=== PATIENT | female | born 1945 | race Caucasian/White ===

== ENCOUNTER 2021-01-20 00:55 | Observation (INO) | payer MEDICARE, OTHER, SELFPAY ==
[2021-01-20] VITALS (15 sets, daily range): BP systolic 102–195; BP diastolic 67–99; PULSE 80–97; RESP 16–18; TEMP 36.5–37.8; O2SAT 93–96; BMI 22.8
--- NOTE | 2021-01-20 01:02 | DI.RAD.S_ITS ---
PROCEDURE: XR HIP W PEL IF DONE RT 2V INDICATIONS: fall pain TECHNIQUE: AP pelvis with lateral view(s) of the right hip(s). COMPARISON: None. FINDINGS: Bones: Age indeterminate right pubic ramus fracture. No other fractures or dislocations identified. Moderate bilateral hip degenerative change. Pelvic ring appears intact. No suspicious bony lesions. Soft tissues: The visualized bowel gas pattern is normal. No suspicious soft tissue calcifications. IMPRESSION: Age indeterminate right pubic ramus fracture. Moderate bilateral hip degenerative change. If clinical suspicion and/or symptoms persist, further assessment with repeat plain films, or advanced imaging (e.g., CT, MRI, or bone scan) may be helpful for further assessment. Dictated by: John Pan M.D. on 01/20/2021 at 1:16 Approved by: John Pan M.D. on 01/20/2021 at 1:18
--- NOTE | 2021-01-20 01:32 | DI.CT.S_ITS ---
PROCEDURE: CT PEL WO CON INDICATIONS: right hip pain, pubic rami fracture TECHNIQUE: Noncontrast 3 mm axial sections acquired through the bony pelvis, with coronal and sagittal reformatting. COMPARISON: [facility], CR, XR HIP W PEL IF DONE RT 2V, 01/20/2021, 1:04. FINDINGS: Image quality: Excellent. Bones: Right symphysis pubis fracture. No other fractures or dislocations identified. No right hip fracture. Moderate bilateral hip degenerative arthritis. Lower lumbar fusion. Soft tissues: Uterus is surgically absent. Bilateral fat containing inguinal hernias. No soft tissue hematomas. IMPRESSION: 1. Acute right symphysis pubis fracture. 2. No fracture of the right hip. Dictated by: John Pan M.D. on 01/20/2021 at 1:49 Approved by: John Pan M.D. on 01/20/2021 at 1:51
[2021-01-20] MEDS: MORPHINE 4 MG/ML INJ SUBCUT (01:52)
--- NOTE | 2021-01-20 01:53 | ED_ITS ---
HPI - Fall General Chief Complaint: Fall Stated Complaint: GLF Time Seen by Provider: 01/20/21 01:02 Source: patient and EMS Mode of arrival: EMS History of Present Illness HPI Narrative: Patient is a 75-year-old female history of multiple sclerosis presenting today after ground level fall. Says she was up in the bathroom getting something out from under the sink when she fell onto her right side. She did not hit her head or lose consciousness. She is unable to stand up. She is not on any antiplatelet or anticoagulation medication. No numbness tingling or weakness. Related Data Allergies Allergy/AdvReac Type Severity Reaction Status Date / Time No Known Drug Allergies Allergy Verified 01/20/21 01:02 Review of Systems Review of Systems Narrative: GENERAL: Denies chills,fever HEENT: Denies throat pain RESPIRATORY: Denies dyspnea, cough, wheezing CARDIOVASCULAR: Denies chest pain, palpitations GASTROINTESTINAL: Denies nausea, vomiting MUSCULOSKELETAL: Denies extremity pain, injury SKIN: No rash, no laceration, no pruritus NEUROLOGIC: Denies weakness, dizziness, headache, numbness 8 point review of systems is negative except for those stated above and HPI Patient History Social History Smoking Status: Never smoker Smoking Status: Never smoker alcohol intake frequency: holidays/special occasions only Substance Use Type: does not use Exam Initial Vital Signs Initial Vital Signs: Vital Signs Blood Pressure 195/99 H 01/20/21 00:54 GENERAL: Alert well-appearing 75 year female HEENT: Head atraumatic,EOMI, pupils reactive, face symmetric, [moist] mucous membranes CARDIOVASCULAR: Regular rate and rhythm without murmurs, rubs or gallops. RESPIRATORY: Breath sounds equal bilaterally, no wheezes rales or rhonchi. EXTREMITIES: Normal range of motion, no clubbing or edema. Neurovascularly intact Pelvis is stable, pain right hip. Both knees are bad and no obvious shortening of right leg distal pedal pulses intact. She does have prior injury to her right knee small abrasion minimal erythema flexion extension of knee within normal limits. NEUROLOGICAL: Alert and oriented x4. SKIN: Warm, dry, no laceration, no petechiae, no rashes or lesions. Course Orders Ordered: ED Orders 01/20/21 01:02 XR hip w pel if done RT 2V Stat 01/20/21 01:32 CT pelvis wo con Stat 01/20/21 03:35 CBC Auto Diff [Complete Blood Count AUTO DIFF] Stat CMP [Comprehensive Metabolic Panel] Stat Acetaminophen (Acetaminophen 325 Mg Tablet) 650 mg PO Q6HR PRN PRN Reason: Fever/Mild Pain (1-3) Bisacodyl (Bisacodyl 10 Mg Supp) 10 mg VT DAILY PRN PRN Reason: Constipation Docusate Sodium (Docusate 100 Mg Capsule) 100 mg PO BID [facility] Enoxaparin Sodium (Enoxaparin 40 Mg/0.4 Ml Syringe) 40 mg SUBCUT DAILY FREYA Gabapentin (Gabapentin 600 Mg Tablet) 600 mg PO TID FREYA Hydromorphone HCl (Hydromorphone 0.5 Mg Inj) 0.5 mg IV Q6H PRN PRN Reason: Pain, Moderate (4-6) Ketorolac Tromethamine (Ketorolac 30 Mg/Ml Vial) 30 mg IV Q6HR PRN PRN Reason: Pain, Severe (7-10) Stop: 01/25/21 03:48 Naloxone HCl (Naloxone 0.4 Mg/Ml Vial) 0.2 mg IV Q2MIN PRN PRN Reason: Opiate Reversal Ondansetron HCl (Ondansetron 4 Mg/2 Ml Inj) 4 mg IV Q8HR PRN PRN Reason: Nausea And Vomiting Oxycodone HCl (Oxycodone Ir 5 Mg Tablet) 5 mg PO Q6HR PRN PRN Reason: Pain, Moderate (4-6) Discontinued Medications Morphine Sulfate (Morphine 2 Mg/Ml Inj) 2 mg IV NOW ONE Stop: 01/20/21 01:03 Last Admin: 01/20/21 01:43 Dose: Not Given Documented by: KARINA Morphine Sulfate (Morphine 4 Mg/Ml Inj) 4 mg SUBCUT NOW ONE Stop: 01/20/21 01:33 Last Admin: 01/20/21 01:52 Dose: 4 mg Documented by: KARINA Vital Signs Vital signs: Vital Signs - 8 hr 01/20/21 00:54 01/20/21 00:55 01/20/21 00:57 Temperature 98 F Pulse Rate 91 H 90 Respiratory Rate 18 Blood Pressure 195/99 H 195/99 H Pulse Oximetry 95 95 01/20/21 01:00 01/20/21 01:30 01/20/21 01:50 Temperature Pulse Rate 89 90 86 Respiratory Rate Blood Pressure 142/86 H Pulse Oximetry 95 94 93 01/20/21 03:10 Temperature Pulse Rate 80 Respiratory Rate 16 Blood Pressure 140/80 Pulse Oximetry 95 MDM - Fall Lab Data Result diagrams: 01/20/21 03:35 01/20/21 03:[address] scan - abdomen/pelvis: Radiologist's Impression: PROCEDURE:? CT PEL WO CON ? INDICATIONS:? right hip pain, pubic rami fracture ? TECHNIQUE:? Noncontrast 3 mm axial sections acquired through the bony pelvis, with coronal and sagittal reformatting.? ? COMPARISON:? [facility], , XR HIP W PEL IF DONE RT 2V, 01/20/2021, 1:04. ? FINDINGS:? Image quality:? Excellent.? ? Bones:? Right symphysis pubis fracture.? No other fractures or dislocations identified.? No right hip fracture.? Moderate bilateral hip degenerative arthritis.? Lower lumbar fusion. ? Soft tissues:? Uterus is surgically absent.? Bilateral fat containing inguinal hernias.? No soft tissue hematomas. ? ? IMPRESSION:? ? 1. Acute right symphysis pubis fracture. ? 2. No fracture of the right hip.? Dictated by: John Pan M.D. on 01/20/2021 at 1:49 ? ? Approved by: John Pan M.D. on 01/20/2021 at 1:51 ? Extremity x-ray #1: Radiologist's Impression: PROCEDURE:? XR HIP W PEL IF DONE RT 2V ? INDICATIONS:? fall pain ? TECHNIQUE:? AP pelvis with lateral view(s) of the right hip(s).? ? COMPARISON:? None. ? FINDINGS:? ? Bones:? Age indeterminate right pubic ramus fracture.? No other fractures or dislocations identified.? Moderate bilateral hip degenerative change.? Pelvic ring appears intact.? No suspicious bony lesions.? ? Soft tissues:? The visualized bowel gas pattern is normal.? No suspicious soft tissue calcifications.? ? ? IMPRESSION:? Age indeterminate right pubic ramus fracture.? Moderate bilateral hip degenerative change.? ? If clinical suspicion and/or symptoms persist, further assessment with repeat p nanette films, or advanced imaging (e.g., CT, MRI, or bone scan) may be helpful for further assessment. ? Dictated by: John Pan M.D. on 01/20/2021 at 1:16 ? ? MDM Narrative Medical decision making narrative: Patient is found to have an acute pubic rami fracture both on CT and x-ray. Ambulation trial with a walker attempted after subcutaneous morphine. She only made it a few steps and was unable to bear any more weight. She lives alone unsafe discharge. She was quite difficult IV start. [facility] updated on patient's symptoms test results agrees with weight-bearing as tolerated and pain control. Hospitalist , updated on patient's symptoms and test results have Montes except agrees no need for IV but would like blood work Discharge Plan Departure Patient Disposition: Admitted as Observation Clinical Impression: Closed fracture of pubic ramus Admit Date/Time: 01/20/21 03:27 Admit Provider: Sahil Fagan
[2021-01-20 03:57] LABS: Add Manual Diff / Slide Review NO; Basophils Absolute Auto 100 /uL (0-100); Basophils Percent Auto 0.4 % (0-2); Eosinophils Absolute Auto 0 /uL (0-450); Hematocrit 34.4 % (36-46); Hemoglobin 11.4 g/dL (12.0-16.0); Lymphocytes Absolute Auto 700 /uL (1100-4500); Mean Corpuscular Hemoglobin 29.6 PG (26-34); Mean Corpuscular Volume 89.6 fL (80-100); Monocytes Absolute Auto 800 /uL (0-900); Monocytes Percent Auto 5.4 % (3-14); Neutrophils Absolute Auto 13200 /uL (1500-7000); Neutrophils Percent Auto 89.2 % (50-75); Platelet Count 231 X10^3/uL (150-400); Red Blood Cell Count 3.84 X10^6/uL (4.0-5.2); Red Cell Distribution Width 14.2 % (11.6-14.8); White Blood Cell Count 14.8 X10^3/uL (4.5-11.0)
[2021-01-20 04:00] LABS: Alanine Aminotransferase 20 IU/L (<35); Albumin Globulin Ratio 1.5 (1.0-2.8); Alkaline Phosphatase 72 U/L (38-126); Aspartate Aminotransferase 32 IU/L (14-36); BUN Creatinine Ratio 26.2 (6-22); Bilirubin Total 0.7 mg/dL (0.2-1.3); Blood Urea Nitrogen 16 mg/dL (7-17); Calcium 8.6 mg/dL (8.4-10.2); Carbon Dioxide 24 mmol/L (22-32); Chloride 100 mmol/L (98-107); Estimated Glomerular Filt Rate > 60.0 mL/min (>60); Globulin 2.7 g/dL (1.7-4.1); Glucose 133 mg/dL (80-110); HEMOLYSIS < 15 (0-50); Potassium 3.2 mmol/L (3.4-5.1); Sodium 133 mmol/L (137-145); Total Protein 6.7 g/dL (6.3-8.2)
--- NOTE | 2021-01-20 04:00 | PM.HP.1 ---
History of Present Illness History of Present Illness Date Patient Seen: 01/20/21 Time Patient Seen: 03:30 Chief complaint: GLF Narrative: Ms. Disla is a 75W with PMH multiple sclerosis and HTN who presents after a fall. She states at baseline she has difficulty with turning. Tonight around 11pm she was in bathroom and turning and lost her balance and fell on her right side. She had right sided low back pain/hip pain. She was unable to walk. She had no dizziness, lightheadedness, chest pain, shortness of breath. No head strike, no loss of consciousness. In the ED workup was done, vitals notable for elevated blood pressure. Labs notable for WBC of 14.8, hgb 11.4, Na 133, creatinine 0.61. Pelvic CT shows acute right pubic symphysis fracture. She was given pain medications. Ambulation was attempted in ED, but she could not ambulate secondary to pain. She was admitted for further treatment. Family history: multiple siblings with atrial fibrillation Medications: naltrexone, amlodipine 5mg daily, gabapentin 600mg TID Patient History Family & Social History Safety & Behavioral: Feels Safe in Current Yes Environment Tobacco & Substance use: Smoking Status Never smoker alcohol intake frequency holiday/special occasion Substance Use Type does not use Meds Home Medications and Allergies Allergies Allergy/AdvReac Type Severity Reaction Status Date / Time No Known Drug Allergies Allergy Verified 01/20/21 01:02 Review of Systems Review of Systems Narrative: 14 systems reviewed and negative aside from what is noted in HPI Exam Vital Signs (past 8 hours): - 01/20/21 00:54 01/20/21 00:55 01/20/21 00:57 Temperature 98 F Pulse Rate 91 H 90 Respiratory Rate 18 Blood Pressure 195/99 H 195/99 H Pulse Oximetry 95 95 01/20/21 01:00 01/20/21 01:30 01/20/21 01:50 Temperature Pulse Rate 89 90 86 Respiratory Rate Blood Pressure 142/86 H Pulse Oximetry 95 94 93 01/20/21 03:10 Temperature Pulse Rate 80 Respiratory Rate 16 Blood Pressure 140/80 Pulse Oximetry 95 Oxygen Delivery Method Room Air Narrative Exam Narrative: GEN: no acute distress HEENT: moist mucous membranes, PERRL NECK: trachea midline, no JVD CV: regular rate and rhythm, no murmurs PULM: clear bilaterally ABD: soft, nontender, nondistended, no organomegaly EXT: warm and well perfused with no edema NEURO: awake, alert, oriented, no focal deficits PSYCH: pleasant, cooperative Objective Labs Result Diagrams: 01/20/21 03:35 01/20/21 03:35 Labs: Laboratory Results - last 24 hr 01/20/21 03:35 WBC 14.8 H RBC 3.84 L Hgb 11.4 L Hct 34.4 L MCV 89.6 MCH 29.6 MCHC 33.0 RDW 14.2 Plt Count 231 Neut % (Auto) 89.2 H Lymph % (Auto) 5.0 L [place] % (Auto) 5.4 Eos % (Auto) 0.0 L Baso % (Auto) 0.4 Neut # (Auto) 20768 H Lymph # (Auto) 700 L [place] # (Auto) 800 Eos # (Auto) 0 Baso # (Auto) 100 Assessment & Plan Assessment & Plan narrative: Ms. Disla is a 75W with PMH multiple sclerosis, HTN who presents after a fall found to have a pelvic fracture. 1. Acute pelvic fracture -per orthopedic surgery no surgical intervention needed, recommend pain control and weight bearing as tolerated -ordered for PRN tylenol, oxycodone, dilaudid -ordered for bowel regimen -ordered for PT/OT -continue gabapentin 2. Multiple sclerosis, chronic -patient on naltrexone, can continue 3. Hypertension, chronic -continue amlodipine 4. Leukocytosis -possibly reactive -continue to monitor, no infectious symptoms currently 5. Mild hyponatremia, mild hypokalemia -replete PRN 6. Anemia, mild -trend daily -no need for transfusion CODE: Full Proxy: Brinda Bonilla, Daughter I have utilized all available immediate resources to obtain, update, or review of the patient's current medications Time Spent With Patient Critical Care time: I spent a total of [] minutes of critical care time on this patient's care today; this time is exclusive of procedural time. Quality MIPS - Admit I confirm the patient?s Advance Care Plan is present, Code status is documented, Surrogate decision maker is in patient?s record [If Yes, STOP here]: Yes
[2021-01-20 05:08] LABS: COVID19 - ADMIT (NP swab/PCR) Negative (Negative)
--- NOTE | 2021-01-20 05:21 | PC.NURSE ---
Pt to room 209 via stretcher-transferred into bed via slider board. Pt incontinent of urine (chronic) -brief changed and barrier cream applied. Pt oriented to room, call light, bed controls, and tv controls. Bed alarm on for safety. Warm blankets for comfort. Pt denies needs at this time and agrees to call for assistance as needed and to not get out of bed without staff assistance.
[2021-01-20] MEDS: FLUoxetine 20 MG CAPSULE PO ×3 (08:12→21:22)
[2021-01-20] MEDS: AMLODIPINE 5 MG TABLET 2.5 MG PO (08:12)
[2021-01-20] MEDS: ACETAMINOPHEN 325 MG TABLET 650 MG PO ×3 (08:12→21:22)
[2021-01-20] MEDS: DOCUSATE 100 MG CAPSULE PO ×2 (08:12→21:22)
[2021-01-20] MEDS: POTASSIUM CHLORIDE 20 MEQ TAB 40 MEQ PO ×2 (08:12→14:25)
[2021-01-20] MEDS: GABAPENTIN 600 MG TABLET PO ×3 (08:12→21:22)
[2021-01-20] MEDS: ENOXAPARIN 40 MG/0.4 ML SYRINGE SUBCUT (08:13)
[2021-01-20] MEDS: ONDANSETRON 4 MG ODT SL (08:28)
--- NOTE | 2021-01-20 10:41 | DI.RAD.S_ITS ---
PROCEDURE: XR KNEE RT 3V INDICATIONS: Swelling bruising TECHNIQUE: 3 views of the knee were acquired. COMPARISON: [facility], CR, XR HIP W PEL IF DONE RT 2V, 01/20/2021, 1:04. [facility], CT, CT PEL WO CON, 01/20/2021, 1:41. FINDINGS: Bones: No fractures or dislocations. No suspicious bony lesions. Age-appropriate bony degenerative changes are seen. Soft tissues: Mild soft tissue swelling is seen anteriorly. No joint effusion. No suspicious soft tissue calcifications. IMPRESSION: Anterior soft tissue swelling, without an acute abnormality seen by plain film. Dictated by: Kenny Hartman M.D. on 01/20/2021 at 11:23 Approved by: Kenny Hartman M.D. on 01/20/2021 at 11:24
--- NOTE | 2021-01-20 10:41 | P.CONS_ITS ---
History of Present Illness Consult details Date Patient Seen: 01/20/21 Time Patient Seen: 10:42 Chief complaint: GLF Reason for consult: Pubic rami fracture, right Requesting provider: Clara Mark Narrative: The patient is a 75-year-old female that sustained a ground level fall last night as she was getting up to the restroom. Endorsed immediate pain posteriorly around her right hip and pelvis. She was brought [facility] ER x-rays were taken and demonstrated a superior pubic rami fracture on the right side. No other fractures were identified. She failed attempts for mobilization in the ER and was admitted to the hospital for therapy and possible placement. Also complains of knee pain. States normally ambulates with a cane or a walker Meds Home Medications and Allergies Home Medications Medication Instructions Recorded Confirmed Type amlodipine 2.5 mg tablet 2.5 mg PO DAILY 01/20/21 01/20/21 History fluoxetine 20 mg capsule 20 mg PO TID 01/20/21 01/20/21 History gabapentin 600 mg tablet 600 mg PO TID 01/20/21 01/20/21 History naltrexone 3.5 mg PO BEDTIME 01/20/21 01/20/21 History ondansetron 4 mg disintegrating 4 mg PO PRN PRN 01/20/21 01/20/21 History tablet temazepam 15 mg capsule 15 mg PO PRN PRN 01/20/21 01/20/21 History Allergies Allergy/AdvReac Type Severity Reaction Status Date / Time No Known Drug Allergies Allergy Verified 01/20/21 01:02 Review of Systems Review of Systems Narrative: No fevers chills nausea vomiting no known history of osteoporosis or prior insufficiency fractures. Endorses right hip and right knee pain Exam Vital Signs (past 8 hours): - 01/20/21 03:10 01/20/21 04:10 01/20/21 04:33 Temperature 100.1 F H Pulse Rate 80 85 Respiratory Rate 16 16 Blood Pressure 140/80 154/72 H Pulse Oximetry 95 96 96 01/20/21 07:55 Temperature 98.9 F Pulse Rate 97 H Respiratory Rate 18 Blood Pressure 132/78 Pulse Oximetry 96 Oxygen Delivery Method Room Air Oxygen Flow Rate 0 Narrative Exam Narrative: Alert oriented female no acute distress lying in bed. Moves bilateral upper extremities without limitation. HEENT normocephalic atraumatic. Lungs clear to auscultation bilaterally. Heart regular rate. Abdomen is soft. Endorses tenderness to palpation posteriorly around the right hip. Pelvis stable to rock. Thigh is soft. There is a swelling anteriorly at the right knee with ecchymosis and a small anterior abrasion with a Band-Aid. Calf is soft. Demonstrates dorsiflexion plantar flexion. Palpable dorsalis pedis pulse Objective Imaging CT abdomen pelvis: My impression: Acute right superior pubic rami fracture Radiologist's impression: Acute right superior pubic rami fracture Labs Result Diagrams: 01/20/21 03:35 01/20/21 03:35 Labs: Laboratory Results - last 24 hr 01/20/21 01/20/21 01/20/21 03:35 03:35 03:45 WBC 14.8 H RBC 3.84 L Hgb 11.4 L Hct 34.4 L MCV 89.6 MCH 29.6 MCHC 33.0 RDW 14.2 Plt Count 231 Neut % (Auto) 89.2 H Lymph % (Auto) 5.0 L [place] % (Auto) 5.4 Eos % (Auto) 0.0 L Baso % (Auto) 0.4 Neut # (Auto) 57810 H Lymph # (Auto) 700 L [place] # (Auto) 800 Eos # (Auto) 0 Baso # (Auto) 100 Sodium 133 L Potassium 3.2 L Chloride 100 Carbon Dioxide 24 BUN 16 Creatinine 0.61 Estimated GFR > 60.0 BUN/Creatinine Ratio 26.2 H Glucose 133 H Calcium 8.6 Total Bilirubin 0.7 AST 32 ALT 20 Alkaline Phosphatase 72 Total Protein 6.7 Albumin 4.0 Globulin 2.7 Albumin/Globulin Ratio 1.5 SARS-CoV-2 (PCR) Negative [facility] Medical History (Updated 01/20/21 @ 05:15 by Kasey Wilkinson RN) Cataract Depression Hammertoes of both feet Hypertension Multiple sclerosis (~1975) Oral pain Surgical History (Updated 01/20/21 @ 05:14 by Kasey Wilkinson RN) History of shoulder surgery Previous back surgery Status post laser cataract surgery of both eyes Social History household members: none Tobacco & Substance Use Smoking Status: Never smoker Assessment & Plan Assessment and plan (1) Closed fracture of pubic ramus: Status: Acute Plan The patient has a right superior ramus fracture this is a non operative fracture. Weightbear as tolerated with assistive devices. Patient also has pain swelling and ecchymosis at her knee. This was not imaged in the ER. She requires knee x-rays. These have been ordered. Assessment & Plan narrative: Weightbear as tolerated as far as the pubic rami fracture is considered. Will need to follow up on ordered imaging of the knee to assess for any significant injury COVID-19 COVID-19 status: Negative Time Spent With Patient Time with patient: less than 30 minutes Critical Care time: I spent a total of [] minutes of critical care time on this patient's care today; this time is exclusive of procedural time.
--- NOTE | 2021-01-20 13:54 | PT.IIE ---
Current Diagnoses Other specified fracture of unspecified pubis, initial encounter for closed fracture (01/20/21) Medical History (Last Updated 01/20/21 @ 05:15 by Kasey Wilkinson RN) Cataract Depression Hammertoes of both feet Hypertension Multiple sclerosis (~1975) Oral pain Physical Therapy Inpatient Evaluation/Re-Eval M1 PT/OT-IP Prior Functional Status Start: 01/20/21 08:27 Freq: Status: Active Protocol: Document 01/20/21 12:35 MB (Rec: 01/20/21 13:50 MB [id number]) Medical Review Prior Functional Status Medical History Reviewed Yes Diet/Fluid Consistency Regular Communication WNLs Mobility and Gait Mod I with rollator, history of falls and fractures, at least three in five years and one this year Activities of Daily Living and IADL's Mod I, uses rollator to carry purse and other objects Prior Functional Level (Other details) Pt lives in Living at [facility] Social History Household Members none Living Arrangements Residential Facility Number of Floors (Floors) One Floor Number of Stairs To Enter/Railing? 0 Home Environment Walk in Shower,Built-In Shower Seat,Ramp,Elevator Home Equipment Four Wheel Walker,Hand Held Shower,Grab Bars Near Toilet, Grab Bars In Shower Employment Status Retired M2 PT-IP Current Condition Start: 01/20/21 08:27 Freq: Status: Active Protocol: Document 01/20/21 12:35 MB (Rec: 01/20/21 13:50 MB [id number]) Physical Therapy Current Condition Current Condition Evaluation Date 01/20/21 Treatment Diagnosis Decreased gait and mobility after right pubic ramus fracture Onset Date 01/19/21 M3 PT-IP Subjective Start: 01/20/21 08:27 Freq: Status: Active Protocol: Document 01/20/21 12:35 MB (Rec: 01/20/21 13:50 MB [id number]) Subjective Physical Therapy Visit Type Type Initial Evaluation Visit Start Time 12:35 Visit Stop Time 13:17 Total Visit Minutes 42 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 Therapy Pain Assessment Pain When Pain Assessed During Mobility Pain Present Pain Present Pain Reported Location Right Hip Intensity 8 Scale Used Numeric (0 - 10) Description Acute Pain Behaviors Calling Out,Facial Grimacing, Guarding,Holding Area Pain Management Techniques Modification of Treatment,Re- positioning M4 PT-IP Mobility and Gait Start: 01/20/21 08:27 Freq: Status: Active Protocol: Document 01/20/21 12:35 MB (Rec: 01/20/21 13:50 MB [id number]) PT-Bed Mobility Assessment Rolling Type of Rolling Roll to Right Level of Assist Maximal Assistance,1 Person Assistance Supine to Sit Supine to Sit Maximum Assistance,1 Person Assistance,Head of Bed Elevated,Bedrails Scooting Scooting to Edge of Bed Maximum Assistance PT-Transfer Assessment Sit to and From Stand Sit to and from Stand Moderate Assistance Equipment Transfer Assistive Device Gait Belt,Front Wheeled Walker Orthotic/Prosthetic Devices or Brace: No Transfers Transfer Destination Bedside Commode Transfer Technique Stand Step Pivot Transfer Ability Level of Assist Moderate Assistance,1 Person Assistance,Use of Upper Extremities Comments Mobility Comments Comment for pain: Pt states that she takes a medication for her MS that does not allow her to take opioids. She can only take Tylenol or a NSAID and typically takes Tylenol and cannot take anymore for 2 more hours. Mobility comments: Pt makes a good effort to try to roll to the right and scoot out to EOB but sharp right groin pain stops her. PT cues for pt to hook left foot under her right calf and she is able to scoot the right leg out to the right with this technique and heavy use of rails to help this--both hands on right rail and PT raises HOB. PT finally has to use pad to scoot pt's left hip out to EOB and to assist her to getting to sitting EOB. She has a lot of pain with this movement that settles down at rest. Adult diaper is soiled and PT assists pt to BSC with RW in front and cues to push up from the bed. She requires mod A for sit to stand and max A to help move the walker to take 3 scooting steps to the left to BSC. PT must doff adult diaper and assists pt to BSC. PT calls in [employer] who then takes over care. Gait Assessment Comments Gait Comments Pt could not tolerate picking up her left foot d/t pain with WB through right pelvis for proper stepping today PT-Balance Assessment Sitting Balance and Reactions Static Sitting Balance Ability Poor Dynamic Sitting Balance Ability Poor Standing Balance and Reactions Static Standing Balance Ability Poor Dynamic Standing Balance Ability Poor Device Used RW Comments Other Balance Tests/Deviations/Treatment Heavy UE support on bed for : sitting statically and dynamically and on RW for standing today d/t increased pain with right LE WB M5 PT-IP Objective Assessments Start: 01/20/21 08:27 Freq: Status: Active Protocol: Document 01/20/21 12:35 MB (Rec: 01/20/21 13:50 MB [id number]) Orientation Orientation/Cognition Level of Alertness Alert Orientation Name,Age,Birthday,Month,Day of Week,Place,Situation Language Function Ability No Deficits Noted Safety Awareness Decreased Safety Awareness Memory Description No Deficits Noted Comments Pt states that she knows she is at increased risk for falls given fall history and that she needs a life alert button that she can wear into the shower given history of fall in the shower when her non- waterproof life alert was off that required her to drag herself to her walker and cell phone yet she still does not have a waterproof life alert. In other words, she has had at least 3-4 bad falls in the past 5 years that caused 2 right shoulder injuries and instrumentation and one left clavicular fracture and now a right pubic ramus fracture and she has not done anything differently really. This makes her have decreased safety awareness. Gross Range of Motion Upper Extremity ROM Impairments Arm range is functional on both sides and she does have end-range shoulder flexion limitations d/t Lower Extremity ROM Impairments Right LE is edematous with rising ecchymosis over right knee cap and abrasion. Right knee x-ray is negative. Her distal extremity is edemtous and her functional range is limited. No tested ROM or MMT either leg d/t pubic ramus fracture. Pt does state that her right LE tends to be weaker from MS and she has always fallen to the right Strength Comments Strength Comments See comments under ROM. RLE is weaker functionally M6 PT-IP Treatment Start: 01/20/21 08:27 Freq: Status: Active Protocol: Document 01/20/21 12:35 MB (Rec: 01/20/21 13:50 MB [id number]) Physical Therapy Treatment Education Education Provided Weight Bearing Status,Safety M7 PT-IP Assessment and Plan Start: 01/20/21 08:27 Freq: Status: Active Protocol: Document 01/20/21 12:35 MB (Rec: 01/20/21 13:50 MB [id number]) PT Summary Assessment and Plan Potential Rehabilitation Potential Fair Status of Condition at Evaluation Evolving Summary Impairments Pain,ROM,Strength,Balance,Bed Mobility,Transfers,Gait, Activity Tolerance Assessment Summary Pt is a 75 y/o female with history of MS, multiple falls in 5 years that have caused orthopedic injuries to right shoulder x2, left shoulder x1 and now right pubic ramus fracture. Despited knowing her limitations such as that her right LE is always weaker and reporting that she knows she needs a waterproof life alert button after having had a fall in the shower and having to drag herself out to her rollator and purse and cell phone when she was in her apartment in [place], she con't to fall to the right and not have a waterproof life alert button. Pt is alert and very communicative and pleasant but the history of falls with orthopedic injuries is concerning for future falling and injury. She recently moved to [facility] from [place]. She fell when going to the right (as she has done in the past) when in the bathroom. On assessment, she requires heavy assist for bed mobility and transfer to commode. She had been incontinent of stool in adult diaper and did not know it. Overall, she currently requires heavy assist for all mobility. Recommend SNF at d/c and 24 hour assist. Treatment during evaluation includes therapeutic activity for assist for mobility to commode and initiating hygiene with max to dependent assist as well as education about need for 24 hour assist and PT at SNF level at this time and need for waterproof life alert to be worn at all times, including bathing, when she does return home. Goals Bed Mobility Goal Independent Transfer Goal Independent Gait Goal Contact Guard Assistance Gait Distance 50 Frequency of Treatment Frequency Of Treatment Once a Day Treatment Plan Physical Therapy Treatment Plan Bed Mobility Training,Transfer Training,Gait Training, Therapeutic Exercise,Balance Retraining,Discharge Planning, Hot or Cold Pack,Neuromuscular Re-ed,Coordination Retraining ,Manual Therapy Weight Bearing Status Weight Bearing Status Weight Bear as Tolerated Recommendations To Nursing Amount of Assist Needed 2 Person Assist,Total Assistance Discharge Recommendations PT Discharge Recommendations SNF Rehab Transportation Needs at Discharge Wheelchair/Cabulance
[2021-01-21] MEDS: ACETAMINOPHEN 325 MG TABLET 650 MG PO ×2 (04:54→12:34)
[2021-01-21 05:00] VITALS: BP 145/73; PULSE 85; RESP 12; TEMP 36.9; O2SAT 95
[2021-01-21 06:54] LABS: Add Manual Diff / Slide Review NO; Basophils Absolute Auto 0 /uL (0-100); Basophils Percent Auto 0.5 % (0-2); Eosinophils Absolute Auto 400 /uL (0-450); Eosinophils Percent Auto 3.7 % (2-4); Hematocrit 32.4 % (36-46); Hemoglobin 10.9 g/dL (12.0-16.0); Lymphocytes Absolute Auto 1400 /uL (1100-4500); Mean Corpuscular HGB Conc 33.7 % (30-36); Mean Corpuscular Hemoglobin 30.4 PG (26-34); Mean Corpuscular Volume 90.3 fL (80-100); Monocytes Absolute Auto 800 /uL (0-900); Monocytes Percent Auto 8.3 % (3-14); Neutrophils Absolute Auto 7100 /uL (1500-7000); Neutrophils Percent Auto 73.5 % (50-75); Platelet Count 204 X10^3/uL (150-400); Red Blood Cell Count 3.59 X10^6/uL (4.0-5.2); Red Cell Distribution Width 14.2 % (11.6-14.8); White Blood Cell Count 9.7 X10^3/uL (4.5-11.0)
[2021-01-21 07:09] LABS: Alanine Aminotransferase 60 IU/L (<35); Albumin 3.4 g/dL (3.5-5.0); Albumin Globulin Ratio 1.4 (1.0-2.8); Alkaline Phosphatase 78 U/L (38-126); Aspartate Aminotransferase 98 IU/L (14-36); BUN Creatinine Ratio 21.9 (6-22); Bilirubin Total 0.7 mg/dL (0.2-1.3); Blood Urea Nitrogen 14 mg/dL (7-17); Calcium 8.7 mg/dL (8.4-10.2); Carbon Dioxide 24 mmol/L (22-32); Chloride 102 mmol/L (98-107); Estimated Glomerular Filt Rate > 60.0 mL/min (>60); Globulin 2.5 g/dL (1.7-4.1); Glucose 103 mg/dL (80-110); HEMOLYSIS < 15 (0-50); Phosphorous 2.4 mg/dL (2.8-4.1); Potassium 4.4 mmol/L (3.4-5.1); Sodium 134 mmol/L (137-145); Total Protein 5.9 g/dL (6.3-8.2)
--- NOTE | 2021-01-21 07:42 | PM.PN.1 ---
Subjective Subjective Date Patient Seen: 01/21/21 Time Patient Seen: 07:43 Interval history: Patient is complaining of [id number] pain. She is using oral Tylenol as needed. She is up and working with physical therapy. She would like to avoid narcotic pain medications as they potentiallyinteract with her MS meds. Exam Vital Signs (past 8 hours): - 01/21/21 05:00 Temperature 98.5 F Pulse Rate 85 Respiratory Rate 12 Blood Pressure 145/73 H Pulse Oximetry 95 Oxygen Delivery Method Room Air Oxygen Flow Rate 0 Narrative Exam Narrative: Pleasant 75-year-old female, resting comfortably in bed, no acute distress. Bilateral lower extremity motor function is grossly intact, sensation is grossly intact to light touch. Bilateral calves are soft, nontender to palpation. Objective Labs Result Diagrams: 01/21/21 06:25 01/21/21 06:25 Labs: Laboratory Results - last 24 hr 01/21/21 01/21/21 06:25 06:25 WBC 9.7 RBC 3.59 L Hgb 10.9 L Hct 32.4 L MCV 90.3 MCH 30.4 MCHC 33.7 RDW 14.2 Plt Count 204 Neut % (Auto) 73.5 Lymph % (Auto) 14.0 L Bollinger % (Auto) 8.3 Eos % (Auto) 3.7 Baso % (Auto) 0.5 Neut # (Auto) 7100 H Lymph # (Auto) 1400 Bollinger # (Auto) 800 Eos # (Auto) 400 Baso # (Auto) 0 Sodium 134 L Potassium 4.4 D Chloride 102 Carbon Dioxide 24 BUN 14 Creatinine 0.64 Estimated GFR > 60.0 BUN/Creatinine Ratio 21.9 Glucose 103 Calcium 8.7 Phosphorus 2.4 L Total Bilirubin 0.7 AST 98 H ALT 60 H Alkaline Phosphatase 78 Total Protein 5.9 L Albumin 3.4 L Globulin 2.5 Albumin/Globulin Ratio 1.4 PFSH Medical History Cataract Depression Hammertoes of both feet Hypertension Multiple sclerosis (~1975) Oral pain Surgical History History of shoulder surgery Previous back surgery Status post laser cataract surgery of both eyes Social History household members: none Smoking Status: Never smoker Assessment & Plan Assessment & Plan narrative: The patient has a right superior ramus fracture this is a non operative fracture.? -mobilize with PT, Weightbear as tolerated with assistive devices. -add meloxicam for pain control. We discussed the risks benefits of using an NSAID with Lovenox. She would like to avoid narcotic pain meds because she is worried about going into an MS relapse. -patient would like to be DC back to her facility if there is nursing care available. Otherwise we will need to discuss SNF versus home DC Time Spent With Patient Critical Care time: I spent a total of [] minutes of critical care time on this patient's care today; this time is exclusive of procedural time. Quality VTE Deep Vein Thrombosis/Pulmonary Embolism Present on Admission: No
[2021-01-21] MEDS: FLUoxetine 20 MG CAPSULE PO ×2 (08:31→14:49)
[2021-01-21] MEDS: AMLODIPINE 5 MG TABLET 2.5 MG PO (08:31)
[2021-01-21] MEDS: DOCUSATE 100 MG CAPSULE PO (08:31)
[2021-01-21] MEDS: GABAPENTIN 600 MG TABLET PO ×2 (08:31→14:49)
[2021-01-21] MEDS: MELOXICAM 7.5 MG TABLET PO (08:34)
[2021-01-21] MEDS: ENOXAPARIN 40 MG/0.4 ML SYRINGE SUBCUT (08:36)
[2021-01-21 09:15] VITALS: O2SAT 95
[2021-01-21 09:57] VITALS: BP 144/77; PULSE 88; RESP 12; TEMP 37.1; O2SAT 96
[2021-01-21] MEDS: SODIUM,POTASSIUM PHOSPHATES PACKET 2 EACH PO (11:59)
--- NOTE | 2021-01-21 12:15 | OT.IP.EVAL ---
Current Diagnoses Other specified fracture of unspecified pubis, initial encounter for closed fracture (01/20/21) Past Medical History (Last Reviewed 01/21/21 @ 12:28 by Ignacia Pérez PA-C) Cataract Depression Hammertoes of both feet History of shoulder surgery Hypertension Multiple sclerosis (~1975) Oral pain Previous back surgery Status post laser cataract surgery of both eyes Surgical History (Last Reviewed 01/21/21 @ 12:28 by Ignacia Pérez PA-C) History of shoulder surgery Previous back surgery Status post laser cataract surgery of both eyes Occupational Therapy Inpatient Evaluation/Re-Eval M1 PT/OT-IP Prior Functional Status Start: 01/20/21 08:27 Freq: Status: Active Protocol: Document 01/21/21 12:00 [facility] (Rec: 01/21/21 12:44 [facility] [id number]) Medical Review Prior Functional Status Medical History Reviewed Yes Diet/Fluid Consistency Regular Communication WNLs Mobility and Gait Mod I with rollator, history of falls and fractures, at least three in five years and one this year Activities of Daily Living and IADL's Mod I, uses rollator to carry purse and other objects Prior Functional Level (Other details) Pt lives in Living at [facility] Social History Household Members none Living Arrangements Shelter Facility Number of Floors (Floors) One Floor Number of Stairs To Enter/Railing? 0 Home Environment Walk in Shower,Built-In Shower Seat,Ramp,Elevator Home Equipment Four Wheel Walker,Hand Held Shower,Grab Bars Near Toilet, Grab Bars In Shower Employment Status Retired M2 OT-IP Current Condition Start: 01/21/21 12:32 Freq: Status: Active Protocol: Document 01/21/21 12:00 [facility] (Rec: 01/21/21 12:44 [facility] [id number]) Occupational Therapy Current Condition Current Condition Evaluation Date 01/21/21 Treatment Diagnosis Right superior pubic rami fx, decreased mobility. Diagnosis Onset Date 01/20/21 M3 OT- IP Subjective and Pain Start: 01/21/21 12:32 Freq: Status: Active Protocol: Document 01/21/21 12:00 [facility] (Rec: 01/21/21 12:44 [facility] [id number]) OT- Subjective Occupational Therapy Visit Type Type Initial Evaluation Visit Start Time 12:00 Visit Stop Time 12:15 Total Visit Minutes 15 Occupational Therapy Visit Comments Patient Comments Pt agreed to work with OT. Patient/Caregiver Goals To go to skilled rehab prior to going home. OT Pain Assessment Pain When Pain Assessed At Rest Pain Present Pain Present Pain Reported Location Right Hip Intensity 3 Scale Used Numeric (0 - 10) M4 OT- IP ADL's Start: 01/21/21 12:32 Freq: Status: Active Protocol: Document 01/21/21 12:00 [facility] (Rec: 01/21/21 12:44 [facility] [id number]) OT [id number] Comments OT Self-Feeding Comments Not at meal time. OT ADL-Grooming Comments OT Grooming Comments NOt performed. OT ADL-Dressing General Eval Lower Body Dressing Ability Total Assistance Areas Needing Assistance Underpants/Brief. 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 OT ADL-Toileting General Evaluation Toileting Ability Total Assistance Areas Needing Assistance Manage Clothing,Perform Perineal Hygiene Comments OT Toileting Comments Pt MAXA X1 to roll in bed and assist to do all hygiene and brief management needs. OT ADL-Bathing Comments OT Bathing Comments Sponge bathing more appropriate at this time. M5 OT- IP IADL's Start: 01/21/21 12:32 Freq: Status: Active Protocol: Document 01/21/21 12:00 [facility] (Rec: 01/21/21 12:44 [facility] [id number]) OT-Instrumental Activities of Daily Living Home Safety Awareness Awareness of Need for Assistance at Home Good Awareness Ability to Problem Solve Emergency Able to Problem Solve Situations Driving Driving Comments Pt does not drive. M6 OT- IP Functional Cognition Start: 01/21/21 12:32 Freq: Status: Active Protocol: Document 01/21/21 12:00 [facility] (Rec: 01/21/21 12:44 [facility] [id number]) Cognitive Factors Limiting Selfcare Function Cognitive Ability Level of Alertness Alert Patient Orientation Name,Age,Birthday,Month,Date, Year,Day of Week,Place, Situation Ability to Follow Commands Able to Follow One Step Commands Cognitive Comments Cognitive Assessment Comments Pt appears cognitively intact and able to follow commands for mobility needs and good insight to her needs at this time. OT- Vision and Hearing OT- Hearing Assessment OT- Hearing Assessment WFL OT- Vision Assessment Visual Acuity WFL M7 OT- IP Mobility and Balance Start: 01/21/21 12:32 Freq: Status: Active Protocol: Document 01/21/21 12:00 [facility] (Rec: 01/21/21 12:44 [facility] [id number]) OT- Bed Mobility Assessment Rolling Type of Rolling Bilateral Level of Assistance Maximum Assistance,1 Person Assistance,Bedrails OT-Transfer Assessment Comments Mobility Comments MAX X 1 to roll side to side for brief change. Pt not wanting to get up at this time as lunch just coming and looking to go to skilled rehab later. M8 OT- IP Objective Assessments Start: 01/21/21 12:32 Freq: Status: Active Protocol: Document 01/21/21 12:00 [facility] (Rec: 01/21/21 12:44 [facility] [id number]) OT Gross Range of Motion Upper Extremity Range of Motion Assessment Within Functional Limits OT-Muscle Tone Assessment Muscle Tone WNL Yes M9 OT- IP Assessment and Plan Start: 01/21/21 12:32 Freq: Status: Active Protocol: Document 01/21/21 12:00 [facility] (Rec: 01/21/21 12:44 [facility] [id number]) OT Summary Assessment and Plan Potential Rehabilitation Potential Good Analytic Complexity at Evaluation Moderate Summary OT Impairments Pain,Balance,Functional Mobility,Grooming,Dressing, Toileting,Bathing,Toilet Transfers,Shower Transfers, Activity Tolerance Progress Towards Goals Slow Progress due to Pain,Slow Progress due to Medical Issues,Slow Progress due to Activity Tolerance Assessment Summary Pt MOD complexity due to GLF, in addition pt has MS, barriers are pain, and now needing two person extensive assist for ADl needs. Pt looking to go to skilled rehab prior to going home. Goals Self-Feeding Goal Independent Grooming Goal Independent Dressing Goal Independent Toileting Goal Independent Bathing Goal Independent Toilet Transfer Goal Independent Shower Transfer Goal Independent Days to Meet Goals 30 Frequency of Treatment Frequency Of Treatment Once a Day Treatment Plan OT Treatment Plan ADL Training,Functional Mobility,Patient/Family Education,Discharge Planning Discharge Recommendations OT Discharge Recommendations SNF Rehab Transportation Needs at Discharge Wheelchair/Cabulance
--- NOTE | 2021-01-21 12:25 | PM.DS.1 ---
History of Present Illness History of Present Illness Date Patient Seen: 01/21/21 Time Patient Seen: 07:45 Chief complaint: Pelvic pain status post fall Narrative: Please see prior HPI from today Discharge Providers Provider Date of admission: 01/20/21 03:27 Discharge Date: 01/21/21 Primary care physician: Carlos Cristina MD Consults: 01/20/21 03:48 Consult to Discharge Planning Routine Comment: Consult to Occupational Therapy Evaluate & Treat Comment: Physician Instructions: Evaluate and treat Consult to Physical Therapy Evaluate & Treat Comment: Physician Instructions: Evaluate and Treat Discharge provider: Ignacia Pérez PA-C Summary Hospital Course Discharge Diagnosis: -non operative right superior ramus fracture -right knee contusion Hospital Course: The patient participated with physical therapy to learn mobilization techniques as she is weight-bearing as tolerated. Right knee x-rays is within normal limits Status at Discharge Cognitive/behavioral status at discharge: oriented Functional status at discharge: uses cane/walker Overall status at discharge: patient is progressing back to baseline Exam Vital Signs (past 8 hours): - 01/21/21 05:00 01/21/21 09:15 01/21/21 09:57 Temperature 98.5 F 98.7 F Pulse Rate 85 88 Respiratory Rate 12 12 Blood Pressure 145/73 H 144/77 H Pulse Oximetry 95 95 96 Oxygen Delivery Method Room Air Oxygen Flow Rate 0 Narrative Exam Narrative: Please see prior exam from today's visit Objective Labs Result Diagrams: 01/21/21 06:25 01/21/21 06:25 Labs: Laboratory Results - last 24 hr 01/21/21 01/21/21 06:25 06:25 WBC 9.7 RBC 3.59 L Hgb 10.9 L Hct 32.4 L MCV 90.3 MCH 30.4 MCHC 33.7 RDW 14.2 Plt Count 204 Neut % (Auto) 73.5 Lymph % (Auto) 14.0 L [place] % (Auto) 8.3 Eos % (Auto) 3.7 Baso % (Auto) 0.5 Neut # (Auto) 7100 H Lymph # (Auto) 1400 [place] # (Auto) 800 Eos # (Auto) 400 Baso # (Auto) 0 Sodium 134 L Potassium 4.4 D Chloride 102 Carbon Dioxide 24 BUN 14 Creatinine 0.64 Estimated GFR > 60.0 BUN/Creatinine Ratio 21.9 Glucose 103 Calcium 8.7 Phosphorus 2.4 L Total Bilirubin 0.7 AST 98 H ALT 60 H Alkaline Phosphatase 78 Total Protein 5.9 L Albumin 3.4 L Globulin 2.5 Albumin/Globulin Ratio 1.4 PFSH Medical History Cataract Depression Hammertoes of both feet Hypertension Multiple sclerosis (~1975) Oral pain Surgical History History of shoulder surgery Previous back surgery Status post laser cataract surgery of both eyes Social History household members: none Smoking Status: Never smoker Discharge Assessment & Plan Assessment and Plan Assessment: right superior ramus fracture Right knee contusion Plan of Treatment: Weight-bearing as tolerated with front wheel walker -Lovenox 40 mg daily x6 weeks to prevent blood clots -continue with current pain regimen -DC to SNF today Discharge Plan Discharge Plan Patient Disposition: SNF I certify the postop hospital senior living care is medically necessary on a continuing basis for any conditions for which he/ she received care during this hospitalization.: Yes The receiving facility has agreed to accept transfer and provide medical treatment.: Yes Discharge orders & Medications Prescriptions: New acetaminophen 500 mg capsule 500 mg PO Q4H MDD Max 3000 mg per day PRN (Reason: Fever/Mild Pain (1-3)) Qty: 90 0RF enoxaparin [Lovenox] 40 mg/0.4 mL Syringe 40 mg SUBCUT DAILY 28 Days Qty: 30 0RF Rx Instructions: Prevent blood clots meloxicam [Mobic] 7.5 mg Tablet 7.5 mg PO DAILY Qty: 30 0RF Continued amlodipine 2.5 mg tablet 2.5 mg PO DAILY 0RF Label Comments: TAKE 1 TABLET BY MOUTH EVERY DAY FOR HYPERTENSION ondansetron 4 mg tablet,disintegrating 4 mg PO PRN PRN (Reason: Nausea) 0RF Label Comments: DISSOLVE 1 TABLET ON THE TONGUE TWICE DAILY NEEDED fluoxetine 20 mg capsule 20 mg PO TID 0RF Label Comments: TAKE ONE CAPSULE BY MOUTH THREE TIMES DAILY gabapentin 600 mg tablet 600 mg PO TID Qty: 60 0RF temazepam 15 mg capsule 15 mg PO PRN PRN (Reason: Sleep) Qty: 30 0RF naltrexone 3.5 mg PO BEDTIME Qty: 30 0RF Follow up/Referrals: Melanie Cordero MD [Physician] - (10-14 days for follow-up visit) Carlos Cristina MD [Primary Care Provider] - Diet/Activity/Treatments Diet: Diet as Tolerated and Regular Food texture: Regular Other treatments: Medications: -Lovenox 40mg 1 daily x6 weeks to prevent blood clots. -OTC Tylenol 500 mg 1 tablet every 4 hours as needed for pain/fever. Max 6 tablets per day. -meloxicam 7.5 mg 1 tablet with breakfast daily as needed for pain/inflammation. -As needed medications: -Ducolax and /or MiraLax as needed for constipation from narcotic pain medications. -Pepcid AC as needed for stomach upset (usually from aspirin or ibuprofen). Dressing/Wound care: -Keep Aquacell dressing in place until postoperative follow-up office visit. -Okay to shower. Keep wound out of direct water stream. No soaking or submerging until all the scabs fall off (approximately 6 weeks). -Please call the office if dressing becomes wet, soiled, or saturated. Activities: -Weight-bearing as tolerated. Use front wheeled walker, and progress to cane when safe. -Continue with home exercises as directed by your physical therapist. -Elevate ?toes above the nose if you have significant swelling in your lower leg. (A wedge pillow is easiest.) -Ice your incision as needed for pain/inflammation/swelling. Protect your skin with a folded pillowcase. Follow-up: -Follow-up with your surgeon or PA in the office in 10-14 days after discharge. Call the office if you have chest pain, shortness of breath, significant swelling that will not resolve with elevating, fever over 101?, significantly worsening pain. [facility]: [phone] Skin/Wound/Dressing Care Report to your healthcare provider any signs of infection, such as:: chills, fever, night sweats, unusual drainage and unusual redness Special Rehabilitation Services Reason for rehabilitation: Post-operative therapy Rehab type: Physical therapy and Occupational therapy Discharge Data Primary Care Provider: Carlos Cristina V Attending Provider: Sahil Fagan VTE Deep Vein Thrombosis/Pulmonary Embolism Present on Admission: No
[2021-01-21] MEDS: INFLUENZA HD VACCINE 0.7 ML SYRINGE IM (13:42)
[2021-01-21] MEDS: ONDANSETRON 4 MG ODT SL (13:42)
--- NOTE | 2021-01-21 14:01 | PT-IP ANOTE ---
Attempted to see pt at 14:01, pt refused treatment stating it is too painful to move and she will be transported to SNF in an hour and wants to save energy.
--- NOTE | 2021-01-21 14:29 | PC.NURSE ---
0810- Patient is having a hard time turning side to side when changing her brief. She is incontinent of urine and stool. Patient had a large stool in her brief this morning and voided. Urine odor is strong, patient states that she does not feel when she is incontinent or wet. She has been using tylenol for her fx hip on the r.side and this seems to be adequate for her pain relief. Resting supine at this time.
--- NOTE | 2021-01-21 17:24 | PM.PN.1 ---
Subjective Subjective Interval history: PATIENT DID NOT HAVE ANY SIGNIFICANT COMPLAINT WAS OKAY TO GO TO CARE HOME FACILITY FOR ADDITIONAL TREATMENT DENIES ANY CHEST PAIN. NO SHORTNESS OF BREATH NO CHANGE IN MENTATION Exam Vital Signs (past 8 hours): - 01/21/21 09:57 Temperature 98.7 F Pulse Rate 88 Respiratory Rate 12 Blood Pressure 144/77 H Pulse Oximetry 96 Oxygen Delivery Method Room Air Oxygen Flow Rate 0 Narrative Exam Narrative: NO ACUTE DISTRESS. PATIENT IS ALERT ORIENTED X3. VITAL SIGNS STABLE HEAD ATRAUMATIC NORMOCEPHALIC NECK : SUPPLE WITHOUT ADENOPATHY NO CAROTID BRUITS EYE: EOMI, PERRLA, NORMAL CONJUNCTIVA; NO JAUNDICE CHEST: REGULAR RATE. NO RUBS. PMI IS NON DISPLACED. NO MURMURS; NORMAL S1-S2 PULMONARY: DECREASED BS OVER THE BASES. MILD BIBASILAR CRACKLES NOTED; NO INCREASED DULLNESS TO PERCUSSION ABDOMEN: SOFT. NONTENDER. NONDISTENDED. BOWEL SOUNDS ARE PRESENT IN ALL 4 QUADRANTS. NO MASS. EXTREMITIES: NO EDEMA.. NO CYANOSIS CLUBBING NOTED. NEURO: CRANIAL NERVES 2-12 GROSSLY INTACT. NO FOCAL NEUROLOGICAL DEFICIT NOTED. MSK: DISCOMFORT WITH ACTIVE AND PASSIVE RANGE OF MOTION OF THE LOWER EXTREMITIES. POOR MUSCULATURE. NO JOINT EFFUSION. SKIN: NO ECCHYMOSIS. NO LESION. GOOD TURGOR.; NO RASHES . PSYCH : APPROPRIATE MOOD AND AFFECT. ALERT AWAKE ORIENTED X3 Objective Labs Result Diagrams: 01/21/21 06:25 01/21/21 06:25 Labs: Laboratory Results - last 24 hr 01/21/21 01/21/21 06:25 06:25 WBC 9.7 RBC 3.59 L Hgb 10.9 L Hct 32.4 L MCV 90.3 MCH 30.4 MCHC 33.7 RDW 14.2 Plt Count 204 Neut % (Auto) 73.5 Lymph % (Auto) 14.0 L [place] % (Auto) 8.3 Eos % (Auto) 3.7 Baso % (Auto) 0.5 Neut # (Auto) 7100 H Lymph # (Auto) 1400 [place] # (Auto) 800 Eos # (Auto) 400 Baso # (Auto) 0 Sodium 134 L Potassium 4.4 D Chloride 102 Carbon Dioxide 24 BUN 14 Creatinine 0.64 Estimated GFR > 60.0 BUN/Creatinine Ratio 21.9 Glucose 103 Calcium 8.7 Phosphorus 2.4 L Total Bilirubin 0.7 AST 98 H ALT 60 H Alkaline Phosphatase 78 Total Protein 5.9 L Albumin 3.4 L Globulin 2.5 Albumin/Globulin Ratio 1.4 PFSH Medical History Cataract Depression Hammertoes of both feet Hypertension Multiple sclerosis (~1975) Oral pain Surgical History History of shoulder surgery Previous back surgery Status post laser cataract surgery of both eyes Social History household members: none Smoking Status: Never smoker Assessment & Plan Assessment & Plan narrative: PROBLEM LIST GROUND LEVEL FALL WITH WITH INJURY PELVIC FRACTURE MULTIPLE SCLEROSUS PER HISTORY HYPERTENSION PER HISTORY PLAN PATIENT WILL BE REFERRED TO THE PHYSICAL THERAPY TEAM FOR EVALUATION AND TREATMENT CASE MANAGEMENT WORKING ON PLACEMENT ASSISTANCE FROM THE ORTHOPEDIC TEAM GREATLY APPRECIATED MONITOR SKIN CLOSELY DUE TO LIMITED MOBILITY ASPIRATION AND FALL PRECAUTION TO BE MAINTAINED AT ALL TIME ADDITIONAL MANAGEMENT PER CLINICAL COURSE WILL DISCHARGE TO CARE HOME FACILITY ONCE A BED BECOMES AVAILABLE Time Spent With Patient Critical Care time: I spent a total of [] minutes of critical care time on this patient's care today; this time is exclusive of procedural time. Quality VTE Deep Vein Thrombosis/Pulmonary Embolism Present on Admission: No
--- NOTE | 2021-01-22 08:27 | CM.DPNOTE ---
Late Entry DCP Note Patient is a 75 yo female, resident at [facility] in [place], arrived 01.20.21 after GLF and subsequent right superior ramus fracture;non operative fracture. Patient admitted observation for pain management and PT/OT. SNF was recommended. Yesterday, spoke w/patient who was eager to DC to SNF before return home. Patient requested [facility] in order to remain in [place]. Spoke w/July at [facility] and after review she accepted patient for admission using the COVID waiver ...which allows a SNF to use patient's MCR even w/observation status. Patient remained agreeable to plan and p/u was scheduled for 1500. COVID vaccination card was faxed, COVID PCR was up to date. TYLER Elkins was updated and given nurse to nurse report number. Plan: DC 01.21.21 to [facility] (COVID waiver) via w/c mirna [facility]
--- NOTE | 2021-01-22 09:17 | CM.DPNOTE ---
Late Entry DC Note In addition, completed and signed DC ppk faxed, completed PASRR faxed to [employer] [phone] JW
== END 2021-01-21 15:32 ==
LOC: ED 03:26 → AC 03:27
PROVIDERS: Hospitalist; Admitting Provider Internal Medicine; Emergency Provider Emergency Medicine; PCP Internal Medicine; Referring Provider Emergency Medicine; Visit Provider Internal Medicine
DX: S32.591A Other specified fracture of right pubis, initial encounter for closed fracture (principal); M25.551 Pain in right hip; S80.01XA Contusion of right knee, initial encounter; R26.2 Difficulty in walking, not elsewhere classified; M54.9 Dorsalgia, unspecified; W18.39XA Other fall on same level, initial encounter; Y93.89 Activity, other specified; Y92.002 Bathroom of unspecified non-institutional (private) residence as the place of occurrence of the external cause; D72.829 Elevated white blood cell count, unspecified; D64.9 Anemia, unspecified; I10 Essential (primary) hypertension; G35 Multiple sclerosis; E87.1 Hypo-osmolality and hyponatremia; Z20.822 Contact with and (suspected) exposure to COVID-19; Z23 Encounter for immunization
CPT/HCPCS: 36415; 72192; 73502; 73562; 80053; 84100; 85025; 87635; 90471; 90662; 94760; 96372; 97161; 97166; 97530; 99284; C9803; G0378; J1650; J2270

== ENCOUNTER → 2021-02-14 14:24 | Outpatient (ROUT) | payer SELFPAY ==
[2021-01-20 04:33] VITALS: BMI 22.8
== END ==
PROVIDERS: Visit Provider Emergency Medicine
DX: N39.0 Urinary tract infection, site not specified (principal)
CPT/HCPCS: 87077; 87086; 87147; 87186

== ENCOUNTER → 2021-02-20 12:44 | Outpatient (ROUT) | payer SELFPAY ==
[2021-01-20 04:33] VITALS: BMI 22.8
[2021-02-20 13:06] LABS: Add Manual Diff / Slide Review NO; Basophils Absolute Auto 100 /uL (0-100); Eosinophils Absolute Auto 200 /uL (0-450); Eosinophils Percent Auto 2.3 % (2-4); Hemoglobin 12.4 g/dL (12.0-16.0); Lymphocytes Absolute Auto 1600 /uL (1100-4500); Lymphocytes Percent Auto 23.5 % (25-40); Mean Corpuscular HGB Conc 33.5 % (30-36); Mean Corpuscular Volume 89.6 fL (80-100); Monocytes Absolute Auto 800 /uL (0-900); Monocytes Percent Auto 11.7 % (3-14); Neutrophils Absolute Auto 4100 /uL (1500-7000); Neutrophils Percent Auto 61.5 % (50-75); Platelet Count 280 X10^3/uL (150-400); Red Blood Cell Count 4.13 X10^6/uL (4.0-5.2); Red Cell Distribution Width 14.2 % (11.6-14.8); White Blood Cell Count 6.7 X10^3/uL (4.5-11.0)
[2021-02-20 13:07] LABS: BUN Creatinine Ratio 21.3 (6-22); Blood Urea Nitrogen 19 mg/dL (7-17); Calcium 9.3 mg/dL (8.4-10.2); Carbon Dioxide 27 mmol/L (22-32); Chloride 102 mmol/L (98-107); Estimated Glomerular Filt Rate > 60.0 mL/min (>60); Glucose 100 mg/dL (80-110); HEMOLYSIS < 15 (0-50); Potassium 3.6 mmol/L (3.4-5.1); Sodium 134 mmol/L (137-145)
== END ==
PROVIDERS: Visit Provider Emergency Medicine
DX: R11.2 Nausea with vomiting, unspecified (principal); D64.9 Anemia, unspecified; E87.6 Hypokalemia
CPT/HCPCS: 80048; 85025

== ENCOUNTER → 2021-02-22 18:31 | Outpatient (ROUT) | payer SELFPAY ==
[2021-01-20 04:33] VITALS: BMI 22.8
[2021-02-22 18:39] LABS: Add Manual Diff / Slide Review NO; Basophils Absolute Auto 100 /uL (0-100); Eosinophils Absolute Auto 100 /uL (0-450); Eosinophils Percent Auto 2.2 % (2-4); Hematocrit 37.2 % (36-46); Hemoglobin 12.3 g/dL (12.0-16.0); Lymphocytes Absolute Auto 1800 /uL (1100-4500); Lymphocytes Percent Auto 29.7 % (25-40); Mean Corpuscular Hemoglobin 29.7 PG (26-34); Mean Corpuscular Volume 89.9 fL (80-100); Monocytes Absolute Auto 500 /uL (0-900); Monocytes Percent Auto 8.7 % (3-14); Neutrophils Absolute Auto 3600 /uL (1500-7000); Neutrophils Percent Auto 58.4 % (50-75); Platelet Count 259 X10^3/uL (150-400); Red Blood Cell Count 4.14 X10^6/uL (4.0-5.2); Red Cell Distribution Width 14.8 % (11.6-14.8); White Blood Cell Count 6.1 X10^3/uL (4.5-11.0)
[2021-02-22 19:15] LABS: Alanine Aminotransferase 42 IU/L (<35); Albumin 3.9 g/dL (3.5-5.0); Albumin Globulin Ratio 1.3 (1.0-2.8); Alkaline Phosphatase 125 U/L (38-126); Aspartate Aminotransferase 44 IU/L (14-36); BUN Creatinine Ratio 32.9 (6-22); Bilirubin Total 0.5 mg/dL (0.2-1.3); Blood Urea Nitrogen 24 mg/dL (7-17); Calcium 9.3 mg/dL (8.4-10.2); Carbon Dioxide 28 mmol/L (22-32); Chloride 106 mmol/L (98-107); Estimated Glomerular Filt Rate > 60.0 mL/min (>60); Globulin 3.1 g/dL (1.7-4.1); Glucose 97 mg/dL (80-110); HEMOLYSIS 48 (0-50); Sodium 140 mmol/L (137-145)
[2021-02-22 19:31] LABS: Free T4, Direct Thyroxine 0.82 ng/dL (0.78-2.19)
[2021-02-22 19:45] LABS: Thyroid Stimulating Hormone 0.952 uIU/mL (0.47-4.68)
== END ==
PROVIDERS: Visit Provider Emergency Medicine
DX: Z13.89 Encounter for screening for other disorder (principal)
CPT/HCPCS: 80053; 84439; 84443; 85025

== ENCOUNTER → 2021-02-23 17:48 | Outpatient (ROUT) | payer SELFPAY ==
[2021-01-20 04:33] VITALS: BMI 22.8
== END ==
PROVIDERS: Visit Provider Emergency Medicine
DX: N39.0 Urinary tract infection, site not specified (principal)
CPT/HCPCS: 87086

== ENCOUNTER → 2021-02-24 13:25 | Outpatient (ROUT) | payer SELFPAY ==
[2021-01-20 04:33] VITALS: BMI 22.8
[2021-02-24 14:16] LABS: Influenza A - CEPHEID Flu A NEGATIVE (NEGATIVE); Influenza B - CEPHEID Flu B NEGATIVE (NEGATIVE)
== END ==
PROVIDERS: Visit Provider Physician Assistant
DX: J11.1 Influenza due to unidentified influenza virus with other respiratory manifestations (principal)
CPT/HCPCS: 87502

== ENCOUNTER → 2021-03-12 13:26 | Outpatient (ROUT) | payer MEDICARE, SELFPAY ==
[2021-01-20 04:33] VITALS: BMI 22.8
[2021-03-12 14:00] LABS: Appearance Urine UA CLEAR; Bilirubin Urine UA NEGATIVE (NEGATIVE); Color Urine UA YELLOW; Glucose Urine UA NEGATIVE (Negative); Ketones Urine UA NEGATIVE (NEGATIVE); Leukocyte Esterase Urine UA NEGATIVE (NEGATIVE); Nitrite Urine UA NEGATIVE (Negative); Occult Blood Urine UA 1+ (Negative); Protein Urine UA NEGATIVE (Negative); Urobilinogen Urine UA 0.2 E.U./dL (0.2)
[2021-03-12 14:20] LABS: Bacteria Urine None Seen; Culture Indicated Urine Cult Not Indicated; RBC Urine 0-1/HPF (0-5/HPF); WBC Urine 0-1/HPF (0-5/HPF)
== END ==
PROVIDERS: Visit Provider Internal Medicine
DX: N39.0 Urinary tract infection, site not specified (principal)
CPT/HCPCS: 81001

== ENCOUNTER 2021-06-05 14:00 | Emergency (ER) | payer MEDICARE, OTHER, SELFPAY ==
[2021-01-20 04:33] VITALS: BMI 22.8
[2021-06-05 14:02] VITALS: BP 182/89; PULSE 74; RESP 18; TEMP 36.4; O2SAT 95; BMI 24.8
--- NOTE | 2021-06-05 14:06 | DI.RAD.S_ITS ---
PROCEDURE: XR LUMBAR SPINE 2-3V INDICATIONS: pain after a fall TECHNIQUE: 3 views of the lumbar spine were acquired. COMPARISON: [facility], CT, CT PEL WO CON, 01/20/2021, 1:41. FINDINGS: Bones: 5 [id number] vertebrae are present. Status post L4-L5 PLIF. There is convex left scoliosis. No vertebral body compression fractures. No suspicious bony lesions. Spine degenerative disc disease and facet arthropathy. Soft tissues: Overlying bowel gas pattern is normal. No suspicious soft tissue calcifications. IMPRESSION: 1. Multilevel degenerative disc disease. 2. Multilevel facet arthropathy. 3. No acute fracture. No acute osseous lesion. If symptoms and/or clinical suspicion for pathology persists, evaluation with MRI should be considered for further assessment. 4. Subacute appearing fractures involving the right pubic body and the right inferior pubic ramus. Dictated by: Mee Cruz MD, PhD on 06/05/2021 at 14:43 Approved by: Mee Cruz MD, PhD on 06/05/2021 at 14:44
--- NOTE | 2021-06-05 14:24 | ED.FALL ---
HPI - Fall General Chief Complaint: Fall Stated Complaint: GLF Time Seen by Provider: 06/05/21 14:06 Source: patient and EMS Mode of arrival: EMS History of Present Illness HPI Narrative: 75-year-old female nonsmoker with history of MS and hypertension presents by EMS for evaluation of low back pain after ground level fall earlier today. She has had a gait disturbance for quite some time and has had episodes of frequent falling. In fact, she was recently discharged after having nondisplaced, nonsurgical pelvic fractures. She was in her normal state of health today and became a bit unsteady, which as mentioned is not abnormal for her. In doing so she fell backwards into a solid door and fell down. She now has significant pain in her central low back and slightly left from the midline overlying the sacrum. She denies any head neck pain. She denies prodromal symptoms such as dizziness, weakness or lightheadedness. She had no chest pain or shortness of breath. She does not take blood thinners. She denies any change in medications or diet. Her pain is worse when she moves and improves with rest. She denies any loss of control of bowel or bladder nor any radiation of pain, numbness or tingling into her extremities. Related Data Home Medications Medication Instructions Recorded Confirmed amlodipine 2.5 mg tablet 2.5 mg PO DAILY 01/20/21 01/20/21 fluoxetine 20 mg capsule 20 mg PO TID 01/20/21 01/20/21 ondansetron 4 mg disintegrating 4 mg PO PRN PRN 01/20/21 01/20/21 tablet Previous Rx's Medication Instructions Recorded acetaminophen 500 mg capsule 500 mg PO Q4H PRN #90 cap MDD Max 01/21/21 3000 mg per day gabapentin 600 mg tablet 600 mg PO TID #60 tab 01/21/21 meloxicam 7.5 mg tablet (Mobic) 7.5 mg PO DAILY #30 tab 01/21/21 naltrexone 3.5 mg PO BEDTIME #30 cap 01/21/21 temazepam 15 mg capsule 15 mg PO PRN PRN #30 cap 01/21/21 lidocaine 5 % topical patch 1 patch TOPICAL DAILY #15 ea 06/05/21 (Lidoderm) ondansetron 4 mg disintegrating 4 mg PO TID-QID PRN #10 tab 06/05/21 tablet Allergies Allergy/AdvReac Type Severity Reaction Status Date / Time No Known Drug Allergies Allergy Verified 01/20/21 01:02 Review of Systems Review of Systems Narrative: GENERAL: Denies chills, fatigue, malaise, fever, sweats. HEENT: Denies sinus pain, ear pain, sore throat, difficulty swallowing, dizziness. RESPIRATORY: Denies dyspnea, cough, wheezing, hemoptysis, sputum. CARDIOVASCULAR: Denies chest pain, palpitations, orthopnea, edema, GASTROINTESTINAL: Denies nausea, vomiting, abdominal pain, diarrhea, constipation, melena. : Denies dysuria, frequency, incontinence, hematuria, urinary retention. MUSCULOSKELETAL: See HPI SKIN: Denies rash, skin lesions, or other NEUROLOGIC: Denies weakness, headache, numbness, change in speech, confusion, seizures, incoordination. PSYCHIATRIC: No concerning psychosocial issues. 12 point review of systems is negative except for those stated above Patient History Medical History Cataract Depression Hammertoes of both feet Hypertension Multiple sclerosis (~1975) Oral pain Surgical History History of shoulder surgery Previous back surgery Status post laser cataract surgery of both eyes Social History household members: none Smoking Status: Never smoker Smoking Status: Never smoker alcohol intake frequency: holidays/special occasions only Substance Use Type: does not use Exam Narrative Exam Narrative: GENERAL: [75] year old patient appears stated age. Well-developed patient, in mild distress. HEAD: Atraumatic. Normocephalic. EYES: Pupils equal round and reactive. Extraocular motions intact. No scleral icterus. No injection or drainage. ENT: Nose without bleeding, purulent drainage. Throat without erythema, tonsillar hypertrophy or exudate. Airway patent. NECK: Trachea midline. Non tender CARDIOVASCULAR: Regular rate and rhythm without murmurs, gallops, or rubs. RESPIRATORY: Clear to auscultation. Breath sounds equal bilaterally. No wheezes, rales, or rhonchi. GASTROINTESTINAL: Abdomen soft, non-tender, nondistended. EXTREMITIES: No edema or joint tenderness. BACK: Tender in the midline in the lumbar region and then to the right of midline overlying sacrum, no crepitance, edema or ecchymosis. No saddle anesthesia. No lower extremity numbness, tingling or weakness. Bilateral lower extremity patellar reflexes 1+ NEURO: AOx3. SKIN: No rash or erythema of visible areas Initial Vital Signs Initial Vital Signs: Vital Signs Temperature 97.6 F 06/05/21 14:02 Pulse Rate 74 06/05/21 14:02 Respiratory Rate 18 06/05/21 14:02 Blood Pressure 182/89 H 06/05/21 14:02 Pulse Oximetry 95 06/05/21 14:02 Course Orders Ordered: ED Orders 06/05/21 14:06 XR lumbar spine 2-3V Stat 06/05/21 15:22 CT lumbar spine wo con Stat CT pelvis wo con Stat Discontinued Medications Acetaminophen (Acetaminophen 325 Mg Tablet) 325 mg PO NOW ONE Stop: 06/05/21 14:24 Last Admin: 06/05/21 15:07 Dose: 325 mg Documented by: TANI Lidocaine (Lidocaine Patch 1 Each Adh..Patch) 1 each TOP NOW ONE Stop: 06/05/21 17:05 Ondansetron HCl (Ondansetron 4 Mg Odt) 4 mg SL NOW ONE Stop: 06/05/21 14:24 Last Admin: 06/05/21 15:06 Dose: 4 mg Documented by: TANI Consultations Consultation #1: Discussed with on-call orthopedist, not a surgical or nonweightbearing injury. She may ambulate as tolerated with the use of a walker. Follow-up as needed. Vital Signs Vital signs: Vital Signs - 8 hr 06/05/21 14:02 06/05/21 16:31 Temperature 97.6 F Pulse Rate 74 70 Respiratory Rate 18 16 Blood Pressure 182/89 H 134/64 Pulse Oximetry 95 99 MDM - Fall Imaging Data Lumbar Xray: Radiologist's Impression: Chart Viewer Diagnostics Subcategory All Activity ??:?? All Time ??:?? All Subcategories Filter Laboratory Imaging Microbiology Pathology Blood Bank Tests Cardiovascular Other Specialty DATE TYPE STATUS REF RANGE/AUTHOR Hx Today 14:06 Lumbar Spine X-Ray Signed Mee Cruz 01/20/21 10:41 Knee X-Ray Signed Kenny Hartman 01/20/21 01:[address] Signed John Pan 01/20/21 01:02 Hip X-Ray Signed Maxim,Dayami Srivastava ED 75, F?1945 MRN#? [id number] [facility] ER,?Main ED??R12?? 157.48cm 61.689kg BMI: 24.9kg/m? Fall Acc#? [id number] Resus Status Not Ordered Hx Avail Special Indicators No Data to Display Home Meds Not Confirmed Prescription Monitoring Program MEDICATIONS (INSTRUCTIONS) LAST TAKEN Active ??acetaminophen ??500 [id number] capMDD Max 3000 mg per day ??amlodipine ??2.5 mgPODAILY ??fluoxetine ??20 mgPOTID ??gabapentin ??600 mgPOTID#60 tab ??meloxicam [Mobic] ??7.5 mgPODAILY#30 tab ??naltrexone ??3.5 mgPOBEDTIME#30 cap ??ondansetron ??4 mgPOPRNPRN ??temazepam ??15 mgPOPRNPRN#30 cap Allergies No Known Drug Allergies Problems ? ONSET Closed fracture of pubic ramus Vital Signs Today 14:02 BP 182/89?H Pulse 74? Resp 18? Temp 97.6 F? O2 Sat 95? Delivery Room Air? Diagnostics Reports Dayami Disla??75??F??1945 ? Allergy/Adv: No Known Drug Allergies Close Lumbar Spine X-Ray (Signed) Mee Cruz - 06/05/21 Knee X-Ray (Signed) Minnie,Kenny - 01/20/[address] (Signed) John Pan - 01/20/21 Hip X-Ray (Signed) John Pan - 01/20/21 Launch?[place] [address] XRay Report Signed Patient: Dayami Disla MR#: [id number] : 1945 Acct:[id number] Age/Sex: 75 / F Date of Service: 06/05/21 Loc: ED Accession Number: [id number] ?? Procedure: XR lumbar spine 2-3V Ordering Provider: Jose Luis Coles D.O. PROCEDURE:? XR LUMBAR SPINE 2-3V ? INDICATIONS:? pain after a fall ? TECHNIQUE:? 3 views of the lumbar spine were acquired.? ? COMPARISON:? [facility], CT, CT PEL WO CON, 01/20/2021, 1:41. ? FINDINGS:? ? Bones:? 5 eiy-tyb-qiminil vertebrae are present.? Status post L4-L5 PLIF.? There is convex left scoliosis.? No vertebral body compression fractures.? No suspicious bony lesions. Spine degenerative disc disease and facet arthropathy. ? Soft tissues:? Overlying bowel gas pattern is normal.? No suspicious soft tissue calcifications.? ? ? IMPRESSION:? ? 1. Multilevel degenerative disc disease. ? 2. Multilevel facet arthropathy. ? 3. No acute fracture. No acute osseous lesion. If symptoms and/or clinical suspicion for pathology persists, evaluation with MRI should be considered for further assessment. ? 4. Subacute appearing fractures involving the right pubic body and the right inferior pubic ramus.? Dictated by: Mee Cruz MD, PhD on 06/05/2021 at 14:43 ? ? Approved by: Mee Cruz MD, PhD on 06/05/2021 at 14:44 ? Lumbar CT: Radiologist's Impression: Close Pelvis CT (Signed) Kenny Hartman - 06/05/[address] (Signed) Kenny Hartman - 06/05/21 Lumbar Spine X-Ray (Signed) Mee Cruz - 06/05/21 Knee X-Ray (Signed) Kenny Hartman - 01/20/[address] (Signed) John Pan - 01/20/21 Hip X-Ray (Signed) John Pan - 01/20/21 Launch?[place] [address] CT Scan Report Signed Patient: Dayami Disla MR#: [id number] : 1945 Acct:[id number] Age/Sex: 75 / F Date of Service: 06/05/21 Loc: ED Accession Number: [id number] ?? Procedure: CT pelvis wo con Ordering Provider: Jose Luis Coles D.O. PROCEDURE:? CT PEL WO CON ? INDICATIONS:? fall with severe posterior sacral pain ? TECHNIQUE:? Noncontrast 3 mm axial sections acquired through the bony pelvis, with coronal and sagittal reformatting.? ? COMPARISON:? [facility], CT, CT LUMBAR SPINE WO CON, 06/05/2021, 15:40.? [facility], CR, XR LUMBAR SPINE 2-3V, 06/05/2021, 14:18.? [facility], CT, CT PEL WO CON, 01/20/2021, 1:41. ? FINDINGS:? Image quality:? Excellent.? ? Bones:? There is a new fracture seen of the right sacral ala, which cannot be seen on the prior CT dated 01/20/2021, even in retrospect. ? There is a remodeling fracture seen involving the right pubis and right superior pubic ramus, which is more displaced on the current study than on the prior.? There is also greater displacement of the previously seen right inferior pubic ramus fracture.? Remodeling change can be seen of this fracture. ? There is partial visualization of lower lumbar spine fixation hardware. No suspicious lytic or blastic lesions are seen.? No hip dislocation can be seen.? No fractures of the proximal femurs can be seen. No suspicious lytic or blastic lesions are seen. ? Soft tissues:? No dilated loops of small bowel are seen.? No free air or significant free fluid can be seen.? A moderate amount of stool is seen within the colon. Atherosclerotic calcification is noted.? No enlarged inguinal or pelvic lymph nodes are seen.? Mild fat containing periumbilical hernias are seen. ? ? IMPRESSION:? There is acute fracture of the right sacral ala, which is not seen on the prior CT from 01/20/2021. ? There was previously seen fractures of the right pubis and the right superior pubic ramus and the right inferior pubic ramus.? These fractures are now more displaced on the current study than on the prior.? However, they demonstrate remodeling change and are considered to be subacute.? Differential diagnosis includes acute on chronic fracture, however. ? There is a moderate amount of stool seen within the colon. Please correlate with an underlying history of constipation.? ? ? Incidental note is made of: Mild bilateral fat containing inguinal hernias ? Dictated by: Kenny Hartman M.D. on 06/05/2021 at 15:08 ? ? Approved by: Kenny Hartman M.D. on 06/05/2021 at 15:11 ? Pelvis CT: Radiologist's Impression: [address] [address] [address] Scan Report Signed Patient: Dayami Disla MR#: [id number] : 1945 Acct:[id number] Age/Sex: 75 / F Date of Service: 06/05/21 Loc: ED Accession Number: [id number] ?? Procedure: CT lumbar spine wo con Ordering Provider: Jose Luis Coles D.O. PROCEDURE:? CT LUMBAR SPINE WO CON ? INDICATIONS:? fall with severe pain, history of surgery ? TECHNIQUE:? Noncontrast 3 mm thick sections acquired from the T12 level to the sacrum.? Sagittal and coronal reformats were constructed.? For radiation dose reduction, the following was used:? automated exposure control.? ? COMPARISON: ? [facility], CR, XR HIP W PEL IF DONE RT 2V, 01/20/2021, 1:04.? [facility], CT, CT PEL WO CON, 01/20/2021, 1:41.? [facility], CT, CT PEL WO CON, 06/05/2021, 15:40.? [facility], CR, XR LUMBAR SPINE 2-3V, 06/05/2021, 14:18. ? FINDINGS:? Image quality:? There is artifact associated with the metallic hardware. ? Artifact from the metallic hardware is reduced by metal reconstruction algorithm.? ? Bones:? There is an acute fracture seen of the right sacral ala, which is best seen on series 2, image 67. ? No acute vertebral body compression fractures.? No suspicious lytic or blastic bony lesions.? No pars defects.? ? Bhkf-ry-fhyncpuf levoconvex lumbar scoliosis is seen.? Mild anterolisthesis is seen at the L4-L5 level.? There is minimal retrolisthesis at L1-L2. ? T12-L1:? Normal. ? L1-L2:? The disc height is well preserved. Mild generalized disc bulge is seen.? Mild facet joint hypertrophy is seen. Mild bilateral neural foraminal narrowing is seen.? No significant central canal narrowing is seen. ? L2-L3:? The disc height is well preserved.? Mild to moderate disc bulge is seen. Mild facet joint hypertrophy is seen.? There is no left-sided and moderate right-sided neural foraminal narrowing.? No significant central canal narrowing is seen. ? L3-L4:? At least moderate loss of disc height is seen on the right side. Vacuum disc phenomenon is seen at this level.? Bridging endplate osteophytes are seen on the right.? Moderate disc bulge is seen, which is eccentric to the right.? There is moderate to severe bilateral neural foraminal narrowing seen.? At least moderate central canal narrowing is seen. ? L4-L5:? Postoperative changes seen at this level, with bilateral pedicle screws and vertical fixation rods.? The screws appear well placed.? A disc spacer is seen.? No findings of hardware failure or hardware loosening are seen. There has been removal of portions of the posterior elements.? No significant neural foraminal narrowing is seen. The central canal is widely patent.? ? ? L5-S1:? Rbau-re-wxnajelx loss of disc height is seen on the right side.? Vacuum disc phenomenon is seen at this level. Moderate generalized disc bulge is seen. Moderate bilateral neural foraminal narrowing is seen.? Minimal central canal narrowing is seen.? ? Soft tissues:? No retroperitoneal masses or hematomas.? Visualized aorta is normal in caliber.? Atherosclerotic calcification is noted.? ? ? IMPRESSION:? ? Acute fracture of the right sacral ala, which is new compared to the prior CT dated 01/20/2021. ? No lumbar spine fracture is seen. ? Unremarkable L4-5 postoperative hardware, without complication seen. ? Multiple levels of degenerative change are seen, which are overall worst at L3-L4 and L5-S1. ? Dles-fg-fcjezvre levoconvex lumbar scoliosis. ? ? Dictated by: Kenny Hartman M.D. on 06/05/2021 at 15:01 ? ? Approved by: Kenny Hartman M.D. on 06/05/2021 at 15:07 ? MDM Narrative Medical decision making narrative: Patient's pain is well controlled, imaging is repeated and no surgical injuries are noted. Hardware is appropriately in place. Discussed sacral ala fracture with on-call orthopedist, pain control and ambulation as tolerated. Return precautions discussed and questions answered to their apparent satisfaction Discharge Plan Departure Patient Disposition: Home Clinical Impression: Closed sacral fracture Instructions: How to Prevent Falls Activity Restrictions/Additional Instructions: *You have been diagnosed with [fall with nondisplaced, nonsurgical sacral fracture *What to do: *Please continue to take your regular medications as directed. [ x] New medication prescriptions sent to your pharmacy: [[facility] ] [ ] New medication written as a paper prescription [ ] No new medications given *Please follow up with your primary care provider in 2-3 days, call for an appointment. Let them know you were seen in the Emergency Department and that we ask that you be seen in follow up. We will electronically transmit a record of today's note if your PCP is in our system *As we discussed, I spoke with the returned telephone equipment appraiser orthopedist (Dr. Cordero). You may ambulate as tolerated, but need to use a walker and take pain medications to help keep you relatively comfortable. *If you do not have a primary care provider please contact the [facility] Resource line at [phone]. They will ask some questions about your medical history and help get you set up with a doctor in the community. *Return to Emergency Department if you should have any new, worsening or concerning symptoms, such as [fever greater than 101 F, shaking chills, worsening pain, persistent vomiting or other bothersome symptoms] Prescriptions: New lidocaine [Lidoderm] 5 % adhesive patch,medicated 1 patch topical DAILY Qty: 15 0RF Rx Instructions: leave on most painful area for 12 hrs ondansetron 4 mg tablet,disintegrating 4 mg PO TID-QID PRN (Reason: nausea and vomiting) Qty: 10 0RF No Action amlodipine 2.5 mg tablet 2.5 mg PO DAILY 0RF Label Comments: TAKE 1 TABLET BY MOUTH EVERY DAY FOR HYPERTENSION ondansetron 4 mg tablet,disintegrating 4 mg PO PRN PRN (Reason: Nausea) 0RF Label Comments: DISSOLVE 1 TABLET ON THE TONGUE TWICE DAILY NEEDED fluoxetine 20 mg capsule 20 mg PO TID 0RF Label Comments: TAKE ONE CAPSULE BY MOUTH THREE TIMES DAILY acetaminophen 500 mg capsule 500 mg PO Q4H MDD Max 3000 mg per day PRN (Reason: Fever/Mild Pain (1-3)) Qty: 90 0RF meloxicam [Mobic] 7.5 mg Tablet 7.5 mg PO DAILY Qty: 30 0RF gabapentin 600 mg tablet 600 mg PO TID Qty: 60 0RF temazepam 15 mg capsule 15 mg PO PRN PRN (Reason: Sleep) Qty: 30 0RF naltrexone 3.5 mg PO BEDTIME Qty: 30 0RF Referrals: Carlos Cristina MD [Primary Care Provider] -
[2021-06-05] MEDS: ONDANSETRON 4 MG ODT SL (15:06)
[2021-06-05] MEDS: ACETAMINOPHEN 325 MG TABLET PO (15:07)
--- NOTE | 2021-06-05 15:22 | DI.CT.S_ITS ---
PROCEDURE: CT PEL WO CON INDICATIONS: fall with severe posterior sacral pain TECHNIQUE: Noncontrast 3 mm axial sections acquired through the bony pelvis, with coronal and sagittal reformatting. COMPARISON: [facility], CT, CT LUMBAR SPINE WO CON, 06/05/2021, 15:40. [facility], CR, XR LUMBAR SPINE 2-3V, 06/05/2021, 14:18. [facility], CT, CT PEL WO CON, 01/20/2021, 1:41. FINDINGS: Image quality: Excellent. Bones: There is a new fracture seen of the right sacral ala, which cannot be seen on the prior CT dated 01/20/2021, even in retrospect. There is a remodeling fracture seen involving the right pubis and right superior pubic ramus, which is more displaced on the current study than on the prior. There is also greater displacement of the previously seen right inferior pubic ramus fracture. Remodeling change can be seen of this fracture. There is partial visualization of lower lumbar spine fixation hardware. No suspicious lytic or blastic lesions are seen. No hip dislocation can be seen. No fractures of the proximal femurs can be seen. No suspicious lytic or blastic lesions are seen. Soft tissues: No dilated loops of small bowel are seen. No free air or significant free fluid can be seen. A moderate amount of stool is seen within the colon. Atherosclerotic calcification is noted. No enlarged inguinal or pelvic lymph nodes are seen. Mild fat containing periumbilical hernias are seen. IMPRESSION: There is acute fracture of the right sacral ala, which is not seen on the prior CT from 01/20/2021. There was previously seen fractures of the right pubis and the right superior pubic ramus and the right inferior pubic ramus. These fractures are now more displaced on the current study than on the prior. However, they demonstrate remodeling change and are considered to be subacute. Differential diagnosis includes acute on chronic fracture, however. There is a moderate amount of stool seen within the colon. Please correlate with an underlying history of constipation. Incidental note is made of: Mild bilateral fat containing inguinal hernias Dictated by: Kenny Hartman M.D. on 06/05/2021 at 15:08 Approved by: Kenny Hartman M.D. on 06/05/2021 at 15:11
--- NOTE | 2021-06-05 15:22 | DI.CT.S_ITS ---
PROCEDURE: CT LUMBAR SPINE WO CON INDICATIONS: fall with severe pain, history of surgery TECHNIQUE: Noncontrast 3 mm thick sections acquired from the T12 level to the sacrum. Sagittal and coronal reformats were constructed. For radiation dose reduction, the following was used: automated exposure control. COMPARISON: [facility], CR, XR HIP W PEL IF DONE RT 2V, 01/20/2021, 1:04. [facility], CT, CT PEL WO CON, 01/20/2021, 1:41. [facility], CT, CT PEL WO CON, 06/05/2021, 15:40. [facility], CR, XR LUMBAR SPINE 2-3V, 06/05/2021, 14:18. FINDINGS: Image quality: There is artifact associated with the metallic hardware. Artifact from the metallic hardware is reduced by metal reconstruction algorithm. Bones: There is an acute fracture seen of the right sacral ala, which is best seen on series 2, image 67. No acute vertebral body compression fractures. No suspicious lytic or blastic bony lesions. No pars defects. Efgs-fo-avyytmgw levoconvex lumbar scoliosis is seen. Mild anterolisthesis is seen at the L4-L5 level. There is minimal retrolisthesis at L1-L2. T12-L1: Normal. L1-L2: The disc height is well preserved. Mild generalized disc bulge is seen. Mild facet joint hypertrophy is seen. Mild bilateral neural foraminal narrowing is seen. No significant central canal narrowing is seen. L2-L3: The disc height is well preserved. Mild to moderate disc bulge is seen. Mild facet joint hypertrophy is seen. There is no left-sided and moderate right-sided neural foraminal narrowing. No significant central canal narrowing is seen. L3-L4: At least moderate loss of disc height is seen on the right side. Vacuum disc phenomenon is seen at this level. Bridging endplate osteophytes are seen on the right. Moderate disc bulge is seen, which is eccentric to the right. There is moderate to severe bilateral neural foraminal narrowing seen. At least moderate central canal narrowing is seen. L4-L5: Postoperative changes seen at this level, with bilateral pedicle screws and vertical fixation rods. The screws appear well placed. A disc spacer is seen. No findings of hardware failure or hardware loosening are seen. There has been removal of portions of the posterior elements. No significant neural foraminal narrowing is seen. The central canal is widely patent. L5-S1: Rqtx-we-axiyhnjo loss of disc height is seen on the right side. Vacuum disc phenomenon is seen at this level. Moderate generalized disc bulge is seen. Moderate bilateral neural foraminal narrowing is seen. Minimal central canal narrowing is seen. Soft tissues: No retroperitoneal masses or hematomas. Visualized aorta is normal in caliber. Atherosclerotic calcification is noted. IMPRESSION: Acute fracture of the right sacral ala, which is new compared to the prior CT dated 01/20/2021. No lumbar spine fracture is seen. Unremarkable L4-5 postoperative hardware, without complication seen. Multiple levels of degenerative change are seen, which are overall worst at L3-L4 and L5-S1. Zvna-fb-fwjhbakx levoconvex lumbar scoliosis. Dictated by: Kenny Hartman M.D. on 06/05/2021 at 15:01 Approved by: Kenny Hartman M.D. on 06/05/2021 at 15:07
[2021-06-05 16:31] VITALS: BP 134/64; PULSE 70; RESP 16; O2SAT 99
[2021-06-05] MEDS: LIDOCAINE PATCH 1 EACH ADH..PATCH TOP (17:18)
--- NOTE | 2021-06-05 17:26 | PC.NURSE ---
Pt ambulated down the art without difficulty, reports some soreness.
== END 2021-06-05 17:28 | disposition home or self-care (01) ==
PROVIDERS: Emergency Provider Emergency Medicine; PCP Internal Medicine
DX: S32.10XA Unspecified fracture of sacrum, initial encounter for closed fracture (principal); R29.6 Repeated falls; W18.30XA Fall on same level, unspecified, initial encounter
CPT/HCPCS: 72100; 72131; 72192; 99284

== ENCOUNTER 2021-06-12 08:29 | Observation (INO) | payer MEDICARE, OTHER, SELFPAY ==
[2021-01-20 04:33] VITALS: BMI 22.8
[2021-06-12] VITALS (22 sets, daily range): BP systolic 149–201; BP diastolic 76–99; PULSE 70–95; RESP 14–20; TEMP 36.2–37.1; O2SAT 92–99; BMI 24.7
--- NOTE | 2021-06-12 08:37 | ED_ITS ---
HPI - Fever General Chief Complaint: Fever Stated Complaint: fever/nausea Time Seen by Provider: 06/12/21 08:37 Source: patient, EMS, RN notes reviewed and old records reviewed Mode of arrival: EMS Limitations: no limitations History of Present Illness HPI Narrative: This is a 75-year-old female with history of MS, hypertension and recent right sacral ala fracture noted on 06/05/2021, and prior right superior and inferior pubic rami fractures that were considered to be subacute. Patient is currently residing at assisted living facility. She does ambulate with a walker to the bathroom unassisted and states she typically falls when she turns. Patient states she has had fevers and chills sensation starting today. She has had some mild nausea but states that typically when she has pain. She has pain when she tries to sit up or move in her right sacrum pelvic region. Patient states if she lays still this does not worsen her symptoms. She has been using Tylenol, lidocaine patches which seemed to be helpful. She is able to use a walker to get to the bathroom with assistance from staff. She has had some mild headache, no neck pain, no chest pain or shortness of breath. Denies congestion, cough, chest pain or shortness of breath. She denies any vomiting. She has had small amounts of stools but done normal consistency with no black or blood. No dysuria urgency or frequency. She denies any new skin issues or breakdown. No swelling in her extremities, no pain down her legs. She is not anticoagulated. She is on amlodipine, fluoxetine, gabapentin, naltrexone, Zofran twice daily and docusate. Related Data Home Medications Medication Instructions Recorded Confirmed amlodipine 2.5 mg tablet 2.5 mg PO DAILY 01/20/21 06/12/21 fluoxetine 20 mg capsule 20 mg PO TID 01/20/21 06/12/21 ondansetron 4 mg disintegrating 4 mg PO PRN PRN 01/20/21 06/12/21 tablet Previous Rx's Medication Instructions Recorded gabapentin 600 mg tablet 600 mg PO TID #60 tab 01/21/21 naltrexone 3.5 mg PO BEDTIME #30 cap 01/21/21 temazepam 15 mg capsule 15 mg PO PRN PRN #30 cap 01/21/21 lidocaine 5 % topical patch 1 patch TOPICAL DAILY #15 ea 04/10/22 (Lidoderm) ondansetron 4 mg disintegrating 4 mg PO TID-QID PRN #10 tab 06/05/21 tablet Allergies Allergy/AdvReac Type Severity Reaction Status Date / Time No Known Drug Allergies Allergy Verified 01/20/21 01:02 Review of Systems Review of Systems ROS Unobtainable: All systems reviewed & are unremarkable except as noted in HPI and below Patient History Medical History Cataract Depression Hammertoes of both feet Hypertension Multiple sclerosis (~1975) Oral pain Surgical History History of shoulder surgery Previous back surgery Status post laser cataract surgery of both eyes Family History (Updated 06/12/21 @ 15:34 by Shama Coronado MD) Mother Stroke Brother AIDS Father Stroke Social History household members: none Smoking Status: Never smoker Smoking Status: Never smoker alcohol intake frequency: holidays/special occasions only Substance Use Type: does not use Exam Narrative Exam Narrative: GEN: well nourished, well appearing female, alert and oriented x 3, patient appears to be in mild distress. Patient's back is sweaty on examination. HEENT: Atraumatic, pupils are equal round reactive to light, extraocular movements are intact, nares are clear, TMs are clear with no fluid, there is no conjunctival pallor. Throat is clear without any exudates, erythema, tonsillar enlargement or uvular deviation, no meningeal signs. HEART: Regular rate and rhythm without murmur, clicks, rubs. LUNGS:Lungs clear to auscultation, no wheezes, rales, crackles, chest moves symmetrically, no tachypnea accessory muscle use. ABD:bowel sounds normal, soft, non-tender, no guarding, rebound, rigidity, no masses noted, no hepatosplenomegaly, pelvic rock negative. :No CVA tenderness BACK: No cervical, thoracic or lumbar vertebral point tenderness. Patient has decreased range of motion. Muscle strength is 5/5 in lower extremities, DTRs are 2/4 and lower extremities. Dorsalis pedis and tibialis pulses are 2+ and lower extremities. Sensation is intact in the lower extremities. Patient has increased pain with right straight leg raise, she does not with left straight leg raise. MSCL: Non-tender, no muscle atrophy, muscles strength 5/5 upper and lower extremities NEURO:CN 2-12 intact, sensation normal SKIN: Patient has lidocaine patch on right upper buttock, no other skin changes noted. Initial Vital Signs Initial Vital Signs: Vital Signs Temperature 98.7 F 06/12/21 08:36 Pulse Rate 85 06/12/21 08:36 Respiratory Rate 18 06/12/21 08:36 Blood Pressure 186/99 H 06/12/21 08:36 Pulse Oximetry 94 06/12/21 08:36 Course Orders Ordered: ED Orders 06/12/21 09:01 Complete Blood Count AUTO DIFF Stat Comprehensive Metabolic Panel Stat D Dimer Stat Lactate (Lactic Acid) Stat Lipase Stat Partial Thromboplastin Time Stat Procalcitonin Stat Prothrombin Time INR Stat Troponin & CK Cardiac Panel Stat 06/12/21 09:15 Blood Culture Stat 06/12/21 09:30 Urinalysis and Microscopic Stat 06/12/21 10:00 CT angio chest PE protocol Stat US periph venous low extrem bi Stat 06/12/21 10:55 EKG-12 Lead Stat Acetaminophen (Acetaminophen 325 Mg Tablet) 650 mg PO Q6HR FREYA Last Admin: 06/12/21 17:02 Dose: 325 mg Documented by: LOIDA Amlodipine Besylate (Amlodipine 5 Mg Tablet) 2.5 mg PO DAILY FREYA Fluoxetine HCl (Fluoxetine 20 Mg Capsule) 20 mg PO DAILY [facility] Gabapentin (Gabapentin 600 Mg Tablet) 600 mg PO TID [facility] Lidocaine (Lidocaine Patch 1 Each Adh..Patch) 1 each TOP DAILY [facility] Lidocaine (Remove Lidocaine Patch) 1 each TOP BEDTIME ONE Stop: 06/13/21 21:01 Naloxone HCl (Naloxone 0.4 Mg/Ml Vial) 0.2 mg IV Q2MIN PRN PRN Reason: Opiate Reversal Non-Formulary Medication (Naltrexone) 3.5 mg PO BEDTIME [facility] Ondansetron HCl (Ondansetron 4 Mg Odt) 4 mg PO Q8HR PRN PRN Reason: Nausea And Vomiting Rivaroxaban (Rivaroxaban 10 Mg Tablet) 15 mg PO BIDWM [facility] Temazepam (Temazepam 15 Mg Capsule) 15 mg PO BEDTIME PRN PRN Reason: Sleep Discontinued Medications Acetaminophen (Acetaminophen 325 Mg Tablet) 975 mg PO NOW ONE Stop: 06/12/21 12:35 Last Admin: 06/12/21 12:45 Dose: 325 mg Documented by: DANTE Morphine Sulfate (Morphine 2 Mg/Ml Inj) 2 mg IV NOW ONE Stop: 06/12/21 12:01 Last Admin: 06/12/21 12:33 Dose: Not Given Documented by: DANTE Rivaroxaban (Rivaroxaban 10 Mg Tablet) 15 mg PO NOW ONE Stop: 06/12/21 11:33 Last Admin: 06/12/21 11:52 Dose: 15 mg Documented by: DANTE Reevaluation(s) Reevaluation #1: Recheck patient reviewed her findings her dimer is quite elevated. She is not anticoagulated. Based on her decrease in ambulation and activity fever generally feeling unwell CT angio of the chest and bilateral peripheral door sounds was ordered. Patient updated was noted she does drop to 90% when in the room with a good pleth. Patient requested extra warm blankets but defers anyth ing. She denies any achiness or discomfort in her legs on reach heat and denies any chest pain or shortness of breath still. Time: 10:04 Consultations Consultation #1: Dr. Barrera, patient had sacral ala fracture found on 06/05/21 as well as possible increase in right superior and inferior pubic rami fracture. No changes in management of fracture. no contraindications from orthopedic perspective for anticoagulation whether heparin or other options. Time: 10:52 Consultation #2: Dr. Coronado, hospitalist. Patient accepted for observation patient could potentially normally be discharged home but with her fall risk being on ant icoagulation an assisted living facility that has been reportedly under staffed this is quite concerning and would like he patient for observation and potentially placement at a SNF. She does drop her O2 sat 90% this is been or lowest documented while lying in bed. Discussed if any anticoagulation options will start with Xarelto. Vital Signs Vital signs: Vital Signs - 8 hr 06/12/21 10:00 06/12/21 10:31 06/12/21 10:42 Pulse Rate 77 79 78 Respiratory Rate 16 Blood Pressure 180/88 H Pulse Oximetry 92 92 97 06/12/21 11:00 06/12/21 11:20 06/12/21 11:30 Pulse Rate 81 80 78 Respiratory Rate Blood Pressure 190/89 H 184/83 H Pulse Oximetry 93 94 93 MDM - Fever Lab Data Result diagrams: 06/12/21 09:01 06/12/21 09:01 Labs: Lab Results 06/12/21 06/12/21 06/12/21 Range/Units 08:49 09:01 09:01 WBC 8.5 (4.5-11.0) X10^3/uL RBC 4.29 (4.0-5.2) X10^6/uL Hgb 12.5 (12.0-16.0) g/dL Hct 37.7 (36-46) % MCV 87.8 (80-100) fL MCH 29.1 (26-34) PG MCHC 33.1 (30-36) % RDW 14.9 H (11.6-14.8) % Plt Count 267 (150-400) X10^3/uL Neut % (Auto) 75.9 H (50-75) % Lymph % (Auto) 14.4 L (25-40) % [place] % (Auto) 6.4 (3-14) % Eos % (Auto) 2.5 (2-4) % Baso % (Auto) 0.8 (0-2) % Neut # (Auto) 6500 (9187-2344) /uL Lymph # (Auto) 1200 (5337-3283) /uL [place] # (Auto) 500 (0-900) /uL Eos # (Auto) 200 (0-450) /uL Baso # (Auto) 100 (0-100) /uL PT 12.2 (10.1-12.7) SECONDS INR 1.1 (0.9-1.3) APTT 28 (26.4-36.2) SECONDS D-Dimer 2538 H (<230) ng/mL Sodium (137-145) mmol/L Potassium (3.4-5.1) mmol/L Chloride (98-107) mmol/L Carbon Dioxide (22-32) mmol/L BUN (7-17) mg/dL Creatinine (0.52-1.04) mg/dL Estimated GFR (>60) mL/min BUN/Creatinine Ratio (6-22) Glucose (80-110) mg/dL Lactate (0.7-2.1) mmol/L Calcium (8.4-10.2) mg/dL Total Bilirubin (0.2-1.3) mg/dL AST (14-36) IU/L ALT (<35) IU/L Alkaline Phosphatase (38-126) U/L Total Creatine Kinase (30-135) U/L CK-MB (CK-2) CK-MB (CK-2) Rel Index Troponin I (0.01-0.034) ng/mL Total Protein (6.3-8.2) g/dL Albumin (3.5-5.0) g/dL Globulin (1.7-4.1) g/dL Albumin/Globulin Ratio (1.0-2.8) Lipase (23-300) U/L Procalcitonin (<0.5) ng/mL Urine Color Urine Appearance Urine pH (4.5-8.0) Ur Specific [place] (1.000-1.035) Urine Protein (Negative) Urine Glucose (UA) (Negative) g/dL Urine Ketones (NEGATIVE) Urine Occult Blood (Negative) Urine Nitrate (Negative) Urine Bilirubin (NEGATIVE) Urine Urobilinogen (0.2) E.U./dL Ur Leukocyte Esterase (NEGATIVE) Urine RBC (0-5/HPF) Urine WBC (0-5/HPF) Ur Squamous Epith Cells (0-5/HPF) Ur Transition Epith Cell (0-5/HPF) Amorphous Sediment Urine Bacteria (None) Ur Culture Indicated? SARS-CoV-2 (PCR) Negative (Negative) 06/12/21 06/12/21 06/12/21 Range/Units 09:01 09:01 09:01 WBC (4.5-11.0) X10^3/uL RBC (4.0-5.2) X10^6/uL Hgb (12.0-16.0) g/dL Hct (36-46) % MCV (80-100) fL MCH (26-34) PG MCHC (30-36) % RDW (11.6-14.8) % Plt Count (150-400) X10^3/uL Neut % (Auto) (50-75) % Lymph % (Auto) (25-40) % [place] % (Auto) (3-14) % Eos % (Auto) (2-4) % Baso % (Auto) (0-2) % Neut # (Auto) (3524-3990) /uL Lymph # (Auto) (3740-3562) /uL [place] # (Auto) (0-900) /uL Eos # (Auto) (0-450) /uL Baso # (Auto) (0-100) /uL PT (10.1-12.7) SECONDS INR (0.9-1.3) APTT (26.4-36.2) SECONDS D-Dimer (<230) ng/mL Sodium 145 (137-145) mmol/L Potassium 3.5 (3.4-5.1) mmol/L Chloride 110 H (98-107) mmol/L Carbon Dioxide 27 (22-32) mmol/L BUN 27 H (7-17) mg/dL Creatinine 0.73 (0.52-1.04) mg/dL Estimated GFR > 60 (>60) mL/min BUN/Creatinine Ratio 37.0 H (6-22) Glucose 113 H (80-110) mg/dL Lactate 0.6 L (0.7-2.1) mmol/L Calcium 9.0 (8.4-10.2) mg/dL Total Bilirubin 0.6 (0.2-1.3) mg/dL AST 23 (14-36) IU/L ALT 14 (<35) IU/L Alkaline Phosphatase 102 (38-126) U/L Total Creatine Kinase 37 (30-135) U/L CK-MB (CK-2) TNP CK-MB (CK-2) Rel Index TNP Troponin I < 0.012 (0.01-0.034) ng/mL Total Protein 7.5 (6.3-8.2) g/dL Albumin 4.2 (3.5-5.0) g/dL Globulin 3.3 (1.7-4.1) g/dL Albumin/Globulin Ratio 1.3 (1.0-2.8) Lipase 69 (23-300) U/L Procalcitonin 0.04 (<0.5) ng/mL Urine Color Urine Appearance Urine pH (4.5-8.0) Ur Specific [place] (1.000-1.035) Urine Protein (Negative) Urine Glucose (UA) (Negative) g/dL Urine Ketones (NEGATIVE) Urine Occult Blood (Negative) Urine Nitrate (Negative) Urine Bilirubin (NEGATIVE) Urine Urobilinogen (0.2) E.U./dL Ur Leukocyte Esterase (NEGATIVE) Urine RBC (0-5/HPF) Urine WBC (0-5/HPF) Ur Squamous Epith Cells (0-5/HPF) Ur Transition Epith Cell (0-5/HPF) Amorphous Sediment Urine Bacteria (None) Ur Culture Indicated? SARS-CoV-2 (PCR) (Negative) 06/12/21 Range/Units 09:30 WBC (4.5-11.0) X10^3/uL RBC (4.0-5.2) X10^6/uL Hgb (12.0-16.0) g/dL Hct (36-46) % MCV (80-100) fL MCH (26-34) PG MCHC (30-36) % RDW (11.6-14.8) % Plt Count (150-400) X10^3/uL Neut % (Auto) (50-75) % Lymph % (Auto) (25-40) % [place] % (Auto) (3-14) % Eos % (Auto) (2-4) % Baso % (Auto) (0-2) % Neut # (Auto) (0821-1842) /uL Lymph # (Auto) (7962-9183) /uL [place] # (Auto) (0-900) /uL Eos # (Auto) (0-450) /uL Baso # (Auto) (0-100) /uL PT (10.1-12.7) SECONDS INR (0.9-1.3) APTT (26.4-36.2) SECONDS D-Dimer (<230) ng/mL Sodium (137-145) mmol/L Potassium (3.4-5.1) mmol/L Chloride (98-107) mmol/L Carbon Dioxide (22-32) mmol/L BUN (7-17) mg/dL Creatinine (0.52-1.04) mg/dL Estimated GFR (>60) mL/min BUN/Creatinine Ratio (6-22) Glucose (80-110) mg/dL Lactate (0.7-2.1) mmol/L Calcium (8.4-10.2) mg/dL Total Bilirubin (0.2-1.3) mg/dL AST (14-36) IU/L ALT (<35) IU/L Alkaline Phosphatase (38-126) U/L Total Creatine Kinase (30-135) U/L CK-MB (CK-2) CK-MB (CK-2) Rel Index Troponin I (0.01-0.034) ng/mL Total Protein (6.3-8.2) g/dL Albumin (3.5-5.0) g/dL Globulin (1.7-4.1) g/dL Albumin/Globulin Ratio (1.0-2.8) Lipase (23-300) U/L Procalcitonin (<0.5) ng/mL Urine Color Yellow Urine Appearance Clear Urine pH 7.5 (4.5-8.0) Ur Specific [place] 1.015 (1.000-1.035) Urine Protein Trace H (Negative) Urine Glucose (UA) Negative (Negative) g/dL Urine Ketones Negative (NEGATIVE) Urine Occult Blood 3+ H (Negative) Urine Nitrate Negative (Negative) Urine Bilirubin Negative (NEGATIVE) Urine Urobilinogen 0.2 (0.2) E.U./dL Ur Leukocyte Esterase Negative (NEGATIVE) Urine RBC 5-10/hpf H (0-5/HPF) Urine WBC 0-1/hpf (0-5/HPF) Ur Squamous Epith Cells 1-5 /hpf (0-5/HPF) Ur Transition Epith Cell 0-1/hpf (0-5/HPF) Amorphous Sediment 2+ Urine Bacteria Few (2-10) H (None) Ur Culture Indicated? Cult not indicated SARS-CoV-2 (PCR) (Negative) Imaging Data CT scan - chest: Radiologist's Impression: Launch?[place] [address] CT Scan Report Signed Patient: Dayami Disla MR#: [id number] : 1945 Acct:[id number] Age/Sex: 75 / F Date of Service: 06/12/21 Loc: ED Accession Number: [id number] ?? Procedure: CT angio chest PE protocol Ordering Provider: Earlene Dorsey D.O. PROCEDURE:? CT ANGIO CHEST PE PROTOCOL ? INDICATIONS:? fever, elevated dimer, patient not ambulating 2nd sacral fx. ? TECHNIQUE:? After the administration of intravenous contrast, 2 mm thick sections acquired from the pulmonary apices to the posterior costophrenic angles.? 3-dimensional maximum intensity projection (MIP) coronal and sagittal reformats were then acquired through the thorax.? For radiation dose reduction, the following was used:? automated exposure control, adjustment of mA and/or kV according to patient size.? ? COMPARISON:? [facility], CR, XR CHEST 1V, 06/12/2021, 9:34.? [facility], CT, CT LUMBAR SPINE WO CON, 06/05/2021, 15:40. ? FINDINGS:? Image quality:? Excellent.? ? Pulmonary arteries:? Pulmonary arteries are normal in size.? Within the left lower lobe, there is a mild burden of pulmonary embolism, which is seen at a branch point of signal arteries.? No right-sided pulmonary embolism can be seen.? ? Lungs and pleura:? Lungs are clear.? No pleural effusions or pneumothorax.? José Miguel tral and peripheral airways are patent.? ? Mediastinum:? Heart size is normal, without pericardial effusion.? No mediastinal or hilar adenopathy.? 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 Atherosclerotic calcification is noted.? ? Esophagus is normal in caliber, without hiatal hernia.? ? Bones and chest wall:? No suspicious bony lesions.? S shaped scoliosis is seen, with a primary dextroconvex lumbar scoliosis.? No focal AP alignment abnormality is seen.? A T11 central compression deformity is seen, with subacute features.? 40-50% loss of height can be seen centrally.? Thyroid gland demonstrates a 12 mm low-density right-sided thyroid nodule.? No axillary or supraclavicular adenopathy.? ? Abdomen:? Visualized upper abdominal solid organs appear normal in the early arterial phase of enhancement.? IMPRESSION:? Mild burden of pulmonary embolism seen within the left lower lobe. ? T11 central compression deformity with subacute features and 40-50% loss of height centrally. ? 12 mm right-sided low-density thyroid nodule.? When clinically appropriate, plea se consider a dedicated thyroid ultrasound for further evaluation. ? 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 ? ? Incidental note is made of: Scoliosis? ? Note:? Critical finding of pulmonary embolism discussed by telephone with Dr. Dorsey at 9:50 a.m. [place] time on June 12, 2021. ? ? Dictated by: Kenny Hartman M.D. on 06/12/2021 at 9:44 ? ? Approved by: Kenny Hartman M.D. on 06/12/2021 at 9:51?? US - DVT: Radiologist's Impression: [address] [address] Ultrasound Report Signed Patient: Dayami Disla MR#: [id number] : 1945 Acct:[id number] Age/Sex: 75 / F Date of Service: 06/12/21 Loc: ED Accession Number: [id number] ?? Procedure: US periph venous low extrem bi Ordering Provider: Earlene Dorsey D.O. PROCEDURE:? US PERIPH VENOUS LOW EXTREM BI ? INDICATIONS:? ELEVATED D-DIMER.? Immobility.? Pulmonary embolism seen on CT. ? TECHNIQUE:? Real-time imaging, as well as color and pulse Doppler interrogation, were performed of the deep veins of both legs from the inguinal ligament to the popliteal fossa.? ? COMPARISON:? [facility], CT, CT ANGIO CHEST PE PROTOCOL, 06/12/2021, 10:17. ? FINDINGS:? ? Right: The common femoral, femoral and popliteal veins are normally compress ible, and free of intraluminal thrombus.? Color and pulse Doppler demonstrate normal phasic intravascular flow.? There is normal augmentation response to distal compression maneuver.? ? Left: The common femoral, femoral and popliteal veins are normally compressible, and free of intraluminal thrombus.? Color and pulse Doppler demonstrate normal phasic intravascular flow.? There is normal augmentation response to distal compression maneuver.? ? ? IMPRESSION:? ? Negative for deep venous thrombosis. ? ? Dictated by: Kenny Hartman M.D. on 06/12/2021 at 10:24 ? ? Approved by: Kenny Hartman M.D. on 06/12/2021 at 10:25?? ECG Data Attestation: I personally reviewed and interpreted this ECG as follows: Prior ECG tracings: not available for review Interpretation: Rate of 78 IN 122 QRS 80 QTC of 476. Patient has depression in V4 5. No ST elevation. Patient has he wave in 1 aVL. No priors available for review. MDM Narrative Medical decision making narrative: This is a 75-year-old female comes in with feeling generally unwell, fever with recent sacral ala fracture on the 02 June 2009 days ago and prior to that right-sided pubic rami fracture. Patient has not been ambulating much. She does not have any other real specific symptoms she has pain from her fracture which is controlled with Tylenol, lidocaine patches and minimal movement. She has been up to ambulate to the bathroom but must be assisted and has not been ambulating much beyond this. She denies any pain or swelling in her legs. Her EKG not show acute right-sided strain, troponin is negative, chest x-ray was clear but dimer was quite elevated at 2500 CT angio is positive for left lower lobe emboli, bilateral DVT are negative. Decision was made to keep patient as she is high risk for fall with her MS, recent sacral fracture and at a assisted living facility while the actively anticoagulated. Discussed with hospitalist who kindly accepts. We did discuss best choice for anticoagulation and patient is appropriate for oral anticoagulation started. Past the score was 95 based on 90% O2 sat and age. Discharge Plan Departure Patient Disposition: Admitted as Observation Clinical Impression: Pulmonary embolism, Closed wedge compression fracture of T11 vertebra, Thyroid nodule, Multiple falls Closed fracture of pubic ramus Qualifiers: Encounter type: subsequent encounter Laterality: right Closed sacral fracture Qualifiers: Encounter type: subsequent encounter Admit Date/Time: 06/12/21 11:39 Admit Provider: Shama Coronado
--- NOTE | 2021-06-12 08:38 | DI.RAD.S_ITS ---
PROCEDURE: XR CHEST 1V INDICATIONS: fever,chills TECHNIQUE: One view of the chest was acquired. COMPARISON: None. FINDINGS: Surgical changes and devices: Postoperative change of both coracoclavicular interfaces can be seen. Plate and screw fixation is seen of the right proximal humerus. Lungs and pleura: On this semiupright portable chest examination, no large pneumothorax or large pleural effusions are seen. No focal infiltrates are seen. Mediastinum: The cardiac contours are within normal limits. The aorta demonstrates calcification and tortuosity. Bones and chest wall: No suspicious bony lesions. Dextroconvex scoliosis is seen. Age-appropriate bony degenerative changes are seen. Overlying soft tissues appear unremarkable. IMPRESSION: Clear lungs, without infiltrates. Postoperative and degenerative changes are seen. Dictated by: Kenny Hartman M.D. on 06/12/2021 at 9:03 Approved by: Kenny Hartman M.D. on 06/12/2021 at 9:04
[2021-06-12 09:09] LABS: Add Manual Diff / Slide Review NO; Basophils Absolute Auto 100 /uL (0-100); Basophils Percent Auto 0.8 % (0-2); Eosinophils Absolute Auto 200 /uL (0-450); Eosinophils Percent Auto 2.5 % (2-4); Hematocrit 37.7 % (36-46); Hemoglobin 12.5 g/dL (12.0-16.0); Lymphocytes Absolute Auto 1200 /uL (1100-4500); Lymphocytes Percent Auto 14.4 % (25-40); Mean Corpuscular HGB Conc 33.1 % (30-36); Mean Corpuscular Hemoglobin 29.1 PG (26-34); Mean Corpuscular Volume 87.8 fL (80-100); Monocytes Absolute Auto 500 /uL (0-900); Monocytes Percent Auto 6.4 % (3-14); Neutrophils Absolute Auto 6500 /uL (1500-7000); Neutrophils Percent Auto 75.9 % (50-75); Platelet Count 267 X10^3/uL (150-400); Red Blood Cell Count 4.29 X10^6/uL (4.0-5.2); Red Cell Distribution Width 14.9 % (11.6-14.8); White Blood Cell Count 8.5 X10^3/uL (4.5-11.0)
[2021-06-12 09:19] LABS: INR 1.1 (0.9-1.3); Prothrombin Time 12.2 SECONDS (10.1-12.7)
[2021-06-12 09:21] LABS: Alanine Aminotransferase 14 IU/L (<35); Albumin 4.2 g/dL (3.5-5.0); Albumin Globulin Ratio 1.3 (1.0-2.8); Alkaline Phosphatase 102 U/L (38-126); Aspartate Aminotransferase 23 IU/L (14-36); Bilirubin Total 0.6 mg/dL (0.2-1.3); Blood Urea Nitrogen 27 mg/dL (7-17); Carbon Dioxide 27 mmol/L (22-32); Chloride 110 mmol/L (98-107); Creatine Kinase 37 U/L (30-135); Estimated Glomerular Filt Rate > 60 mL/min (>60); Globulin 3.3 g/dL (1.7-4.1); Glucose 113 mg/dL (80-110); HEMOLYSIS < 15 (0-50); Lactate (Lactic Acid) 0.6 mmol/L (0.7-2.1); Potassium 3.5 mmol/L (3.4-5.1); Sodium 145 mmol/L (137-145); Total Protein 7.5 g/dL (6.3-8.2)
[2021-06-12 09:22] LABS: PTT Partial Thromboplastin Tim 28 SECONDS (26.4-36.2)
[2021-06-12 09:29] LABS: D Dimer 2538 ng/mL (<230)
[2021-06-12 09:31] LABS: Lipase 69 U/L (23-300)
[2021-06-12 09:33] LABS: Troponin I < 0.012 ng/mL (0.01-0.034)
[2021-06-12 09:38] LABS: Procalcitonin 0.04 ng/mL (<0.5)
[2021-06-12 09:42] LABS: COVID19 -Nasal RAPID Negative (Negative)
[2021-06-12 09:58] LABS: Appearance Urine UA CLEAR; Bilirubin Urine UA NEGATIVE (NEGATIVE); Color Urine UA YELLOW; Glucose Urine UA NEGATIVE (Negative); Ketones Urine UA NEGATIVE (NEGATIVE); Leukocyte Esterase Urine UA NEGATIVE (NEGATIVE); Nitrite Urine UA NEGATIVE (Negative); Occult Blood Urine UA 3+ (Negative); Protein Urine UA TRACE (Negative); Specific Gravity Urine UA 1.015 (1.000-1.035); Urobilinogen Urine UA 0.2 E.U./dL (0.2)
--- NOTE | 2021-06-12 10:00 | DI.CT.S_ITS ---
PROCEDURE: CT ANGIO CHEST PE PROTOCOL INDICATIONS: fever, elevated dimer, patient not ambulating 2nd sacral fx. TECHNIQUE: After the administration of intravenous contrast, 2 mm thick sections acquired from the pulmonary apices to the posterior costophrenic angles. 3-dimensional maximum intensity projection (MIP) coronal and sagittal reformats were then acquired through the thorax. For radiation dose reduction, the following was used: automated exposure control, adjustment of mA and/or kV according to patient size. COMPARISON: [facility], CR, XR CHEST 1V, 06/12/2021, 9:34. [facility], CT, CT LUMBAR SPINE WO CON, 06/05/2021, 15:40. FINDINGS: Image quality: Excellent. Pulmonary arteries: Pulmonary arteries are normal in size. Within the left lower lobe, there is a mild burden of pulmonary embolism, which is seen at a branch point of signal arteries. No right-sided pulmonary embolism can be seen. Lungs and pleura: Lungs are clear. No pleural effusions or pneumothorax. Central and peripheral airways are patent. Mediastinum: Heart size is normal, without pericardial effusion. No mediastinal or hilar adenopathy. 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 Atherosclerotic calcification is noted. Esophagus is normal in caliber, without hiatal hernia. Bones and chest wall: No suspicious bony lesions. S shaped scoliosis is seen, with a primary dextroconvex lumbar scoliosis. No focal AP alignment abnormality is seen. A T11 central compression deformity is seen, with subacute features. 40-50% loss of height can be seen centrally. Thyroid gland demonstrates a 12 mm low-density right-sided thyroid nodule. No axillary or supraclavicular adenopathy. Abdomen: Visualized upper abdominal solid organs appear normal in the early arterial phase of enhancement. IMPRESSION: Mild burden of pulmonary embolism seen within the left lower lobe. T11 central compression deformity with subacute features and 40-50% loss of height centrally. 12 mm right-sided low-density thyroid nodule. When clinically appropriate, please consider a dedicated thyroid ultrasound for further evaluation. 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 Incidental note is made of: Scoliosis Note: Critical finding of pulmonary embolism discussed by telephone with Dr. Dorsey at 9:50 a.m. [place] time on June 12, 2021. Dictated by: Kenny Hartman M.D. on 06/12/2021 at 9:44 Approved by: Kenny Hartman M.D. on 06/12/2021 at 9:51
--- NOTE | 2021-06-12 10:00 | DI.US.S_ITS ---
PROCEDURE: US PERIPH VENOUS LOW EXTREM BI INDICATIONS: ELEVATED D-DIMER. Immobility. Pulmonary embolism seen on CT. TECHNIQUE: Real-time imaging, as well as color and pulse Doppler interrogation, were performed of the deep veins of both legs from the inguinal ligament to the popliteal fossa. COMPARISON: [facility], CT, CT ANGIO CHEST PE PROTOCOL, 06/12/2021, 10:17. FINDINGS: Right: The common femoral, femoral and popliteal veins are normally compressible, and free of intraluminal thrombus. Color and pulse Doppler demonstrate normal phasic intravascular flow. There is normal augmentation response to distal compression maneuver. Left: The common femoral, femoral and popliteal veins are normally compressible, and free of intraluminal thrombus. Color and pulse Doppler demonstrate normal phasic intravascular flow. There is normal augmentation response to distal compression maneuver. IMPRESSION: Negative for deep venous thrombosis. Dictated by: Kenny Hartman M.D. on 06/12/2021 at 10:24 Approved by: Kenny Hartman M.D. on 06/12/2021 at 10:25
[2021-06-12 10:02] LABS: Amorphous Sediment Urine 2+; Bacteria Urine Few (2-10); Culture Indicated Urine Cult Not Indicated; RBC Urine 5-10/HPF (0-5/HPF); Squamous Epithelial Cell Urine 1-5 /HPF (0-5/HPF); Transitional Epi Cells Urine 0-1/HPF (0-5/HPF); WBC Urine 0-1/HPF (0-5/HPF); pH Urine UA 7.5 (4.5-8.0)
[2021-06-12] MEDS: RIVAROXABAN 10 MG TABLET 15 MG PO ×2 (11:52→21:35)
[2021-06-12] MEDS: ACETAMINOPHEN 325 MG TABLET 975 MG PO (12:45)
--- NOTE | 2021-06-12 12:45 | PC.NURSE ---
Day shift: Pt on AC unit from ED at approx 1245. She was able to get herself from stretcher to bed but needed assistance. Pain present in sacral area. She also reports nausea r/t the pain. Bed alarm on and call light in reach. Oriented to room and call light. Dr Coronado informed. Per heart healthy diet.
--- NOTE | 2021-06-12 12:47 | PC.NURSE ---
Pt offered 975mg tylenol for pain, [id number] tabs. Accepted only 1 tab @ 325mg. Provider aware.
--- NOTE | 2021-06-12 15:19 | P.HP_ITS ---
History of Present Illness History of Present Illness Date Patient Seen: 06/12/21 Time Patient Seen: 15:20 Chief complaint: fever/nausea Narrative: The patient is a 75-year-old female with a history of multiple sclerosis, hypertension, frequent falls, who was seen in the emergency room 1 week ago. At that time the patient was diagnosed with a right superior sacral ala fracture, and a prior right superior and inferior pubic ramus fracture which were felt to be subacute. The patient lives at [facility]. She does ambulate unassisted with her walker but has had frequent falls. Patient developed a fever today, she felt cold, she called the caregivers and EMS were summoned and she was brought into the hospital. She denies any cough, but does report some shortness of breath. She has had morning nausea, but no vomiting or diarrhea. The patient does have pain in the sacrum with movement. She has been taking Tylenol and lidocaine patches for pain. The patient was evaluated in the emergency room, found to be hypoxic with a room air sat of 90%. Patient had a D-dimer which was markedly elevated at 2500, she underwent CT angio, this confirmed a left lower lobe pulmonary embolus. Patient also had bilateral lower extremity duplex which were negative for DVT. The patient will be anticoagulated for her pulmonary embolus, due to her frequent falls and need for higher level of care than can be provided at the [facility] patient is admitted to the hospital for treatment of her PE, PT OT evaluation, and possible placement. Patient History Medical History Cataract Depression Hammertoes of both feet Hypertension Multiple sclerosis (~1975) Oral pain Surgical History History of shoulder surgery Previous back surgery Status post laser cataract surgery of both eyes Family & Social History Family History (Updated 06/12/21 @ 15:34 by Shama Coronado MD) Mother Stroke Brother AIDS Father Stroke Social History: household members none Prior Living Arrangements Assisted Living Safety & Behavioral: Feels Safe in Current Yes Environment Been Physically Hurt or No Threatened By a Person Suicidal Ideation Description None Suicide Plan Description No Plan Tobacco & Substance use: Smoking Status Never smoker alcohol intake frequency holiday/special occasion Substance Use Type does not use Meds Home Medications and Allergies Home Medications Medication Instructions Recorded Confirmed Type amlodipine 2.5 mg tablet 2.5 mg PO DAILY 01/20/21 06/12/21 History fluoxetine 20 mg capsule 20 mg PO TID 01/20/21 06/12/21 History ondansetron 4 mg disintegrating 4 mg PO PRN PRN 01/20/21 06/12/21 History tablet gabapentin 600 mg tablet 600 mg PO TID #60 tab 01/21/21 06/12/21 Rx naltrexone 3.5 mg PO BEDTIME #30 cap 01/21/21 06/12/21 Rx temazepam 15 mg capsule 15 mg PO PRN PRN #30 cap 01/21/21 06/12/21 Rx lidocaine 5 % topical patch 1 patch TOPICAL DAILY #15 ea 06/05/21 06/12/21 Rx (Lidoderm) ondansetron 4 mg disintegrating 4 mg PO TID-QID PRN #10 tab 06/05/21 06/12/21 Rx tablet Allergies Allergy/AdvReac Type Severity Reaction Status Date / Time No Known Drug Allergies Allergy Verified 01/20/21 01:02 Review of Systems Review of Systems Narrative: 10 point review of system is negative except as above Exam Vital Signs (past 8 hours): - 06/12/21 08:36 06/12/21 09:13 06/12/21 09:16 Temperature 98.7 F Pulse Rate 85 80 77 Respiratory Rate 18 17 Blood Pressure 186/99 H 186/87 H Pulse Oximetry 94 94 92 06/12/21 09:20 06/12/21 09:44 06/12/21 10:00 Temperature Pulse Rate 78 95 H 77 Respiratory Rate Blood Pressure 163/78 H Pulse Oximetry 99 92 06/12/21 10:31 06/12/21 10:42 06/12/21 11:00 Temperature Pulse Rate 79 78 81 Respiratory Rate 16 Blood Pressure 180/88 H 190/89 H Pulse Oximetry 92 97 93 06/12/21 11:20 06/12/21 11:30 06/12/21 11:40 Temperature Pulse Rate 80 78 79 Respiratory Rate Blood Pressure 184/83 H 172/81 H Pulse Oximetry 94 93 94 06/12/21 11:56 06/12/21 12:00 06/12/21 12:01 Temperature Pulse Rate 87 79 Respiratory Rate Blood Pressure 201/92 H Pulse Oximetry 94 95 06/12/21 12:21 06/12/21 12:30 06/12/21 12:40 Temperature Pulse Rate 81 83 81 Respiratory Rate Blood Pressure 184/83 H 166/93 H Pulse Oximetry 94 93 93 06/12/21 12:50 Temperature 97.2 F L Pulse Rate 81 Respiratory Rate 16 Blood Pressure 188/89 H Pulse Oximetry 96 Oxygen Delivery Method Room Air Oxygen Flow Rate 0 Narrative Exam Narrative: Pleasant female lying in bed somewhat uncomfortable HENNM Other: Normocephalic atraumatic, extraocular muscles are intact, sclerae anicteric, Resp Other: Lungs: Clear to auscultation Cardio Other: Cardiac exam: Regular rate and rhythm normal S1-S2 with a 2/6 systolic ejection murmur GI Other: Abdomen: Soft nontender nondistended no hepatosplenomegaly Other: Diaper in place Back/Spine/Pelvis Other: No pain on palpation Skin Other: No rashes or lesion Neuro Other: Cranial nerves 2-12 are intact, strength is symmetric and equal, sensations grossly intact, gait is not assessed Extrem Other: No lower extremity edema Psych Other: The patient is awake alert and appropriate, she has normal appearance, mental status, speech, mood and affect Her thought process and thought content is appropriate Objective Labs Result Diagrams: 06/12/21 09:01 06/12/21 09:01 Labs: Laboratory Results - last 24 hr 06/12/21 06/12/21 06/12/21 08:49 09:01 09:01 WBC 8.5 RBC 4.29 Hgb 12.5 Hct 37.7 MCV 87.8 MCH 29.1 MCHC 33.1 RDW 14.9 H Plt Count 267 Neut % (Auto) 75.9 H Lymph % (Auto) 14.4 L [place] % (Auto) 6.4 Eos % (Auto) 2.5 Baso % (Auto) 0.8 Neut # (Auto) 6500 Lymph # (Auto) 1200 [place] # (Auto) 500 Eos # (Auto) 200 Baso # (Auto) 100 PT 12.2 INR 1.1 APTT 28 D-Dimer 2538 H Sodium Potassium Chloride Carbon Dioxide BUN Creatinine Estimated GFR BUN/Creatinine Ratio Glucose Lactate Calcium Total Bilirubin AST ALT Alkaline Phosphatase Total Creatine Kinase CK-MB (CK-2) CK-MB (CK-2) Rel Index Troponin I Total Protein Albumin Globulin Albumin/Globulin Ratio Lipase Procalcitonin Urine Color Urine Appearance Urine pH Ur Specific [place] Urine Protein Urine Glucose (UA) Urine Ketones Urine Occult Blood Urine Nitrate Urine Bilirubin Urine Urobilinogen Ur Leukocyte Esterase Urine RBC Urine WBC Ur Squamous Epith Cells Ur Transition Epith Cell Amorphous Sediment Urine Bacteria Ur Culture Indicated? SARS-CoV-2 (PCR) Negative 06/12/21 06/12/21 06/12/21 09:01 09:01 09:01 WBC RBC Hgb Hct MCV MCH MCHC RDW Plt Count Neut % (Auto) Lymph % (Auto) [place] % (Auto) Eos % (Auto) Baso % (Auto) Neut # (Auto) Lymph # (Auto) [place] # (Auto) Eos # (Auto) Baso # (Auto) PT INR APTT D-Dimer Sodium 145 Potassium 3.5 Chloride 110 H Carbon Dioxide 27 BUN 27 H Creatinine 0.73 Estimated GFR > 60 BUN/Creatinine Ratio 37.0 H Glucose 113 H Lactate 0.6 L Calcium 9.0 Total Bilirubin 0.6 AST 23 ALT 14 Alkaline Phosphatase 102 Total Creatine Kinase 37 CK-MB (CK-2) TNP CK-MB (CK-2) Rel Index TNP Troponin I < 0.012 Total Protein 7.5 Albumin 4.2 Globulin 3.3 Albumin/Globulin Ratio 1.3 Lipase 69 Procalcitonin 0.04 Urine Color Urine Appearance Urine pH Ur Specific [place] Urine Protein Urine Glucose (UA) Urine Ketones Urine Occult Blood Urine Nitrate Urine Bilirubin Urine Urobilinogen Ur Leukocyte Esterase Urine RBC Urine WBC Ur Squamous Epith Cells Ur Transition Epith Cell Amorphous Sediment Urine Bacteria Ur Culture Indicated? SARS-CoV-2 (PCR) 06/12/21 09:30 WBC RBC Hgb Hct MCV MCH MCHC RDW Plt Count Neut % (Auto) Lymph % (Auto) [place] % (Auto) Eos % (Auto) Baso % (Auto) Neut # (Auto) Lymph # (Auto) [place] # (Auto) Eos # (Auto) Baso # (Auto) PT INR APTT D-Dimer Sodium Potassium Chloride Carbon Dioxide BUN Creatinine Estimated GFR BUN/Creatinine Ratio Glucose Lactate Calcium Total Bilirubin AST ALT Alkaline Phosphatase Total Creatine Kinase CK-MB (CK-2) CK-MB (CK-2) Rel Index Troponin I Total Protein Albumin Globulin Albumin/Globulin Ratio Lipase Procalcitonin Urine Color Yellow Urine Appearance Clear Urine pH 7.5 Ur Specific [place] 1.015 Urine Protein Trace H Urine Glucose (UA) Negative Urine Ketones Negative Urine Occult Blood 3+ H Urine Nitrate Negative Urine Bilirubin Negative Urine Urobilinogen 0.2 Ur Leukocyte Esterase Negative Urine RBC 5-10/hpf H Urine WBC 0-1/hpf Ur Squamous Epith Cells 1-5 /hpf Ur Transition Epith Cell 0-1/hpf Amorphous Sediment 2+ Urine Bacteria Few (2-10) H Ur Culture Indicated? Cult not indicated SARS-CoV-2 (PCR) Assessment & Plan Assessment & Plan narrative: 75-year-old female with a history of multiple sclerosis, hypertension, multiple falls, recent sacral ala fracture, subacute pubic rami fracture of the inferior and superior pubic ramus, now with an acute pulmonary embolus * Patient has had multiple falls associated with fractures, he is at high risk for falling again likely related to her underlying multiple sclerosis * Patient was noted to be hypoxic in the emergency room, with an O2 sat of 90% * Acute hypoxic respiratory failure related to acute left lower lobe pulmonary embolus * Will continue rivaroxaban, 50 mg twice daily * Will obtain PT OT consultation * Will work with social work/case management for placement Multiple sclerosis * Likely related to her underlying gait disturbance * PT OT as above Acute sacral ala fracture, subacute inferior and superior pubic rami fracture * Continue lidocaine patch and Tylenol * PT OT consultation, given frequent falls likely will need placement Hypertension * Continue amlodipine Depression * Continue Prozac Patient reports her daughter Brinda is her durable power of bankruptcy attorney, she indicates she is DNR DNI will note that her record accordingly I have utilized all available methods to review update and confirm the patient's current medication Patient will be admitted as an inpatient Time Spent With Patient Critical Care time: I spent a total of [] minutes of critical care time on this patient's care today; this time is exclusive of procedural time.
[2021-06-12] MEDS: ACETAMINOPHEN 325 MG TABLET 650 MG PO ×3 (17:02→23:43)
--- NOTE | 2021-06-12 18:05 | PC.NURSE ---
Day shift: Unable to start IV this evening. IV from ED pulled out by Pt after admit to AC. OK with Dr Coronado that Pt have no IV access overnight and the DI RN will be contacted tomorrow and Dr Coronado awarer of this plan. Communication order placed.
[2021-06-12] MEDS: GABAPENTIN 600 MG TABLET PO (21:35)
[2021-06-12] MEDS: NALTREXONE 3.5 EACH PO (21:41)
[2021-06-12] MEDS: TEMAZEPAM 15 MG CAPSULE PO (23:41)
[2021-06-13 05:00] VITALS: BP 137/69; PULSE 70; RESP 14; TEMP 36.4; O2SAT 94
[2021-06-13 06:42] LABS: Add Manual Diff / Slide Review NO; Basophils Absolute Auto 100 /uL (0-100); Basophils Percent Auto 1.3 % (0-2); Eosinophils Absolute Auto 300 /uL (0-450); Eosinophils Percent Auto 5.5 % (2-4); Hematocrit 36.2 % (36-46); Hemoglobin 12.1 g/dL (12.0-16.0); Lymphocytes Absolute Auto 2100 /uL (1100-4500); Lymphocytes Percent Auto 36.5 % (25-40); Mean Corpuscular HGB Conc 33.4 % (30-36); Mean Corpuscular Hemoglobin 29.3 PG (26-34); Mean Corpuscular Volume 87.7 fL (80-100); Monocytes Absolute Auto 500 /uL (0-900); Monocytes Percent Auto 8.6 % (3-14); Neutrophils Absolute Auto 2700 /uL (1500-7000); Neutrophils Percent Auto 48.1 % (50-75); Platelet Count 250 X10^3/uL (150-400); Red Blood Cell Count 4.13 X10^6/uL (4.0-5.2); Red Cell Distribution Width 14.8 % (11.6-14.8); White Blood Cell Count 5.6 X10^3/uL (4.5-11.0)
[2021-06-13 06:49] LABS: BUN Creatinine Ratio 32.9 (6-22); Blood Urea Nitrogen 27 mg/dL (7-17); Calcium 9.1 mg/dL (8.4-10.2); Carbon Dioxide 30 mmol/L (22-32); Chloride 107 mmol/L (98-107); Estimated Glomerular Filt Rate > 60 mL/min (>60); Glucose 95 mg/dL (80-110); HEMOLYSIS < 15 (0-50); Sodium 144 mmol/L (137-145)
[2021-06-13] MEDS: GABAPENTIN 600 MG TABLET PO ×2 (08:48→14:38)
[2021-06-13] MEDS: RIVAROXABAN 10 MG TABLET 15 MG PO (08:48)
[2021-06-13] MEDS: LIDOCAINE PATCH 1 EACH ADH..PATCH TOP (08:48)
[2021-06-13] MEDS: ACETAMINOPHEN 325 MG TABLET 650 MG PO (08:49)
[2021-06-13] MEDS: FLUoxetine 20 MG CAPSULE PO (08:49)
[2021-06-13] MEDS: AMLODIPINE 5 MG TABLET 2.5 MG PO (08:51)
[2021-06-13 09:00] VITALS: BP 151/87; PULSE 70; RESP 19; TEMP 36.8; O2SAT 96
[2021-06-13 09:13] VITALS: O2SAT 96
--- NOTE | 2021-06-13 10:18 | PT.IIE ---
Medical History (Last Reviewed 06/12/21 @ 15:29 by Shama Coronado MD) Cataract Depression Hammertoes of both feet Hypertension Multiple sclerosis (~1975) Oral pain Physical Therapy Inpatient Evaluation/Re-Eval M1 PT/OT-IP Prior Functional Status Start: 06/13/21 08:37 Freq: NEEDED Status: Active Protocol: Document 06/13/21 10:18 AW (Rec: 06/13/21 11:24 AW [id number]) Medical Review Prior Functional Status Medical History Reviewed Yes Communication WNL. Pt is an effective verbal communicator. Mobility and Gait Pt is modified independent with 4WW. She reports 7 falls in the past one month which represents an increase in falls frequency. Activities of Daily Living and IADL's Pt needs facility assist for showers but is otherwise independent with ADL's. She recently increased her assist level at [facility] but states she does not notice a difference in service. She admits she may be hesitant to call for help as often as she should. Prior Functional Level (Other details) Pt has history of multiple falls and fractures including R shoulder x 2, L shoulder, R pubic rami fractures, and now sacral ala fracure. She states the pubic fractures were by far the most painful. She went to SNF in December following the pubic fractures. Social History Household Members none Living Arrangements Assisted Living Home Environment Walk in Shower,Built-In Shower Seat,Elevator Home Equipment Four Wheel Walker,Straight Cane,Hand Held Shower,Grab Bars Near Toilet,Grab Bars In Shower Additional Social History Comment Dayami lives at [facility]. She has an adjustable bed. She has a custom power wheelchair currently being built but does not know when it will be delivered. M2 PT-IP Current Condition Start: 06/13/21 08:37 Freq: NEEDED Status: Active Protocol: Document 06/13/21 10:18 AW (Rec: 06/13/21 11:24 AW [id number]) Physical Therapy Current Condition Current Condition Evaluation Date 06/13/21 Treatment Diagnosis R sacral ala fx; pulm embolus; MS; impaired mobility and gait Onset Date 06/12/21 M3 PT-IP Subjective Start: 06/13/21 08:37 Freq: NEEDED Status: Active Protocol: Document 06/13/21 10:18 AW (Rec: 06/13/21 11:24 AW [id number]) Subjective Physical Therapy Visit Type Type Initial Evaluation Visit Start Time 09:50 Visit Stop Time 10:18 Total Visit Minutes 28 Notes Co-eval with OT due to expected level of assist based on past PT/OT notes. Physical Therapy Visit Comments Patient Comments Pt is willing to participate with therapies Patient Goals Pt states she is unwilling to consider SNF rehab. Therapy Pain Assessment Pain When Pain Assessed During Mobility Pain Present Pain Present Pain Reported Location Right Hip Intensity 7 Scale Used 3/10 at rest; 7/10 with weightbearing Pain Management Techniques Distraction,Modification of Treatment,Re-positioning M4 PT-IP Mobility and Gait Start: 06/13/21 08:37 Freq: NEEDED Status: Active Protocol: Document 06/13/21 10:18 AW (Rec: 06/13/21 11:24 AW [id number]) PT-Bed Mobility Assessment Supine to Sit Supine to Sit Minimal Assistance,1 Person Assistance Sit to Supine Sit to Supine Minimal Assistance,1 Person Assistance Scooting Scooting to Edge of Bed Minimal Assistance Scooting Up and Down in Bed Moderate Assistance PT-Transfer Assessment Sit to and From Stand Sit to and from Stand Contact Guard Assistance, Minimal Assistance,1 Person Assistance,Use of Upper Extremities Equipment Transfer Assistive Device Gait Belt,Front Wheeled Walker Orthotic/Prosthetic Devices or Brace: No Transfers Transfer Destination Bed Transfer Technique pt ambulated with FWW Transfer Ability Level of Assist Contact Guard Assistance,Use of Upper Extremities Comments Mobility Comments Pt was sitting up EOB with OT as PT arrived. She agreed to get up, standing min A. She used FWW to walk toward the window and back to the bed CGA . She sat and then stood again CGA, walking 30 feet in the room before ending up at the sink. PT cued pt to push walker up to the sink for 3- sided support. She stood 4-5 minutes to brush her teeth and brush her hair. She stood with weight shifted to the right and did not complain of increased pain. She reported fatigue, refused the chair due to back and hip pain, and returned to the bed with FWW CGA. Min A for supine to sit and mod A to reposition. Pt was left with call light in hand, bed alarm on for safety. Gait Assessment Gait Gait Assistance Required: Contact Guard Assist Distance (Feet) 30 Assistive Devices Assistive Device Gait Belt,Front Wheeled Walker Orthotic/Prosthetic Devices or Brace: No Gait Deviations General Gait Pattern Antalgic,Decreased Stride Length,Decreased Feet Clearance,Step-to Gait Factors Limiting Gait Function Factors Limiting Gait Function Decreased Strength,Pain,Poor Balance,Poor Safety Awareness Comments Gait Comments See mobility comments for details. Gait was notable for step to pattern but pt did not overly compensate for RLE pain. Stair Climbing Assessment Comments Stair Climbing Comments Not assessed. Pt has elevator access to her apartment. PT-Balance Assessment Sitting Balance and Reactions Static Sitting Balance Ability Good Dynamic Sitting Balance Ability Fair Standing Balance and Reactions Static Standing Balance Ability Fair Dynamic Standing Balance Ability Fair Device Used FWW M5 PT-IP Objective Assessments Start: 06/13/21 08:37 Freq: NEEDED Status: Active Protocol: Document 06/13/21 10:18 AW (Rec: 06/13/21 11:24 AW [id number]) Orientation Orientation/Cognition Level of Alertness Alert Orientation Name,Day of Week,Place, Situation Language Function Ability No Deficits Noted Safety Awareness Decreased Safety Awareness Memory Description Short Term Impaired Comments Pt has had several falls in the past month in spite of increased assist at [facility]. Pt admits she is likely calling for help less frequently than she should. Gross Range of Motion Lower Extremity ROM Assessment Within Functional Limits Strength Lower Extremity Strength Assessment Within Functional Limits Hip R 3-/5 Knee R 4/5 Ankle R 4-/5 Comments Strength Comments LLE grossly 4-/5 Coordination Assessment Gross Coordination Gross Coordination WNL Assessment Finger to Nose Test Normal Performance Sensation Assessment Sensation Gross Sensation WNL Muscle Tone Muscle Tone WNL Yes M6 PT-IP Treatment Start: 06/13/21 08:37 Freq: NEEDED Status: Active Protocol: Document 06/13/21 10:18 AW (Rec: 06/13/21 11:24 AW [id number]) Physical Therapy Treatment Education Education Provided Safety M7 PT-IP Assessment and Plan Start: 06/13/21 08:37 Freq: NEEDED Status: Active Protocol: Document 06/13/21 10:18 AW (Rec: 06/13/21 11:24 AW [id number]) PT Summary Assessment and Plan Potential Rehabilitation Potential Fair Status of Condition at Evaluation Evolving Summary Impairments Pain,Strength,Balance, Cognition,Bed Mobility, Transfers,Gait Assessment Summary Dayami is a 75 yo woman with 40 year history of MS who is admitted due to increase in falls frequency, recent sacral fracture, and finding of left lower lobe pulmonary embolism . She is sufficiently anticoagulated today. She is modified independent with 4WW at baseline with extensive falls history but falls frequency has dramatically increased over the past month. On assessment, pt required min assist with mobility using FWW. No SOB or OROPEZA was observed or reported. She is likely near her functional baseline in spite of reporting increased pain with weightbearing. She needs 24/7 assist with all mobility. Due to poor safety awareness, she is not calling for assist every time she gets up at home which is likely contributing to falls risk. Pt should benefit from power wheelchair which is being built for her now. Pt would benefit from home health therapy if [facility] can provide 24/7 assist for mobility. If not, pt may need SNF rehab. Goals Bed Mobility Goal Independent Transfer Goal Standby Assistance,Front Wheeled Walker Gait Goal Standby Assistance,Front Wheel Walker Gait Distance 200 Other Goals -- improve transfers and gait to SBA with 4WW Days to Meet Goals 8 Frequency of Treatment Frequency Of Treatment Once a Day Treatment Plan Physical Therapy Treatment Plan Bed Mobility Training,Transfer Training,Gait Training, Therapeutic Exercise,Balance Retraining,Discharge Planning, Hot or Cold Pack,Neuromuscular Re-ed Other Recommendations and Next Treatment gait with FWW; ther ex for BLE Focus strength; transfers Precautions Other Precautions falls Weight Bearing Status Weight Bearing Status Weight Bear as Tolerated Recommendations To Nursing Amount of Assist Needed 1 Person Assist Discharge Recommendations PT Discharge Recommendations Home with 24/7 Assist Available,Home Health,SNF Rehab,Home vs SNF Transportation Needs at Discharge Wheelchair/Cabulance
--- NOTE | 2021-06-13 10:20 | OT.IP.EVAL ---
Past Medical History (Last Reviewed 06/12/21 @ 15:29 by Shama Coronado MD) Cataract Depression Hammertoes of both feet History of shoulder surgery Hypertension Multiple sclerosis (~1975) Oral pain Previous back surgery Status post laser cataract surgery of both eyes Surgical History (Last Reviewed 06/12/21 @ 15:29 by Shama Coronado MD) History of shoulder surgery Previous back surgery Status post laser cataract surgery of both eyes Occupational Therapy Inpatient Evaluation/Re-Eval M1 PT/OT-IP Prior Functional Status Start: 06/13/21 08:37 Freq: NEEDED Status: Active Protocol: Document 06/13/21 13:37 CGR (Rec: 06/13/21 13:51 CGR [id number]) Medical Review Prior Functional Status Medical History Reviewed Yes Communication WNL. Pt is an effective verbal communicator. Mobility and Gait Pt is modified independent with 4WW. She reports 7 falls in the past one month which represents an increase in falls frequency. Activities of Daily Living and IADL's Pt needs facility assist for showers but is otherwise independent with ADL's. She recently increased her assist level at [facility] but states she does not notice a difference in service. She admits she may be hesitant to call for help as often as she should. Prior Functional Level (Other details) Pt has history of multiple falls and fractures including R shoulder x 2, L shoulder, R pubic rami fractures, and now sacral ala fracure. She states the pubic fractures were by far the most painful. She went to SNF in December following the pubic fractures. Social History Household Members none Living Arrangements Assisted Living Home Environment Walk in Shower,Built-In Shower Seat,Elevator Home Equipment Four Wheel Walker,Straight Cane,Hand Held Shower,Grab Bars Near Toilet,Grab Bars In Shower Additional Social History Comment Dayami lives at [facility]. She has an adjustable bed. She has a custom power wheelchair currently being built but does not know when it will be delivered. M1 PT/OT-IP Prior Functional Status Start: 06/13/21 13:37 Freq: NEEDED Status: Active Protocol: Document 06/13/21 13:37 CGR (Rec: 06/13/21 13:51 CGR [id number]) Medical Review Prior Functional Status Medical History Reviewed Yes Communication WNL. Pt is an effective verbal communicator. Mobility and Gait Pt is modified independent with 4WW. She reports 7 falls in the past one month which represents an increase in falls frequency. Activities of Daily Living and IADL's Pt needs facility assist for showers but is otherwise independent with ADL's. She recently increased her assist level at [facility] but states she does not notice a difference in service. She admits she may be hesitant to call for help as often as she should. Prior Functional Level (Other details) Pt has history of multiple falls and fractures including R shoulder x 2, L shoulder, R pubic rami fractures, and now sacral ala fracure. She states the pubic fractures were by far the most painful. She went to SNF in December following the pubic fractures. Social History Household Members none Living Arrangements Assisted Living Home Environment Walk in Shower,Built-In Shower Seat,Elevator Home Equipment Four Wheel Walker,Straight Cane,Hand Held Shower,Grab Bars Near Toilet,Grab Bars In Shower Additional Social History Comment Dayami lives at [facility]. She has an adjustable bed. She has a custom power wheelchair currently being built but does not know when it will be delivered. M2 OT-IP Current Condition Start: 06/13/21 13:37 Freq: Status: Active Protocol: Document 06/13/21 13:37 CGR (Rec: 06/13/21 13:51 CGR [id number]) Occupational Therapy Current Condition Current Condition Evaluation Date 06/13/21 Treatment Diagnosis L lower lobe PE, frequent falls, pelvic fx. Diagnosis Onset Date 06/12/21 M3 OT- IP Subjective and Pain Start: 06/13/21 13:37 Freq: Status: Active Protocol: Document 06/13/21 13:37 CGR (Rec: 06/13/21 13:51 CGR [id number]) OT- Subjective Occupational Therapy Visit Type Type Initial Evaluation Visit Start Time 09:35 Visit Stop Time 10:20 Total Visit Minutes 45 Notes Partial co-treat with P.T. OT Pain Assessment Pain When Pain Assessed At Rest Pain Present Pain Present Pain Reported Location Lower Back Intensity 3 Scale Used Numeric (0 - 10) Management Techniques Distraction,Modification of Treatment,Re-positioning M4 OT- IP ADL's Start: 06/13/21 13:37 Freq: Status: Active Protocol: Document 06/13/21 13:37 CGR (Rec: 06/13/21 13:51 CGR [id number]) OT [id number] Comments OT Self-Feeding Comments not meal time OT ADL-Grooming General Evaluation Grooming Ability Standby Assistance Areas Needing Assistance Combing/Brushing Hair,Face Washing Comments OT Grooming Comments standing at sink OT ADL-Oral Care General Eval Oral Care Ability Standby Assistance Areas of Assistance Brushing Teeth Comments Oral Care Comments standing at sink OT ADL-Dressing General Eval Lower Body Dressing Ability Independent Areas Needing Assistance Socks Comments OT Dressing Comments pt donned socks seated EOB OT ADL-Toileting Comments OT Toileting Comments Pt declined need OT ADL-Bathing Comments OT Bathing Comments not performed M5 OT- IP IADL's Start: 06/13/21 13:37 Freq: Status: Active Protocol: Document 06/13/21 13:37 CGR (Rec: 06/13/21 13:51 CGR [id number]) OT-Instrumental Activities of Daily Living Deficits IADL Deficits Identified No Deficits Home Safety Awareness Awareness of Need for Assistance at Home Good Awareness Ability to Problem Solve Emergency Able to Problem Solve Situations Medication Management Medication Management No Deficits Identified Money Management Money Management No Deficits Identified Meal Preparation Meal Preparation Caregiver Provides Assist Meal Preparation Comments Pt gets 2 hot meals delivered/ at the dining room every day. Fabricator Foam Rubber Fabricator Foam Rubber Caregiver Provides Assist Driving Driving Comments Pt does not drive. M6 OT- IP Functional Cognition Start: 06/13/21 13:37 Freq: Status: Active Protocol: Document 06/13/21 13:37 CGR (Rec: 06/13/21 13:51 CGR [id number]) Cognitive Factors Limiting Selfcare Function Cognitive Ability Level of Alertness Alert Patient Orientation Name,Age,Birthday,Month,Date, Year,Day of Week,Place, Situation Attention Span Ability Capable of Focused Attention, Capable of Sustained Attention Cognitive Comments Cognitive Assessment Comments Pt may benefit from formal cog assessment. OT- Vision and Hearing OT- Hearing Assessment OT- Hearing Assessment WFL OT- Vision Assessment Visual Acuity WFL Visual Attentiveness WFL Occular Pursuits WFL Visual Convergence WFL M7 OT- IP Mobility and Balance Start: 06/13/21 13:37 Freq: Status: Active Protocol: Document 06/13/21 13:37 CGR (Rec: 06/13/21 13:51 CGR [id number]) OT- Bed Mobility Assessment Supine to Sit Supine to Sit Assist Minimal Assistance Sit to Supine Sit to Supine Assist Minimal Assistance Scooting Scooting to Edge of Bed Standby Assistance OT-Transfer Assessment Sit to and From Stand Sit to and from Stand Contact Guard Assistance, Minimal Assistance Transfers Transfer Ability Contact Guard Assistance, Minimal Assistance Technique Transfer Destination Bed Transfer Technique Stand Step Pivot Devices Transfer Assistive Devices Gait Belt,Front Wheeled Walker Comments Mobility Comments Mobility around the room. Pt declined toileting. OT- Balance Assessment Sitting Balance and Reactions Static Sitting Balance Ability Normal Dynamic Sitting Balance Ability Good M8 OT- IP Objective Assessments Start: 06/13/21 13:37 Freq: Status: Active Protocol: Document 06/13/21 13:37 CGR (Rec: 06/13/21 13:51 CGR [id number]) OT Gross Range of Motion Upper Extremity Range of Motion Assessment Within Functional Limits OT Strength Comments Strength Comments grossly 4/5 to hand and arms. Shlds 3+/5 OT- Coordination Assessment Upper Extremity Finger to Nose Test Within Functional Limits Finger Tapping Test Within Functional Limits OT-Muscle Tone Assessment Muscle Tone WNL Yes OT Sensation Assessment Edema Edema Absent M9 OT- IP Assessment and Plan Start: 06/13/21 13:37 Freq: Status: Active Protocol: Document 06/13/21 13:37 CGR (Rec: 06/13/21 13:51 CGR [id number]) OT Summary Assessment and Plan Potential Rehabilitation Potential Good Analytic Complexity at Evaluation Moderate Summary OT Impairments Pain,Strength,Balance, Functional Mobility,Grooming, Dressing,Toileting,Bathing, Toilet Transfers,Shower Transfers,Activity Tolerance Progress Towards Goals Slow Progress due to Medical Issues Assessment Summary Pt presents as a moderate complexity evaluation s/p admit for L lower lobe PE. Pt has a hx of frequent falls and states 7 falls in the last month. Pt has recently gone to SNF for rehab and feels that returning would not benefit her. Pt has assist available to her at [facility] and is likely safe to return with someone present during mobility. Pt may benefit from therapy services while hospitalized. Goals Grooming Goal Independent Dressing Goal Independent Toileting Goal Independent Bathing Goal Independent Toilet Transfer Goal Independent Shower Transfer Goal Independent Days to Meet Goals 15 Frequency of Treatment Frequency Of Treatment Once a Day Treatment Plan OT Treatment Plan ADL Training,Functional Cognition Training,Functional Mobility,Patient/Family Education,Discharge Planning Other Treatment Recommendations and Next cog assessment for baseline Treatment Focus level, shower Discharge Recommendations OT Discharge Recommendations Home with Assistance Transportation Needs at Discharge Private Vehicle
--- NOTE | 2021-06-13 12:00 | CM.DANOTE ---
Addendum entered by KIRSTEN Krishna 06/13/21 15:31: ADD: Faxed d/c summary and signed med list to [facility] to review. BF Addendum entered by KIRSTEN Krishna 06/13/21 14:04: ADD: MARTHA called Tonya at [facility] and confirmed they can accept pt back at d/c just need to fax d/c summary and signed med list and they likely will not have availability to transport at d with their van but pt has 3 local adult Dtrs and grandchildren who could likely assist with transport. Per PT/OT, not neccessarily recommending HH as pts situation is more plateau and power w/c will be the most helpful. MARTHA updated who feels pt is stable for d/c back and SW and MD met bedside with pt and she also is agreeable with d/c to home and requests SW call Dtr Alia and MARTHA called alia and updated and she was planning to be bedside soon anyways and willing to transport. MARTHA updated RN and will await d/c orders, summary, and signed med list to fax to [facility]. BF Original Note: Patient is a 75 yo female who was admitted on 06/12/21 for Fever/Nausea/Pain. Pt has MCR and COMM for insurance and her PCP is Dr. Carlos Cristina. EMR was reviewed. Per MD, pt with hx of MS and frequent falls and was recently in the ED a week ago after a fall with sacral fx and pubic ramus fx. Pt DNR/DNI. Per PT/OT, pt was able to complete bed mobility independently but with pain and CGA/1PA for mobility with walker and feel pt safe for d/c back to [facility] assisted and feel pt could ultimately benefit from the power w/c due to her advancing MS. MARTHA met bedside with pt and explained role and she confirms she moved from [place] in Oct 2020 last year to [facility] Independent to be near her 3 adult Dtrs and grandchildren here in [place] but then had a fall with pubic fx and went to [facility] rehab before going back to [facility] but went to Assisted Living side and had in-house PT. Pt states she will strongly decline SNF if recommended but feels she is safe for return to Assisted Living at [facility] and aware that she has still been trying to mobilize at times independently which highly increases her fall risk and therefore will utilize the call button and not feels so bad bothering them. Pt states she has been in the process of getting power w/c but realizes the difficulty and has a scheduled appointment with her PCP Dr. Cristina in June on the and will bring him the pwk to complete. SW called PCP office and awaiting return call to determine if they can get pt in to see PCP sooner than July 05. SW called Tonya at [facility] and discussed pt situation and faxed clinicals to review to confirm they can accept pt back at discharge and want to make sure she has good pain management. Plan: SW to follow closely for [facility] review to confirm pt can return to Assisted side at [facility] at d/c. KIRSTEN Krihsna Discharge Planning/Care Management Advanced directive, confirm from FAMILY Start: 06/12/21 14:00 Freq: Q24H Status: Active Protocol: Document 06/12/21 14:00 YAD (Rec: 06/12/21 14:00 YAD [id number]) Advance Directive, confirm on record Time 14:00 Person contacted patient Copy received No CM Discharge Assessment Start: 06/13/21 11:58 Freq: Status: Active Protocol: Document 06/13/21 11:58 BF (Rec: 06/13/21 12:00 BF [id number]) Discharge Planning Assessment Assigned Revenue Accountant KIRSTEN Hanson DPOA/Assigned Designee Name Dtsehrri Alia Bonilla Contact Information [phone] Advance Directives? Yes Advance Directives on File No History Provided By Patient,Medical Record Has Patient been admitted in last 30 No days? Prior Living Arrangements Assisted Living Comment [facility] Household Members none Type of transporation used prior to Relies on Others admit Facility Name Admitted From: [facility] Willing to Return to Facility? Yes Independent with ADL's Yes: mostly Is patient alert and oriented? Yes Needs Assistance With Home Chores / Shopping Caregiver for Another No DME Already Rented / Owned FWW / Walker Comment Working on getting a power w/c through PCP Barriers to Discharge No Discharge Plan Assisted Living Facility Transportation Arrangement Family likely to transport back to [facility] at d/c Referrals Initiated None needed Whiteboard Updated in Patient Room with Yes name and ext. # of Revenue Accountant Review Status In Process Please Provide Date Initial DC 06/13/21 Assessment Was Performed Next Review Type Continued Stay Review
[2021-06-13] MEDS: ACETAMINOPHEN 325 MG TABLET PO (12:23)
[2021-06-13 13:00] VITALS: BP 137/79; PULSE 78; RESP 19; TEMP 37.4; O2SAT 94
--- NOTE | 2021-06-13 13:10 | DIET.CONS ---
Dietary Consultation Note Admission Date: 06/12/2021 11:39 Assessment: RD alerted by Unit Host pt having some difficulty choosing foods she can eat. Pt feeling cold most of the time so prefers warm foods, has sore teeth on one side of mouth so prefers soft texture, and has pelvic fx so difficulty sitting upright. Additionally doesn't want to be a bother so doesn't use her call light or ask for help. Pt would do well with 1:1 feeding assistance from FOREIGN TRADE TEACHER through DC. Kitchen to send a variety of warm, easy to chew foods. Ht: 157.48 cm Wt: 61.235 kg BMI: 24.7 UBW: Last BM: 06/12/21 (06/12/21 16:47) MNA: 13 Malvin Score: 18 Diet: 06/12/21 Dinner Heart Healthy Diet Diet Modifications: Heart Healthy Diet Diet Modifications: Sodium Level: 2 gm Sodium Nutrition Percent Meal Consumed 25% 06/13/21 09:00 Labs: RBC 4.13 X10^6/uL (4.0-5.2) 06/13/21 06:14 Hgb 12.1 g/dL (12.0-16.0) 06/13/21 06:14 Hct 36.2 % (36-46) 06/13/21 06:14 Creatinine 0.82 mg/dL (0.52-1.04) 06/13/21 06:14 Lactate 0.6 mmol/L (0.7-2.1) L 06/12/21 09:01 Electronically Signed by: Marleen Barnhart 06/13/21 13:10 Clinical Dietitian [address] [address]
--- NOTE | 2021-06-13 14:31 | P.DS_ITS ---
History of Present Illness History of Present Illness Chief complaint: fever/nausea Narrative: The patient is a 75-year-old female with a history of multiple sclerosis, hypertension, frequent falls, who was seen in the emergency room 1 week ago. At that time the patient was diagnosed with a right superior sacral ala fracture, and a prior right superior and inferior pubic ramus fracture which were felt to be subacute. The patient lives at [facility]. She does ambulate unassisted with her walker but has had frequent falls. Patient developed a fever today, she felt cold, she called the caregivers and EMS were summoned and she was brought into the hospital. She denies any cough, but does report some shortness of breath. She has had morning nausea, but no vomiting or diarrhea. The patient does have pain in the sacrum with movement. She has been taking Tylenol and lidocaine patches for pain. The patient was evaluated in the emergency room, found to be hypoxic with a room air sat of 90%. Patient had a D-dimer which was markedly elevated at 2500, she underwent CT angio, this confirmed a left lower lobe pulmonary embolus. Patient also had bilateral lower extremity duplex which were negative for DVT. The patient will be anticoagulated for her pulmonary embolus, due to her frequent falls and need for higher level of care than can be provided at the [facility] patient is admitted to the hospital for treatment of her PE, PT OT evaluation, and possible placement. Discharge Providers Provider Date of admission: 06/12/21 11:39 Discharge Date: 06/13/21 Primary care physician: Carlos Cristina MD Consults: 06/12/21 15:16 Consult to Discharge Planning Routine Comment: Consult to Occupational Therapy Evaluate & Treat Comment: Physician Instructions: Evaluate and treat Consult to Physical Therapy Evaluate & Treat Comment: Physician Instructions: Evaluate and Treat Discharge provider: Shama Coronado MD Summary Hospital Course Discharge Diagnosis: 1. Left Lower Lobe pulmonary embolus 2. Sacral ala fracture 3. Subacute pubic rami inferior and superior pubic Ramus fracture 4. Multiple sclerosis 5. Hypertension 6. Depression 7. T11 compression fracture 8. 12 minutes mm right sided low-density thyroid nodule, outpatient follow-up if needed 9. 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 CT of the chest confirmed pulmonary emboli. Patient had a oxygen saturation 90% on room air. She was admitted to the hospital and started on oral anticoagulation. Patient required Tylenol only for pain control. She had minimal shortness of breath with activity. She was seen by physical therapy in the hospital in felt to be at baseline and that a motorized wheelchair would be the best option for her mobility. They did not recommend any outpatient therapy. Patient was deemed appropriate for discharge. Arrangements will be made for her to discharge back to [facility]. Status at Discharge Cognitive/behavioral status at discharge: oriented Functional status at discharge: uses cane/walker Overall status at discharge: patient is progressing back to baseline Exam Vital Signs (past 8 hours): - 06/13/21 09:00 06/13/21 09:13 06/13/21 13:00 Temperature 98.3 F 99.3 F Pulse Rate 70 78 Respiratory Rate 19 19 Blood Pressure 151/87 H 137/79 Pulse Oximetry 96 96 94 Oxygen Delivery Method Room Air Oxygen Flow Rate 0 Narrative Exam Narrative: Pleasant female lying in bed in no obvious distress Resp Other: Lungs clear to auscultation Cardio Other: Cardiac exam: Regular rate and rhythm normal S1-S2 with a 2/6 systolic ejection GI Other: Abdomen soft nontender nondistended Extrem Other: Extremity no edema Objective Labs Result Diagrams: 06/13/21 06:14 06/13/21 06:14 Labs: Laboratory Results - last 24 hr 06/13/21 06/13/21 06:14 06:14 WBC 5.6 RBC 4.13 Hgb 12.1 Hct 36.2 MCV 87.7 MCH 29.3 MCHC 33.4 RDW 14.8 Plt Count 250 Neut % (Auto) 48.1 L D Lymph % (Auto) 36.5 D Bremer % (Auto) 8.6 Eos % (Auto) 5.5 H Baso % (Auto) 1.3 Neut # (Auto) 2700 Lymph # (Auto) 2100 Bremer # (Auto) 500 Eos # (Auto) 300 Baso # (Auto) 100 Sodium 144 Potassium 4.0 Chloride 107 Carbon Dioxide 30 BUN 27 H Creatinine 0.82 Estimated GFR > 60 BUN/Creatinine Ratio 32.9 H Glucose 95 Calcium 9.1 [facility] Medical History Cataract Depression Hammertoes of both feet Hypertension Multiple sclerosis (~1975) Oral pain Surgical History History of shoulder surgery Previous back surgery Status post laser cataract surgery of both eyes Family History (Updated 06/12/21 @ 15:34 by Shama Coronado MD) Mother Stroke Brother AIDS Father Stroke Social History household members: none Smoking Status: Never smoker Discharge Assessment & Plan Assessment and Plan Assessment: 1. Left Lower Lobe pulmonary embolus 2. Sacral ala fracture 3. Subacute pubic rami inferior and superior pubic Ramus fracture 4. Multiple sclerosis 5. Hypertension 6. Depression 7. T11 compression fracture 8. 12 minutes mm right sided low-density thyroid nodule, outpatient follow-up if needed 9. 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 Cristina 1-2 weeks Patient will obtain a motorized wheelchair to assist with ambulation Discharge Plan Discharge Plan Patient Disposition: Assisted Living Other facility: [facility] Transportation: Private vehicle Discharge orders & Medications Discharge Orders: Discharge (Order); Ordered 06/13/21 Ordered By: Shama Coronado Prescriptions: New acetaminophen 325 mg Tablet 325 mg PO Q6HR Qty: 30 0RF Xarelto 10 mg Tablet 15 mg PO BIDWM Qty: 30 0RF Continued lidocaine [Lidoderm] 5 % adhesive patch,medicated 1 patch topical DAILY Qty: 15 0RF Rx Instructions: leave on most painful area for 12 hrs ondansetron 4 mg tablet,disintegrating 4 mg PO TID-QID PRN (Reason: nausea and vomiting) Qty: 10 0RF amlodipine 2.5 mg tablet 2.5 mg PO DAILY 0RF Label Comments: TAKE 1 TABLET BY MOUTH EVERY DAY FOR HYPERTENSION ondansetron 4 mg tablet,disintegrating 4 mg PO PRN PRN (Reason: Nausea) 0RF Label Comments: DISSOLVE 1 TABLET ON THE TONGUE TWICE DAILY NEEDED fluoxetine 20 mg capsule 20 mg PO TID 0RF Label Comments: TAKE ONE CAPSULE BY MOUTH THREE TIMES DAILY gabapentin 600 mg tablet 600 mg PO TID Qty: 60 0RF temazepam 15 mg capsule 15 mg PO PRN PRN (Reason: Sleep) Qty: 30 0RF naltrexone 3.5 mg PO BEDTIME Qty: 30 0RF Follow up/Referrals: Carlos Cristina MD [Primary Care Provider] - Discharge Health Status Multidrug resistant organism: No MDRO Diet/Activity/Treatments Diet: Low-sodium Liquid consistency: Normal/Thin Food texture: Regular Other treatments: Needs follow up appointment with Dr. Cristina in 1-2 week [facility] Reason for rehabilitation: Recovery r/t decondition Visit Report/Discharge Packet Instructions: Pulmonary Embolism Discharge Data Primary Care Provider: Carlos Cristina V Attending Provider: Shama Coronado
[2021-06-13] MEDS: ONDANSETRON 4 MG ODT PO (14:43)
== END 2021-06-13 16:36 ==
LOC: ED 11:34 → AC 11:39
PROVIDERS: Admitting Provider Internal Medicine; Emergency Provider Emergency Medicine; PCP Internal Medicine; Referring Provider Emergency Medicine; Visit Provider Internal Medicine
DX: I26.99 Other pulmonary embolism without acute cor pulmonale (principal); G35 Multiple sclerosis; S32.10XD Unspecified fracture of sacrum, subsequent encounter for fracture with routine healing; S32.82XD Multiple fractures of pelvis without disruption of pelvic ring, subsequent encounter for fracture with routine healing; I10 Essential (primary) hypertension; F32.A Depression, unspecified; R11.0 Nausea; X58.XXXD Exposure to other specified factors, subsequent encounter; Z66 Do not resuscitate; Z20.822 Contact with and (suspected) exposure to COVID-19; Z91.81 History of falling
CPT/HCPCS: 36415; 71045; 71275; 80048; 80053; 81001; 82550; 83605; 83690; 84145; 84484; 85025; 85379; 85610; 85730; 87040; 87635; 93005; 93970; 94760; 94762; 97162; 97166; 97535; 99284; 99285; C9803; G0378; Q9967

== ENCOUNTER 2021-07-06 11:01 | Emergency (ER) | payer MEDICARE, OTHER, SELFPAY ==
[2021-06-12 16:47] VITALS: BMI 24.7
[2021-07-06 11:16] VITALS: BP 186/99; PULSE 76; RESP 26; TEMP 36.6; O2SAT 98; BMI 22.4
--- NOTE | 2021-07-06 11:16 | DI.RAD.S_ITS ---
PROCEDURE: XR CHEST 1V INDICATIONS: shortness of breath TECHNIQUE: One view of the chest was acquired. COMPARISON: [facility], CT, CT ANGIO CHEST PE PROTOCOL, 06/12/2021, 10:17. [facility], CR, XR CHEST 1V, 06/12/2021, 9:34. FINDINGS: Surgical changes and devices: None. Lungs and pleura: Lungs are clear. No pleural effusions or pneumothorax. Mediastinum: Heart is normal size. Bones and chest wall: No suspicious bony lesions. Overlying soft tissues appear unremarkable. IMPRESSION: No acute cardiopulmonary findings. Dictated by: Josey Palacios M.D. on 07/06/2021 at 11:33 Approved by: Josey Palacios M.D. on 07/06/2021 at 11:34
[2021-07-06 11:33] LABS: Add Manual Diff / Slide Review NO; Basophils Absolute Auto 100 /uL (0-100); Basophils Percent Auto 0.7 % (0-2); Eosinophils Absolute Auto 100 /uL (0-450); Eosinophils Percent Auto 1.1 % (2-4); Hematocrit 40.3 % (36-46); Hemoglobin 13.6 g/dL (12.0-16.0); Lymphocytes Absolute Auto 1500 /uL (1100-4500); Lymphocytes Percent Auto 21.1 % (25-40); Mean Corpuscular HGB Conc 33.7 % (30-36); Mean Corpuscular Hemoglobin 29.7 PG (26-34); Mean Corpuscular Volume 87.9 fL (80-100); Monocytes Absolute Auto 400 /uL (0-900); Monocytes Percent Auto 5.2 % (3-14); Neutrophils Absolute Auto 5100 /uL (1500-7000); Neutrophils Percent Auto 71.9 % (50-75); Platelet Count 218 X10^3/uL (150-400); Red Blood Cell Count 4.58 X10^6/uL (4.0-5.2); Red Cell Distribution Width 15.2 % (11.6-14.8)
[2021-07-06 11:44] LABS: Alanine Aminotransferase 11 IU/L (<35); Albumin 4.5 g/dL (3.5-5.0); Albumin Globulin Ratio 1.4 (1.0-2.8); Alkaline Phosphatase 119 U/L (38-126); Aspartate Aminotransferase 22 IU/L (14-36); BUN Creatinine Ratio 20.9 (6-22); Bilirubin Total 0.7 mg/dL (0.2-1.3); Blood Urea Nitrogen 14 mg/dL (7-17); Calcium 9.3 mg/dL (8.4-10.2); Carbon Dioxide 24 mmol/L (22-32); Chloride 103 mmol/L (98-107); Estimated Glomerular Filt Rate > 60 mL/min (>60); Globulin 3.2 g/dL (1.7-4.1); Glucose 113 mg/dL (80-110); HEMOLYSIS 29 (0-50); Potassium 3.2 mmol/L (3.4-5.1); Sodium 137 mmol/L (137-145); Total Protein 7.7 g/dL (6.3-8.2)
[2021-07-06 12:46] VITALS: PULSE 73; RESP 24; O2SAT 93
[2021-07-06 13:00] VITALS: BP 185/92; PULSE 70; RESP 19; O2SAT 94
[2021-07-06 14:00] VITALS: BP 177/113; PULSE 83; RESP 22; O2SAT 96
--- NOTE | 2021-07-06 14:06 | DI.CT.S_ITS ---
PROCEDURE: CT HEAD/BRAIN WO CON INDICATIONS: nausea htn on anticoagulation TECHNIQUE: Noncontrast 4.5 mm thick angled axial sections acquired from the foramen magnum to the vertex, with coronal and sagittal reformats. For radiation dose reduction, the following was used: automated exposure control, adjustment of mA and/or kV according to patient size. COMPARISON: None. FINDINGS: Image quality: Excellent. CSF spaces: Basal cisterns are patent. No extra-axial fluid collections. The ventricles are symmetric in size and shape. Brain: No intracranial bleeds or masses. There is cerebral volume loss for age, with resultant ventricular and sulcal prominence. There are extensive periventricular and deep white matter chronic small vessel ischemic changes. There is intracranial internal carotid artery atherosclerosis. Skull and face: Calvarium and visualized facial bones appear intact, without suspicious lesions. Sinuses: Visualized sinuses and mastoids are clear. IMPRESSION: 1. No acute intracranial findings. 2. Extensive findings likely associated with chronic microvascular ischemic changes. Dictated by: Josey Palacios M.D. on 07/06/2021 at 14:40 Approved by: Josey Palacios M.D. on 07/06/2021 at 14:42
--- NOTE | 2021-07-06 14:06 | ED.ABDPAIN ---
HPI - Abdominal Pain General Chief Complaint: Shortness of Breath/Dyspnea Stated Complaint: Vomiting sent by [employer] Time Seen by Provider: 07/06/21 12:00 Source: patient Mode of arrival: Family Vehicle History of Present Illness HPI narrative: Patient is a 75-year-old female has a recent complicated history. She was diagnosed with a pelvic fracture on 06/05/2021. She was seen again on June 12 for she was diagnosed with a pulmonary embolism that time. She was discharged on June 13. Daughter states that she has not been doing well since then. She has been lying in bed. She is on anticoagulation. She has been unable to take anything for pain for her pelvic fracture and her T11 fracture she is on naloxone for her MS. However there has been a mixup she has been out of her medication for the last week. Today she had an episode of vomiting. She has been hypertensive which is also abnormal for her. She has typically hypotensive. Her blood pressures in the emergency department are all in the 190. Patient denies any headache chest pain or abdominal pain. She is generally does not feel well. She frequently has sweats and chills however today she has only chilled. She has had temperatures up to 100 but is currently afebrile here in the emergency department. She was sent here today for her episode of vomiting by her primary care provider. She actually had an appointment to see him for all of the recent events but due to the vomiting and other symptoms came to the emergency department. Related Data Home Medications Medication Instructions Recorded Confirmed amlodipine 2.5 mg tablet 2.5 mg PO DAILY 01/20/21 07/06/21 fluoxetine 20 mg capsule 20 mg PO TID 01/20/21 07/06/21 Previous Rx's Medication Instructions Recorded gabapentin 600 mg tablet 600 mg PO TID #60 tab 01/21/21 naltrexone 3.5 mg PO BEDTIME #30 cap 01/21/21 temazepam 15 mg capsule 15 mg PO PRN PRN #30 cap 01/21/21 lidocaine 5 % topical patch 1 patch TOPICAL DAILY #15 ea 06/05/21 (Lidoderm) ondansetron 4 mg disintegrating 4 mg PO TID-QID PRN #10 tab 06/05/21 tablet acetaminophen 325 mg tablet 325 mg PO Q6HR #30 tab 06/13/21 rivaroxaban 10 mg tablet (Xarelto) 20 mg PO DAILY #90 tab 07/01/21 hydrocodone 5 mg-acetaminophen 325 1 tab PO Q6H PRN #10 tab 07/06/21 mg tablet sulfamethoxazole 800 1 tab PO BID 5 Days #10 tab 07/06/21 mg-trimethoprim 160 mg tablet (Bactrim DS) Allergies Allergy/AdvReac Type Severity Reaction Status Date / Time No Known Drug Allergies Allergy Verified 07/06/21 09:45 Review of Systems Review of Systems Narrative: GENERAL: Denies chills, fatigue, malaise, fever, sweats, travel HEENT: Denies sinus pain, ear pain, sore throat, difficulty swallowing, neck pain RESPIRATORY: Denies dyspnea, cough, wheezing, hemoptysis, sputum. CARDIOVASCULAR: Denies chest pain, palpitations, orthopnea, edema GASTROINTESTINAL see HPI : Denies dysuria, frequency, incontinence, hematuria, urinary retention, flank pain. MUSCULOSKELETAL: See HPI SKIN: No rash, no erythema, no pruritus NEUROLOGIC: Denies weakness, dizziness, headache, numbness, change in speech, confusion PSYCHIATRIC: No concerning psychosocial issues. 12 point review of systems is negative except for those stated above and HPI Patient History Medical History (Updated 07/06/21 @ 19:01 by Clara Mark DO) Abnormal Pap smear of cervix (~1970) Cellulitis (~2000) Cervical cancer (~1970) Chicken pox (~1951) Chronic back pain (~2002) Clostridium difficile infection (~12/11/02) Depression (~1954) Elbow fracture, right (~2017) Foot pain (~2002) Fractures (~2004) Frequent UTI (~2002) Headache Helicobacter pylori (H. pylori) (~10/18/11) History of low potassium (~2011) History of urinary incontinence (~1997) Hypertension (~1983) Loss of equilibrium (~07/30/04) Measles (~1953) Melanoma (~1996) Multiple sclerosis (~1975) Mumps (~1954) Oral pain Partial blindness (~1991) Shoulder fracture Shoulder pain (~2009) Surgical History (Updated 07/05/21 @ 21:14 by Carmita Yan) Cataract (~2012) Fracture of clavicle (~10/19/09) Hammertoes of both feet (~12/15/09) History of discectomy (~2002) History of foot surgery (~03/26/09) History of hysterectomy (~07/1973) History of shoulder surgery History of tonsillectomy (~09/1962) Previous back surgery (~11/24/02) Status post laser cataract surgery of both eyes Ulcer (~12/29/02) Family History (Updated 07/05/21 @ 21:00 by Carmita Yan) Mother Stroke History of heart disease Brother AIDS Father Stroke History of heart disease Brother History of heart disease Stroke Brother Hypertension Stroke Brother History of heart disease Brother History of heart disease Sister History of heart disease Stroke Social History household members: none Smoking Status: Never smoker Smoking Status: Never smoker alcohol intake frequency: holidays/special occasions only Substance Use Type: does not use Exam Initial Vital Signs Initial Vital Signs: Vital Signs Temperature 97.8 F 07/06/21 11:16 Pulse Rate 76 07/06/21 11:16 Respiratory Rate 26 H 07/06/21 11:16 Blood Pressure 186/99 H 07/06/21 11:16 Pulse Oximetry 98 07/06/21 11:16 GENERAL: Alert pleasant 75-year-old female appears comfortable HEENT: Head atraumatic,EOMI, pupils reactive, face symmetric, moist mucous membranes CARDIOVASCULAR: Regular rate and rhythm without murmurs, rubs or gallops. RESPIRATORY: Breath sounds equal bilaterally, no wheezes rales or rhonchi. ABDOMEN: Soft, nontender. Normoactive bowel sounds all 4 quadrants. No guarding or rebound. EXTREMITIES: Normal range of motion, no clubbing or edema. Neurovascularly intact BACK: A significant vertebral tenderness no sign of trauma NEUROLOGICAL: Alert and oriented x4 SKIN: Warm, dry, no laceration, no petechiae, no rashes or lesions. Course Orders Ordered: ED Orders 07/06/21 11:15 EKG-12 Lead Stat 07/06/21 11:16 XR chest 1V Stat Measure peak expiratory flow ONCE RT Consult Eval and Treat Now 07/06/21 11:22 BNP [NT-proBNP (BNP-Adult 18+)] Stat Complete Blood Count AUTO DIFF Stat Comprehensive Metabolic Panel Stat Lactate (Lactic Acid) Stat Procalcitonin Stat Troponin & CK Cardiac Panel Stat 07/06/21 14:06 CT head/brain wo con Stat 07/06/21 17:10 UA Complete [Urinalysis and Microscopic] Stat Urine Culture Stat Discontinued Medications Morphine Sulfate (Morphine 2 Mg/Ml Inj) 2 mg IV NOW ONE Stop: 07/06/21 14:07 Last Admin: 07/06/21 15:35 Dose: 2 mg Documented by: MORENAONER Vital Signs Vital signs: Vital Signs - 8 hr 07/06/21 12:46 07/06/21 13:00 07/06/21 14:00 Pulse Rate 73 70 83 Respiratory Rate 24 19 22 Blood Pressure 185/92 H 177/113 H Pulse Oximetry 93 94 96 07/06/21 15:00 07/06/21 16:00 Pulse Rate 77 76 Respiratory Rate 14 14 Blood Pressure 160/79 H 148/86 H Pulse Oximetry 95 94 MDM - Abdominal Pain Lab Data Result diagrams: 07/06/21 11:22 07/06/21 11:22 Labs: Lab Results 07/06/21 07/06/21 07/06/21 Range/Units 11: 11:22 11:22 WBC 7.0 (4.5-11.0) X10^3/uL RBC 4.58 (4.0-5.2) X10^6/uL Hgb 13.6 (12.0-16.0) g/dL Hct 40.3 (36-46) % MCV 87.9 (80-100) fL MCH 29.7 (26-34) PG MCHC 33.7 (30-36) % RDW 15.2 H (11.6-14.8) % Plt Count 218 (150-400) X10^3/uL Neut % (Auto) 71.9 (50-75) % Lymph % (Auto) 21.1 L (25-40) % [place] % (Auto) 5.2 (3-14) % Eos % (Auto) 1.1 L (2-4) % Baso % (Auto) 0.7 (0-2) % Neut # (Auto) 5100 (2160-0581) /uL Lymph # (Auto) 1500 (2165-1860) /uL [place] # (Auto) 400 (0-900) /uL Eos # (Auto) 100 (0-450) /uL Baso # (Auto) 100 (0-100) /uL Sodium 137 (137-145) mmol/L Potassium 3.2 L (3.4-5.1) mmol/L Chloride 103 (98-107) mmol/L Carbon Dioxide 24 (22-32) mmol/L BUN 14 (7-17) mg/dL Creatinine 0.67 (0.52-1.04) mg/dL Estimated GFR > 60 (>60) mL/min BUN/Creatinine Ratio 20.9 (6-22) Glucose 113 H (80-110) mg/dL Lactate 2.0 (0.7-2.1) mmol/L Calcium 9.3 (8.4-10.2) mg/dL Total Bilirubin 0.7 (0.2-1.3) mg/dL AST 22 (14-36) IU/L ALT 11 (<35) IU/L Alkaline Phosphatase 119 (38-126) U/L Total Creatine Kinase (30-135) U/L CK-MB (CK-2) CK-MB (CK-2) Rel Index Troponin I (0.01-0.034) ng/mL NT-Pro-B Natriuret Pep (<450) pg/mL Total Protein 7.7 (6.3-8.2) g/dL Albumin 4.5 (3.5-5.0) g/dL Globulin 3.2 (1.7-4.1) g/dL Albumin/Globulin Ratio 1.4 (1.0-2.8) Procalcitonin (<0.5) ng/mL Urine Color Urine Appearance Urine pH (4.5-8.0) Ur Specific [place] (1.000-1.035) Urine Protein (Negative) Urine Glucose (UA) (Negative) g/dL Urine Ketones (NEGATIVE) Urine Occult Blood (Negative) Urine Nitrate (Negative) Urine Bilirubin (NEGATIVE) Urine Urobilinogen (0.2) E.U./dL Ur Leukocyte Esterase (NEGATIVE) Urine RBC (0-5/HPF) Urine WBC (0-5/HPF) Ur Squamous Epith Cells (0-5/HPF) Ur Transition Epith Cell (0-5/HPF) Ur Renal Epithelial Cell (0-1/HPF) Amorphous Sediment Urine Bacteria (None) Urine Mucus (Negative) Ur Culture Indicated? 07/06/21 07/06/21 07/06/21 Range/Units 11:22 11:22 17:10 WBC (4.5-11.0) X10^3/uL RBC (4.0-5.2) X10^6/uL Hgb (12.0-16.0) g/dL Hct (36-46) % MCV (80-100) fL MCH (26-34) PG MCHC (30-36) % RDW (11.6-14.8) % Plt Count (150-400) X10^3/uL Neut % (Auto) (50-75) % Lymph % (Auto) (25-40) % [place] % (Auto) (3-14) % Eos % (Auto) (2-4) % Baso % (Auto) (0-2) % Neut # (Auto) (8167-3913) /uL Lymph # (Auto) (5708-8033) /uL [place] # (Auto) (0-900) /uL Eos # (Auto) (0-450) /uL Baso # (Auto) (0-100) /uL Sodium (137-145) mmol/L Potassium (3.4-5.1) mmol/L Chloride (98-107) mmol/L Carbon Dioxide (22-32) mmol/L BUN (7-17) mg/dL Creatinine (0.52-1.04) mg/dL Estimated GFR (>60) mL/min BUN/Creatinine Ratio (6-22) Glucose (80-110) mg/dL Lactate (0.7-2.1) mmol/L Calcium (8.4-10.2) mg/dL Total Bilirubin (0.2-1.3) mg/dL AST (14-36) IU/L ALT (<35) IU/L Alkaline Phosphatase (38-126) U/L Total Creatine Kinase 37 (30-135) U/L CK-MB (CK-2) TNP CK-MB (CK-2) Rel Index TNP Troponin I < 0.012 (0.01-0.034) ng/mL NT-Pro-B Natriuret Pep 209 (<450) pg/mL Total Protein (6.3-8.2) g/dL Albumin (3.5-5.0) g/dL Globulin (1.7-4.1) g/dL Albumin/Globulin Ratio (1.0-2.8) Procalcitonin 0.03 (<0.5) ng/mL Urine Color Yellow Urine Appearance Cloudy Urine pH 6.5 (4.5-8.0) Ur Specific [place] 1.020 (1.000-1.035) Urine Protein 1+ H (Negative) Urine Glucose (UA) Negative (Negative) g/dL Urine Ketones 2+ H (NEGATIVE) Urine Occult Blood 3+ H (Negative) Urine Nitrate Negative (Negative) Urine Bilirubin Negative (NEGATIVE) Urine Urobilinogen 0.2 (0.2) E.U./dL Ur Leukocyte Esterase Negative (NEGATIVE) Urine RBC 30-100/hpf H (0-5/HPF) Urine WBC 5-10/hpf H (0-5/HPF) Ur Squamous Epith Cells 0-1 /hpf (0-5/HPF) Ur Transition Epith Cell 1-5/hpf (0-5/HPF) Ur Renal Epithelial Cell 0-1/hpf (0-1/HPF) Amorphous Sediment 3+ Urine Bacteria Few (2-10) H (None) Urine Mucus 2+ H (Negative) Ur Culture Indicated? Specimen cultured Imaging Data CT scan - head: Radiologist's Impression: Signed Patient: Dayami Disla MR#: [id number] : 1945 Acct:[id number] Age/Sex: 75 / F Date of Service: 07/06/21 Loc: Accession Number: [id number] ?? Procedure: CT head/brain wo con Ordering Provider: Clara Mark D.O. PROCEDURE:? CT HEAD/BRAIN WO CON ? INDICATIONS:? nausea htn on anticoagulation ? TECHNIQUE:? Noncontrast 4.5 mm thick angled axial sections acquired from the foramen magnum to the vertex, with coronal and sagittal reformats.? For radiation dose reduction, the following was used:? automated exposure control, adjustment of mA and/or kV according to patient size.? ? COMPARISON:? None. ? FINDINGS:? Image quality:? Excellent.? ? CSF spaces:? Basal cisterns are patent.? No extra-axial fluid collections.? The ventricles are symmetric in size and shape.? ? Brain:? No intracranial bleeds or masses.? There is cerebral volume loss for age, with resultant ventricular and sulcal prominence.? There are extensive periventricular and deep white matter chronic small vessel ischemic changes.? There is intracranial internal carotid artery atherosclerosis.? ? Skull and face:? Calvarium and visualized facial bones appear intact, without suspicious lesions.? ? Sinuses:? Visualized sinuses and mastoids are clear.? ? IMPRESSION:? ? 1. No acute intracranial findings. ? 2. Extensive findings likely associated with chronic microvascular ischemic changes.? ? ? Dictated by: Josey Palacios M.D. on 07/06/2021 at 14:40 ? ? Chest x-ray: Radiologist's Impression: XRay Report Signed Patient: Dayami Disla MR#: [id number] : 1945 Acct:[id number] Age/Sex: 75 / F Date of Service: 07/06/21 Loc: ED Accession Number: [id number] ?? Procedure: XR chest 1V Ordering Provider: Clara Mark D.O. PROCEDURE:? XR CHEST 1V ? INDICATIONS:? shortness of breath ? TECHNIQUE:? One view of the chest was acquired.? ? COMPARISON:? [facility], CT, CT ANGIO CHEST PE PROTOCOL, 06/12/2021, 10:17.? [facility], CR, XR CHEST 1V, 06/12/2021, 9:34. ? FINDINGS:? ? Surgical changes and devices:? None.? ? Lungs and pleura:? Lungs are clear.? No pleural effusions or pneumothorax.? ? Mediastinum:? Heart is normal size.? ? Bones and chest wall:? No suspicious bony lesions.? Overlying soft tissues appear unremarkable.? ? IMPRESSION:? No acute cardiopulmonary findings. ? ? Dictated by: Josey Palacios M.D. on 07/06/2021 at 11:33 ? ? Approved by: Josey Palacios M.D. on 07/06/2021 at 11:3 ECG Data Interpretation: Sinus rhythm rate 73 MS interval 134 QRS [address] changes MDM Narrative Medical decision making narrative: Initially has vomiting which she has not had previously. Daughter states that she is on some medication that make her chilled and have sweats all. Concern today I guess was for the vomiting was only happened once. She is noted to be hypertensive which is also abnormal for her and is on anticoagulation. Head CT does not show any abnormality. She does not have headache or focal deficits. She has no further episodes of vomiting here in the ED. She is on naltrexone for her MS which she has been out of for 1 week. They were may not be some sort of withdrawal from that but I think this is unlikely. She is given pain medication which seems to have helped. She has had have some bacteria in her urine previously thought having staff resistance to fluoroquinolones. At this time will treat for Bactrim. Discussed with daughter. This time does not need any sort of admission criteria. It is obvious that she probably needs higher level of care. Patient's daughter and patient are frustrated with the system they are trying to get into the primary care provider to talk to them about this but then were sent to the ED. I will give patient information to the social work case manager with her tomorrow may help provide home health. Discharge Plan Departure Patient Disposition: Home Clinical Impression: Weakness Instructions: DI for Muscle Weakness Activity Restrictions/Additional Instructions: *You have been diagnosed with weakness, UTI hip *What to do: Unfortunately I do not have a reason to keep you in the hospital today. I do recommend getting a nurse and more help. The I will have the social work case manager call tomorrow to help with this process and speed up the process. *Continue to take medications as directed Bactrim 1 tablet twice a day for 5 days.--> SENT TO [facility] *Follow up with your primary care provider in 2-3 days or call [phone] *Return to ER if you should have increasing weakness confusion, increased falling or any new, worsening or concerning symptoms Prescriptions: New sulfamethoxazole-trimethoprim [Bactrim DS] 800-160 mg tablet 1 tab PO BID 5 Days Qty: 10 0RF hydrocodone-acetaminophen 5-325 mg tablet 1 tab PO Q6H PRN (Reason: pain) Qty: 10 0RF No Action Xarelto 10 mg tablet 20 mg PO DAILY Qty: 90 4RF lidocaine [Lidoderm] 5 % adhesive patch,medicated 1 patch topical DAILY Qty: 15 0RF Rx Instructions: leave on most painful area for 12 hrs ondansetron 4 mg tablet,disintegrating 4 mg PO TID-QID PRN (Reason: nausea and vomiting) Qty: 10 0RF amlodipine 2.5 mg tablet 2.5 mg PO DAILY 0RF Label Comments: TAKE 1 TABLET BY MOUTH EVERY DAY FOR HYPERTENSION fluoxetine 20 mg capsule 20 mg PO TID 0RF Label Comments: TAKE ONE CAPSULE BY MOUTH THREE TIMES DAILY gabapentin 600 mg tablet 600 mg PO TID Qty: 60 0RF temazepam 15 mg capsule 15 mg PO PRN PRN (Reason: Sleep) Qty: 30 0RF naltrexone 3.5 mg PO BEDTIME Qty: 30 0RF acetaminophen 325 mg Tablet 325 mg PO Q6HR Qty: 30 0RF Referrals: Carlos Cristina MD [Primary Care Provider] -
[2021-07-06 14:24] LABS: Creatine Kinase 37 U/L (30-135)
[2021-07-06 14:37] LABS: NT-proBNP (BNP-Adult 18+) 209 pg/mL (<450); Troponin I < 0.012 ng/mL (0.01-0.034)
[2021-07-06 14:42] LABS: Procalcitonin 0.03 ng/mL (<0.5)
[2021-07-06 15:00] VITALS: BP 160/79; PULSE 77; RESP 14; O2SAT 95
[2021-07-06] MEDS: MORPHINE 2 MG/ML INJ IV (15:35)
[2021-07-06 16:00] VITALS: BP 148/86; PULSE 76; RESP 14; O2SAT 94
[2021-07-06 18:16] LABS: Appearance Urine UA CLOUDY; Bilirubin Urine UA NEGATIVE (NEGATIVE); Color Urine UA YELLOW; Glucose Urine UA NEGATIVE (Negative); Ketones Urine UA 2+ (NEGATIVE); Leukocyte Esterase Urine UA NEGATIVE (NEGATIVE); Nitrite Urine UA NEGATIVE (Negative); Occult Blood Urine UA 3+ (Negative); Protein Urine UA 1+ (Negative); Urobilinogen Urine UA 0.2 E.U./dL (0.2)
[2021-07-06 18:21] LABS: pH Urine UA 6.5 (4.5-8.0)
[2021-07-06 18:45] LABS: Amorphous Sediment Urine 3+; Bacteria Urine Few (2-10); Culture Indicated Urine Specimen Cultured; RBC Urine 30-100/HPF (0-5/HPF); Renal Epithelial Cells Urine 0-1/HPF (0-1/HPF); Squamous Epithelial Cell Urine 0-1 /HPF (0-5/HPF); Transitional Epi Cells Urine 1-5/HPF (0-5/HPF); WBC Urine 5-10/HPF (0-5/HPF)
[2021-07-06 18:46] LABS: Mucus Urine 2+ (Negative)
--- NOTE | 2021-07-06 18:54 | PC.NURSE ---
see vital sign sheet in chart
--- NOTE | 2021-07-08 14:04 | CM.SWNOTE ---
TURN MACHINE OPERATOR f/u Note TURN MACHINE OPERATOR receives consult from ED provider Dr. Mark for f/u regarding HH referral. At this time Dr. Mark is not working in the ED and TURN MACHINE OPERATOR seeks order approval from PCP Dr. Cristina. Patient is 75 y/o female who presented to the ED on 07/06/[address] Cristina's office due to concern for nausea and vomiting. Patient has hx of pelvic fracture and MS. TURN MACHINE OPERATOR calls patient's daughter who agrees that patient is in need of HH and [facility]. Per daughter, patient is bed ridden, resides at [facility] and is in need of ongoing services. Daughter also reports that Dr. Cristina was in the process of filling out paperwork for Medicare approval for a power wheelchair for patient. TURN MACHINE OPERATOR reviews the above with TYLER Stern with [facility] ([address] [place] [address]) [address] Cristina's office[address]. Cristina signs F2F and gives verbal order for HH for RN, HH aide, OT, PT and TURN MACHINE OPERATOR. RN provides TURN MACHINE OPERATOR with wheelchair form and states that since Dr. Cristina was not able to meet with patient, perhaps Dr. Mark can amend ED H&P and request the need for power wheelchair for patient. TURN MACHINE OPERATOR calls patient and patient indicates agreement and understanding for HH and when given Medicare choices, patient chooses [facility] . TURN MACHINE OPERATOR calls daughter and provides update and she indicates agreement and understanding. TURN MACHINE OPERATOR faxes F2F, order and clinicals to [facility] for referral. Plan: Patient to receive HH services from [facility], TURN MACHINE OPERATOR to f/u with ED provider Dr. Mark on Sunday regarding Wheelchair referral, TURN MACHINE OPERATOR to f/u with patient and daughter on Sunday as well. Jaclyn Childers, TOW MATE
== END 2021-07-06 19:30 | disposition home or self-care (01) ==
PROVIDERS: Emergency Provider Emergency Medicine; PCP Internal Medicine
DX: R53.1 Weakness (principal); R06.02 Shortness of breath; I10 Essential (primary) hypertension; R11.2 Nausea with vomiting, unspecified; Z79.01 Long term (current) use of anticoagulants; S32.599A Other specified fracture of unspecified pubis, initial encounter for closed fracture
CPT/HCPCS: 36415; 70450; 71045; 80053; 81001; 82550; 83605; 83880; 84145; 84484; 85025; 87077; 87086; 87186; 93005; 96374; 99284; J2270

== ENCOUNTER 2021-08-23 19:48 | Emergency (ER) | payer MEDICARE, OTHER, SELFPAY ==
[2021-06-12 16:47] VITALS: BMI 24.7
--- NOTE | 2021-08-23 19:51 | DI.CT.S_ITS ---
PROCEDURE: CT CERVICAL SPINE WO CON INDICATIONS: fall with head injury on thinners TECHNIQUE: Noncontrast 3 mm thick sections acquired from the skull base to the T4 level. Sagittal and coronal reformats were then constructed. For radiation dose reduction, the following was used: automated exposure control, adjustment of mA and/or kV according to patient size. COMPARISON: None. FINDINGS: Image quality: Excellent. Bones: No fractures or subluxation. There is a minimal rightward curvature of the cervical spine and minimal leftward curvature of the upper thoracic spine. There is straightening of the cervical lordosis. Multilevel degenerative disc disease is demonstrated including moderate to severe degeneration at C3-C4, C4-C5, and C5-C6 with endplate sclerosis and osteophytosis. Multilevel facet arthropathy also demonstrated including moderate to severe degeneration in the upper cervical spine on the left. Visualized superior ribs are intact. Soft tissues: Prevertebral soft tissues are normal in thickness. No paravertebral hematomas. No apical pneumothoraces. There are 2 small right thyroid nodules measuring up to 1.0 cm each. IMPRESSION: 1. No acute fracture or subluxation. 2. Multilevel degenerative changes throughout the cervical spine as described. 3. Small indeterminate right thyroid nodules measuring up to 1 cm. Dictated by: Kee Mckinney M.D. on 08/23/2021 at 20:16 Approved by: Kee Mckinney M.D. on 08/23/2021 at 20:20
--- NOTE | 2021-08-23 19:51 | DI.CT.S_ITS ---
PROCEDURE: CT HEAD/BRAIN WO CON INDICATIONS: fall with head injury on thinners TECHNIQUE: Noncontrast 4.5 mm thick angled axial sections acquired from the foramen magnum to the vertex, with coronal and sagittal reformats. For radiation dose reduction, the following was used: automated exposure control, adjustment of mA and/or kV according to patient size. COMPARISON: [facility], CT, CT HEAD/BRAIN WO CON, 07/06/2021, 14:26. FINDINGS: Image quality: Excellent. CSF spaces: Basal cisterns are patent. No extra-axial fluid collections. There is mild cerebral volume loss, with resultant ventricular and sulcal prominence. Brain: No intracranial hemorrhage, mass, or mass effect. There are subcortical, periventricular and deep white matter hypodensities consistent with moderate chronic small vessel ischemic changes. The ayala-white matter junction appears preserved. There is intracranial internal carotid artery atherosclerosis. Skull and face: Calvarium and visualized facial bones appear intact, without suspicious lesions. Sinuses: Visualized sinuses and mastoids are clear. IMPRESSION: 1. No acute intracranial abnormality. 2. Moderate chronic white matter small vessel ischemic changes and mild cerebral volume loss. Dictated by: Kee Mckinney M.D. on 08/23/2021 at 20:13 Approved by: Kee Mckinney M.D. on 08/23/2021 at 20:16
[2021-08-23 19:54] VITALS: BP 139/68; PULSE 75; RESP 18; TEMP 36.6; O2SAT 98
--- NOTE | 2021-08-23 20:48 | ED.FALL ---
HPI - Fall General Chief Complaint: Trauma Stated Complaint: GLF on thinners Time Seen by Provider: 08/23/21 19:50 Source: patient and EMS Mode of arrival: EMS History of Present Illness HPI Narrative: 75-year-old female nonsmoker with history of hypertension and multiple sclerosis with prior pulmonary embolism on anticoagulation presents for evaluation of a ground level fall with a head injury. She was attempting to get out of her chair when she lost her balance and fell forward, striking her forehead on the ground. She has full recall denies any loss of consciousness, nausea or vomiting. She denies any blurred vision, trouble speech or other neurologic symptoms such as numbness, tingling or weakness. She has no neck or back pain and denies any chest pain or shortness of breath. She is activated as a modified trauma given fall with head injury on anticoagulants. Related Data Home Medications Medication Instructions Recorded Confirmed rivaroxaban 20 mg tablet (Xarelto) 20 mg PO DAILY 07/14/21 08/15/21 cholecalciferol (vitamin D3) 125 125 mcg PO DAILY 08/15/21 08/15/21 mcg (5,000 unit) capsule Previous Rx's Medication Instructions Recorded gabapentin 600 mg tablet 600 mg PO TID #60 tabs 01/21/21 naltrexone 3.5 mg PO BEDTIME #30 caps 01/21/21 acetaminophen 325 mg tablet 325 mg PO Q6HR #30 tabs 06/13/21 fluoxetine 20 mg capsule 20 mg PO TID #270 caps 07/14/21 trazodone 50 mg tablet 25 mg PO BEDTIME PRN insomnia #15 08/15/21 tabs amlodipine 2.5 mg tablet 2.5 mg PO DAILY #90 tabs 08/18/21 ondansetron 4 mg disintegrating 4 mg PO TID-QID PRN nausea and 08/22/21 tablet vomiting #10 tabs Allergies Allergy/AdvReac Type Severity Reaction Status Date / Time No Known Drug Allergies Allergy Verified 08/15/21 13:28 Review of Systems Review of Systems Narrative: GENERAL: See HPI HEENT: Denies sinus pain, ear pain, sore throat, difficulty swallowing, dizziness. RESPIRATORY: Denies dyspnea, cough, wheezing, hemoptysis, sputum. CARDIOVASCULAR: Denies chest pain, palpitations, orthopnea, edema, GASTROINTESTINAL: Denies nausea, vomiting, abdominal pain, diarrhea, constipation, melena. : Denies dysuria, frequency, incontinence, hematuria, urinary retention. MUSCULOSKELETAL: denies weakness, joint pain, or bony pain SKIN: Denies rash, skin lesions, or other NEUROLOGIC: Denies weakness, headache, numbness, change in speech, confusion, seizures, incoordination. PSYCHIATRIC: No concerning psychosocial issues. 12 point review of systems is negative except for those stated above Patient History Medical History Abnormal Pap smear of cervix (~1970) Age-related osteoporosis without current pathological fracture Cellulitis (~2000) Cervical cancer (~1970) Chicken pox (~1951) Chronic insomnia Clostridium difficile infection (~12/11/02) Depression (~1954) Elbow fracture, right (~2017) Essential hypertension Fractures (~2004) Frequent UTI (~2002) Headache Helicobacter pylori (H. pylori) (~10/18/11) History of low potassium (~2011) History of urinary incontinence (~1997) Loss of equilibrium (~07/30/04) Measles (~1953) Melanoma (~1996) Multiple sclerosis (~1975) Mumps (~1954) Oral pain Partial blindness (~1991) Shoulder fracture Shoulder pain (~2009) Surgical History Cataract (~2012) Fracture of clavicle (~10/19/09) Hammertoes of both feet (~12/15/09) History of discectomy (~2002) History of foot surgery (~03/26/09) History of hysterectomy (~07/1973) History of shoulder surgery History of tonsillectomy (~09/1962) Previous back surgery (~11/24/02) Status post laser cataract surgery of both eyes Ulcer (~12/29/02) Family History Mother Stroke History of heart disease Brother AIDS Father Stroke History of heart disease Brother History of heart disease Stroke Brother Hypertension Stroke Brother History of heart disease Brother History of heart disease Sister History of heart disease Stroke Social History household members: none Smoking Status: Never smoker Smoking Status: Never smoker alcohol intake frequency: holidays/special occasions only Substance Use Type: does not use Exam Narrative Exam Narrative: GENERAL: [75] year old patient appears stated age. Well-developed patient, in mild distress. HEAD: Superficial abrasion and contusion of the forehead just right of midline, no evidence of depressed skull fracture, no active bleeding, there is some abrasion on the bridge of the nose as well. EYES: Pupils equal round and reactive. No hyphema Extraocular motions intact. No scleral icterus. No injection or drainage. ENT: Nose without bleeding, purulent drainage. No nasal septal hematoma Throat without erythema, tonsillar hypertrophy or exudate. Airway patent. NECK: Trachea midline. Non tender CARDIOVASCULAR: Regular rate and rhythm without murmurs, gallops, or rubs. RESPIRATORY: Clear to auscultation. Breath sounds equal bilaterally. No wheezes, rales, or rhonchi. GASTROINTESTINAL: Abdomen soft, non-tender, nondistended. EXTREMITIES: No edema or joint tenderness. BACK: Nontender without deformity or crepitance. No flank tenderness. NEURO: AOx3. SKIN: No rash or erythema of visible areas Initial Vital Signs Initial Vital Signs: Vital Signs Temperature 98 F 08/23/21 19:54 Pulse Rate 75 08/23/21 19:54 Respiratory Rate 18 08/23/21 19:54 Blood Pressure 139/68 08/23/21 19:54 Pulse Oximetry 98 08/23/21 19:54 Oxygen Delivery Method 08/23/21 19:54 Course Orders Ordered: ED Orders 08/23/21 19:51 CT cervical spine wo con Stat CT head/brain wo con Stat Vital Signs Vital signs: Vital Signs - 8 hr 08/23/21 21:08 Pulse Rate 78 Respiratory Rate 16 Blood Pressure 155/74 H Pulse Oximetry 97 Oxygen Delivery Method Room Air MDM - Fall Imaging Data CT scan - head: Radiologist's Impression: [address] [address] [address] Scan Report Signed Patient: Dayami Disla MR#: [id number] : 1945 Acct:[id number] Age/Sex: 75 / F Date of Service: 08/23/21 Loc: ED Accession Number: [id number] ?? Procedure: CT head/brain wo con Ordering Provider: Jose Luis Coles D.O. PROCEDURE:? CT HEAD/BRAIN WO CON ? INDICATIONS:? fall with head injury on thinners ? TECHNIQUE:? Noncontrast 4.5 mm thick angled axial sections acquired from the foramen magnum to the vertex, with coronal and sagittal reformats.? For radiation dose reduction, the following was used:? automated exposure control, adjustment of mA and/or kV according to patient size.? ? COMPARISON:? [facility], CT, CT HEAD/BRAIN WO CON, 07/06/2021, 14:26. ? FINDINGS:? Image quality:? Excellent.? ? CSF spaces:? Basal cisterns are patent.? No extra-axial fluid collections.? There is mild cerebral volume loss, with resultant ventricular and sulcal prominence.? ? Brain:? No intracranial hemorrhage, mass, or mass effect.? There are subcortical, periventricular and deep white matter hypodensities consistent with moderate chronic small vessel ischemic changes.? The ayala-white matter junction appears preserved.? There is intracranial internal carotid artery atherosclerosis.? ? Skull and face:? Calvarium and visualized facial bones appear intact, without suspicious lesions.? ? Sinuses:? Visualized sinuses and mastoids are clear.? ? IMPRESSION:? ? 1. No acute intracranial abnormality. ? 2. Moderate chronic white matter small vessel ischemic changes and mild cerebral volume loss. ? ? Dictated by: Kee Mckinney M.D. on 08/23/2021 at 20:13 ? ? Approved by: Kee Mckinney M.D. on 08/23/2021 at 20:16 ? CT - cervical spine: Radiologist's Impression: Close Head CT (Signed) Kee Mckinney - 08/23/[address] (Signed) Kee Mckinney - 08/23/[address] (Signed) Josey Palacios - 07/06/21 Chest X-Ray (Signed) Josey Palacios - 07/06/21 Telemetry Strips 07/06/21 Vascular Ultrasound (Signed) Kenny Hartman - 06/12/21 Chest CTA (Signed) Kenny Hartman - 06/12/21 Chest X-Ray (Signed) Kenny Hartman - 06/12/[address] (Signed) Kenny Hartman - 06/05/[address] (Signed) Kenny Hartman - 06/05/21 Lumbar Spine X-Ray (Signed) Mee Cruz - 06/05/21 Knee X-Ray (Signed) Kenny Hartman - 01/20/[address] (Signed) John Pan - 01/20/21 Hip X-Ray (Signed) John Pan - 01/20/21 Launch?[place] [address] CT Scan Report Signed Patient: Dayami Disla MR#: [id number] : 1945 Acct:[id number] Age/Sex: 75 / F Date of Service: 08/23/21 Loc: ED Accession Number: [id number] ?? Procedure: CT cervical spine wo con Ordering Provider: Jose Luis Coles D.O. PROCEDURE:? CT CERVICAL SPINE WO CON ? INDICATIONS:? fall with head injury on thinners ? TECHNIQUE:? Noncontrast 3 mm thick sections acquired from the skull base to the T4 level.? Sagittal and coronal reformats were then constructed.? For radiation dose reduction, the following was used:? automated exposure control, adjustment of mA and/or kV according to patient size.? ? COMPARISON:? None. ? FINDINGS:? Image quality:? Excellent.? ? Bones:? No fractures or subluxation.? There is a minimal rightward curvature of the cervical spine and minimal leftward curvature of the upper thoracic spine.? There is straightening of the cervical lordosis.? Multilevel degenerative disc disease is demonstrated including moderate to severe degeneration at C3-C4, C4-C5, and C5-C6 with endplate sclerosis and osteophytosis.? Multilevel facet arthropathy also demonstrated including moderate to severe degeneration in the upper cervical spine on the left.? Visualized superior ribs are intact.? ? Soft tissues:? Prevertebral soft tissues are normal in thickness.? No paravertebral hematomas.? No apical pneumothoraces.? There are 2 small right thyroid nodules measuring up to 1.0 cm each. ? IMPRESSION:? ? 1. No acute fracture or subluxation. ? 2. Multilevel degenerative changes throughout the cervical spine as described. ? 3. Small indeterminate right thyroid nodules measuring up to 1 cm.? Dictated by: Kee Mckinney M.D. on 08/23/2021 at 20:16 ? ? Approved by: Kee Mckinney M.D. on 08/23/2021 at 20:20 ? Discharge Plan Departure Patient Disposition: Home Clinical Impression: Abrasion of forehead Instructions: How to Prevent Falls Activity Restrictions/Additional Instructions: *You have been diagnosed with [fall with minor head injury, as we discussed her history and physical exam as well as images are very reassuring and there is no evidence of fracture or bleeding in your brain] *What to do: *Please continue to take your regular medications as directed. [ ] New medication prescriptions sent to your pharmacy: [ ] [ ] New medication written as a paper prescription [ x] No new medications given *Please follow up with your primary care provider in 2-3 days, call for an appointment. Let them know you were seen in the Emergency Department and that we ask that you be seen in follow up. We will electronically transmit a record of today's note if your PCP is in our system *If you do not have a primary care provider please contact the [facility] Resource line at [phone]. They will ask some questions about your medical history and help get you set up with a doctor in the community. *Return to Emergency Department if you should have any new, worsening or concerning symptoms, such as [fever greater than 101 F, shaking chills, worsening pain, persistent vomiting or other bothersome symptoms] Prescriptions: No Action amlodipine 2.5 mg tablet 2.5 mg PO DAILY Qty: 90 3RF ondansetron 4 mg tablet,disintegrating 4 mg PO TID-QID PRN (Reason: nausea and vomiting) Qty: 10 0RF Xarelto 20 mg tablet 20 mg PO DAILY Label Comments: TAKE 1 TABLET BY MOUTH DAILY fluoxetine 20 mg capsule 20 mg PO TID Qty: 270 3RF cholecalciferol (vitamin D3) 125 mcg (5,000 unit) capsule 125 mcg PO DAILY trazodone 50 mg tablet 25 mg PO BEDTIME PRN (Reason: insomnia) Qty: 15 5RF gabapentin 600 mg tablet 600 mg PO TID Qty: 60 0RF naltrexone 3.5 mg PO BEDTIME Qty: 30 0RF acetaminophen 325 mg Tablet 325 mg PO Q6HR Qty: 30 0RF Referrals: Carlos Cristina MD [Primary Care Provider] - Visit Report Forms: Patient Portal/API
[2021-08-23 21:08] VITALS: BP 155/74; PULSE 78; RESP 16; O2SAT 97
== END 2021-08-23 21:10 | disposition home or self-care (01) ==
PROVIDERS: Emergency Provider Emergency Medicine; PCP Internal Medicine
DX: S00.81XA Abrasion of other part of head, initial encounter (principal); Z79.01 Long term (current) use of anticoagulants; W07.XXXA Fall from chair, initial encounter
CPT/HCPCS: 70450; 72125; 99283

== ENCOUNTER 2021-09-03 22:56 | Inpatient (IN) | payer MEDICARE, OTHER, SELFPAY ==
[2021-06-12 16:47] VITALS: BMI 24.7
[2021-09-03 23:16] VITALS: BP 157/92; PULSE 70; RESP 15; TEMP 37.2; O2SAT 95; BMI 26.2
--- NOTE | 2021-09-03 23:47 | PC.NURSE ---
Pt now endorses last BM was a small BM yesterday morning. Pt not passing flatus today. Had another episode of pain/vomiting 10minutes ago.
[2021-09-03 23:55] LABS: Add Manual Diff / Slide Review NO; Basophils Absolute Auto 100 /uL (0-100); Basophils Percent Auto 0.4 % (0-2); Eosinophils Absolute Auto 100 /uL (0-450); Eosinophils Percent Auto 0.5 % (2-4); Hematocrit 40.1 % (36-46); Hemoglobin 13.4 g/dL (12.0-16.0); Lymphocytes Absolute Auto 1400 /uL (1100-4500); Lymphocytes Percent Auto 9.7 % (25-40); Mean Corpuscular HGB Conc 33.5 % (30-36); Mean Corpuscular Hemoglobin 30.1 PG (26-34); Monocytes Absolute Auto 700 /uL (0-900); Monocytes Percent Auto 4.6 % (3-14); Neutrophils Absolute Auto 12600 /uL (1500-7000); Neutrophils Percent Auto 84.8 % (50-75); Platelet Count 330 X10^3/uL (150-400); Red Blood Cell Count 4.46 X10^6/uL (4.0-5.2); Red Cell Distribution Width 15.4 % (11.6-14.8); White Blood Cell Count 14.9 X10^3/uL (4.5-11.0)
--- NOTE | 2021-09-03 23:56 | DI.CT.S_ITS ---
PROCEDURE: CT ABDOMEN PELVIS W CON INDICATIONS: vomiting and lower abd pain TECHNIQUE: After the administration of intravenous contrast, axial sections acquired from the lung bases to the pubic symphysis. Coronal and sagittal reformats were performed. For radiation dose reduction, the following was used: automated exposure control, adjustment of mA and/or kV according to patient size. COMPARISON: [facility], CT, CT ANGIO CHEST PE PROTOCOL, 06/12/2021, 10:17. [facility], CT, CT PEL WO CON, 06/05/2021, 15:40. FINDINGS: Image quality: Excellent. Lung bases: Unremarkable. Heart: No significant findings. ABDOMEN: Liver: Unremarkable. Gallbladder: Unremarkable. Biliary ducts: Unremarkable. Pancreas: Unremarkable. Spleen: Unremarkable. Adrenal Glands: Unremarkable. Kidneys and Ureters: Unremarkable. Stomach and Bowel: Stomach, small bowel loops, and colon are unremarkable at the upper abdomen, but along the left mid abdomen there is mild pericolonic edema and more inferiorly within the lower abdomen and pelvis several small bowel loops demonstrate dilatation measuring up to 3.5 cm in maximal axial dimension.. Peritoneum: No abnormal intraperitoneal fluid superiorly but there is water density free fluid deep within the cul-de-sac area of the lower pelvis. No free air. Ventral Wall: No hernias. Abdominal Nodes: No retroperitoneal or mesenteric adenopathy by size criteria. Vessels: Aorta and inferior vena cava are normal in size. PELVIS: Pelvic Organs: Unremarkable. Bladder: Unremarkable. Pelvic Nodes: No enlarged lymph nodes. Miscellaneous: No hernias are seen. Bones: Unremarkable. IMPRESSION: Small-bowel dilatation within the mid lower abdomen and pelvis, measuring up to 3.5 cm diameter, with relative collapse of the small bowel more distally towards the right lower quadrant. A volvulus or intussusception is not seen. In this circumstance early small-bowel obstruction is likely present, etiology uncertain but statistically most likely from a congenital or acquired adhesion. Mild edema adjacent to the left colon, at the mid abdomen. This is located anterolaterally within the peritoneal space and could reflect evidence of concurrent mild diverticulitis. No abscess is found. A small amount of water density free fluid is seen deep within the cul-de-sac. Dictated by: Yobani Urias M.D. on 09/04/2021 at 2:02 Approved by: Yobani Urias M.D. on 09/04/2021 at 2:09
--- NOTE | 2021-09-03 23:56 | ED_ITS ---
HPI - General Adult General Chief complaint: Abdominal Pain Stated complaint: Abd pain Time Seen by Provider: 09/03/21 23:33 Source: patient and EMS Mode of arrival: EMS Limitations: no limitations History of Present Illness HPI narrative: 75-year-old female. Has a history of pulmonary embolisms. Is on anticoagul ation. Has never had any abdominal surgeries in the past is here for evaluation of nausea and vomiting. She states she started to have some discomfort earlier today but was not until after dinner tonight when she started vomiting. No fevers. She is no longer passing flatus. No urinary symptoms. Having lower abdominal pain. No chest pain. No shortness of breath. Related Data Home Medications Medication Instructions Recorded Confirmed rivaroxaban 20 mg tablet (Xarelto) 20 mg PO DAILY 07/14/21 08/15/21 cholecalciferol (vitamin D3) 125 125 mcg PO DAILY 08/15/21 08/15/21 mcg (5,000 unit) capsule Previous Rx's Medication Instructions Recorded gabapentin 600 mg tablet 600 mg PO TID #60 tabs 01/21/21 naltrexone 3.5 mg PO BEDTIME #30 caps 01/21/21 acetaminophen 325 mg tablet 325 mg PO Q6HR #30 tabs 06/13/21 fluoxetine 20 mg capsule 20 mg PO TID #270 caps 07/14/21 trazodone 50 mg tablet 25 mg PO BEDTIME PRN insomnia #15 08/15/21 tabs amlodipine 2.5 mg tablet 2.5 mg PO DAILY #90 tabs 08/18/21 ondansetron 4 mg disintegrating 4 mg PO TID-QID PRN nausea and 08/22/21 tablet vomiting #10 tabs Allergies Allergy/AdvReac Type Severity Reaction Status Date / Time No Known Drug Allergies Allergy Verified 08/15/21 13:28 Review of Systems Review of Systems ROS Unobtainable: All systems reviewed & are unremarkable except as noted in HPI and below Patient History Medical History Abnormal Pap smear of cervix (~1970) Age-related osteoporosis without current pathological fracture Cellulitis (~2000) Cervical cancer (~1970) Chicken pox (~1951) Chronic insomnia Clostridium difficile infection (~12/11/02) Depression (~1954) Elbow fracture, right (~2017) Essential hypertension Fractures (~2004) Frequent UTI (~2002) Headache Helicobacter pylori (H. pylori) (~10/18/11) History of low potassium (~2011) History of urinary incontinence (~1997) Loss of equilibrium (~07/30/04) Measles (~1953) Melanoma (~1996) Multiple sclerosis (~1975) Mumps (~1954) Oral pain Partial blindness (~1991) Shoulder fracture Shoulder pain (~2009) Surgical History Cataract (~2012) Fracture of clavicle (~10/19/09) Hammertoes of both feet (~12/15/09) History of discectomy (~2002) History of foot surgery (~03/26/09) History of hysterectomy (~07/1973) History of shoulder surgery History of tonsillectomy (~09/1962) Previous back surgery (~11/24/02) Status post laser cataract surgery of both eyes Ulcer (~12/29/02) Family History Mother Stroke History of heart disease Brother AIDS Father Stroke History of heart disease Brother History of heart disease Stroke Brother Hypertension Stroke Brother History of heart disease Brother History of heart disease Sister History of heart disease Stroke Social History household members: none Smoking Status: Never smoker Smoking Status: Never smoker alcohol intake frequency: holidays/special occasions only Substance Use Type: does not use Exam Initial Vital Signs Initial Vital Signs: Vital Signs Temperature 99 F 09/03/21 23:16 Pulse Rate 70 09/03/21 23:16 Respiratory Rate 15 09/03/21 23:16 Blood Pressure 157/92 H 09/03/21 23:16 Pulse Oximetry 95 09/03/21 23:16 Oxygen Delivery Method 09/03/21 23:16 Const General: cooperative and comfortable HENMT Head: normal to inspection and normocephalic Resp Effort & Inspection: normal respiratory effort Auscultation: clear to auscultation bilaterally Cardio Rate: regular rate Rhythm: regular rhythm GI Inspection: normal to inspection and non-distended Palpation: soft and tender (Lower abdomen) Skin General: no rashes or lesions noted Neuro General: patient alert, patient awake and moves all extremities Speech: speech normal Extrem General: normal to inspection and capillary refill normal Psych Appearance: grossly normal and well kempt Course Orders Ordered: ED Orders 09/03/21 23:41 Complete Blood Count AUTO DIFF Stat Comprehensive Metabolic Panel Stat Lipase Stat 09/03/21 23:56 CT abdomen pelvis w con Stat 09/04/21 02:34 Consult to General Surgery Stat 09/04/21 02:40 COVID19 -Nasal RAPID/Pre-Proc Stat Sodium Chloride (Normal Saline 0.9%) 1,000 mls @ 125 mls/hr IV CONT FREYA Last Admin: 09/04/21 00:00 Dose: 125 mls/hr Documented By: DERECK Discontinued Medications Ondansetron HCl (Ondansetron 4 Mg/2 Ml Inj) 4 mg IV NOW ONE Stop: 09/03/21 23:57 Last Admin: 09/04/21 00:00 Dose: 4 mg Documented By: DERECK Vital Signs Vital signs: Vital Signs - 8 hr 09/03/21 23:16 09/03/21 23:58 09/04/21 00:00 Temperature 99 F Pulse Rate 70 79 Respiratory Rate 15 12 Blood Pressure 157/92 H 168/86 H Pulse Oximetry 95 91 Oxygen Delivery Method Room Air 09/04/21 00:00 09/04/21 00:30 09/04/21 00:30 Temperature Pulse Rate 77 74 Respiratory Rate 15 18 Blood Pressure 157/72 H Pulse Oximetry 90 L 95 Oxygen Delivery Method 09/04/21 01:00 09/04/21 01:00 09/04/21 01:34 Temperature Pulse Rate 76 Respiratory Rate 17 Blood Pressure 132/60 142/63 H Pulse Oximetry 94 Oxygen Delivery Method 09/04/21 01:34 09/04/21 02:00 09/04/21 02:00 Temperature Pulse Rate 82 75 Respiratory Rate 34 H 16 Blood Pressure 130/61 Pulse Oximetry 92 94 Oxygen Delivery Method 09/04/21 02:30 09/04/21 02:30 09/04/21 03:00 Temperature Pulse Rate 80 Respiratory Rate 19 Blood Pressure 141/60 H 121/59 L Pulse Oximetry 96 Oxygen Delivery Method 09/04/21 03:00 Temperature Pulse Rate 75 Respiratory Rate 15 Blood Pressure Pulse Oximetry 94 Oxygen Delivery Method Medical Decision Making Lab Data Lab results reviewed: Yes I reviewed the patient's lab results. Result diagrams: 09/03/21 23:41 09/03/21 23:41 Labs: Lab Results 09/03/21 09/03/21 09/04/21 Range/Units 23:41 23:41 02:40 WBC 14.9 H (4.5-11.0) X10^3/uL RBC 4.46 (4.0-5.2) X10^6/uL Hgb 13.4 (12.0-16.0) g/dL Hct 40.1 (36-46) % MCV 90.0 (80-100) fL MCH 30.1 (26-34) PG MCHC 33.5 (30-36) % RDW 15.4 H (11.6-14.8) % Plt Count 330 (150-400) X10^3/uL Neut % (Auto) 84.8 H (50-75) % Lymph % (Auto) 9.7 L (25-40) % Carter % (Auto) 4.6 (3-14) % Eos % (Auto) 0.5 L (2-4) % Baso % (Auto) 0.4 (0-2) % Neut # (Auto) 34327 H (3722-7787) /uL Lymph # (Auto) 1400 (5163-9842) /uL Carter # (Auto) 700 (0-900) /uL Eos # (Auto) 100 (0-450) /uL Baso # (Auto) 100 (0-100) /uL Sodium 137 (137-145) mmol/L Potassium 3.4 (3.4-5.1) mmol/L Chloride 99 (98-107) mmol/L Carbon Dioxide 30 (22-32) mmol/L BUN 17 (7-17) mg/dL Creatinine 0.66 (0.52-1.04) mg/dL Estimated GFR > 60 (>60) mL/min BUN/Creatinine Ratio 25.8 H (6-22) Glucose 143 H (80-110) mg/dL Calcium 9.1 (8.4-10.2) mg/dL Total Bilirubin 0.4 (0.2-1.3) mg/dL AST 22 (14-36) IU/L ALT 10 (<35) IU/L Alkaline Phosphatase 90 (38-126) U/L Total Protein 7.5 (6.3-8.2) g/dL Albumin 4.4 (3.5-5.0) g/dL Globulin 3.1 (1.7-4.1) g/dL Albumin/Globulin Ratio 1.4 (1.0-2.8) Lipase 101 (23-300) U/L SARS-CoV-2 (PCR) Negative (Negative) Imaging Data CT scan - abdomen/pelvis: Radiologist's Impression: [address] [address] [address] Scan Report Signed Patient: Dayami Disla MR#: [id number] : 1945 Acct:[id number] Age/Sex: 75 / F Date of Service: 09/03/21 Loc: ED Accession Number: [id number] ?? Procedure: CT abdomen pelvis w con Ordering Provider: Jesse Phillips D.O. PROCEDURE:? CT ABDOMEN PELVIS W CON ? INDICATIONS:? vomiting and lower abd pain ? TECHNIQUE:? After the administration of intravenous contrast, axial sections acquired from the lung bases to the pubic symphysis.? Coronal and sagittal reformats were performed.? For radiation dose reduction, the following was used:? automated exposure control, adjustment of mA and/or kV according to patient size.? ? COMPARISON:? [facility], CT, CT ANGIO CHEST PE PROTOCOL, 06/12/2021, 10:17.? [facility], CT, CT PEL WO CON, 06/05/2021, 15:40. ? FINDINGS:? Image quality:? Excellent.? ? Lung bases:? Unremarkable. Heart:? No significant findings. ? ABDOMEN: Liver:? Unremarkable.? ? Gallbladder:? Unremarkable.? ? Biliary ducts:? Unremarkable.? ? Pancreas:? Unremarkable.? ? Spleen:? Unremarkable.? ? Adrenal Glands:? Unremarkable.? ? Kidneys and Ureters:? Unremarkable.? ? ? Stomach and Bowel:? Stomach, small bowel loops, and colon are unremarkable at the upper abdomen, but along the left mid abdomen there is mild pericolonic edema and more inferiorly within the lower abdomen and pelvis several small bowel loops demonstrate dilatation measuring up to 3.5 cm in maximal axial dimension..? Peritoneum:? No abnormal intraperitoneal fluid superiorly but there is water density free fluid deep within the cul-de-sac area of the lower pelvis.? No free air.? ? Ventral Wall: ? No hernias.? Abdominal Nodes:? No retroperitoneal or mesenteric adenopathy by size criteria.? Vessels:? Aorta and inferior vena cava are normal in size.? ? PELVIS: Pelvic Organs:? Unremarkable.? ? Bladder:? Unremarkable.? ? Pelvic Nodes: No enlarged lymph nodes.? Miscellaneous: No hernias are seen. ? ? ? Bones:? Unremarkable.? IMPRESSION:? Small-bowel dilatation within the mid lower abdomen and pelvis, m easuring up to 3.5 cm diameter, with relative collapse of the small bowel more distally towards the right lower quadrant.? A volvulus or intussusception is not seen.? In this circumstance early small-bowel obstruction is likely present, etiology uncertain but statistically most likely from a congenital or acquired adhesion. ? Mild edema adjacent to the left colon, at the mid abdomen.? This is located anterolaterally within the peritoneal space and could reflect evidence of concurrent mild diverticulitis.? No abscess is found.? A small amount of water density free fluid is seen deep within the cul-de-sac. ? ? Dictated by: Yobani Urias M.D. on 09/04/2021 at 2:02 ? ? Approved by: Yobani Urias M.D. on 09/04/2021 at 2:09? MDM Narrative Medical decision making narrative: Pain did vomit 1 time here in the ER. CT scan concerning for partial small bowel obstruction. She does feel better after vomiting and the Zofran. Her stomach is not distended. Hold on a NG tube for now. Discussed the case with Dr. Dennis on-call for General surgery who asked the patient to be admitted to the medicine service and he will consult. Discussed the case with PEGGY Rivera the night hospitalist who will accept for further evaluation and treatment. Discussed the need for admission with the patient. She expressed understanding and agreement. Discharge Plan Departure Patient Disposition: Admitted As Inpatient Clinical Impression: Small bowel obstruction Admit Date/Time: 09/04/21 03:02 Admit Provider: Carmita Rivera
[2021-09-03 23:58] VITALS: PULSE 79; RESP 12; O2SAT 91
[2021-09-04] VITALS (14 sets, daily range): BP systolic 116–168; BP diastolic 58–86; PULSE 74–82; RESP 15–34; TEMP 35.8–37.6; O2SAT 90–98; BMI 23.1
[2021-09-04] MEDS: ONDANSETRON 4 MG/2 ML INJ IV
[2021-09-04] MEDS: SODIUM CHLORIDE 0.9% 1,000 ML 125 ML IV
[2021-09-04 00:04] LABS: Alanine Aminotransferase 10 IU/L (<35); Albumin 4.4 g/dL (3.5-5.0); Albumin Globulin Ratio 1.4 (1.0-2.8); Alkaline Phosphatase 90 U/L (38-126); Aspartate Aminotransferase 22 IU/L (14-36); BUN Creatinine Ratio 25.8 (6-22); Bilirubin Total 0.4 mg/dL (0.2-1.3); Blood Urea Nitrogen 17 mg/dL (7-17); Calcium 9.1 mg/dL (8.4-10.2); Carbon Dioxide 30 mmol/L (22-32); Chloride 99 mmol/L (98-107); Estimated Glomerular Filt Rate > 60 mL/min (>60); Globulin 3.1 g/dL (1.7-4.1); Glucose 143 mg/dL (80-110); HEMOLYSIS < 15 (0-50); Lipase 101 U/L (23-300); Potassium 3.4 mmol/L (3.4-5.1); Sodium 137 mmol/L (137-145); Total Protein 7.5 g/dL (6.3-8.2)
[2021-09-04 02:59] LABS: COVID19 -Nasal RAPID Negative (Negative)
--- NOTE | 2021-09-04 04:30 | P.HP_ITS ---
History of Present Illness History of Present Illness Date Patient Seen: 09/04/21 Time Patient Seen: 04:00 Chief complaint: Abd pain Narrative: Dayami Dsila is a pleasant 75 y.o. female with a history a recent pulmonary embolism for which she is being anticoagulated 4, MS, frequent falls, osteoporosis, recent closed fracture of the pubic ramus, presented with vomiting that started at 7:30 a.m. in the morning on September 03 lasting up until when she showed up to the emergency department totaling 7 episodes. States vomitis appeared to be undigested food. She denies a history of abdominal surgeries, denies difficulty swallowing, shortness of breath, chest pain, she does endorse abdominal cramping, denies dysuria, diarrhea, or constipation. She does have c hronic balance issues and falls frequently. She recently relocated from [place] several years ago to be with her adult children and currently resides at the assisted living portion of [facility]. CT of the abdomen noted small-bowel dilatation within the mid lower abdomen and pelvis measuring up to 3.5 cm in diameter suspicion of early small-bowel obstruction. The CT also noted possible concurrent mild diverticulitis. She is afebrile, blood pressure 137/73, heart rate 77, respiratory rate 16, oxygen saturation of 98% on room air, she weighs 57.5 kg with a BMI of 23.1. Her WBC is elevated at 14.9 with a left shift, chemistry is unremarkable with exception of mildly elevated glucose at 1:43 a.m. liver enzymes within normal limits lipase is 101 and COVID-19 PCR is negative. Patient had a fall in December of 2020 and sustained a fracture of the right pubic symphysis fracture. She presented again in May of 2021 and sustained a fracture of the right sacral ala which was ruled to be nonsurgical and was discharged from the ED back to her assisted living facility. She then returned on June 12, 2021 89 and was found to have developed a left lower lobe pulmonary embolism and is currently being anticoagulated on rivaroxaban. Patient History Medical History Abnormal Pap smear of cervix (~1970) Age-related osteoporosis without current pathological fracture Anticoagulated Cellulitis (~2000) Cervical cancer (~1970) Chicken pox (~1951) Chronic insomnia Clostridium difficile infection (~12/11/02) Depression (~1954) Elbow fracture, right (~2017) Essential hypertension Fractures (~2004) Frequent UTI (~2002) Headache Helicobacter pylori (H. pylori) (~10/18/11) History of low potassium (~2011) History of urinary incontinence (~1997) Loss of equilibrium (~07/30/04) Measles (~1953) Melanoma (~1996) Multiple sclerosis (~1975) Mumps (~1954) Oral pain Partial blindness (~1991) Pulmonary embolism Shoulder fracture Shoulder pain (~2009) Surgical History Cataract (~2012) Fracture of clavicle (~10/19/09) Hammertoes of both feet (~12/15/09) History of discectomy (~2002) History of foot surgery (~03/26/09) History of hysterectomy (~07/1973) History of shoulder surgery History of tonsillectomy (~09/1962) Previous back surgery (~11/24/02) Status post laser cataract surgery of both eyes Ulcer (~12/29/02) Family & Social History Family History Mother Stroke History of heart disease Brother AIDS Father Stroke History of heart disease Brother History of heart disease Stroke Brother Hypertension Stroke Brother History of heart disease Brother History of heart disease Sister History of heart disease Stroke Social History: household members none Prior Living Arrangements Assisted Living Safety & Behavioral: Feels Safe in Current Yes Environment Been Physically Hurt or No Threatened By a Person Tobacco & Substance use: Smoking Status Never smoker alcohol intake frequency holiday/special occasion Substance Use Type does not use Meds Home Medications and Allergies Home Medications Medication Instructions Recorded Confirmed Type gabapentin 600 mg tablet 600 mg PO TID #60 tabs 01/21/21 09/04/21 Rx acetaminophen 325 mg tablet 325 mg PO Q6HR #30 tabs 06/13/21 08/15/21 Rx fluoxetine 20 mg capsule 20 mg PO TID #270 caps 07/14/21 09/04/21 Rx rivaroxaban 20 mg tablet (Xarelto) 20 mg PO DAILY 07/14/21 09/04/21 History cholecalciferol (vitamin D3) 125 125 mcg PO DAILY 08/15/21 09/04/21 History mcg (5,000 unit) capsule trazodone 50 mg tablet 25 mg PO BEDTIME PRN insomnia #15 08/15/21 09/04/21 Rx tabs amlodipine 2.5 mg tablet 2.5 mg PO DAILY #90 tabs 08/18/21 09/04/21 Rx ondansetron 4 mg disintegrating 4 mg PO TID-QID PRN nausea and 08/22/21 09/04/21 Rx tablet vomiting #10 tabs lidocaine 4 % topical patch 1 patch topical DAILY PRN Pain, 09/04/21 09/04/21 History (Blue-Emu Lidocaine Patch) Mild naltrexone 3.5 mg PO BEDTIME 09/04/21 09/04/21 History Allergies Allergy/AdvReac Type Severity Reaction Status Date / Time No Known Drug Allergies Allergy Verified 08/15/21 13:28 Review of Systems Review of Systems ROS: Yes All systems reviewed with the patient and are negative except as otherwise documented Exam Vital Signs (past 8 hours): - 09/03/21 23:16 09/03/21 23:58 09/04/21 00:00 Temperature 99 F Pulse Rate 70 79 Respiratory Rate 15 12 Blood Pressure 157/92 H 168/86 H Pulse Oximetry 95 91 Oxygen Delivery Method Room Air Oxygen Flow Rate 09/04/21 00:00 09/04/21 00:30 09/04/21 00:30 Temperature Pulse Rate 77 74 Respiratory Rate 15 18 Blood Pressure 157/72 H Pulse Oximetry 90 L 95 Oxygen Delivery Method Oxygen Flow Rate 09/04/21 01:00 09/04/21 01:00 09/04/21 01:34 Temperature Pulse Rate 76 Respiratory Rate 17 Blood Pressure 132/60 142/63 H Pulse Oximetry 94 Oxygen Delivery Method Oxygen Flow Rate 09/04/21 01:34 09/04/21 02:00 09/04/21 02:00 Temperature Pulse Rate 82 75 Respiratory Rate 34 H 16 Blood Pressure 130/61 Pulse Oximetry 92 94 Oxygen Delivery Method Oxygen Flow Rate 09/04/21 02:30 09/04/21 02:30 09/04/21 03:00 Temperature Pulse Rate 80 Respiratory Rate 19 Blood Pressure 141/60 H 121/59 L Pulse Oximetry 96 Oxygen Delivery Method Oxygen Flow Rate 09/04/21 03:00 09/04/21 03:30 09/04/21 03:30 Temperature Pulse Rate 75 76 Respiratory Rate 15 15 Blood Pressure 116/58 L Pulse Oximetry 94 94 Oxygen Delivery Method Room Air Oxygen Flow Rate 09/04/21 03:55 Temperature 97.6 F Pulse Rate 77 Respiratory Rate 16 Blood Pressure 137/73 Pulse Oximetry 98 Oxygen Delivery Method Oxygen Flow Rate 0 Oxygen Delivery Method Room Air Oxygen Flow Rate 0 Narrative Exam Narrative: Gen: Alert, oriented, thin 75 y.o. female, complains of being cold HEENT: normocephalic, atraumatic, conjunctiva clear, sclera non-icteric, oral mucosa pink and moist Neck: supple, full ROM, no JVD, trachea is midline Resp: Lungs CTA, non-labored breathing CV: RRR, no murmur or rubs Abd: soft, non-tender, hypoactive BTs Skin: no lesions or rashes, dry and intact Neuro: Alert and oriented X 4 w/no focal deficits. Speech clear and coherent. Extremities: moves all 4 extremities, is ambulatory, negative Niranjan?s sign Psyche: normal mood and affect. Objective Labs Result Diagrams: 09/03/21 23:41 09/03/21 23:41 Labs: Laboratory Results - last 24 hr 09/03/21 09/03/21 09/04/21 23:41 23:41 02:40 WBC 14.9 H RBC 4.46 Hgb 13.4 Hct 40.1 MCV 90.0 MCH 30.1 MCHC 33.5 RDW 15.4 H Plt Count 330 Neut % (Auto) 84.8 H Lymph % (Auto) 9.7 L Elk % (Auto) 4.6 Eos % (Auto) 0.5 L Baso % (Auto) 0.4 Neut # (Auto) 93540 H Lymph # (Auto) 1400 Elk # (Auto) 700 Eos # (Auto) 100 Baso # (Auto) 100 Sodium 137 Potassium 3.4 Chloride 99 Carbon Dioxide 30 BUN 17 Creatinine 0.66 Estimated GFR > 60 BUN/Creatinine Ratio 25.8 H Glucose 143 H Calcium 9.1 Total Bilirubin 0.4 AST 22 ALT 10 Alkaline Phosphatase 90 Total Protein 7.5 Albumin 4.4 Globulin 3.1 Albumin/Globulin Ratio 1.4 Lipase 101 SARS-CoV-2 (PCR) Negative Assessment & Plan Assessment & Plan narrative: Dayami Disla is admitted to the inpatient service for a small-bowel obstruction and mild diverticulitis. Small-bowel obstruction, acute, present on admission * She is NPO except for medications * Dr. Dennis, general surgery will see her in the morning * She will be on IV fluids normal saline at 125 mL/hour Mild diverticulitis, acute, present on admission * She had a elevated white count and will be started on IV Cipro and Flagyl History of pulmonary embolism diagnosed in May of 2021 currently anticoagulated * Continue rivaroxaban 20 mg daily unless surgery indicates otherwise Essential hypertension, chronic * Continue home dose of amlodipine 2.5 mg p.o. daily Multiple sclerosis, chronic * Continue home doses of gabapentin Depression, chronic * Continue home dose of fluoxetine 20 mg p.o. t.i.d. Chronic insomnia, longstanding * Continue home dose of trazodone 50 mg p.o. at bedtime VTE Prophylaxis: Wells risk score 3 [X] Bilateral SCDs [X] from o'clock to call DVT prophylaxis contraindicated as the patient is currently anticoagulated on rivaroxaban. Patient is admitted to the inpatient service due to the severity of disease, risks of further disease progression and this stay is expected to exceed 2 midnights. FEN: IV fluids: Normal saline at 125 mL/hour, diet: NPO, labs: CBC, C/BMP, liver enzymes, Mag, PT/INR Consultants Dr. Rupert Lee, general surgery, care and involvement in the patient?s care is appreciated. Dispo: Likely discharge back to [facility] status: DNR/DNI as discussed with the patient who identifies her daughter, Brinda Bonilla as her surrogate and POA. [X] I have utilized all available immediate resources to obtain, update, or review of the patient's current medications COVID-19 COVID-19 status: Negative Result date/Date tested (Pos, Neg/Pending): 09/04/21 Scores Wells' Criteria for PE Clinical signs and symptoms of DVT: No PE is #1 Dx or equally likely: No Heart rate > 100: No Immobilization at least 3 days or surg in previous 4 weeks: Yes History of PE or DVT: Yes Hemoptysis: No Malignancy w/Treatment within 6 months or palliative: No Wells' PE Score total: 3.0 Citation:: Patient is currently being anticoagulated for a left lower lobe pulmonary embolism that was identified in [place] of this year. Quality VTE Deep Vein Thrombosis/Pulmonary Embolism Present on Admission: No MIPS - Admit I confirm the patient?s Advance Care Plan is present, Code status is documented, Surrogate decision maker is in patient?s record [If Yes, STOP here]: Yes MIPS - DC The patient has current or prior documentation of left ventricular ejection fraction (LVEF) less than 40%, or moderate or severely depressed left sanjuanita tricular systolic function.: No
[2021-09-04] MEDS: DEXTROSE 5%-0.9% NS 1,000 ML 100 ML IV (04:50)
[2021-09-04] MEDS: CIPROFLOXACIN 400 MG/200 ML PIGGYBACK 200 MG IV (06:18)
[2021-09-04 06:49] LABS: Add Manual Diff / Slide Review NO; Basophils Absolute Auto 0 /uL (0-100); Basophils Percent Auto 0.4 % (0-2); Eosinophils Absolute Auto 0 /uL (0-450); Eosinophils Percent Auto 0.2 % (2-4); Hematocrit 34.6 % (36-46); Hemoglobin 11.7 g/dL (12.0-16.0); Lymphocytes Absolute Auto 1300 /uL (1100-4500); Lymphocytes Percent Auto 12.9 % (25-40); Mean Corpuscular HGB Conc 33.8 % (30-36); Mean Corpuscular Hemoglobin 30.3 PG (26-34); Mean Corpuscular Volume 89.6 fL (80-100); Monocytes Absolute Auto 500 /uL (0-900); Monocytes Percent Auto 4.8 % (3-14); Neutrophils Absolute Auto 8000 /uL (1500-7000); Neutrophils Percent Auto 81.7 % (50-75); Platelet Count 255 X10^3/uL (150-400); Red Blood Cell Count 3.86 X10^6/uL (4.0-5.2); Red Cell Distribution Width 15.7 % (11.6-14.8); White Blood Cell Count 9.8 X10^3/uL (4.5-11.0)
[2021-09-04 06:57] LABS: Alanine Aminotransferase 10 IU/L (<35); Albumin 3.6 g/dL (3.5-5.0); Albumin Globulin Ratio 1.4 (1.0-2.8); Alkaline Phosphatase 64 U/L (38-126); Aspartate Aminotransferase 19 IU/L (14-36); BUN Creatinine Ratio 23.7 (6-22); Bilirubin Total 0.4 mg/dL (0.2-1.3); Bilirubin Unconjugated 0.3 mg/dL (0.0-1.1); Blood Urea Nitrogen 14 mg/dL (7-17); Calcium 8.3 mg/dL (8.4-10.2); Carbon Dioxide 29 mmol/L (22-32); Chloride 102 mmol/L (98-107); Estimated Glomerular Filt Rate > 60 mL/min (>60); Globulin 2.5 g/dL (1.7-4.1); Glucose 116 mg/dL (80-110); HEMOLYSIS < 15 (0-50); Magnesium 1.9 mg/dL (1.6-2.3); Potassium 3.6 mmol/L (3.4-5.1); Sodium 136 mmol/L (137-145); Total Protein 6.1 g/dL (6.3-8.2)
--- NOTE | 2021-09-04 08:53 | CM.DANOTE ---
DCP Note: Payor: Medicare PCP: MD Ibeth Pt is a 75 y.o. F who presented to the ED via ambulance for abdominal pain. Pt presented with vomiting that started on the morning of September 03 and she had about 7 episodes by the time she showed up into the ED. Pt has a past medical history of a recent PE for which she is currently being anticoagulated for, MS, Depresion, frequent falls, and osteoporosis. CT was ordered and showed pt to have a suspicious small bowel obstruction. Pt admitted to the inpatient unit for further work up. General surgery consulted. DCP met with the patient this morning bedside. Pt laying in bed. DCP introduced herself and role. Pt states that she currently lives at [facility] living and uses a wheelchair at baseline. Pt states that the staff at [facility] help her with her ADL's. Pt understands the reasoning for being admitted and inquired about when the general surgery team would be by. DCP could not give her definitive time. Once pt is ready for discharge, DCP to contact [facility] for assessment back into the facility. Pt had no other questions. White board updated with DCP contact information. Pt thankful for the discussion. P: Once pt is medically stable for discharge, pt to discharge to [facility] via daughter POV. Tamiko Hernandez RN/TOMER Discharge Planning/Care Management CM Discharge Assessment Start: 09/04/21 08:33 Freq: Status: Active Protocol: Document 09/04/21 08:51 IVETTE (Rec: 09/04/21 08:52 [id number]) Discharge Planning Assessment Assigned Access Clerk Tamiko Hernandez RN/TOMER Advance Directives? Yes Advance Directives on File No History Provided By Patient,Medical Record Prior Living Arrangements Assisted Living Comment [facility] Household Members none Type of transporation used prior to Relies on Others admit Facility Name Admitted From: [facility] Willing to Return to Facility? Yes Independent with ADL's No Is patient alert and oriented? Yes Caregiver for Another No DME Already Rented / Owned Wheelchair Comment Working on getting a power w/c through PCP Discharge Plan Assisted Living Facility Referrals Initiated None needed Whiteboard Updated in Patient Room with Yes name and ext. # of Access Clerk Comment Instructed to call Review Status In Process Please Provide Date Initial DC 09/04/21 Assessment Was Performed Next Review Type Continued Stay Review
[2021-09-04] MEDS: GABAPENTIN 600 MG TABLET PO ×3 (09:30→21:58)
[2021-09-04] MEDS: FLUoxetine 20 MG CAPSULE PO ×3 (09:30→21:58)
[2021-09-04] MEDS: AMLODIPINE 5 MG TABLET 2.5 MG PO (09:30)
[2021-09-04] MEDS: metroNIDAZOLE 500 MG/100 ML PIGGYBACK 100 MG IV (09:30)
[2021-09-04] MEDS: RIVAROXABAN 10 MG TABLET 20 MG PO (09:30)
--- NOTE | 2021-09-04 10:54 | PM.CN ---
History of Present Illness Consult details Date Patient Seen: 09/04/21 Time Patient Seen: 10:55 Chief complaint: Abd pain Narrative: 75-year-old woman admitted to the hospital with abdominal pain. Consulted for small-bowel obstruction. She has a history of hysterectomy. She presented to the hospital yesterday with abdominal pain primarily of the lower abdomen and associated emesis. No bowel movement or flatus. CT abdomen pelvis shows dilated loops of small bowel with distal decompression consistent with small-bowel obstruction. No free air. At admission WBC 15 after fluid resuscitation today down to 10. She has never had a prior small bowel obstruction. Abdomen feels mildly bloated but discomfort has improved since admission. No further nausea or emesis over the past 6 hours. Meds Home Medications and Allergies Home Medications Medication Instructions Recorded Confirmed Type gabapentin 600 mg tablet 600 mg PO TID #60 tabs 01/21/21 09/04/21 Rx acetaminophen 325 mg tablet 325 mg PO Q6HR #30 tabs 06/13/21 08/15/21 Rx fluoxetine 20 mg capsule 20 mg PO TID #270 caps 07/14/21 09/04/21 Rx rivaroxaban 20 mg tablet (Xarelto) 20 mg PO DAILY 07/14/21 09/04/21 History cholecalciferol (vitamin D3) 125 125 mcg PO DAILY 08/15/21 09/04/21 History mcg (5,000 unit) capsule trazodone 50 mg tablet 25 mg PO BEDTIME PRN insomnia #15 08/15/21 09/04/21 Rx tabs amlodipine 2.5 mg tablet 2.5 mg PO DAILY #90 tabs 08/18/21 09/04/21 Rx ondansetron 4 mg disintegrating 4 mg PO TID-QID PRN nausea and 08/22/21 09/04/21 Rx tablet vomiting #10 tabs lidocaine 4 % topical patch 1 patch topical DAILY PRN Pain, 09/04/21 09/04/21 History (Blue-Emu Lidocaine Patch) Mild naltrexone 3.5 mg PO BEDTIME 09/04/21 09/04/21 History Allergies Allergy/AdvReac Type Severity Reaction Status Date / Time No Known Drug Allergies Allergy Verified 08/15/21 13:28 Exam Vital Signs (past 8 hours): - 09/04/21 03:00 09/04/21 03:00 09/04/21 03:30 Temperature Pulse Rate 75 Respiratory Rate 15 Blood Pressure 121/59 L 116/58 L Pulse Oximetry 94 Oxygen Delivery Method Oxygen Flow Rate 09/04/21 03:30 09/04/21 03:55 09/04/21 04:20 Temperature 97.6 F Pulse Rate 76 77 Respiratory Rate 15 16 Blood Pressure 137/73 Pulse Oximetry 94 98 98 Oxygen Delivery Method Room Air Room Air Oxygen Flow Rate 0 09/04/21 06:00 Temperature 96.4 F L Pulse Rate 74 Respiratory Rate 16 Blood Pressure 135/67 Pulse Oximetry 97 Oxygen Delivery Method Oxygen Flow Rate 0 Oxygen Delivery Method Room Air Oxygen Flow Rate 0 Narrative Exam Narrative: General adult woman alert oriented no acute distress Chest nonlabored respiration Abdomen soft compressible minimal distension. Objective Labs Result Diagrams: 09/04/21 06:40 09/04/21 06:40 Labs: Laboratory Results - last 24 hr 09/03/21 09/03/21 09/04/21 23:41 23:41 02:40 WBC 14.9 H RBC 4.46 Hgb 13.4 Hct 40.1 MCV 90.0 MCH 30.1 MCHC 33.5 RDW 15.4 H Plt Count 330 Neut % (Auto) 84.8 H Lymph % (Auto) 9.7 L [place] % (Auto) 4.6 Eos % (Auto) 0.5 L Baso % (Auto) 0.4 Neut # (Auto) 83055 H Lymph # (Auto) 1400 [place] # (Auto) 700 Eos # (Auto) 100 Baso # (Auto) 100 Sodium 137 Potassium 3.4 Chloride 99 Carbon Dioxide 30 BUN 17 Creatinine 0.66 Estimated GFR > 60 BUN/Creatinine Ratio 25.8 H Glucose 143 H Calcium 9.1 Magnesium Total Bilirubin 0.4 Conjugated Bilirubin Unconjugated Bilirubin AST 22 ALT 10 Alkaline Phosphatase 90 Total Protein 7.5 Albumin 4.4 Globulin 3.1 Albumin/Globulin Ratio 1.4 Lipase 101 SARS-CoV-2 (PCR) Negative 09/04/21 09/04/21 06:40 06:40 WBC 9.8 RBC 3.86 L Hgb 11.7 L Hct 34.6 L MCV 89.6 MCH 30.3 MCHC 33.8 RDW 15.7 H Plt Count 255 Neut % (Auto) 81.7 H Lymph % (Auto) 12.9 L [place] % (Auto) 4.8 Eos % (Auto) 0.2 L Baso % (Auto) 0.4 Neut # (Auto) 8000 H Lymph # (Auto) 1300 [place] # (Auto) 500 Eos # (Auto) 0 Baso # (Auto) 0 Sodium 136 L Potassium 3.6 Chloride 102 Carbon Dioxide 29 BUN 14 Creatinine 0.59 Estimated GFR > 60 BUN/Creatinine Ratio 23.7 H Glucose 116 H Calcium 8.3 L Magnesium 1.9 Total Bilirubin 0.4 Conjugated Bilirubin 0.0 Unconjugated Bilirubin 0.3 AST 19 ALT 10 Alkaline Phosphatase 64 Total Protein 6.1 L Albumin 3.6 Globulin 2.5 Albumin/Globulin Ratio 1.4 Lipase SARS-CoV-2 (PCR) [facility] Medical History Abnormal Pap smear of cervix (~1970) Age-related osteoporosis without current pathological fracture Anticoagulated Cellulitis (~2000) Cervical cancer (~1970) Chicken pox (~1951) Chronic insomnia Clostridium difficile infection (~12/11/02) Depression (~1954) Elbow fracture, right (~2017) Essential hypertension Fractures (~2004) Frequent UTI (~2002) Headache Helicobacter pylori (H. pylori) (~10/18/11) History of low potassium (~2011) History of urinary incontinence (~1997) Loss of equilibrium (~07/30/04) Measles (~1953) Melanoma (~1996) Multiple sclerosis (~1975) Mumps (~1954) Oral pain Partial blindness (~1991) Pulmonary embolism Shoulder fracture Shoulder pain (~2009) Surgical History Cataract (~2012) Fracture of clavicle (~10/19/09) Hammertoes of both feet (~12/15/09) History of discectomy (~2002) History of foot surgery (~03/26/09) History of hysterectomy (~07/1973) History of shoulder surgery History of tonsillectomy (~09/1962) Previous back surgery (~11/24/02) Status post laser cataract surgery of both eyes Ulcer (~12/29/02) Family History Mother Stroke History of heart disease Brother AIDS Father Stroke History of heart disease Brother History of heart disease Stroke Brother Hypertension Stroke Brother History of heart disease Brother History of heart disease Sister History of heart disease Stroke Social History household members: none Tobacco & Substance Use Smoking Status: Never smoker Assessment & Plan Assessment and plan (1) Small bowel obstruction: Status: Acute Assessment & Plan narrative: 75-year-old woman with a history of abdominal surgery and admitted for a small-bowel obstruction. Nontoxic, no peritonitis. CT abdomen pelvis reviewed demonstrates a small-bowel obstruction no free air or significant free fluid. Discussed the findings with the patient and her daughter at bedside. Recommend proceeding with conservative non operative management at this time.. -small-bowel follow-through with Gastrografin ordered -NPO IV fluids okay for meds with sips of water. Time Spent With Patient Critical Care time: I spent a total of [] minutes of critical care time on this patient's care today; this time is exclusive of procedural time.
--- NOTE | 2021-09-04 11:43 | DI.RAD.S_ITS ---
PROCEDURE: XR GASTROGRAFIN CHALLENGE COMPARISON: None. INDICATIONS: SMALL BOWEL OBSTUCTION. PERFORM WITH GASTRO. FINDINGS: Gastrografin was administered and demonstrates progression through the entire bowel from the stomach to the rectum. IMPRESSION: Contrast progressed through the entire bowel from the stomach to the rectum. Dictated by: Donn King M.D. on 09/04/2021 at 15:22 Approved by: Donn King M.D. on 09/04/2021 at 15:22
[2021-09-04] MEDS: ONDANSETRON 4 MG ODT SL (21:22)
[2021-09-04] MEDS: TRAZODONE 50 MG TABLET 25 MG PO (22:38)
[2021-09-05] VITALS: RESP 18
[2021-09-05] MEDS: metroNIDAZOLE 500 MG/100 ML PIGGYBACK 100 MG IV ×2 (01:50→09:38)
[2021-09-05 01:53] VITALS: BP 142/70; PULSE 68; RESP 18; TEMP 36.6; O2SAT 94
[2021-09-05] MEDS: CIPROFLOXACIN 400 MG/200 ML PIGGYBACK 200 MG IV (03:13)
[2021-09-05 06:00] VITALS: BP 163/84; PULSE 72; RESP 17; TEMP 36.6; O2SAT 97
[2021-09-05 07:00] VITALS: O2SAT 94
[2021-09-05 07:30] LABS: Add Manual Diff / Slide Review NO; Basophils Absolute Auto 0 /uL (0-100); Basophils Percent Auto 0.7 % (0-2); Eosinophils Absolute Auto 100 /uL (0-450); Eosinophils Percent Auto 2.1 % (2-4); Hematocrit 34.4 % (36-46); Hemoglobin 11.7 g/dL (12.0-16.0); Lymphocytes Absolute Auto 1800 /uL (1100-4500); Lymphocytes Percent Auto 29.2 % (25-40); Mean Corpuscular HGB Conc 34.1 % (30-36); Mean Corpuscular Hemoglobin 30.7 PG (26-34); Mean Corpuscular Volume 89.8 fL (80-100); Monocytes Absolute Auto 500 /uL (0-900); Monocytes Percent Auto 8.4 % (3-14); Neutrophils Absolute Auto 3600 /uL (1500-7000); Neutrophils Percent Auto 59.6 % (50-75); Platelet Count 254 X10^3/uL (150-400); Red Blood Cell Count 3.82 X10^6/uL (4.0-5.2); Red Cell Distribution Width 15.2 % (11.6-14.8)
[2021-09-05 07:41] LABS: Alanine Aminotransferase 8 IU/L (<35); Albumin 3.8 g/dL (3.5-5.0); Albumin Globulin Ratio 1.4 (1.0-2.8); Alkaline Phosphatase 73 U/L (38-126); Aspartate Aminotransferase 22 IU/L (14-36); BUN Creatinine Ratio 20.9 (6-22); Bilirubin Total 0.5 mg/dL (0.2-1.3); Bilirubin Unconjugated 0.4 mg/dL (0.0-1.1); Blood Urea Nitrogen 14 mg/dL (7-17); Calcium 8.6 mg/dL (8.4-10.2); Carbon Dioxide 29 mmol/L (22-32); Chloride 104 mmol/L (98-107); Estimated Glomerular Filt Rate > 60 mL/min (>60); Globulin 2.7 g/dL (1.7-4.1); Glucose 72 mg/dL (80-110); HEMOLYSIS < 15 (0-50); Potassium 3.1 mmol/L (3.4-5.1); Sodium 138 mmol/L (137-145); Total Protein 6.5 g/dL (6.3-8.2)
[2021-09-05] MEDS: FLUoxetine 20 MG CAPSULE PO (09:36)
[2021-09-05] MEDS: RIVAROXABAN 10 MG TABLET 20 MG PO (09:37)
[2021-09-05] MEDS: GABAPENTIN 600 MG TABLET PO (09:37)
[2021-09-05] MEDS: AMLODIPINE 5 MG TABLET 2.5 MG PO (09:37)
[2021-09-05] MEDS: POTASSIUM CHLORIDE 20 MEQ TAB 40 MEQ PO (09:39)
--- NOTE | 2021-09-05 11:00 | P.DS_ITS ---
History of Present Illness History of Present Illness Date Patient Seen: 09/05/21 Chief complaint: Abd pain Narrative: Dayami Disla is a pleasant 75 y.o. female with a history a recent pulmonary embolism for which she is being anticoagulated 4, MS, frequent falls, osteoporosis, recent closed fracture of the pubic ramus, presented with vomiting that started at 7:30 a.m. in the morning on September 03 lasting up until when she showed up to the emergency department totaling 7 episodes.? States vomitis appeared to be undigested food. She denies a history of abdominal surgeries, denies difficulty swallowing, shortness of breath, chest pain, she does endorse abdominal cramping, denies dysuria, diarrhea, or constipation.? She does have chronic balance issues and falls frequently.? She recently relocated from [facility] several years ago to be with her adult children and currently resides at the assisted living portion of [facility]. CT of the abdomen noted small-bowel dilatation within the mid lower abdomen and pelvis measuring up to 3.5 cm in diameter suspicion of early small-bowel obstruction.? The CT also noted possible concurrent mild diverticulitis.? She is afebrile, blood pressure 137/73, heart rate 77, respiratory rate 16, oxygen saturation of 98% on room air, she weighs 57.5 kg with a BMI of 23.1.? Her WBC is elevated at 14.9 with a left shift, chemistry is unremarkable with exception of mildly elevated glucose at 1:43 a.m. liver enzymes within normal limits lip ase is 101 and COVID-19 PCR is negative. Patient had a fall in December of 2020 and sustained a fracture of the right pubic symphysis fracture.? She presented again in May of 2021 and sustained a fracture of the right sacral ala which was ruled to be nonsurgical and was discharged from the ED back to her assisted living facility.? She then returned on June 12, 2021 92 and was found to have developed a left lower lobe pulmonary embolism and is currently being anticoagulated on rivaroxaban. Discharge Providers Provider Date of admission: 09/04/21 03:02 Discharge Date: 09/05/21 Primary care physician: Carlos Cristina MD Consults: 09/04/21 02:34 Consult to General Surgery Stat Comment: Consulting Provider: Augusto Dennis Reason for consultation: SBO Has provider been notified: Yes 09/04/21 04:27 Consult to Physician Routine Comment: Consulting Provider: Augusto Dennis Reason for consultation: SBO Has provider been notified: Yes Discharge provider: Shama Coronado MD Summary Hospital Course Discharge Diagnosis: 1. SBO 2. Diverticulitis 3. History of Diverticulitis 4. Hypertension 5. Multiple Sclerosis 6. Depression Hospital Course: Patient admitted with abdominal pain. CT of ABD/Pelvis confirmed SBO. Patient was made NPO. She underwent Small Bowel Follow thru which showed no evidence of obstruction. Patient had a bowel movement last night and today. Her diet was advanced, which she tolerated. She had no further abdominal discomfort or vomiting. She was deemed appropriate for discharge home. Status at Discharge Cognitive/behavioral status at discharge: oriented Functional status at discharge: independent ambulation Overall status at discharge: patient is progressing back to baseline Exam Vital Signs (past 8 hours): - 09/05/21 06:00 Temperature 97.9 F Pulse Rate 72 Respiratory Rate 17 Blood Pressure 163/84 H Pulse Oximetry 97 Oxygen Flow Rate 0 Oxygen Delivery Method Room Air Oxygen Flow Rate 0 Narrative Exam Narrative: Pleasant female in no acute distress Resp Other: Lungs: clear to auscultation Cardio Other: CV: RRR nl Sl S2 2/6 PENNY GI Other: Abd: soft/ non tender/ non distended Extrem Other: No edema Objective Labs Result Diagrams: 09/05/21 06:25 09/05/21 06:25 Labs: Laboratory Results - last 24 hr 09/05/21 09/05/21 06:25 06:25 WBC 6.0 RBC 3.82 L Hgb 11.7 L Hct 34.4 L MCV 89.8 MCH 30.7 MCHC 34.1 RDW 15.2 H Plt Count 254 Neut % (Auto) 59.6 D Lymph % (Auto) 29.2 [place] % (Auto) 8.4 Eos % (Auto) 2.1 Baso % (Auto) 0.7 Neut # (Auto) 3600 Lymph # (Auto) 1800 [place] # (Auto) 500 Eos # (Auto) 100 Baso # (Auto) 0 Sodium 138 Potassium 3.1 L Chloride 104 Carbon Dioxide 29 BUN 14 Creatinine 0.67 Estimated GFR > 60 BUN/Creatinine Ratio 20.9 Glucose 72 L Calcium 8.6 Magnesium 2.0 Total Bilirubin 0.5 Conjugated Bilirubin 0.0 Unconjugated Bilirubin 0.4 AST 22 ALT 8 Alkaline Phosphatase 73 Total Protein 6.5 Albumin 3.8 Globulin 2.7 Albumin/Globulin Ratio 1.4 [facility] Medical History Abnormal Pap smear of cervix (~1970) Age-related osteoporosis without current pathological fracture Anticoagulated Cellulitis (~2000) Cervical cancer (~1970) Chicken pox (~1951) Chronic insomnia Clostridium difficile infection (~12/11/02) Depression (~1954) Elbow fracture, right (~2017) Essential hypertension Fractures (~2004) Frequent UTI (~2002) Headache Helicobacter pylori (H. pylori) (~10/18/11) History of low potassium (~2011) History of urinary incontinence (~1997) Loss of equilibrium (~07/30/04) Measles (~1953) Melanoma (~1996) Multiple sclerosis (~1975) Mumps (~1954) Oral pain Partial blindness (~1991) Pulmonary embolism Shoulder fracture Shoulder pain (~2009) Surgical History Cataract (~2012) Fracture of clavicle (~10/19/09) Hammertoes of both feet (~12/15/09) History of discectomy (~2002) History of foot surgery (~03/26/09) History of hysterectomy (~07/1973) History of shoulder surgery History of tonsillectomy (~09/1962) Previous back surgery (~11/24/02) Status post laser cataract surgery of both eyes Ulcer (~12/29/02) Family History Mother Stroke History of heart disease Brother AIDS Father Stroke History of heart disease Brother History of heart disease Stroke Brother Hypertension Stroke Brother History of heart disease Brother History of heart disease Sister History of heart disease Stroke Social History household members: none Smoking Status: Never smoker Discharge Assessment & Plan Assessment and Plan Assessment: 1. SBO 2. Diverticulitis 3. History of Diverticulitis 4. Hypertension 5. Multiple Sclerosis 6. Depression Plan of Treatment: Discharge home F/U with Dr. Forrest next week Discharge Plan Discharge Plan Patient Disposition: Home Discharge orders & Medications Prescriptions: New ciprofloxacin HCl [Cipro] 500 mg tablet 500 mg PO BID Qty: 14 0RF metronidazole 500 mg tablet 500 mg PO TID Qty: 21 0RF senna 8.6 mg capsule 8.6 mg PO BID Qty: 30 0RF docusate sodium 100 mg capsule 100 mg PO BID Qty: 20 0RF Continued amlodipine 2.5 mg tablet 2.5 mg PO DAILY Qty: 90 3RF Rx Instructions: Hold for SBP below 110 or HR below 60 ondansetron 4 mg tablet,disintegrating 4 mg PO TID-QID PRN (Reason: nausea and vomiting) Qty: 10 0RF Xarelto 20 mg tablet 20 mg PO DAILY Label Comments: TAKE 1 TABLET BY MOUTH DAILY fluoxetine 20 mg capsule 20 mg PO TID Qty: 270 3RF cholecalciferol (vitamin D3) 125 mcg (5,000 unit) capsule 125 mcg PO DAILY trazodone 50 mg tablet 25 mg PO BEDTIME PRN (Reason: insomnia) Qty: 15 5RF naltrexone 3.5 mg 3.5 mg PO BEDTIME lidocaine [Blue-Emu Lidocaine Patch] 4 % Adhesive Patch,Medicated 1 patch TOPICAL DAILY PRN (Reason: Pain, Mild) gabapentin 600 mg tablet 600 mg PO TID Qty: 60 0RF acetaminophen 325 mg Tablet 325 mg PO Q6HR Qty: 30 0RF Follow up/Referrals: Carlos Cristina MD [Primary Care Provider] - Discharge Health Status Multidrug resistant organism: No MDRO Diet/Activity/Treatments Diet: Diet as Tolerated and Low-sodium Discharge Data Primary Care Provider: Carlos Cristina V Quality VTE Deep Vein Thrombosis/Pulmonary Embolism Present on Admission: No
[2021-09-05 11:42] VITALS: BP 146/68; PULSE 75; RESP 18; TEMP 35.9; O2SAT 97
--- NOTE | 2021-09-05 11:44 | PC.NURSE ---
Pt AOx4, VS stable. Was discharged after she was able to advance her diet without nausea or vomiting. Pt had oatmeal and banana with water this morning. No nausea or vomiting reported. Denies pain. Midline removed from left upper arm (intact). Discharge instructions given after she completed her IV metronidazole. Patient was dressed and belongings removed from room around 12:15pm.
== END 2021-09-05 12:10 | disposition home or self-care (01) | DRG 389 ==
LOC: ED 09-04 00:17 → AC 09-04 03:03
PROVIDERS: Admitting Provider Nurse Practitioner Family; Emergency Provider Emergency Medicine; PCP Internal Medicine; Referring Provider Emergency Medicine; Visit Provider Nurse Practitioner Family
DX: K56.609 Unspecified intestinal obstruction, unspecified as to partial versus complete obstruction (principal); K57.32 Diverticulitis of large intestine without perforation or abscess without bleeding; I10 Essential (primary) hypertension; G35 Multiple sclerosis; F32.A Depression, unspecified; G47.00 Insomnia, unspecified; Z66 Do not resuscitate; Z79.01 Long term (current) use of anticoagulants; Z86.711 Personal history of pulmonary embolism; Z20.822 Contact with and (suspected) exposure to COVID-19
CPT/HCPCS: 36415; 74018; 74177; 80048; 80053; 80076; 83690; 83735; 85025; 87635; 96374; 99232; 99284; C9803; J0744; J2405; Q9967

== ENCOUNTER 2021-09-14 16:49 | Inpatient (IN) | payer MEDICARE, OTHER, SELFPAY ==
[2021-09-04 03:27] VITALS: BMI 23.1
[2021-09-14 16:50] VITALS: BP 153/88; PULSE 82; RESP 16; TEMP 37; O2SAT 94; BMI 21.9
[2021-09-14 17:41] LABS: Add Manual Diff / Slide Review NO; Basophils Absolute Auto 100 /uL (0-100); Basophils Percent Auto 0.8 % (0-2); Eosinophils Absolute Auto 100 /uL (0-450); Eosinophils Percent Auto 1.5 % (2-4); Hematocrit 38.1 % (36-46); Lymphocytes Absolute Auto 1700 /uL (1100-4500); Mean Corpuscular HGB Conc 34.1 % (30-36); Mean Corpuscular Hemoglobin 29.9 PG (26-34); Mean Corpuscular Volume 87.7 fL (80-100); Monocytes Absolute Auto 700 /uL (0-900); Monocytes Percent Auto 8.8 % (3-14); Neutrophils Absolute Auto 5600 /uL (1500-7000); Neutrophils Percent Auto 67.9 % (50-75); Platelet Count 292 X10^3/uL (150-400); Red Blood Cell Count 4.35 X10^6/uL (4.0-5.2); Red Cell Distribution Width 14.4 % (11.6-14.8); White Blood Cell Count 8.3 X10^3/uL (4.5-11.0)
[2021-09-14] MEDS: ONDANSETRON 4 MG ODT SL (17:43)
[2021-09-14 17:50] LABS: INR 1.4 (0.9-1.3)
[2021-09-14 17:57] LABS: Alanine Aminotransferase 8 IU/L (<35); Albumin 4.1 g/dL (3.5-5.0); Albumin Globulin Ratio 1.2 (1.0-2.8); Alkaline Phosphatase 58 U/L (38-126); Aspartate Aminotransferase 32 IU/L (14-36); BUN Creatinine Ratio 23.5 (6-22); Blood Urea Nitrogen 12 mg/dL (7-17); Calcium 8.6 mg/dL (8.4-10.2); Carbon Dioxide 23 mmol/L (22-32); Chloride 96 mmol/L (98-107); Estimated Glomerular Filt Rate > 60 mL/min (>60); Globulin 3.4 g/dL (1.7-4.1); Glucose 88 mg/dL (80-110); HEMOLYSIS 187 (0-50); Lipase 96 U/L (23-300); Potassium 3.7 mmol/L (3.4-5.1); Sodium 133 mmol/L (137-145); Total Protein 7.5 g/dL (6.3-8.2)
--- NOTE | 2021-09-14 18:08 | ED.ABDPAIN ---
HPI - Abdominal Pain General Chief Complaint: Abdominal Pain Stated Complaint: weakness, abd pain Time Seen by Provider: 09/14/21 18:07 Mode of arrival: Family Vehicle History of Present Illness HPI narrative: This is a 75-year-old female presents to the emergency department complaining of left lower quadrant abdominal pain with history of small-bowel obstruction earlier this month. Patient endorses a history of hernia repair surgery in her left lower quadrant, she also endorses a partial colectomy due to polyps in the past. She denies any recent fever, Related Data Home Medications Medication Instructions Recorded Confirmed rivaroxaban 20 mg tablet (Xarelto) 20 mg PO DAILY 07/14/21 09/04/21 cholecalciferol (vitamin D3) 125 125 mcg PO DAILY 08/15/21 09/04/21 mcg (5,000 unit) capsule lidocaine 4 % topical patch 1 patch topical DAILY PRN Pain, 09/04/21 09/04/21 (Blue-Emu Lidocaine Patch) Mild naltrexone 3.5 mg PO BEDTIME 09/04/21 09/04/21 Previous Rx's Medication Instructions Recorded gabapentin 600 mg tablet 600 mg PO TID #60 tabs 01/21/21 acetaminophen 325 mg tablet 325 mg PO Q6HR #30 tabs 06/13/21 fluoxetine 20 mg capsule 20 mg PO TID #270 caps 07/14/21 trazodone 50 mg tablet 25 mg PO BEDTIME PRN insomnia #15 08/15/21 tabs amlodipine 2.5 mg tablet 2.5 mg PO DAILY #90 tabs 08/18/21 ciprofloxacin HCl 500 mg tablet 500 mg PO BID #14 tabs 09/05/21 (Cipro) metronidazole 500 mg tablet 500 mg PO TID #21 tabs 09/05/21 docusate sodium 100 mg capsule 100 mg PO BID PRN constipation #20 09/14/21 caps ondansetron 4 mg disintegrating 4 mg PO TID-QID PRN nausea and 09/14/21 tablet vomiting #10 tabs sennosides 8.6 mg capsule (senna) 8.6 mg PO BID #30 caps 09/14/21 Allergies Allergy/AdvReac Type Severity Reaction Status Date / Time No Known Drug Allergies Allergy Verified 09/14/21 16:53 Patient History Medical History Abnormal Pap smear of cervix (~1970) Age-related osteoporosis without current pathological fracture Anticoagulated Cellulitis (~2000) Cervical cancer (~1970) Chicken pox (~1951) Chronic insomnia Clostridium difficile infection (~12/11/02) Depression (~1954) Elbow fracture, right (~2017) Essential hypertension Fractures (~2004) Frequent UTI (~2002) Headache Helicobacter pylori (H. pylori) (~10/18/11) History of low potassium (~2011) History of urinary incontinence (~1997) Loss of equilibrium (~07/30/04) Measles (~1953) Melanoma (~1996) Multiple sclerosis (~1975) Mumps (~1954) Oral pain Partial blindness (~1991) Pulmonary embolism Shoulder fracture Shoulder pain (~2009) Surgical History Cataract (~2012) Fracture of clavicle (~10/19/09) Hammertoes of both feet (~12/15/09) History of discectomy (~2002) History of foot surgery (~03/26/09) History of hysterectomy (~07/1973) History of shoulder surgery History of tonsillectomy (~09/1962) Previous back surgery (~11/24/02) Status post laser cataract surgery of both eyes Ulcer (~12/29/02) Family History Mother Stroke History of heart disease Brother AIDS Father Stroke History of heart disease Brother History of heart disease Stroke Brother Hypertension Stroke Brother History of heart disease Brother History of heart disease Sister History of heart disease Stroke Social History household members: none Smoking Status: Never smoker Smoking Status: Never smoker alcohol intake frequency: holidays/special occasions only Substance Use Type: does not use Exam Initial Vital Signs Initial Vital Signs: Vital Signs Temperature 98.6 F 09/14/21 16:50 Pulse Rate 82 09/14/21 16:50 Respiratory Rate 16 09/14/21 16:50 Blood Pressure 153/88 H 09/14/21 16:50 Pulse Oximetry 94 09/14/21 16:50 Oxygen Delivery Method 09/14/21 16:50 Course Orders Ordered: ED Orders 09/14/21 16:58 EKG-12 Lead Stat 09/14/21 17:17 Complete Blood Count AUTO DIFF Stat Comprehensive Metabolic Panel Stat Lipase Stat Prothrombin Time INR Stat Discontinued Medications Ondansetron HCl (Ondansetron 4 Mg Odt) 4 mg SL NOW ONE Stop: 09/14/21 17:00 Last Admin: 09/14/21 17:43 Dose: 4 mg Documented By: ADK Vital Signs Vital signs: Vital Signs - 8 hr 09/14/21 16:50 Temperature 98.6 F Pulse Rate 82 Respiratory Rate 16 Blood Pressure 153/88 H Pulse Oximetry 94 Oxygen Delivery Method Room Air MDM - Abdominal Pain Lab Data Result diagrams: 09/14/21 17:17 09/14/21 17:17 Labs: Lab Results 09/14/21 09/14/21 09/14/21 Range/Units 17:17 17:17 17:17 WBC 8.3 (4.5-11.0) X10^3/uL RBC 4.35 (4.0-5.2) X10^6/uL Hgb 13.0 (12.0-16.0) g/dL Hct 38.1 (36-46) % MCV 87.7 (80-100) fL MCH 29.9 (26-34) PG MCHC 34.1 (30-36) % RDW 14.4 (11.6-14.8) % Plt Count 292 (150-400) X10^3/uL Neut % (Auto) 67.9 (50-75) % Lymph % (Auto) 21.0 L (25-40) % [place] % (Auto) 8.8 (3-14) % Eos % (Auto) 1.5 L (2-4) % Baso % (Auto) 0.8 (0-2) % Neut # (Auto) 5600 (6994-2494) /uL Lymph # (Auto) 1700 (0237-6727) /uL [place] # (Auto) 700 (0-900) /uL Eos # (Auto) 100 (0-450) /uL Baso # (Auto) 100 (0-100) /uL PT 16.0 H (10.1-12.7) SECONDS INR 1.4 H (0.9-1.3) Sodium 133 L (137-145) mmol/L Potassium 3.7 (3.4-5.1) mmol/L Chloride 96 L (98-107) mmol/L Carbon Dioxide 23 (22-32) mmol/L BUN 12 (7-17) mg/dL Creatinine 0.51 L (0.52-1.04) mg/dL Estimated GFR > 60 (>60) mL/min BUN/Creatinine Ratio 23.5 H (6-22) Glucose 88 (80-110) mg/dL Calcium 8.6 (8.4-10.2) mg/dL Total Bilirubin 1.0 (0.2-1.3) mg/dL AST 32 (14-36) IU/L ALT 8 (<35) IU/L Alkaline Phosphatase 58 (38-126) U/L Total Protein 7.5 (6.3-8.2) g/dL Albumin 4.1 (3.5-5.0) g/dL Globulin 3.4 (1.7-4.1) g/dL Albumin/Globulin Ratio 1.2 (1.0-2.8) Lipase 96 (23-300) U/L Discharge Plan Departure Prescriptions: No Action amlodipine 2.5 mg tablet 2.5 mg PO DAILY Qty: 90 3RF Rx Instructions: Hold for SBP below 110 or HR below 60 ondansetron 4 mg tablet,disintegrating 4 mg PO TID-QID PRN (Reason: nausea and vomiting) Qty: 10 3RF docusate sodium 100 mg capsule 100 mg PO BID PRN (Reason: constipation) Qty: 20 3RF senna 8.6 mg capsule 8.6 mg PO BID Qty: 30 3RF Xarelto 20 mg tablet 20 mg PO DAILY Label Comments: TAKE 1 TABLET BY MOUTH DAILY fluoxetine 20 mg capsule 20 mg PO TID Qty: 270 3RF cholecalciferol (vitamin D3) 125 mcg (5,000 unit) capsule 125 mcg PO DAILY trazodone 50 mg tablet 25 mg PO BEDTIME PRN (Reason: insomnia) Qty: 15 5RF naltrexone 3.5 mg 3.5 mg PO BEDTIME lidocaine [Blue-Emu Lidocaine Patch] 4 % Adhesive Patch,Medicated 1 patch TOPICAL DAILY PRN (Reason: Pain, Mild) ciprofloxacin HCl [Cipro] 500 mg tablet 500 mg PO BID Qty: 14 0RF metronidazole 500 mg tablet 500 mg PO TID Qty: 21 0RF gabapentin 600 mg tablet 600 mg PO TID Qty: 60 0RF acetaminophen 325 mg Tablet 325 mg PO Q6HR Qty: 30 0RF Referrals: Carlos Cristina MD [Primary Care Provider] -
[2021-09-14 18:48] VITALS: PULSE 69; O2SAT 94
--- NOTE | 2021-09-14 18:51 | ED_ITS ---
HPI - Abdominal Pain General Chief Complaint: Abdominal Pain Stated Complaint: weakness, abd pain Time Seen by Provider: 09/14/21 18:07 Mode of arrival: Family Vehicle History of Present Illness HPI narrative: 75-year-old female nonsmoker with history of pulmonary emboli, multiple sclerosis, on anticoagulation presents with abdominal pain, persistent vomiting and significant generalized weakness over the past few days. She was recently admitted for small-bowel obstruction and diverticulitis. She was admitted, placed on IV antibiotics and was discharged a few days later after clinical improvement and a small-bowel follow-through demonstrated no persistence of obstruction. She states she feels worse overall than when she was discharged. She states that the pain is not quite as significant but she is sufficiently weak that she is unable to stand or walk on her own. She can not keep any food or drink down and states that she has not been passing gas. She had 1 very small bowel movement. She has no obvious provocation or palliation of her discomfort. She denies any fever or chills. She denies runny nose, sore throat or cough. She has no chest pain or shortness of breath. Related Data Home Medications Medication Instructions Recorded Confirmed rivaroxaban 20 mg tablet (Xarelto) 20 mg PO DAILY 07/14/21 09/04/21 cholecalciferol (vitamin D3) 125 125 mcg PO DAILY 08/15/21 09/04/21 mcg (5,000 unit) capsule lidocaine 4 % topical patch 1 patch topical DAILY PRN Pain, 09/04/21 09/04/21 (Blue-Emu Lidocaine Patch) Mild naltrexone 3.5 mg PO BEDTIME 09/04/21 09/04/21 Previous Rx's Medication Instructions Recorded gabapentin 600 mg tablet 600 mg PO TID #60 tabs 01/21/21 acetaminophen 325 mg tablet 325 mg PO Q6HR #30 tabs 06/13/21 fluoxetine 20 mg capsule 20 mg PO TID #270 caps 07/14/21 trazodone 50 mg tablet 25 mg PO BEDTIME PRN insomnia #15 08/15/21 tabs amlodipine 2.5 mg tablet 2.5 mg PO DAILY #90 tabs 08/18/21 ciprofloxacin HCl 500 mg tablet 500 mg PO BID #14 tabs 09/05/21 (Cipro) metronidazole 500 mg tablet 500 mg PO TID #21 tabs 07/11/22 docusate sodium 100 mg capsule 100 mg PO BID PRN constipation #20 09/14/21 caps ondansetron 4 mg disintegrating 4 mg PO TID-QID PRN nausea and 09/14/21 tablet vomiting #10 tabs sennosides 8.6 mg capsule (senna) 8.6 mg PO BID #30 caps 09/14/21 Allergies Allergy/AdvReac Type Severity Reaction Status Date / Time No Known Drug Allergies Allergy Verified 09/14/21 16:53 Review of Systems Review of Systems Narrative: GENERAL: See HPI HEENT: Denies sinus pain, ear pain, sore throat, difficulty swallowing, dizziness. RESPIRATORY: Denies dyspnea, cough, wheezing, hemoptysis, sputum. CARDIOVASCULAR: Denies chest pain, palpitations, orthopnea, edema, GASTROINTESTINAL: See HPI : Denies dysuria, frequency, incontinence, hematuria, urinary retention. MUSCULOSKELETAL: See HPI SKIN: Denies rash, skin lesions, or other NEUROLOGIC: Denies weakness, headache, numbness, change in speech, confusion, seizures, incoordination. PSYCHIATRIC: No concerning psychosocial issues. 12 point review of systems is negative except for those stated above Patient History Medical History Abnormal Pap smear of cervix (~1970) Age-related osteoporosis without current pathological fracture Anticoagulated Cellulitis (~2000) Cervical cancer (~1970) Chicken pox (~1951) Chronic insomnia Clostridium difficile infection (~12/11/02) Depression (~1954) Elbow fracture, right (~2017) Essential hypertension Fractures (~2004) Frequent UTI (~2002) Headache Helicobacter pylori (H. pylori) (~10/18/11) History of low potassium (~2011) History of urinary incontinence (~1997) Loss of equilibrium (~07/30/04) Measles (~1953) Melanoma (~1996) Multiple sclerosis (~1975) Mumps (~1954) Oral pain Partial blindness (~1991) Pulmonary embolism Shoulder fracture Shoulder pain (~2009) Surgical History Cataract (~2012) Fracture of clavicle (~10/19/09) Hammertoes of both feet (~12/15/09) History of discectomy (~2002) History of foot surgery (~03/26/09) History of hysterectomy (~07/1973) History of shoulder surgery History of tonsillectomy (~09/1962) Previous back surgery (~11/24/02) Status post laser cataract surgery of both eyes Ulcer (~12/29/02) Family History Mother Stroke History of heart disease Brother AIDS Father Stroke History of heart disease Brother History of heart disease Stroke Brother Hypertension Stroke Brother History of heart disease Brother History of heart disease Sister History of heart disease Stroke Social History household members: none Smoking Status: Never smoker Smoking Status: Never smoker alcohol intake frequency: holidays/special occasions only Substance Use Type: does not use Exam Narrative Exam Narrative: GENERAL: [75] year old patient appears stated age. Well-developed patient, in mild distress. HEAD: Atraumatic. Normocephalic. EYES: Pupils equal round and reactive. Extraocular motions intact. No scleral ic terus. No injection or drainage. ENT: Nose without bleeding, purulent drainage. Throat without erythema, tonsillar hypertrophy or exudate. Airway patent. NECK: Trachea midline. Non tender CARDIOVASCULAR: Regular rate and rhythm without murmurs, gallops, or rubs. RESPIRATORY: Clear to auscultation. Breath sounds equal bilaterally. No wheezes, rales, or rhonchi. GASTROINTESTINAL: Abdomen soft, generalized abdominal pain with decreased but present bowel sounds throughout., nondistended. EXTREMITIES: No edema or joint tenderness. BACK: Nontender without deformity or crepitance. No flank tenderness. NEURO: AOx3. SKIN: No rash or erythema of visible areas Initial Vital Signs Initial Vital Signs: Vital Signs Temperature 98.6 F 09/14/21 16:50 Pulse Rate 82 09/14/21 16:50 Respiratory Rate 16 09/14/21 16:50 Blood Pressure 153/88 H 09/14/21 16:50 Pulse Oximetry 94 09/14/21 16:50 Oxygen Delivery Method 09/14/21 16:50 Course Orders Ordered: ED Orders 09/14/21 16:58 EKG-12 Lead Stat 09/14/21 17:17 Complete Blood Count AUTO DIFF Stat Comprehensive Metabolic Panel Stat Lipase Stat Prothrombin Time INR Stat 09/14/21 19:03 CT abdomen pelvis w con Stat 09/14/21 20:30 COVID19 -Nasal RAPID/Pre-Proc Stat Acetaminophen (Acetaminophen 325 Mg Tablet) 650 mg PO Q6HR FREYA Acetaminophen (Acetaminophen 325 Mg Tablet) 650 mg PO Q6HR PRN PRN Reason: Fever/Mild Pain (1-3) Amlodipine Besylate (Amlodipine 5 Mg Tablet) 2.5 mg PO DAILY FREYA Docusate Sodium (Docusate 100 Mg Capsule) 100 mg PO BID FREYA Fluoxetine HCl (Fluoxetine 20 Mg Capsule) 20 mg PO TID FREYA Gabapentin (Gabapentin 600 Mg Tablet) 600 mg PO TID FREYA Sodium Chloride (Normal Saline 0.9%) 1,000 mls @ 100 mls/hr IV CONT FREYA Metoclopramide HCl (Metoclopramide 10 Mg/2 Ml Inj) 10 mg IV Q6HR PRN PRN Reason: Nausea And Vomiting Ondansetron HCl (Ondansetron 4 Mg/2 Ml Inj) 4 mg IV Q6HR PRN PRN Reason: Nausea And Vomiting Promethazine HCl (Promethazine 12.5 Mg Supp) 12.5 mg MN Q6HR PRN PRN Reason: Nausea And Vomiting Rivaroxaban (Rivaroxaban 10 Mg Tablet) 20 mg PO DAILY [facility] Sennosides (Sennosides 8.6 Mg Tablet) 17.2 mg PO BEDTIME FREYA Tramadol HCl (Tramadol 50 Mg Tablet) 50 mg PO Q4H PRN PRN Reason: Pain, Moderate (4-6) Discontinued Medications Bisacodyl (Bisacodyl 10 Mg Supp) 10 mg MN NOW ONE Stop: 09/14/21 20:42 Last Admin: 09/14/21 20:59 Dose: 10 mg Documented By: VASILIY Mineral Oil (Mineral Oil 1 Each Enema) 1 each MN NOW ONE Stop: 09/15/21 00:05 Last Admin: 09/15/21 00:05 Dose: 1 each Documented By: VASILIY Ondansetron HCl (Ondansetron 4 Mg Odt) 4 mg SL NOW ONE Stop: 09/14/21 17:00 Last Admin: 09/14/21 17:43 Dose: 4 mg Documented By: SORAYA Pantoprazole Sodium (Pantoprazole 40 Mg Vial) 40 mg IV NOW ONE Stop: 09/14/21 23:49 Last Admin: 09/15/21 00:03 Dose: 40 mg Documented By: NR Sodium Biphosphate/Sodium Phosphate (Fleets Enema) 1 each MN NOW ONE Stop: 09/14/21 22:40 Last Admin: 09/15/21 01:03 Dose: Not Given Documented By: NR Reevaluation(s) Reevaluation #1: Patient continues to be intolerant of even clear liquids after above-stated therapies. She has been unable to keep down any food or drink for the past few days and continues to be unable despite our best efforts here in the department. She has been given a Dulcolax suppository which resulted in no bowel movement, she reluctantly agreed to the use of a mineral oil enema and had no improvement patient can not be discharged as she can not tolerate oral hydration despite use of antiemetics intravenously Vital Signs Vital signs: Vital Signs - 8 hr 09/14/21 18:48 09/14/21 19:00 09/14/21 23:05 Pulse Rate 69 70 74 Respiratory Rate 22 Blood Pressure 138/70 Pulse Oximetry 94 96 94 Oxygen Delivery Method Room Air MDM - Abdominal Pain Lab Data Result diagrams: 09/14/21 17:17 09/14/21 17:17 Labs: Lab Results 09/14/21 09/14/21 09/14/21 Range/Units 17:17 17:17 17:17 WBC 8.3 (4.5-11.0) X10^3/uL RBC 4.35 (4.0-5.2) X10^6/uL Hgb 13.0 (12.0-16.0) g/dL Hct 38.1 (36-46) % MCV 87.7 (80-100) fL MCH 29.9 (26-34) PG MCHC 34.1 (30-36) % RDW 14.4 (11.6-14.8) % Plt Count 292 (150-400) X10^3/uL Neut % (Auto) 67.9 (50-75) % Lymph % (Auto) 21.0 L (25-40) % [place] % (Auto) 8.8 (3-14) % Eos % (Auto) 1.5 L (2-4) % Baso % (Auto) 0.8 (0-2) % Neut # (Auto) 5600 (4273-7578) /uL Lymph # (Auto) 1700 (8610-6588) /uL [place] # (Auto) 700 (0-900) /uL Eos # (Auto) 100 (0-450) /uL Baso # (Auto) 100 (0-100) /uL PT 16.0 H (10.1-12.7) SECONDS INR 1.4 H (0.9-1.3) Sodium 133 L (137-145) mmol/L Potassium 3.7 (3.4-5.1) mmol/L Chloride 96 L (98-107) mmol/L Carbon Dioxide 23 (22-32) mmol/L BUN 12 (7-17) mg/dL Creatinine 0.51 L (0.52-1.04) mg/dL Estimated GFR > 60 (>60) mL/min BUN/Creatinine Ratio 23.5 H (6-22) Glucose 88 (80-110) mg/dL Calcium 8.6 (8.4-10.2) mg/dL Total Bilirubin 1.0 (0.2-1.3) mg/dL AST 32 (14-36) IU/L ALT 8 (<35) IU/L Alkaline Phosphatase 58 (38-126) U/L Total Protein 7.5 (6.3-8.2) g/dL Albumin 4.1 (3.5-5.0) g/dL Globulin 3.4 (1.7-4.1) g/dL Albumin/Globulin Ratio 1.2 (1.0-2.8) Lipase 96 (23-300) U/L SARS-CoV-2 (PCR) (Negative) 09/14/21 Range/Units 20:30 WBC (4.5-11.0) X10^3/uL RBC (4.0-5.2) X10^6/uL Hgb (12.0-16.0) g/dL Hct (36-46) % MCV (80-100) fL MCH (26-34) PG MCHC (30-36) % RDW (11.6-14.8) % Plt Count (150-400) X10^3/uL Neut % (Auto) (50-75) % Lymph % (Auto) (25-40) % [place] % (Auto) (3-14) % Eos % (Auto) (2-4) % Baso % (Auto) (0-2) % Neut # (Auto) (8615-6471) /uL Lymph # (Auto) (3878-0859) /uL [place] # (Auto) (0-900) /uL Eos # (Auto) (0-450) /uL Baso # (Auto) (0-100) /uL PT (10.1-12.7) SECONDS INR (0.9-1.3) Sodium (137-145) mmol/L Potassium (3.4-5.1) mmol/L Chloride (98-107) mmol/L Carbon Dioxide (22-32) mmol/L BUN (7-17) mg/dL Creatinine (0.52-1.04) mg/dL Estimated GFR (>60) mL/min BUN/Creatinine Ratio (6-22) Glucose (80-110) mg/dL Calcium (8.4-10.2) mg/dL Total Bilirubin (0.2-1.3) mg/dL AST (14-36) IU/L ALT (<35) IU/L Alkaline Phosphatase (38-126) U/L Total Protein (6.3-8.2) g/dL Albumin (3.5-5.0) g/dL Globulin (1.7-4.1) g/dL Albumin/Globulin Ratio (1.0-2.8) Lipase (23-300) U/L SARS-CoV-2 (PCR) Negative (Negative) Imaging Data CT scan - abdomen/pelvis: Radiologist's Impression: [address] [address] [address] Scan Report Signed Patient: Dayami Disla MR#: [id number] : 1945 Acct:[id number] Age/Sex: 75 / F Date of Service: 09/14/21 Loc: ED Accession Number: [id number] ?? Procedure: CT abdomen pelvis w con Ordering Provider: Jose Luis Coles D.O. PROCEDURE:? CT ABDOMEN PELVIS W CON ? INDICATIONS:? Severe abdominal pain, persistent vomiting, no BM or flatus.? Concerning for small bowel obstruction. ? TECHNIQUE:? After the administration of oral and IV contrast, axial sections were acquired from the lung bases to the pubic symphysis.? Coronal and sagittal reformats were performed.? For radiation dose reduction, the following was used:? automated exposure control, adjustment of mA and/or kV according to patient size. ? COMPARISON:? [facility], CT, CT ANGIO CHEST PE PROTOCOL, 06/12/2021, 10:17.? [facility], CT, CT LUMBAR SPINE WO CON, 06/05/2021, 15:40.? [facility], CT, CT PEL WO CON, 01/20/2021, 1:41.? [facility], CT, CT ABDOMEN PELVIS W CON, 09/04/2021, 1:21. ? FINDINGS:? Image quality:? Excellent.? ? Lung bases:? [place] dependent atelectasis at lung bases.? Small diaphragmatic hernia in the left posterior hemidiaphragm.? There is mild concentric thickening at the gastroesophageal junction.? ? Heart:? No significant findings. ? ? ABDOMEN: Liver:? Unremarkable.? ? Gallbladder:? Unremarkable.? ? Biliary ducts:? Common bile duct is prominent measuring 7.3 mm.? No intraductal stones are identified.? ? Pancreas:? Normal morphology.? There is mild pancreatic duct dilation measuring up to 4 mm.? ? Spleen:? Unremarkable.? ? Adrenal Glands:? Unremarkable.? ? Kidneys and Ureters:? Unremarkable.? ? ? Stomach and Bowel:? Stomach, small bowel loops, and colon are normal in caliber.? Mild thickening of the gastric antrum and the 1st segment of the duodenum.? There is a moderate amount of stool in colon. Peritoneum:? No abnormal intraperitoneal fluid.? No free air.? ? Ventral Wall: ? No hernia.? Abdominal Nodes:? No retroperitoneal or mesenteric adenopathy by size criteria.? Vessels:? Aorta and inferior vena cava are normal in size.? [id number] atherosclerotic calcifications. ? PELVIS: Pelvic Organs:? Unremarkable.? ? Bladder:? Unremarkable.? ? Pelvic Nodes: No enlarged lymph nodes.? Miscellaneous: No inguinal hernias are seen. ? ? ? Bones:? There is severe compression fracture of T11.? Degenerative and postsurgical changes in the lower lumbar spine.? Grade 1 anterolisthesis of L4 on L5. ? ? IMPRESSION:? ? 1. No findings to suggest small bowel obstruction. 2. Diverticulosis without diverticulitis. 3. A large amount of stool in colon. 4. Appearance of gastric antral and proximal duodenum thickening.? This finding could be secondary to peptic ulcer disease or artifact. 5. Mild concentric thickening of the GE junction.? 6. Mild prominence of common bile duct measuring 7.4 mm.? No gallstones or common bile duct stones.? Please correlate with serum bilirubin. 7. Severe compression fracture of T11.? Dictated by: Angela Ramirez M.D. on 09/14/2021 at 20:32 ? ? Approved by: Angela Ramirez M.D. on 09/14/2021 at 20:46 ? Discharge Plan Departure Patient Disposition: Admitted as Observation Clinical Impression: Intractable vomiting, Abdominal pain Admit Date/Time: 09/15/21 00:53 Admit Provider: Carmita Rivera
[2021-09-14 19:00] VITALS: PULSE 70; O2SAT 96
--- NOTE | 2021-09-14 19:03 | DI.CT.S_ITS ---
PROCEDURE: CT ABDOMEN PELVIS W CON INDICATIONS: Severe abdominal pain, persistent vomiting, no BM or flatus. Concerning for small bowel obstruction. TECHNIQUE: After the administration of oral and IV contrast, axial sections were acquired from the lung bases to the pubic symphysis. Coronal and sagittal reformats were performed. For radiation dose reduction, the following was used: automated exposure control, adjustment of mA and/or kV according to patient size. COMPARISON: [facility], CT, CT ANGIO CHEST PE PROTOCOL, 06/12/2021, 10:17. [facility], CT, CT LUMBAR SPINE WO CON, 06/05/2021, 15:40. [facility], CT, CT PEL WO CON, 01/20/2021, 1:41. [facility], CT, CT ABDOMEN PELVIS W CON, 09/04/2021, 1:21. FINDINGS: Image quality: Excellent. Lung bases: [place] dependent atelectasis at lung bases. Small diaphragmatic hernia in the left posterior hemidiaphragm. There is mild concentric thickening at the gastroesophageal junction. Heart: No significant findings. ABDOMEN: Liver: Unremarkable. Gallbladder: Unremarkable. Biliary ducts: Common bile duct is prominent measuring 7.3 mm. No intraductal stones are identified. Pancreas: Normal morphology. There is mild pancreatic duct dilation measuring up to 4 mm. Spleen: Unremarkable. Adrenal Glands: Unremarkable. Kidneys and Ureters: Unremarkable. Stomach and Bowel: Stomach, small bowel loops, and colon are normal in caliber. Mild thickening of the gastric antrum and the 1st segment of the duodenum. There is a moderate amount of stool in colon. Peritoneum: No abnormal intraperitoneal fluid. No free air. Ventral Wall: No hernia. Abdominal Nodes: No retroperitoneal or mesenteric adenopathy by size criteria. Vessels: Aorta and inferior vena cava are normal in size. [id number] atherosclerotic calcifications. PELVIS: Pelvic Organs: Unremarkable. Bladder: Unremarkable. Pelvic Nodes: No enlarged lymph nodes. Miscellaneous: No inguinal hernias are seen. Bones: There is severe compression fracture of T11. Degenerative and postsurgical changes in the lower lumbar spine. Grade 1 anterolisthesis of L4 on L5. IMPRESSION: 1. No findings to suggest small bowel obstruction. 2. Diverticulosis without diverticulitis. 3. A large amount of stool in colon. 4. Appearance of gastric antral and proximal duodenum thickening. This finding could be secondary to peptic ulcer disease or artifact. 5. Mild concentric thickening of the GE junction. 6. Mild prominence of common bile duct measuring 7.4 mm. No gallstones or common bile duct stones. Please correlate with serum bilirubin. 7. Severe compression fracture of T11. Dictated by: Angela Ramirez M.D. on 09/14/2021 at 20:32 Approved by: Angela Ramirez M.D. on 09/14/2021 at 20:46
[2021-09-14] MEDS: BISACODYL 10 MG SUPP PR (20:59)
[2021-09-14 21:45] LABS: COVID19 -Nasal RAPID Negative (Negative)
[2021-09-14 23:05] VITALS: BP 138/70; PULSE 74; RESP 22; O2SAT 94
[2021-09-15] VITALS (28 sets, daily range): BP systolic 135–186; BP diastolic 70–89; PULSE 67–78; RESP 16–18; TEMP 36.5; O2SAT 91–97; BMI 22.1
[2021-09-15] MEDS: PANTOPRAZOLE 40 MG VIAL IV ×2 (00:03→08:39)
[2021-09-15] MEDS: MINERAL OIL 1 EACH ENEMA PR (00:05)
[2021-09-15] MEDS: SODIUM CHLORIDE 0.9% 1,000 ML 100 ML IV ×2 (01:49→12:34)
--- NOTE | 2021-09-15 02:17 | P.HP_ITS ---
History of Present Illness History of Present Illness Date Patient Seen: 09/15/21 Time Patient Seen: 02:00 Chief complaint: weakness, abd pain Narrative: Dayami Disla is a pleasant 75 y.o. female with a history a recent pulmonary embolism for which she is being anticoagulated 4, MS, frequent falls, osteoporosis, recent closed fracture of the pubic ramus, recently admitted and discharged on 09/05 for a partial small bowel obstruction, re-presents today with intractable nausea and vomiting. She was feeling better on discharge until several days ago when she started to develop intractable nausea and vomiting and inability to eat. Last meal was at least 3 days ago consisting toast with cinnamon and butter on it she has generally had not much of an appetite nor has been consuming much fluid due to vomiting. She states that she has not had much of a bowel movement since her discharge. States she is quite weak and apparently had to be assisted from her car to the wheelchair prior to being brought into the emergency department. During her previous stay she underwent a small-bowel follow-through and now feels worse than her condition prior to discharge. She has requested for admission due to intractable nausea and vomiting. CT of the abdomen and pelvis noted a large amount of stool in the colon but no bowel obstruction. She was administered a mineral oil enema and given oral ducolax with no effect. She continues to have a severe compression fracture of T11. She is afebrile, blood pressure 138/70, heart rate 74, respiratory rate 22, oxygen saturation of 94% on room air, she weighs 54.4 kg with a BMI of 23.1. CBC is unremarkable, sodium is 133, creatinine is 0.51, rest of her chemistries are within normal limits and COVID-19 PCR is negative. Family history has not changed since prior admission. Patient History Medical History Abnormal Pap smear of cervix (~1970) Age-related osteoporosis without current pathological fracture Anticoagulated Cellulitis (~2000) Cervical cancer (~1970) Chicken pox (~1951) Chronic insomnia Clostridium difficile infection (~12/11/02) Depression (~1954) Elbow fracture, right (~2017) Essential hypertension Fractures (~2004) Frequent UTI (~2002) Headache Helicobacter pylori (H. pylori) (~10/18/11) History of low potassium (~2011) History of urinary incontinence (~1997) Loss of equilibrium (~07/30/04) Measles (~1953) Melanoma (~1996) Multiple sclerosis (~1975) Mumps (~1954) Oral pain Partial blindness (~1991) Pulmonary embolism Shoulder fracture Shoulder pain (~2009) Surgical History Cataract (~2012) Fracture of clavicle (~10/19/09) Hammertoes of both feet (~12/15/09) History of discectomy (~2002) History of foot surgery (~03/26/09) History of hysterectomy (~07/1973) History of shoulder surgery History of tonsillectomy (~09/1962) Previous back surgery (~11/24/02) Status post laser cataract surgery of both eyes Ulcer (~12/29/02) Family & Social History Family History Mother Stroke History of heart disease Brother AIDS Father Stroke History of heart disease Brother History of heart disease Stroke Brother Hypertension Stroke Brother History of heart disease Brother History of heart disease Sister History of heart disease Stroke Social History: household members none Safety & Behavioral: Feels Safe in Current Yes Environment Been Physically Hurt or No Threatened By a Person Tobacco & Substance use: Smoking Status Never smoker alcohol intake frequency holiday/special occasion Substance Use Type does not use Meds Home Medications and Allergies Home Medications Medication Instructions Recorded Confirmed Type gabapentin 600 mg tablet 600 mg PO TID #60 tabs 01/21/21 09/04/21 Rx acetaminophen 325 mg tablet 325 mg PO Q6HR #30 tabs 06/13/21 09/05/21 Rx fluoxetine 20 mg capsule 20 mg PO TID #270 caps 07/14/21 09/04/21 Rx rivaroxaban 20 mg tablet (Xarelto) 20 mg PO DAILY 07/14/21 09/04/21 History cholecalciferol (vitamin D3) 125 125 mcg PO DAILY 08/15/21 09/04/21 History mcg (5,000 unit) capsule trazodone 50 mg tablet 25 mg PO BEDTIME PRN insomnia #15 08/15/21 09/04/21 Rx tabs amlodipine 2.5 mg tablet 2.5 mg PO DAILY #90 tabs 08/18/21 09/04/21 Rx lidocaine 4 % topical patch 1 patch topical DAILY PRN Pain, 09/04/21 09/04/21 History (Blue-Emu Lidocaine Patch) Mild naltrexone 3.5 mg PO BEDTIME 09/04/21 09/04/21 History ciprofloxacin HCl 500 mg tablet 500 mg PO BID #14 tabs 09/05/21 Rx (Cipro) metronidazole 500 mg tablet 500 mg PO TID #21 tabs 09/05/21 Rx docusate sodium 100 mg capsule 100 mg PO BID PRN constipation #20 09/14/21 Rx caps ondansetron 4 mg disintegrating 4 mg PO TID-QID PRN nausea and 09/14/21 Rx tablet vomiting #10 tabs sennosides 8.6 mg capsule (senna) 8.6 mg PO BID #30 caps 09/14/21 Rx Allergies Allergy/AdvReac Type Severity Reaction Status Date / Time No Known Drug Allergies Allergy Verified 09/14/21 16:53 Review of Systems Review of Systems ROS: Yes All systems reviewed with the patient and are negative except as otherwise documented Exam Vital Signs (past 8 hours): - 09/14/21 18:48 09/14/21 19:00 09/14/21 23:05 Pulse Rate 69 70 74 Respiratory Rate 22 Blood Pressure 138/70 Pulse Oximetry 94 96 94 Oxygen Delivery Method Room Air Oxygen Delivery Method Room Air Narrative Exam Narrative: Gen: Alert, oriented, well-developed 75 y.o. female, appears anxious HEENT: normocephalic, atraumatic, conjunctiva clear, sclera non-icteric, oral mucosa pink and moist Neck: supple, full ROM, no JVD, trachea is midline Resp: Lungs CTA, non-labored breathing CV: RRR, no murmur or rubs Abd: soft, mildly bloated, mild diffuse tenderness,hypoactive BTs Skin: no lesions or rashes, dry and intact Neuro: Alert and oriented X 4 w/no focal deficits. Speech clear and coherent. Extremities: moves all 4 extremities, is ambulatory, negative Niranjan?s sign Psyche: normal mood and affect. Objective Labs Result Diagrams: 09/14/21 17:17 09/14/21 17:17 Labs: Laboratory Results - last 24 hr 09/14/21 09/14/2122 17:17 17:17 17:17 WBC 8.3 RBC 4.35 Hgb 13.0 Hct 38.1 MCV 87.7 MCH 29.9 MCHC 34.1 RDW 14.4 Plt Count 292 Neut % (Auto) 67.9 Lymph % (Auto) 21.0 L [place] % (Auto) 8.8 Eos % (Auto) 1.5 L Baso % (Auto) 0.8 Neut # (Auto) 5600 Lymph # (Auto) 1700 [place] # (Auto) 700 Eos # (Auto) 100 Baso # (Auto) 100 PT 16.0 H INR 1.4 H Sodium 133 L Potassium 3.7 Chloride 96 L Carbon Dioxide 23 BUN 12 Creatinine 0.51 L Estimated GFR > 60 BUN/Creatinine Ratio 23.5 H Glucose 88 Calcium 8.6 Total Bilirubin 1.0 AST 32 ALT 8 Alkaline Phosphatase 58 Total Protein 7.5 Albumin 4.1 Globulin 3.4 Albumin/Globulin Ratio 1.2 Lipase 96 SARS-CoV-2 (PCR) 09/14/21 20:30 WBC RBC Hgb Hct MCV MCH MCHC RDW Plt Count Neut % (Auto) Lymph % (Auto) [place] % (Auto) Eos % (Auto) Baso % (Auto) Neut # (Auto) Lymph # (Auto) [place] # (Auto) Eos # (Auto) Baso # (Auto) PT INR Sodium Potassium Chloride Carbon Dioxide BUN Creatinine Estimated GFR BUN/Creatinine Ratio Glucose Calcium Total Bilirubin AST ALT Alkaline Phosphatase Total Protein Albumin Globulin Albumin/Globulin Ratio Lipase SARS-CoV-2 (PCR) Negative Assessment & Plan Assessment & Plan narrative: Dayami Disla will be placed into observation for intractable nausea and vomiting. Suspected gastroparesis, acute * IV reglan, zofran and promethazine MI for n/v * Requested soap suds enema * Please notify general surgery for consult in the am * NPO Hx of a PE anticoagulated on rivaroxaban * due to patient's inability to take oral medications, will administer therapeutic dose of lovenox 55 mg bid Essential hypertension, chronic * Currently normotensive and will hold her oral bp medications Depression, chronic * Fluoxetine and gabapentin held until she can tolerate po VTE Prophylaxis: Wells risk score 6 Enoxaparin 55 mg subQ twice daily Bilateral SCDs Patient is placed into observation as her stay is not expected to exceed 2 midnights. FEN: IV fluids: NS at 150 ml/hour X 2L, diet: NPO, labs: CBC, C/BMP, liver enzymes, Mag, PT/INR Consultants None Dr. Stratton, general surgery care and involvement in the patient?s care is appreciated. Dispo: eventual d/c to [facility] Code status: DNR/DNI as discussed with the patient who identifies her daughter, Brinda Bonilla as her surrogate and POA. [X] I have utilized all available immediate resources to obtain, update, or review of the patient's current medications Scores Wells' Criteria for PE Clinical signs and symptoms of DVT: No PE is #1 Dx or equally likely: Yes Heart rate > 100: No Immobilization at least 3 days or surg in previous 4 weeks: Yes History of PE or DVT: Yes Hemoptysis: No Malignancy w/Treatment within 6 months or palliative: No Wells' PE Score total: 6.0 Citation:: Patient is currently being anticoagulated for a left lower lobe pulmonary embolism that was identified in May of this year. Quality VTE Deep Vein Thrombosis/Pulmonary Embolism Present on Admission: No MIPS - DC The patient has current or prior documentation of left ventricular ejection fraction (LVEF) less than 40%, or moderate or severely depressed left ventricular systolic function.: No
[2021-09-15] MEDS: diazePAM 10 MG/2 ML SYRINGE 2 MG IV ×2 (02:52→17:18)
--- NOTE | 2021-09-15 03:00 | PC.NURSE ---
pt informed of provider wanting to do second enema, slightly different than first. pt asked if we can do it in the morning as it is 0300 and she is tired and would like some sleep.
[2021-09-15 07:33] LABS: Add Manual Diff / Slide Review NO; Basophils Absolute Auto 100 /uL (0-100); Basophils Percent Auto 0.7 % (0-2); Eosinophils Absolute Auto 0 /uL (0-450); Eosinophils Percent Auto 0.7 % (2-4); Hematocrit 34.4 % (36-46); Hemoglobin 11.6 g/dL (12.0-16.0); Lymphocytes Absolute Auto 1300 /uL (1100-4500); Lymphocytes Percent Auto 19.2 % (25-40); Mean Corpuscular HGB Conc 33.6 % (30-36); Mean Corpuscular Hemoglobin 30.3 PG (26-34); Mean Corpuscular Volume 90.1 fL (80-100); Monocytes Absolute Auto 500 /uL (0-900); Monocytes Percent Auto 7.8 % (3-14); Neutrophils Absolute Auto 5000 /uL (1500-7000); Neutrophils Percent Auto 71.6 % (50-75); Platelet Count 266 X10^3/uL (150-400); Red Blood Cell Count 3.82 X10^6/uL (4.0-5.2); Red Cell Distribution Width 14.1 % (11.6-14.8)
[2021-09-15 07:44] LABS: BUN Creatinine Ratio 17.2 (6-22); Blood Urea Nitrogen 10 mg/dL (7-17); Calcium 8.2 mg/dL (8.4-10.2); Carbon Dioxide 25 mmol/L (22-32); Chloride 100 mmol/L (98-107); Estimated Glomerular Filt Rate > 60 mL/min (>60); Glucose 75 mg/dL (80-110); HEMOLYSIS < 15 (0-50); Magnesium 1.7 mg/dL (1.6-2.3); Potassium 2.8 mmol/L (3.4-5.1); Sodium 134 mmol/L (137-145)
[2021-09-15] MEDS: ONDANSETRON 4 MG/2 ML INJ IV ×3 (08:39→23:25)
[2021-09-15] MEDS: POTASSIUM CHLORIDE IN WATER 10 MEQ/100 ML PIGGYBACK 100 MEQ IV ×4 (08:39→12:33)
--- NOTE | 2021-09-15 14:19 | PC.NURSE ---
Patient reports nausea, instructed to take small sips of apple juice with time between each sip.
[2021-09-15] MEDS: DEXTROSE 10 % IN WATER 250 ML 999 ML IV ×2 (15:31→21:59)
--- NOTE | 2021-09-15 15:41 | PC.NURSE ---
DI Nurse at bedside.
--- NOTE | 2021-09-15 18:05 | DI.RAD.S_ITS ---
PROCEDURE: XR CHEST 1V INDICATIONS: ng tube placement verification TECHNIQUE: One view of the chest was acquired. COMPARISON: [facility], CR, XR CHEST 1V, 07/06/2021, 11:20. FINDINGS: Surgical changes and devices: Nasogastric tube in the stomach. Right proximal humeral fixation plate and screws. Lungs and pleura: There is hyperinflation and chronic interstitial changes without focal infiltrate, pleural effusion or pneumothorax. Mediastinum: Mediastinal contours appear normal. Heart size is normal. Atherosclerotic vascular calcification noted in the aortic arch. Bones and chest wall: No suspicious bony lesions. Overlying soft tissues appear unremarkable. Generalized decrease in osseous mineralization noted. Convex right thoracolumbar scoliosis present. IMPRESSION: 1. Nasogastric tube in the stomach. 2. No acute cardiopulmonary findings. 3. Thoracolumbar dextroscoliosis Approved by: Pipe Go M.D. on 09/15/2021 at 17:53
--- NOTE | 2021-09-15 19:21 | PC.NURSE ---
Patient admitted to room 229. Oriented to room and call light. Vital signs stable. Received order to place NG tube. 14 swedish NG tube placed to left nare and x-ray ordered for confirmation.
[2021-09-15] MEDS: POTASSIUM CHLORIDE 20 MEQ/15 ML UDC 40 MEQ TUBE (20:03)
[2021-09-15] MEDS: PEG3350/SOD SULF,BICARB,CL/KCL 4,000 ML SOLUTION 2000 ML PO (20:14)
--- NOTE | 2021-09-15 21:21 | PC.NURSE ---
Addendum entered by Brianne Schroeder R.N. 09/16/21 04:24: Pt BP trended downward throughout the night. Original Note: Pt blood pressure 185/93 and has been consistently high. BP med were put on hold. Tried to call attending provider, but no answer.
[2021-09-16] MEDS: diazePAM 10 MG/2 ML SYRINGE 2 MG IV ×2 (00:31→00:34)
[2021-09-16 03:53] VITALS: BP 168/95; PULSE 85; RESP 16; TEMP 36.5; O2SAT 94
--- NOTE | 2021-09-16 04:22 | PC.NURSE ---
Pt removed NG tube @0420 this morning. Attending provider notified.
[2021-09-16 05:16] LABS: Blood Urea Nitrogen 3 mg/dL (7-17); Calcium 8.3 mg/dL (8.4-10.2); Carbon Dioxide 28 mmol/L (22-32); Chloride 96 mmol/L (98-107); Estimated Glomerular Filt Rate > 60 mL/min (>60); Glucose 77 mg/dL (80-110); HEMOLYSIS < 15 (0-50); Magnesium 1.3 mg/dL (1.6-2.3); Potassium 2.8 mmol/L (3.4-5.1); Sodium 132 mmol/L (137-145)
[2021-09-16 05:19] LABS: Add Manual Diff / Slide Review NO; Basophils Absolute Auto 100 /uL (0-100); Basophils Percent Auto 0.8 % (0-2); Eosinophils Absolute Auto 200 /uL (0-450); Eosinophils Percent Auto 2.4 % (2-4); Hematocrit 36.5 % (36-46); Hemoglobin 12.3 g/dL (12.0-16.0); Lymphocytes Absolute Auto 1800 /uL (1100-4500); Lymphocytes Percent Auto 26.1 % (25-40); Mean Corpuscular HGB Conc 33.8 % (30-36); Mean Corpuscular Hemoglobin 29.8 PG (26-34); Mean Corpuscular Volume 88.4 fL (80-100); Monocytes Absolute Auto 600 /uL (0-900); Monocytes Percent Auto 9.1 % (3-14); Neutrophils Absolute Auto 4200 /uL (1500-7000); Neutrophils Percent Auto 61.6 % (50-75); Platelet Count 291 X10^3/uL (150-400); Red Blood Cell Count 4.13 X10^6/uL (4.0-5.2); Red Cell Distribution Width 14.5 % (11.6-14.8); White Blood Cell Count 6.8 X10^3/uL (4.5-11.0)
[2021-09-16] MEDS: ONDANSETRON 4 MG/2 ML INJ IV ×2 (06:08→12:36)
[2021-09-16] MEDS: DEXTROSE 10 % IN WATER 250 ML 999 ML IV (06:21)
[2021-09-16 08:15] VITALS: BP 143/84; PULSE 88; RESP 17; TEMP 36.6; O2SAT 95
[2021-09-16] MEDS: PANTOPRAZOLE 40 MG VIAL IV (08:51)
[2021-09-16] MEDS: POTASSIUM CHLORIDE IN WATER 10 MEQ/100 ML PIGGYBACK 100 MEQ IV ×6 (08:51→14:07)
--- NOTE | 2021-09-16 09:44 | P.PN_ITS ---
Subjective Subjective Date Patient Seen: 09/16/21 Time Patient Seen: 14:16 Interval history: Patient had NG tube placed in received half a gal of GoLYTELY before having 2 large BMs. She then pulled out the NG tube. This morning she feels better but still has slight nausea. She was able to tolerate some Jell-O and liquids. Exam Vital Signs (past 8 hours): - 09/16/21 03:53 09/16/21 08:15 Temperature 97.7 F 98 F Pulse Rate 85 88 Respiratory Rate 16 17 Blood Pressure 168/95 H 143/84 H Pulse Oximetry 94 95 Oxygen Flow Rate 0 0 Oxygen Delivery Method Room Air Oxygen Flow Rate 0 Narrative Exam Narrative: Gen: Alert, oriented, well-developed 75 y.o. female HEENT: normocephalic, atraumatic, conjunctiva clear, sclera non-icteric, oral mucosa pink and moist Neck: supple, full ROM, no JVD, trachea is midline Resp: Lungs CTA, non-labored breathing CV: RRR, no murmur or rubs Abd: soft, mildly bloated, mild diffuse tenderness,hypoactive BTs Skin: no lesions or rashes, dry and intact Neuro: Alert and oriented X 4 w/no focal deficits. Speech clear and coherent. Extremities: moves all 4 extremities, is ambulatory, negative Niranjan?s sign Psyche: normal mood and affect. Objective Labs Result Diagrams: 09/16/21 04:30 09/16/21 04:30 Labs: Laboratory Results - last 24 hr 09/15/21 09/16/21 09/16/21 22:53 04:30 04:30 WBC 6.8 RBC 4.13 Hgb 12.3 Hct 36.5 MCV 88.4 MCH 29.8 MCHC 33.8 RDW 14.5 Plt Count 291 Neut % (Auto) 61.6 Lymph % (Auto) 26.1 [place] % (Auto) 9.1 Eos % (Auto) 2.4 Baso % (Auto) 0.8 Neut # (Auto) 4200 Lymph # (Auto) 1800 [place] # (Auto) 600 Eos # (Auto) 200 Baso # (Auto) 100 Sodium 132 L Potassium 2.8 L Chloride 96 L Carbon Dioxide 28 BUN 3 L Creatinine 0.43 L Estimated GFR > 60 BUN/Creatinine Ratio 7.0 Glucose 77 L Calcium 8.3 L Magnesium 1.3 L Nasal Screen MRSA (PCR) Positive for mrsa H [facility] Medical History Abnormal Pap smear of cervix (~1970) Age-related osteoporosis without current pathological fracture Anticoagulated Cellulitis (~2000) Cervical cancer (~1970) Chicken pox (~1951) Chronic insomnia Clostridium difficile infection (~12/11/02) Depression (~1954) Elbow fracture, right (~2017) Essential hypertension Fractures (~2004) Frequent UTI (~2002) Headache Helicobacter pylori (H. pylori) (~10/18/11) History of low potassium (~2011) History of urinary incontinence (~1997) Loss of equilibrium (~07/30/04) Measles (~1953) Melanoma (~1996) Multiple sclerosis (~1975) Mumps (~1954) Oral pain Partial blindness (~1991) Pulmonary embolism Shoulder fracture Shoulder pain (~2009) Surgical History Cataract (~2012) Fracture of clavicle (~10/19/09) Hammertoes of both feet (~12/15/09) History of discectomy (~2002) History of foot surgery (~03/26/09) History of hysterectomy (~07/1973) History of shoulder surgery History of tonsillectomy (~09/1962) Previous back surgery (~11/24/02) Status post laser cataract surgery of both eyes Ulcer (~12/29/02) Family History Mother Stroke History of heart disease Brother AIDS Father Stroke History of heart disease Brother History of heart disease Stroke Brother Hypertension Stroke Brother History of heart disease Brother History of heart disease Sister History of heart disease Stroke Social History household members: none Smoking Status: Never smoker alcohol intake: current Assessment & Plan Assessment & Plan narrative: Dayami Disla will be placed into observation for intractable nausea and vomiting. Severe constipation with nausea and vomiting, acute -CT scan showed large amount of stool but no SBO -multiple enemas attempted in the ED including mineral oil and soapsuds with no BM -NG tube and GoLYTELY given through this which allowed patient to have 2 very large bowel movements -will discontinue general surgery consult -advance diet as tolerated -will discharge on regular bowel regimen to include Metamucil with as needed MiraLax, senna and Mag citrate Hypokalemia and hypomagnesemia, acute -potassium 2.8 and magnesium 1.3 -replete and monitor MRSA positive -contact precautions Hx of a PE anticoagulated on rivaroxaban -due to patient's inability to take oral medications, given therapeutic dose of lovenox 55 mg bid as a bridge -restart home Xarelto once tolerating p.o. intake Essential hypertension, chronic -restart home medications Depression, chronic -restart fluoxetine and gabapentin VTE Prophylaxis: Wells risk score 6 Enoxaparin 55 mg subQ twice daily Bilateral SCDs Dispo: D/c on 09/17 to [facility] Code status: DNR/DNI as discussed with the patient who identifies her daughter, Brinda Bonilla as her surrogate and POA. [X] I have utilized all available immediate resources to obtain, update, or review of the patient's current medications Time Spent With Patient Critical Care time: I spent a total of [] minutes of critical care time on this patient's care today; this time is exclusive of procedural time. Quality VTE Deep Vein Thrombosis/Pulmonary Embolism Present on Admission: No
[2021-09-16] MEDS: MAGNESIUM SULFATE 4 GM/100 ML PIGGYBACK IV (10:20)
[2021-09-16] MEDS: METOCLOPRAMIDE 10 MG/2 ML INJ IV (12:36)
[2021-09-16] MEDS: SODIUM CHLORIDE 0.9% 1,000 ML 100 ML IV ×2 (12:37→22:29)
--- NOTE | 2021-09-16 13:53 | CM.DANOTE ---
Addendum entered by Tamiko Hernandez R.N. 09/16/21 14:20: DCP spoke with pt daughter, Brinda. Brinda states that she is nervous to send pt back to [facility] if her N/V is not resolved. Brinda is concerned that the pt is still nauseous even after the large bowel movement. Brinda stated that she might be concerned that the Zofran is causing her constipation, as it is a side effect of the medication. DCP encouraged her to talk with the RN and MD about this when she arrives to the hospital today. Brinda on the way up to hospital to see pt. Brinda will take the pt back to [facility] when discharged. Brinda thankful for the call. ADJ Original Note: DCP Assessment: Payor: Medicare PCP: MD Ibeth Pt is a 75 y.o. F who presented to the ER with persistent vomiting and significant weakness over the past few days. Pt was admitted on 09/05 for Small bowel obstruction management. Pt states that she is feeling worse than when she was discharged. Pt was admitted under observation for vomiting and abdominal pain. Pt was provided with soap suds enema and is NPO. NG tube was placed and golytle was administered. DCP is familiar with this patient as she was here last week. DCP unable to enter room due to isolation precautions and DCP attempted to contact pt daughter, Brinda, for further information. Pt currently resides at [facility] assisted living. Pt uses a wheelchair at baseline and relies on other for transportation. DCP spoke with [facility] today to provide update. [facility] will accept pt back and they want to make sure any new prescriptions need to be sent to [facility] pharmacy in [place]. DCP to follow up with [facility] upon discharge. P: Once patient is medically stable, pt will discharge back home to [facility] via daughter POV. Tamiko Hernandez RN/TOMER Discharge Planning/Care Management CM Discharge Assessment Start: 09/16/21 13:52 Freq: Status: Active Protocol: Document 09/16/21 13:52 IVETTE (Rec: 09/16/21 13:53 IVETTE [id number]) Discharge Planning Assessment Assigned Clinical Faculty Tamiko Hernandez RN/TOMER Advance Directives? Yes Advance Directives on File No History Provided By Medical Record Has Patient been admitted in last 30 Yes days? Comment 09/05/21 Prior Living Arrangements [facility] Facility Comment [facility]hold Members none Type of transporation used prior to Relies on Others admit Facility Name Admitted From: [facility] Willing to Return to Facility? Yes Caregiver for Another No Discharge Plan Assisted Living Facility Transportation Arrangement Family likely to transport back to [facility] at d/c Referrals Initiated None needed Additional Comment At this time. Whiteboard Updated in Patient Room with No name and ext. # of Clinical Faculty Comment Unable to enter room due to isolation precautions Review Status In Process Please Provide Date Initial DC 09/16/21 Assessment Was Performed Next Review Type Continued Stay Review
[2021-09-16] MEDS: GABAPENTIN 600 MG TABLET PO ×2 (14:18→20:39)
[2021-09-16] MEDS: FLUoxetine 20 MG CAPSULE PO ×2 (14:18→20:39)
[2021-09-16] MEDS: RIVAROXABAN 10 MG TABLET 20 MG PO (14:18)
[2021-09-16 15:15] VITALS: BP 174/88; PULSE 78; RESP 16; TEMP 36.4; O2SAT 96
[2021-09-16 15:20] VITALS: BP 162/91
[2021-09-16] MEDS: ACETAMINOPHEN 325 MG TABLET PO (15:22)
[2021-09-16 20:10] VITALS: BP 132/66; PULSE 78; RESP 18; TEMP 36.6; O2SAT 96
[2021-09-17 04:46] VITALS: BP 144/79; PULSE 93; RESP 18; TEMP 36.3; O2SAT 96
--- NOTE | 2021-09-17 05:20 | PC.NURSE ---
Video Games Storywriter Note: Patient is alert and orientedx4, denies any pain/discomfort. Denies nausea, no vomiting noted. At room air, vital signs are stable and within acceptable limits, no signs of distress. Is incontinent, purewick was in placed with adequate urine output. No BM noted. Will continue to monitor.
[2021-09-17 06:06] LABS: Magnesium 1.9 mg/dL (1.6-2.3)
[2021-09-17 06:55] LABS: Carbon Dioxide 27 mmol/L (22-32); Chloride 94 mmol/L (98-107); Estimated Glomerular Filt Rate > 60 mL/min (>60); Glucose 91 mg/dL (80-110); HEMOLYSIS < 15 (0-50); Sodium 128 mmol/L (137-145)
[2021-09-17 06:56] LABS: BUN Creatinine Ratio 4.1 (6-22); Blood Urea Nitrogen < 2 mg/dL (7-17)
[2021-09-17] MEDS: FLUoxetine 20 MG CAPSULE PO ×2 (08:08→20:38)
[2021-09-17] MEDS: RIVAROXABAN 10 MG TABLET 20 MG PO (08:08)
[2021-09-17] MEDS: AMLODIPINE 5 MG TABLET 2.5 MG PO (08:09)
[2021-09-17] MEDS: PANTOPRAZOLE 40 MG VIAL IV ×2 (08:15→20:38)
[2021-09-17] MEDS: METOCLOPRAMIDE 10 MG/2 ML INJ IV (08:48)
[2021-09-17] MEDS: SODIUM CHLORIDE 0.9% 1,000 ML 100 ML IV ×3 (08:51→19:39)
--- NOTE | 2021-09-17 09:01 | PM.DS.1 ---
History of Present Illness History of Present Illness Chief complaint: weakness, abd pain Discharge Providers Provider Date of admission: 09/15/21 00:53 Primary care physician: Carlos Cristina MD Consults: 09/15/21 01:19 Consult to Physician Routine Comment: Consulting Provider: Lexi Stratton Reason for consultation: intractable vomiting, suspected obstipation Has provider been notified: No Discharge provider: Tito Paniagua, Exam Vital Signs (past 8 hours): - 09/17/21 04:46 Temperature 97.4 F L Pulse Rate 93 H Respiratory Rate 18 Blood Pressure 144/79 H Pulse Oximetry 96 Oxygen Flow Rate 0 Oxygen Delivery Method Room Air Oxygen Flow Rate 0 Objective Labs Result Diagrams: 09/16/21 04:30 09/17/21 05:15 Labs: Laboratory Results - last 24 hr 09/17/21 09/17/21 05:15 05:15 Sodium 128 L Potassium 3.0 L Chloride 94 L Carbon Dioxide 27 BUN < 2 L Creatinine 0.49 L Estimated GFR > 60 BUN/Creatinine Ratio 4.1 L Glucose 91 Calcium 8.0 L Magnesium 1.9 [facility] Medical History Abnormal Pap smear of cervix (~1970) Age-related osteoporosis without current pathological fracture Anticoagulated Cellulitis (~2000) Cervical cancer (~1970) Chicken pox (~1951) Chronic insomnia Clostridium difficile infection (~12/11/02) Depression (~1954) Elbow fracture, right (~2017) Essential hypertension Fractures (~2004) Frequent UTI (~2002) Headache Helicobacter pylori (H. pylori) (~10/18/11) History of low potassium (~2011) History of urinary incontinence (~1997) Loss of equilibrium (~07/30/04) Measles (~1953) Melanoma (~1996) Multiple sclerosis (~1975) Mumps (~1954) Oral pain Partial blindness (~1991) Pulmonary embolism Shoulder fracture Shoulder pain (~2009) Surgical History Cataract (~2012) Fracture of clavicle (~10/19/09) Hammertoes of both feet (~12/15/09) History of discectomy (~2002) History of foot surgery (~03/26/09) History of hysterectomy (~07/1973) History of shoulder surgery History of tonsillectomy (~09/1962) Previous back surgery (~11/24/02) Status post laser cataract surgery of both eyes Ulcer (~12/29/02) Family History Mother Stroke History of heart disease Brother AIDS Father Stroke History of heart disease Brother History of heart disease Stroke Brother Hypertension Stroke Brother History of heart disease Brother History of heart disease Sister History of heart disease Stroke Social History household members: none Smoking Status: Never smoker alcohol intake: current Discharge Plan Discharge Plan Patient Disposition: Home Discharge orders & Medications Prescriptions: No Action amlodipine 2.5 mg tablet 2.5 mg PO DAILY Qty: 90 3RF Rx Instructions: Hold for SBP below 110 or HR below 60 ondansetron 4 mg tablet,disintegrating 4 mg PO TID-QID PRN (Reason: nausea and vomiting) Qty: 10 3RF docusate sodium 100 mg capsule 100 mg PO BID PRN (Reason: constipation) Qty: 20 3RF senna 8.6 mg capsule 8.6 mg PO BID Qty: 30 3RF Xarelto 20 mg tablet 20 mg PO DAILY Label Comments: TAKE 1 TABLET BY MOUTH DAILY fluoxetine 20 mg capsule 20 mg PO TID Qty: 270 3RF cholecalciferol (vitamin D3) 125 mcg (5,000 unit) capsule 125 mcg PO DAILY trazodone 50 mg tablet 25 mg PO BEDTIME PRN (Reason: insomnia) Qty: 15 5RF naltrexone 3.5 mg 3.5 mg PO BEDTIME lidocaine [Blue-Emu Lidocaine Patch] 4 % Adhesive Patch,Medicated 1 patch TOPICAL DAILY PRN (Reason: Pain, Mild) metronidazole 500 mg tablet 500 mg PO TID Qty: 21 0RF gabapentin 600 mg tablet 600 mg PO TID Qty: 60 0RF acetaminophen 325 mg Tablet 325 mg PO Q6HR Qty: 30 0RF Follow up/Referrals: Carlos Cristina MD [Primary Care Provider] - Discharge Data Primary Care Provider: Carlos Cristina V Attending Provider: Carmita Rivera VTE Deep Vein Thrombosis/Pulmonary Embolism Present on Admission: No
--- NOTE | 2021-09-17 09:05 | P.PN_ITS ---
Subjective Subjective Date Patient Seen: 09/17/21 Time Patient Seen: 15:35 Interval history: Unable to tolerate liquids and her pills today, however when she attempted to eat and Prydeinig muffin she immediately had nausea. Exam Vital Signs (past 8 hours): - 09/17/21 04:46 Temperature 97.4 F L Pulse Rate 93 H Respiratory Rate 18 Blood Pressure 144/79 H Pulse Oximetry 96 Oxygen Flow Rate 0 Oxygen Delivery Method Room Air Oxygen Flow Rate 0 Narrative Exam Narrative: Gen: Alert, oriented, well-developed 75 y.o. female HEENT: normocephalic, atraumatic, conjunctiva clear, sclera non-icteric, oral mucosa pink and moist Neck: supple, full ROM, no JVD, trachea is midline Resp: Lungs CTA, non-labored breathing CV: RRR, no murmur or rubs Abd: soft, mildly bloated, no tenderness, hypoactive BTs Skin: no lesions or rashes, dry and intact Neuro: Alert and oriented X 4 w/no focal deficits. Speech clear and coherent. Extremities: moves all 4 extremities, is ambulatory, negative Niranjan?s sign Psyche: normal mood and affect. Objective Labs Result Diagrams: 09/16/21 04:30 09/17/21 05:15 Labs: Laboratory Results - last 24 hr 09/17/21 09/17/21 05:15 05:15 Sodium 128 L Potassium 3.0 L Chloride 94 L Carbon Dioxide 27 BUN < 2 L Creatinine 0.49 L Estimated GFR > 60 BUN/Creatinine Ratio 4.1 L Glucose 91 Calcium 8.0 L Magnesium 1.9 [facility] Medical History Abnormal Pap smear of cervix (~1970) Age-related osteoporosis without current pathological fracture Anticoagulated Cellulitis (~2000) Cervical cancer (~1970) Chicken pox (~1951) Chronic insomnia Clostridium difficile infection (~12/11/02) Depression (~1954) Elbow fracture, right (~2017) Essential hypertension Fractures (~2004) Frequent UTI (~2002) Headache Helicobacter pylori (H. pylori) (~10/18/11) History of low potassium (~2011) History of urinary incontinence (~1997) Loss of equilibrium (~07/30/04) Measles (~1953) Melanoma (~1996) Multiple sclerosis (~1975) Mumps (~1954) Oral pain Partial blindness (~1991) Pulmonary embolism Shoulder fracture Shoulder pain (~2009) Surgical History Cataract (~2012) Fracture of clavicle (~10/19/09) Hammertoes of both feet (~12/15/09) History of discectomy (~2002) History of foot surgery (~03/26/09) History of hysterectomy (~07/1973) History of shoulder surgery History of tonsillectomy (~09/1962) Previous back surgery (~11/24/02) Status post laser cataract surgery of both eyes Ulcer (~12/29/02) Family History Mother Stroke History of heart disease Brother AIDS Father Stroke History of heart disease Brother History of heart disease Stroke Brother Hypertension Stroke Brother History of heart disease Brother History of heart disease Sister History of heart disease Stroke Social History household members: none Smoking Status: Never smoker alcohol intake: current Assessment & Plan Assessment & Plan narrative: Possible peptic ulcer causing persistent nausea and vomiting, acute -Patient noted history of previous PUD from H. pylori several years ago, no recent EGD -CT abd pelvis on 09/14 showed ?appearance of gastric antral and proximal duodenal thickening which could be secondary to peptic ulcer disease or artifact? -Dr. Disla general surgery consulted -start Protonix 40 mg IV b.i.d. -no surgery recommending urea breath test an NPO midnight for possible EGD -urea breath test per lab will take 3-5 days to result as it is a sendout lab Severe constipation, resolved -CT scan showed large amount of stool but no SBO -multiple enemas attempted in the ED including mineral oil and soapsuds with no BM -NG tube and GoLYTELY given through this which allowed patient to have 2 very large bowel movements -will discharge on regular bowel regimen to include Metamucil with as needed MiraLax, senna and Mag citrate -Abd XR on 09/17 showed no SBO with nonobstructive bowel gas pattern -miralax and senna BID FREYA Hypokalemia and hypomagnesemia, acute -potassium 2.8 and magnesium 1.3 -replete and monitor MRSA positive -contact precautions Hx of a PE anticoagulated on rivaroxaban -due to patient's inability to take oral medications, given therapeutic dose of lovenox 55 mg bid as a bridge -restart home Xarelto as pt tolerating p.o. intake Essential hypertension, chronic -restart home medications Depression, chronic -restart fluoxetine and gabapentin VTE Prophylaxis: Restart home xarelto Dispo: Pending possible EGD. Likely back to [facility] in 2-3 days. Code status: DNR/DNI as discussed with the patient who identifies her daughter, Brinda Bonilla as her surrogate and POA. [X] I have utilized all available immediate resources to obtain, update, or review of the patient's current medications Time Spent With Patient Critical Care time: I spent a total of [] minutes of critical care time on this patient's care today; this time is exclusive of procedural time. Quality VTE Deep Vein Thrombosis/Pulmonary Embolism Present on Admission: No
[2021-09-17] MEDS: SENNOSIDES 8.6 MG TABLET PO ×2 (09:36→20:38)
[2021-09-17] MEDS: POTASSIUM CHLORIDE 20 MEQ TAB 40 MEQ PO (09:36)
[2021-09-17] MEDS: POTASSIUM CHLORIDE IN WATER 10 MEQ/100 ML PIGGYBACK 100 MEQ IV ×4 (09:36→10:46)
[2021-09-17] MEDS: polyethylene glycoL 3350 17 GM POWD.PACK PO ×2 (09:36→20:38)
[2021-09-17 10:00] VITALS: BP 149/76; PULSE 83; RESP 16; TEMP 37.6; O2SAT 97
--- NOTE | 2021-09-17 10:33 | PC.NURSE ---
Reglan dose given 09/16/21, patient claims it helped with nausea and she is feeling much better. Another dose given this am per patient request. Will discuss with MD about continuing at discharge/scheduled.
[2021-09-17 12:30] VITALS: TEMP 36.8
[2021-09-17] MEDS: ONDANSETRON 4 MG/2 ML INJ IV (12:32)
[2021-09-17] MEDS: diazePAM 10 MG/2 ML SYRINGE 2 MG IV (13:24)
[2021-09-17] MEDS: PROMETHAZINE 12.5 MG SUPP PR (13:31)
--- NOTE | 2021-09-17 13:50 | CM.DPNOTE ---
Discharge Planning Note: Patient resting at this time, spoke with nurse, patient remains on IVFs, uncertain of discharge today. P: Follow up with tomorrow. When stable to return to [facility]. She uses [facility] in [place], please fax her discharge meds to them. Merari Valdez RN/DCP
--- NOTE | 2021-09-17 14:15 | DI.RAD.S_ITS ---
PROCEDURE: XR ABDOMEN 1V INDICATIONS: assess for SBO TECHNIQUE: One view of the abdomen acquired. COMPARISON: [facility], CT, CT ABDOMEN PELVIS W CON, 09/14/2021, 19:15. FINDINGS: Surgical changes and devices: Lower lumbar postoperative hardware is seen. Bowel: Bowel gas pattern is normal. No dilated loops of bowel are seen. Soft tissues: No suspicious abdominal calcifications. Visualized solid organ contours appear normal in size. Soft tissue postoperative calcification can be seen involving the thighs, which is better demonstrated by CT. Bones: No suspicious bony lesions. Age-appropriate bony degenerative changes are seen. Moderate levoconvex scoliosis is seen. IMPRESSION: A nonobstructive bowel gas pattern is seen. If clinically appropriate, please consider a repeat plain film study or a dedicated CT of the abdomen and pelvis, if the patient's symptoms persist or worsen. Postoperative and degenerative changes are seen. Dictated by: Kenny Hartman M.D. on 09/17/2021 at 13:53 Approved by: Kenny Hartman M.D. on 09/17/2021 at 13:54
[2021-09-17 20:00] VITALS: BP 145/67; PULSE 101; RESP 18; TEMP 36.6; O2SAT 96
[2021-09-17] MEDS: GABAPENTIN 600 MG TABLET PO (20:38)
[2021-09-17] MEDS: ACETAMINOPHEN 325 MG TABLET PO (22:19)
[2021-09-18] VITALS (11 sets, daily range): BP systolic 94–175; BP diastolic 62–94; PULSE 75–88; RESP 13–18; TEMP 35.9–37.6; O2SAT 92–96
[2021-09-18 06:00] LABS: Alanine Aminotransferase 6 IU/L (<35); Albumin 3.4 g/dL (3.5-5.0); Albumin Globulin Ratio 1.2 (1.0-2.8); Alkaline Phosphatase 58 U/L (38-126); Aspartate Aminotransferase 18 IU/L (14-36); BUN Creatinine Ratio 5.4 (6-22); Bilirubin Total 0.3 mg/dL (0.2-1.3); Blood Urea Nitrogen 3 mg/dL (7-17); Calcium 8.4 mg/dL (8.4-10.2); Carbon Dioxide 27 mmol/L (22-32); Chloride 101 mmol/L (98-107); Estimated Glomerular Filt Rate > 60 mL/min (>60); Globulin 2.8 g/dL (1.7-4.1); Glucose 95 mg/dL (80-110); HEMOLYSIS < 15 (0-50); Potassium 2.9 mmol/L (3.4-5.1); Sodium 134 mmol/L (137-145); Total Protein 6.2 g/dL (6.3-8.2)
[2021-09-18] MEDS: SODIUM CHLORIDE 0.9% 1,000 ML 100 ML IV (06:00)
[2021-09-18 06:02] LABS: Magnesium 1.6 mg/dL (1.6-2.3)
--- NOTE | 2021-09-18 08:28 | PM.PN.1 ---
Exam Vital Signs (past 8 hours): - 09/18/21 02:00 09/18/21 06:00 09/18/21 06:34 Temperature 97.9 F Pulse Rate 82 Respiratory Rate 15 17 Blood Pressure 170/94 H 159/88 H Pulse Oximetry 96 Oxygen Delivery Method Room Air Oxygen Flow Rate 0 Narrative Exam Narrative: Gen: Alert, oriented, well-developed 75 y.o. female HEENT: normocephalic, atraumatic, conjunctiva clear, sclera non-icteric, oral mucosa pink and moist Neck: supple, full ROM, no JVD, trachea is midline Resp: Lungs CTA, non-labored breathing CV: RRR, no murmur or rubs Abd: soft, mildly bloated, no tenderness, hypoactive BTs Skin: no lesions or rashes, dry and intact Neuro: Alert and oriented X 4 w/no focal deficits. Speech clear and coherent. Extremities: moves all 4 extremities, is ambulatory, negative Niranjan?s sign Psyche: normal mood and affect. Objective Labs Result Diagrams: 09/16/21 04:30 09/18/21 05:30 Labs: Laboratory Results - last 24 hr 09/18/21 09/18/21 05:30 05:30 Sodium 134 L Potassium 2.9 L Chloride 101 Carbon Dioxide 27 BUN 3 L Creatinine 0.56 Estimated GFR > 60 BUN/Creatinine Ratio 5.4 L Glucose 95 Calcium 8.4 Magnesium 1.6 Total Bilirubin 0.3 AST 18 ALT 6 Alkaline Phosphatase 58 Total Protein 6.2 L Albumin 3.4 L Globulin 2.8 Albumin/Globulin Ratio 1.2 [facility]PLAC[facility] Medical History Abnormal Pap smear of cervix (~1970) Age-related osteoporosis without current pathological fracture Anticoagulated Cellulitis (~2000) Cervical cancer (~1970) Chicken pox (~1951) Chronic insomnia Clostridium difficile infection (~12/11/02) Depression (~1954) Elbow fracture, right (~2017) Essential hypertension Fractures (~2004) Frequent UTI (~2002) Headache Helicobacter pylori (H. pylori) (~10/18/11) History of low potassium (~2011) History of urinary incontinence (~1997) Loss of equilibrium (~07/30/04) Measles (~1953) Melanoma (~1996) Multiple sclerosis (~1975) Mumps (~1954) Oral pain Partial blindness (~1991) Pulmonary embolism Shoulder fracture Shoulder pain (~2009) Surgical History Cataract (~2012) Fracture of clavicle (~10/19/09) Hammertoes of both feet (~12/15/09) History of discectomy (~2002) History of foot surgery (~03/26/09) History of hysterectomy (~07/1973) History of shoulder surgery History of tonsillectomy (~09/1962) Previous back surgery (~11/24/02) Status post laser cataract surgery of both eyes Ulcer (~12/29/02) Family History Mother Stroke History of heart disease Brother AIDS Father Stroke History of heart disease Brother History of heart disease Stroke Brother Hypertension Stroke Brother History of heart disease Brother History of heart disease Sister History of heart disease Stroke Social History household members: none Smoking Status: Never smoker alcohol intake: current Assessment & Plan Assessment & Plan narrative: Possible peptic ulcer causing persistent nausea and vomiting, acute -Patient noted history of previous PUD from H. pylori several years ago, no recent EGD -CT abd pelvis on 09/14 showed ?appearance of gastric antral and proximal duodenal thickening which could be secondary to peptic ulcer disease or artifact? -Dr. Disla general surgery consulted -start Protonix 40 mg IV b.i.d. -no surgery recommending urea breath test an NPO midnight for possible EGD -urea breath test per lab will take 3-5 days to result as it is a sendout lab Severe constipation, resolved -CT scan showed large amount of stool but no SBO -multiple enemas attempted in the ED including mineral oil and soapsuds with no BM -NG tube and GoLYTELY given through this which allowed patient to have 2 very large bowel movements -will discharge on regular bowel regimen to include Metamucil with as needed MiraLax, senna and Mag citrate -Abd XR on 09/17 showed no SBO with nonobstructive bowel gas pattern -miralax and senna BID FREYA Hypokalemia and hypomagnesemia, acute -potassium 2.8 and magnesium 1.3 -replete and monitor MRSA positive -contact precautions Hx of a PE anticoagulated on rivaroxaban -due to patient's inability to take oral medications, given therapeutic dose of lovenox 55 mg bid as a bridge -restart home Xarelto as pt tolerating p.o. intake Essential hypertension, chronic -restart home medications Depression, chronic -restart fluoxetine and gabapentin VTE Prophylaxis: Restart home xarelto Dispo: Pending possible EGD. Likely back to [facility] in 2-3 days. Code status: DNR/DNI as discussed with the patient who identifies her daughter, Brinda Bonilla as her surrogate and POA. [X] I have utilized all available immediate resources to obtain, update, or review of the patient's current medications Time Spent With Patient Critical Care time: I spent a total of [] minutes of critical care time on this patient's care today; this time is exclusive of procedural time. Quality VTE Deep Vein Thrombosis/Pulmonary Embolism Present on Admission: No
[2021-09-18] MEDS: AMLODIPINE 5 MG TABLET 2.5 MG PO (09:04)
[2021-09-18] MEDS: POTASSIUM CHLORIDE 20 MEQ TAB 40 MEQ PO ×2 (09:04→15:37)
[2021-09-18] MEDS: FLUoxetine 20 MG CAPSULE PO ×2 (09:05→15:37)
[2021-09-18] MEDS: MAGNESIUM CHLORIDE 64 MG TABLET 128 MG PO (09:05)
--- NOTE | 2021-09-18 09:58 | PM.CN ---
History of Present Illness Consult details Date Patient Seen: 09/18/21 Time Patient Seen: 09:59 Chief complaint: weakness, abd pain Narrative: Dayami raza is a 75-year-old woman who is admitted due to intractable nausea and vomiting. She reports she has had nausea and vomiting for several months. She had a CT scan on admission which showed questionable thickening of the distal stomach and duodenum. She reports that she had a diagnosis of H pylori many years ago but she does not believe that she had an EGD at that time or any other time in her life. She is on Xarelto for a recent PE. She has also been treated for severe constipation recently. She denies hematemesis. She denies abdominal pain. Meds Home Medications and Allergies Home Medications Medication Instructions Recorded Confirmed Type gabapentin 600 mg tablet 600 mg PO TID #60 tabs 01/21/21 09/15/21 Rx acetaminophen 325 mg tablet 325 mg PO Q6HR #30 tabs 06/13/21 09/15/21 Rx fluoxetine 20 mg capsule 20 mg PO TID #270 caps 07/14/21 09/15/21 Rx rivaroxaban 20 mg tablet (Xarelto) 20 mg PO DAILY 07/14/21 09/15/21 History cholecalciferol (vitamin D3) 125 125 mcg PO DAILY 08/15/21 09/15/21 History mcg (5,000 unit) capsule trazodone 50 mg tablet 25 mg PO BEDTIME PRN insomnia #15 08/15/21 09/15/21 Rx tabs amlodipine 2.5 mg tablet 2.5 mg PO DAILY #90 tabs 08/18/21 09/15/21 Rx lidocaine 4 % topical patch 1 patch topical DAILY PRN Pain, 09/04/21 09/15/21 History (Blue-Emu Lidocaine Patch) Mild naltrexone 3.5 mg PO BEDTIME 09/04/21 09/15/21 History metronidazole 500 mg tablet 500 mg PO TID #21 tabs 09/05/21 09/15/21 Rx docusate sodium 100 mg capsule 100 mg PO BID PRN constipation #20 09/14/21 09/15/21 Rx caps ondansetron 4 mg disintegrating 4 mg PO TID-QID PRN nausea and 09/14/21 09/15/21 Rx tablet vomiting #10 tabs sennosides 8.6 mg capsule (senna) 8.6 mg PO BID #30 caps 09/14/21 09/15/21 Rx Allergies Allergy/AdvReac Type Severity Reaction Status Date / Time No Known Drug Allergies Allergy Verified 09/14/21 16:53 Exam Vital Signs (past 8 hours): - 09/18/21 02:00 09/18/21 06:00 09/18/21 06:34 Temperature 97.9 F Pulse Rate 82 Respiratory Rate 15 17 Blood Pressure 170/94 H 159/88 H Pulse Oximetry 96 Oxygen Delivery Method Room Air Oxygen Flow Rate 0 Const General: anxious Resp Effort & Inspection: normal respiratory effort GI Other: Abdomen soft nontender Objective Labs Result Diagrams: 09/16/21 04:30 09/18/21 05:30 Labs: Laboratory Results - last 24 hr 09/18/21 09/18/21 05:30 05:30 Sodium 134 L Potassium 2.9 L Chloride 101 Carbon Dioxide 27 BUN 3 L Creatinine 0.56 Estimated GFR > 60 BUN/Creatinine Ratio 5.4 L Glucose 95 Calcium 8.4 Magnesium 1.6 Total Bilirubin 0.3 AST 18 ALT 6 Alkaline Phosphatase 58 Total Protein 6.2 L Albumin 3.4 L Globulin 2.8 Albumin/Globulin Ratio 1.2 PFSH Medical History Abnormal Pap smear of cervix (~1970) Age-related osteoporosis without current pathological fracture Anticoagulated Cellulitis (~2000) Cervical cancer (~1970) Chicken pox (~1951) Chronic insomnia Clostridium difficile infection (~12/11/02) Depression (~1954) Elbow fracture, right (~2017) Essential hypertension Fractures (~2004) Frequent UTI (~2002) Headache Helicobacter pylori (H. pylori) (~10/18/11) History of low potassium (~2011) History of urinary incontinence (~1997) Loss of equilibrium (~07/30/04) Measles (~1953) Melanoma (~1996) Multiple sclerosis (~1975) Mumps (~1954) Oral pain Partial blindness (~1991) Pulmonary embolism Shoulder fracture Shoulder pain (~2009) Surgical History Cataract (~2012) Fracture of clavicle (~10/19/09) Hammertoes of both feet (~12/15/09) History of discectomy (~2002) History of foot surgery (~03/26/09) History of hysterectomy (~07/1973) History of shoulder surgery History of tonsillectomy (~09/1962) Previous back surgery (~11/24/02) Status post laser cataract surgery of both eyes Ulcer (~12/29/02) Family History Mother Stroke History of heart disease Brother AIDS Father Stroke History of heart disease Brother History of heart disease Stroke Brother Hypertension Stroke Brother History of heart disease Brother History of heart disease Sister History of heart disease Stroke Social History household members: none Tobacco & Substance Use Smoking Status: Never smoker alcohol intake: current Assessment & Plan Assessment and plan (1) Intractable vomiting: Status: Acute Plan We discussed the risks and benefits of esophageal gastroduodenoscopy for diagnosis. Will look especially at her antrum and duodenum to rule out peptic ulcer disease. I will perform biopsies of the antrum the very least. Time Spent With Patient Critical Care time: I spent a total of [] minutes of critical care time on this patient's care today; this time is exclusive of procedural time.
--- NOTE | 2021-09-18 10:31 | PM.OP.EGD ---
Operative Date/Time/Diagnoses Date of procedure: 09/18/21 Time of procedure: 10:32 Pre-op diagnosis: Intractable nausea and vomiting Post-op diagnosis: same Procedure & Clinicians Study performed: Esophagogastroduodenoscopy Same procedure as scheduled: Yes Surgeon: Ilya Disla Procedure Notes Procedure in detail: Surgeon: Ilya Disla MD Anesthesia: Edin Stone Monitored anesthesia was induced by Dr. Stone. A bite blocked was placed. A time-out was performed. The patient was positioned in the supine position. The endoscope was inserted through the bite block and passed through the esophagus and stomach and into the duodenum. The duodenal mucosa appeared normal. A photograph was taken. The scope was withdrawn into the duodenal bulb and no abnormalities were noted. The scope was withdrawn into the stomach. There is some mild gastritis of the antrum but no ulcerations or stenosis. Some random biopsies were taken of the antral mucosa. The rest of the stomach was normal. The scope was retroflexed and no hiatal hernia was noted. The scope was withdrawn into the esophagus and no abnormalities were noted. The remainder of the esophagus was normal. The scope was withdrawn. The patient was awakened and brought to recovery. Findings: Mild gastric antritis
[2021-09-18] MEDS: LACTATED RINGERS 1,000 ML 42 ML IV (10:41)
[2021-09-18] MEDS: RIVAROXABAN 10 MG TABLET 20 MG PO (11:18)
[2021-09-18] MEDS: PANTOPRAZOLE 40 MG VIAL IV (11:18)
[2021-09-18 14:57] LABS: Blood Urea Nitrogen 3 mg/dL (7-17); Chloride 101 mmol/L (98-107); Estimated Glomerular Filt Rate > 60 mL/min (>60); HEMOLYSIS < 15 (0-50); Potassium 3.2 mmol/L (3.4-5.1)
[2021-09-18 15:19] LABS: BUN Creatinine Ratio 4.8 (6-22); Calcium 8.3 mg/dL (8.4-10.2); Carbon Dioxide 28 mmol/L (22-32); Glucose 129 mg/dL (80-110); Sodium 134 mmol/L (137-145)
[2021-09-18] MEDS: GABAPENTIN 600 MG TABLET PO (15:36)
--- NOTE | 2021-09-18 19:33 | PM.DS.1 ---
History of Present Illness History of Present Illness Date Patient Seen: 09/18/21 Time Patient Seen: 12:00 Chief complaint: weakness, abd pain Narrative: Dayami Disla is a pleasant 75 y.o. female with a history a recent pulmonary embolism for which she is being anticoagulated 4, MS, frequent falls, osteoporosis, recent closed fracture of the pubic ramus, recently admitted and discharged on 09/05 for a partial small bowel obstruction, re-presents today with intractable nausea and vomiting. She was feeling better on discharge until several days ago when she started to develop intractable nausea and vomiting and inability to eat.? Last meal was at least 3 days ago consisting toast with cinnamon and butter on it she has generally had not much of an appetite nor has been consuming much fluid due to vomiting.? She states that she has not had much of a bowel movement since her discharge.? States she is quite weak and apparently had to be assisted from her car to the wheelchair prior to being brought into the emergency department.? During her previous stay she underwent a small-bowel follow-through and now feels worse than her condition prior to discharge.? She has requested for admission due to intractable nausea and vomiting. CT of the abdomen and pelvis noted a large amount of stool in the colon but no bowel obstruction.? She was administered a mineral oil enema and given oral ducolax with no effect. She continues to have a severe compression fracture of T11.? She is afebrile, blood pressure 138/70, heart rate 74, respiratory rate 22, oxygen saturation of 94% on room air, she weighs 54.4 kg with a BMI of 23.1.? CBC is unremarkable, sodium is 133, creatinine is 0.51, rest of her chemistries are within normal limits and COVID-19 PCR is negative. Family history has not changed since prior admission. Discharge Providers Provider Date of admission: 09/15/21 00:53 Discharge Date: 09/18/21 Primary care physician: Carlos Cristina MD Consults: 09/15/21 01:19 Consult to Physician Routine Comment: Consulting Provider: Lexi Stratton Reason for consultation: intractable vomiting, suspected obstipation Has provider been notified: No 09/17/21 14:34 Consult to General Surgery Routine Comment: Consulting Provider: Ilya Disla Reason for consultation: persistent NV, needs EGD Discharge provider: Tito Paniagua DO Summary Hospital Course Hospital Course: Patient admitted for nausea and vomiting which did not improve with antinausea meds. CT scan of abd pelvis showed possible gastric ulcer and a large amount of stool in her colon so NG placed with golytely and pt had 2 large bowel movements but her nausea persisted. Therefore General surgery was consulted who did an upper endoscopy which was normal. Took biopsies to test for H pylori but no ulcer or other abnormalities were present. Continued laxatives and Protonix and pt nausea improved and and began tolerating po intake. Sent home on daily MiraLax and senna titrated to have at least 1 bowel movement per day. Sent home with daily potassium supplement as she had low potassium during admission. Will have PCP check a potassium level at a later date. Also sent home on protonix for 30 days. Should her NV return, PCP should refer to Gastroenterology who can potentially do a gastric emptying study. Exam Vital Signs (past 8 hours): - 09/18/21 12:00 09/18/21 13:00 09/18/21 14:00 Temperature 98.0 F 99.6 F Pulse Rate 78 82 88 Respiratory Rate 16 14 15 Blood Pressure 164/88 H 153/81 H 165/85 H Pulse Oximetry 96 96 96 Oxygen Flow Rate 0 0 Oxygen Delivery Method Room Air Oxygen Flow Rate 0 Narrative Exam Narrative: Gen: Alert, oriented, well-developed 75 y.o. female HEENT: normocephalic, atraumatic, conjunctiva clear, sclera non-icteric, oral mucosa pink and moist Neck: supple, full ROM, no JVD, trachea is midline Resp: Lungs CTA, non-labored breathing CV: RRR, no murmur or rubs Abd: soft, mildly bloated, no tenderness, hypoactive BTs Skin: no lesions or rashes, dry and intact Neuro: Alert and oriented X 4 w/no focal deficits. Speech clear and coherent. Extremities: moves all 4 extremities, is ambulatory, negative Niranjan?s sign Psyche: normal mood and affect. Objective Labs Result Diagrams: 09/16/21 04:30 09/18/21 14:30 Labs: Laboratory Results - last 24 hr 09/18/21 09/18/21 09/18/21 05:30 05:30 14:30 Sodium 134 L 134 L Potassium 2.9 L 3.2 L Chloride 101 101 Carbon Dioxide 27 28 BUN 3 L 3 L Creatinine 0.56 0.63 Estimated GFR > 60 > 60 BUN/Creatinine Ratio 5.4 L 4.8 L Glucose 95 129 H Calcium 8.4 8.3 L Magnesium 1.6 Total Bilirubin 0.3 AST 18 ALT 6 Alkaline Phosphatase 58 Total Protein 6.2 L Albumin 3.4 L Globulin 2.8 Albumin/Globulin Ratio 1.2 PFSH Medical History Abnormal Pap smear of cervix (~1970) Age-related osteoporosis without current pathological fracture Anticoagulated Cellulitis (~2000) Cervical cancer (~1970) Chicken pox (~1951) Chronic insomnia Clostridium difficile infection (~12/11/02) Depression (~1954) Elbow fracture, right (~2017) Essential hypertension Fractures (~2004) Frequent UTI (~2002) Headache Helicobacter pylori (H. pylori) (~10/18/11) History of low potassium (~2011) History of urinary incontinence (~1997) Loss of equilibrium (~07/30/04) Measles (~1953) Melanoma (~1996) Multiple sclerosis (~1975) Mumps (~1954) Oral pain Partial blindness (~1991) Pulmonary embolism Shoulder fracture Shoulder pain (~2009) Surgical History Cataract (~2012) Fracture of clavicle (~10/19/09) Hammertoes of both feet (~12/15/09) History of discectomy (~2002) History of foot surgery (~03/26/09) History of hysterectomy (~07/1973) History of shoulder surgery History of tonsillectomy (~09/1962) Previous back surgery (~11/24/02) Status post laser cataract surgery of both eyes Ulcer (~12/29/02) Family History Mother Stroke History of heart disease Brother AIDS Father Stroke History of heart disease Brother History of heart disease Stroke Brother Hypertension Stroke Brother History of heart disease Brother History of heart disease Sister History of heart disease Stroke Social History household members: none Smoking Status: Never smoker alcohol intake: current Discharge Plan Discharge Plan Patient Disposition: Home Provider Discharge Comment: You were admitted for nausea and vomiting which did not improve with antinausea meds. The CT scan showed a large amount of stool in her colon so we gave you laxatives and you had 2 large bowel movements but your nausea persisted. Therefore General surgery was consulted who did an upper endoscopy which was normal. They took biopsies to test for H pylori but you had no ulcer or other abnormality. We gave you laxatives and Protonix which is an antacid medication in your nausea improved and you were able to eat. I am sending you home on daily MiraLax and senna to keep yourself regular and have at least 1 bowel movement per day. I am also sending home more Zofran in case you have nausea again. I am sending home on daily potassium supplement as you had low potassium during your admission. Please have your PCP check a potassium level at a later date. Lastly I am sending Protonix to take every morning which is an antacid. If your nausea and vomiting return he should try to get in with Gastroenterology who can potentially do a gastric emptying study or other tests something else is wrong. Discharge orders & Medications Prescriptions: New pantoprazole 40 mg Tablet,Delayed Release (Dr/Ec) 40 mg PO QAM 30 Days Qty: 30 0RF polyethylene glycol 3350 17 gram Powder In Packet 17 gm PO BID 30 Days Qty: 30 3RF potassium chloride 10 mEq capsule, extended release 20 meq PO DAILY Qty: 30 3RF Continued amlodipine 2.5 mg tablet 2.5 mg PO DAILY Qty: 90 3RF Rx Instructions: Hold for SBP below 110 or HR below 60 docusate sodium 100 mg capsule 100 mg PO BID PRN (Reason: constipation) Qty: 20 3RF Xarelto 20 mg tablet 20 mg PO DAILY Label Comments: TAKE 1 TABLET BY MOUTH DAILY fluoxetine 20 mg capsule 20 mg PO TID Qty: 270 3RF cholecalciferol (vitamin D3) 125 mcg (5,000 unit) capsule 125 mcg PO DAILY trazodone 50 mg tablet 25 mg PO BEDTIME PRN (Reason: insomnia) Qty: 15 5RF naltrexone 3.5 mg 3.5 mg PO BEDTIME lidocaine [Blue-Emu Lidocaine Patch] 4 % Adhesive Patch,Medicated 1 patch TOPICAL DAILY PRN (Reason: Pain, Mild) gabapentin 600 mg tablet 600 mg PO TID Qty: 60 0RF acetaminophen 325 mg Tablet 325 mg PO Q6HR Qty: 30 0RF ondansetron 4 mg tablet,disintegrating 4 mg PO TID-QID PRN (Reason: nausea and vomiting) Qty: 30 3RF senna 8.6 mg capsule 8.6 mg PO BID Qty: 30 3RF Discontinued metronidazole 500 mg tablet 500 mg PO TID Qty: 21 0RF Follow up/Referrals: Carlos Cristina MD [Primary Care Provider] - Diet/Activity/Treatments Diet: Regular Discharge Data Primary Care Provider: Carlos Cristina V Quality VTE Deep Vein Thrombosis/Pulmonary Embolism Present on Admission: No
== END 2021-09-18 16:52 | disposition home or self-care (01) | DRG 392 ==
LOC: ED 18:41 → AC 09-15 00:54 → ICU 09-15 16:15
PROVIDERS: Emergency Medicine; Student in an Organized Health Care Education/Training Program; Surgery; Admitting Provider Nurse Practitioner Family; Emergency Provider Emergency Medicine; PCP Internal Medicine; Referring Provider Emergency Medicine; Visit Provider Nurse Practitioner Family
PROC: 0DJ08ZZ Inspection of Upper Intestinal Tract, Via Natural or Artificial Opening Endoscopic (ICD-10-PCS; CPT 43235; principal; 2021-09-18 09:30)
DX: R11.2 Nausea with vomiting, unspecified (principal); E87.6 Hypokalemia; E83.42 Hypomagnesemia; K59.00 Constipation, unspecified; I10 Essential (primary) hypertension; F32.9 Major depressive disorder, single episode, unspecified; G35 Multiple sclerosis; Z86.711 Personal history of pulmonary embolism; Z79.01 Long term (current) use of anticoagulants; Z22.322 Carrier or suspected carrier of Methicillin resistant Staphylococcus aureus; Z20.822 Contact with and (suspected) exposure to COVID-19; K29.60 Other gastritis without bleeding
CPT/HCPCS: 36415; 43239; 71045; 74018; 74177; 80048; 80053; 82962; 83690; 83735; 85025; 85610; 87635; 87797; 93005; 93010; 96361; 96374; 99232; 99284; 99285; C9803; G0378; C9113; J2250; J2405; J2765; J3010; J3360; J3475; Q9967

== ENCOUNTER 2021-09-28 09:31 | Inpatient (IN) | payer MEDICARE, OTHER, SELFPAY ==
[2021-09-15 16:14] VITALS: BMI 22.1
[2021-09-28] VITALS (12 sets, daily range): BP systolic 153–217; BP diastolic 81–124; PULSE 86–126; RESP 18–34; TEMP 36.6–36.9; O2SAT 91–95; BMI 20.1
--- NOTE | 2021-09-28 09:46 | DI.RAD.S_ITS ---
PROCEDURE: XR CHEST 1V INDICATIONS: chest pain TECHNIQUE: One view of the chest was acquired. COMPARISON: [facility], CR, XR CHEST 1V, 07/06/2021, 11:20. [facility], CR, XR ABDOMEN 1V, 09/17/2021, 14:17. [facility], CR, XR CHEST 1V, 09/15/2021, 18:04. FINDINGS: Surgical changes and devices: Postoperative change of both shoulders can be seen. Lungs and pleura: Lungs are clear. No pleural effusions or pneumothorax. Mediastinum: Mediastinal contours appear normal. Heart size is at the upper limits of normal. Bones and chest wall: No suspicious bony lesions. There is moderate dextroconvex scoliosis. Age-appropriate bony degenerative changes are seen. Overlying soft tissues appear unremarkable. IMPRESSION: Clear lungs. Postoperative and degenerative changes are seen. Dictated by: Kenny Hartman M.D. on 09/28/2021 at 10:16 Approved by: Kenny Hartman M.D. on 09/28/2021 at 10:17
[2021-09-28] MEDS: ONDANSETRON 4 MG/2 ML INJ IV (09:59)
[2021-09-28 10:20] LABS: Add Manual Diff / Slide Review NO; Basophils Absolute Auto 0 /uL (0-100); Basophils Percent Auto 0.3 % (0-2); Eosinophils Absolute Auto 0 /uL (0-450); Hematocrit 44.2 % (36-46); Hemoglobin 15.2 g/dL (12.0-16.0); Lymphocytes Absolute Auto 900 /uL (1100-4500); Lymphocytes Percent Auto 8.2 % (25-40); Mean Corpuscular HGB Conc 34.3 % (30-36); Mean Corpuscular Hemoglobin 30.5 PG (26-34); Mean Corpuscular Volume 88.9 fL (80-100); Monocytes Absolute Auto 700 /uL (0-900); Monocytes Percent Auto 6.3 % (3-14); Neutrophils Absolute Auto 9000 /uL (1500-7000); Neutrophils Percent Auto 85.2 % (50-75); Platelet Count 376 X10^3/uL (150-400); Red Blood Cell Count 4.98 X10^6/uL (4.0-5.2); Red Cell Distribution Width 14.5 % (11.6-14.8); White Blood Cell Count 10.6 X10^3/uL (4.5-11.0)
[2021-09-28 10:30] LABS: INR 2.7 (0.9-1.3); Prothrombin Time 31.2 SECONDS (10.1-12.7)
--- NOTE | 2021-09-28 10:30 | ED_ITS ---
HPI - General Adult General Chief complaint: Hypertension Stated complaint: Headache Time Seen by Provider: 09/28/21 10:19 Source: patient and EMS Mode of arrival: EMS History of Present Illness HPI narrative: Patient here from [facility] for headache and high blood pressure. Patient denies any chest pain or palpitations or dyspnea. No abdominal pain. Patient has been seen recently last month for abdominal pain and complaints. Has been having difficulty with nausea and decreased appetite as well. 10:25 a.m.. Spoke with daughter by phone. She is on her way here to the hospital. Reviewed with her mother's DNR form. At this time senior care is trying to access the copy for more description. Rather comfort measures only or selective treatment or full treatment with DNR. I spoke with patient and at this time she is unsure and wants to wait for her daughter arrive here. I did review with daughter and patient regarding arrhythmia/V-tach runs. Patient denies any chest pain at this time however there is high risk of arrhythmia causing cardiac arrest. At this time patient and daughter unsure what they would like. Regarding antiarrhythmic medication. Whether they wanted or not. 10:33 a.m.. custodial indicates that patient is comfort measures only Related Data Home Medications Medication Instructions Recorded Confirmed rivaroxaban 20 mg tablet (Xarelto) 20 mg PO DAILY 07/14/21 09/28/21 cholecalciferol (vitamin D3) 125 125 mcg PO DAILY 08/15/21 09/28/21 mcg (5,000 unit) capsule Previous Rx's Medication Instructions Recorded fluoxetine 20 mg capsule 20 mg PO TID #270 caps 07/14/21 trazodone 50 mg tablet 25 mg PO BEDTIME PRN insomnia #15 08/15/21 tabs amlodipine 2.5 mg tablet 2.5 mg PO DAILY #90 tabs 08/18/21 docusate sodium 100 mg capsule 100 mg PO BID PRN constipation #20 09/14/21 caps ondansetron 4 mg disintegrating 4 mg PO TID-QID PRN nausea and 09/18/21 tablet vomiting #30 tabs pantoprazole 40 mg tablet,delayed 40 mg PO QAM 30 days #30 tabs 09/18/21 release polyethylene glycol 3350 17 gram 17 gm PO BID 30 days #30 ea 09/18/21 oral powder packet potassium chloride 10 mEq 20 meq PO DAILY #30 caps 09/18/21 capsule,extended release sennosides 8.6 mg capsule (senna) 8.6 mg PO BID #30 caps 09/18/21 naltrexone 50 mg tablet See Rx Instructions PO DAILY #20 09/22/21 tabs bupropion HCl 150 mg tablet,12 hr 150 mg PO BID #60 ea 09/23/21 sustained-release Allergies Allergy/AdvReac Type Severity Reaction Status Date / Time No Known Drug Allergies Allergy Verified 09/28/21 10:16 Review of Systems Review of Systems Narrative: GENERAL: Denies chills, fatigue, malaise, fever, sweats. HEENT: Denies sinus pain, ear pain, sore throat RESPIRATORY: Denies dyspnea, cough CARDIOVASCULAR: Denies chest pain, palpitations GASTROINTESTINAL: Denies nausea, vomiting, abdominal pain : Denies dysuria, frequency, hematuria MUSCULOSKELETAL: denies muscle or bony pain SKIN: Denies rash, skin lesions NEUROLOGIC: Denies weakness, numbness, positive for headache ROS Unobtainable: All systems reviewed & are unremarkable except as noted in HPI and below Patient History Medical History Abnormal Pap smear of cervix (~1970) Age-related osteoporosis without current pathological fracture Cellulitis (~2000) Cervical cancer (~1970) Chicken pox (~1951) Chronic anticoagulation Chronic insomnia Clostridium difficile infection (~12/11/02) Constipation, slow transit Depression (~1954) Depression, recurrent Elbow fracture, right (~2017) Essential hypertension Fractures (~2004) Frequent UTI (~2002) Headache Helicobacter pylori (H. pylori) (~10/18/11) History of low potassium (~2011) History of urinary incontinence (~1997) Loss of equilibrium (~07/30/04) Measles (~1953) Melanoma (~1996) Multiple sclerosis (~1975) Mumps (~1954) Nausea and vomiting Oral pain Partial blindness (~1991) Pulmonary embolism Shoulder fracture Shoulder pain (~2009) Surgical History Cataract (~2012) Fracture of clavicle (~10/19/09) Hammertoes of both feet (~12/15/09) History of discectomy (~2002) History of foot surgery (~03/26/09) History of hysterectomy (~07/1973) History of shoulder surgery History of tonsillectomy (~09/1962) Previous back surgery (~11/24/02) Status post laser cataract surgery of both eyes Ulcer (~12/29/02) Family History Mother Stroke History of heart disease Brother AIDS Father Stroke History of heart disease Brother History of heart disease Stroke Brother Hypertension Stroke Brother History of heart disease Brother History of heart disease Sister History of heart disease Stroke Social History household members: none Smoking Status: Never smoker alcohol intake: current Smoking Status: Never smoker alcohol intake frequency: holidays/special occasions only Substance Use Type: does not use Exam Narrative Exam Narrative: GENERAL: in no distress, not toxic not dyspneic HEAD: Normocephalic. EYES: Pupils equal round No scleral icterus. ENT: Mucous membranes moist. NECK: Trachea midline. CARDIOVASCULAR: Regular rate and rhythm without murmurs, tachycardic RESPIRATORY: Clear to auscultation. Breath sounds equal bilaterally. No wheezes, rales, or rhonchi. GASTROINTESTINAL: Abdomen soft, non-tender EXTREMITIES: No gross deformities. BACK: No flank tenderness. NEURO: Awake alert oriented to self and date of . Clear speech. No facial droop SKIN: Warm and dry PSYCH: Is anxious, is cooperative Initial Vital Signs Initial Vital Signs: Vital Signs Temperature 98.4 F 09/28/21 09:30 Pulse Rate 116 H 09/28/21 09:30 Respiratory Rate 24 09/28/21 09:30 Blood Pressure 201/108 H 09/28/21 09:30 Pulse Oximetry 95 09/28/21 09:30 Oxygen Delivery Method 09/28/21 09:30 Course Course Course Narrative: 10:50 a.m. Patient and daughter do agree for potassium replacement which may help prevent V-tach They do agree for admission for nausea and IV fluids Orders Ordered: Acetaminophen (Acetaminophen 325 Mg Tablet) 650 mg PO Q6HR PRN PRN Reason: Fever/Mild Pain (1-3) Last Admin: 10/01/21 14:38 Dose: 650 mg Documented By: Admin: 09/28/21 13:20 Dose: 650 mg Documented By: DEEPTHI Amlodipine Besylate (Amlodipine 5 Mg Tablet) 5 mg PO DAILY [facility] Last Admin: 10/03/21 12:39 Dose: Not Given Documented By: Admin: 10/02/21 10:07 Dose: Not Given Documented By: Admin: 10/01/21 09:40 Dose: 5 mg Documented By: Admin: 09/30/21 11:11 Dose: 5 mg Documented By: ROLY Bisacodyl (Bisacodyl 5 Mg Tablet) 5 mg PO BID PRN PRN Reason: Constipation Bupropion HCl (Bupropion Sr 150 Mg Tab) 150 mg PO BID [facility] Last Admin: 10/03/21 21:52 Dose: 150 mg Documented By: Admin: 10/03/21 12:40 Dose: Not Given Documented By: Admin: 10/02/21 21:37 Dose: Not Given Documented By: Admin: 10/02/21 10:07 Dose: Not Given Documented By: Admin: 10/01/21 21:16 Dose: 150 mg Documented By: Admin: 10/01/21 09:40 Dose: 150 mg Documented By: Admin: 09/30/21 20:58 Dose: 150 mg Documented By: Admin: 09/30/21 11:09 Dose: 150 mg Documented By: Admin: 09/29/21 20:15 Dose: 150 mg Documented By: Admin: 09/29/21 08:32 Dose: 150 mg Documented By: Admin: 09/28/21 21:19 Dose: 150 mg Documented By: DOMINGO Docusate Sodium (Docusate 100 Mg Capsule) 100 mg PO BID [facility] Last Admin: 10/03/21 21:52 Dose: 100 mg Documented By: Admin: 10/03/21 12:40 Dose: Not Given Documented By: Admin: 10/02/21 21:37 Dose: Not Given Documented By: Admin: 10/02/21 10:07 Dose: Not Given Documented By: Admin: 10/01/21 21:15 Dose: Not Given Documented By: ROGER Dronabinol (Dronabinol 2.5 Mg Capsule) 2.5 mg PO TID [facility] Last Admin: 10/03/21 21:52 Dose: 2.5 mg Documented By: Admin: 10/03/21 15:10 Dose: Not Given Documented By: [facility] Admin: 10/03/21 12:40 Dose: Not Given Documented By: [facility] Admin: 10/02/21 21:37 Dose: Not Given Documented By: Admin: 10/02/21 16:04 Dose: Not Given Documented By: [facility] Admin: 10/02/21 10:07 Dose: Not Given Documented By: [facility] Admin: 10/01/21 21:15 Dose: Not Given Documented By: Admin: 10/01/21 15:34 Dose: Not Given Documented By: Admin: 10/01/21 10:21 Dose: 2.5 mg Documented By: Admin: 09/30/21 22:00 Dose: Not Given Documented By: Admin: 09/30/21 13:53 Dose: 2.5 mg Documented By: Admin: 09/30/21 09:00 Dose: Not Given Documented By: Admin: 09/29/21 20:15 Dose: 2.5 mg Documented By: DOMINGO Fentanyl (Fentanyl 12 Mcg/Patch) 12 mcg TOP Q72H [facility] Last Admin: 10/02/21 15:57 Dose: 12 mcg Documented By: [facility] Fluoxetine HCl (Fluoxetine 20 Mg Capsule) 20 mg PO TID [facility] Last Admin: 10/03/21 21:52 Dose: 20 mg Documented By: [facility] Admin: 10/03/21 15:10 Dose: Not Given Documented By: [facility] Admin: 10/03/21 12:40 Dose: Not Given Documented By: [facility] Admin: 10/02/21 21:37 Dose: Not Given Documented By: Admin: 10/02/21 16:04 Dose: Not Given Documented By: [facility] Admin: 10/02/21 10:07 Dose: Not Given Documented By: [facility] Admin: 10/01/21 21:16 Dose: 20 mg Documented By: Admin: 10/01/21 14:38 Dose: 20 mg Documented By: Admin: 10/01/21 09:40 Dose: 20 mg Documented By: Admin: 09/30/21 20:59 Dose: 20 mg Documented By: Admin: 09/30/21 15:57 Dose: 20 mg Documented By: Admin: 09/30/21 11:11 Dose: 20 mg Documented By: Admin: 09/29/21 20:16 Dose: 20 mg Documented By: Admin: 09/29/21 17:36 Dose: 20 mg Documented By: Admin: 09/29/21 08:33 Dose: 20 mg Documented By: Admin: 09/28/21 21:19 Dose: 20 mg Documented By: DOMINGO Heparin Sodium (Porcine) (Heparin Flush (Cl/Picc/Mid-Line) 50 Unit/5 Ml Syringe) 50 unit IV BID [facility] Last Admin: 10/03/21 21:53 Dose: 50 unit Documented By: Admin: 10/03/21 12:40 Dose: Not Given Documented By: Admin: 10/02/21 21:42 Dose: 50 unit Documented By: Admin: 10/02/21 21:40 Dose: Not Given Documented By: Admin: 10/01/21 21:17 Dose: 50 unit Documented By: ROGER Lorazepam (Lorazepam 2 Mg/Ml Oral Yaz) 1 mg PO Q1HR PRN PRN Reason: nausea Last Admin: 10/03/21 10:04 Dose: 1 mg Documented By: Admin: 10/02/21 20:35 Dose: 1 mg Documented By: Admin: 10/02/21 17:02 Dose: 1 mg Documented By: Admin: 10/01/21 14:46 Dose: 1 mg Documented By: MORENA Lorazepam (Lorazepam 1 Mg Tablet) 1 mg PO Q1HR PRN PRN Reason: Anxiety Losartan Potassium (Losartan 50 Mg Tablet) 50 mg PO DAILY [facility] Last Admin: 10/03/21 12:40 Dose: Not Given Documented By: Admin: 10/02/21 10:08 Dose: Not Given Documented By: Admin: 10/01/21 09:40 Dose: 50 mg Documented By: Admin: 09/30/21 11:09 Dose: 50 mg Documented By: ROLY Metoclopramide HCl (Metoclopramide 10 Mg/2 Ml Inj) 10 mg IV Q8HR PRN PRN Reason: Nausea And Vomiting Last Admin: 10/02/21 13:44 Dose: 10 mg Documented By: Admin: 09/29/21 08:33 Dose: 10 mg Documented By: Admin: 09/28/21 21:19 Dose: 10 mg Documented By: Admin: 09/28/21 13:20 Dose: 10 mg Documented By: DEEPTHI Morphine Sulfate (Morphine 10 Mg/0.5 Ml Oral Syringe) 10 mg PO Q1H PRN PRN Reason: Pain/Dyspnea Last Admin: 10/03/21 11:20 Dose: 10 mg Documented By: PATRICK Ondansetron HCl (Ondansetron 4 Mg Odt) 4 mg SL Q6HR PRN PRN Reason: Nausea Last Admin: 10/01/21 11:39 Dose: 4 mg Documented By: Admin: 10/01/21 05:38 Dose: 4 mg Documented By: Admin: 09/30/21 21:06 Dose: 4 mg Documented By: Admin: 09/30/21 11:08 Dose: 4 mg Documented By: Admin: 09/29/21 21:38 Dose: 4 mg Documented By: Admin: 09/29/21 12:28 Dose: 4 mg Documented By: BORIS Polyethylene Glycol (Polyethylene Glycol 3350 17 Gm Powd.Pack) 17 gm PO DAILY PRN PRN Reason: Constipation Polyethylene Glycol (Polyethylene Glycol 3350 17 Gm Powd.Pack) 17 gm PO BID [facility] Last Admin: 10/03/21 22:58 Dose: Not Given Documented By: Admin: 10/03/21 12:40 Dose: Not Given Documented By: Admin: 10/02/21 21:37 Dose: Not Given Documented By: Admin: 10/02/21 10:08 Dose: Not Given Documented By: Admin: 10/01/21 21:15 Dose: Not Given Documented By: Admin: 10/01/21 09:37 Dose: Not Given Documented By: Admin: 09/30/21 22:00 Dose: Not Given Documented By: Admin: 09/30/21 11:09 Dose: 17 gm Documented By: Admin: 09/29/21 20:16 Dose: Not Given Documented By: Admin: 09/29/21 08:33 Dose: 17 gm Documented By: Admin: 09/28/21 21:19 Dose: Not Given Documented By: DOMINGO Potassium Chloride (Potassium Chloride 10 Meq Tab) 20 meq PO DAILY [facility] Last Admin: 10/03/21 12:41 Dose: Not Given Documented By: Admin: 10/02/21 10:08 Dose: Not Given Documented By: Admin: 10/01/21 09:40 Dose: 20 meq Documented By: Admin: 09/30/21 11:10 Dose: 20 meq Documented By: Admin: 09/29/21 08:32 Dose: 20 meq Documented By: BORIS Rivaroxaban (Rivaroxaban 10 Mg Tablet) 20 mg PO DAILY [facility] Last Admin: 10/03/21 12:41 Dose: Not Given Documented By: Admin: 10/02/21 10:08 Dose: Not Given Documented By: [facility] Admin: 10/01/21 09:40 Dose: 20 mg Documented By: Admin: 09/30/21 11:09 Dose: 20 mg Documented By: Admin: 09/29/21 08:33 Dose: 20 mg Documented By: BORIS Scopolamine (Scopolamine 1 Patch) 1 patch TOP Q72H PRN PRN Reason: Secretions Last Admin: 10/01/21 12:33 Dose: 1 patch Documented By: MORENA Sennosides (Sennosides 8.6 Mg Tablet) 8.6 mg PO DAILY PRN PRN Reason: Constipation Sennosides (Sennosides 8.6 Mg Tablet) 8.6 mg PO BID [facility] Last Admin: 10/03/21 22:58 Dose: Not Given Documented By: Admin: 10/03/21 12:41 Dose: Not Given Documented By: Admin: 10/02/21 21:37 Dose: Not Given Documented By: Admin: 10/02/21 10:08 Dose: Not Given Documented By: [facility] Admin: 10/01/21 21:16 Dose: Not Given Documented By: Admin: 10/01/21 09:37 Dose: Not Given Documented By: Admin: 09/30/21 20:59 Dose: 8.6 mg Documented By: Admin: 09/30/21 11:10 Dose: 8.6 mg Documented By: Admin: 09/29/21 20:16 Dose: 8.6 mg Documented By: Admin: 09/29/21 08:32 Dose: 8.6 mg Documented By: Admin: 09/28/21 21:19 Dose: Not Given Documented By: DOMINGO Trazodone HCl (Trazodone 50 Mg Tablet) 25 mg PO BEDTIME PRN PRN Reason: insomnia Last Admin: 09/29/21 21:38 Dose: 25 mg Documented By: Admin: 09/28/21 21:19 Dose: 25 mg Documented By: DOMINGO Discontinued Medications Amino Acids/Electrolytes (Tpn Per Pharmacy) 1 request IV 1800 [facility] Stop: 09/30/21 17:59 Amlodipine Besylate (Amlodipine 5 Mg Tablet) 2.5 mg PO DAILY [facility] Last Admin: 09/29/21 08:31 Dose: 2.5 mg Documented By: BORIS Diazepam (Diazepam 10 Mg/2 Ml Syringe) 2 mg IV NOW ONE Stop: 09/28/21 11:25 Last Admin: 09/28/21 11:34 Dose: 2 mg Documented By: JEANNIE Diazepam (Diazepam 10 Mg/2 Ml Syringe) 2 mg IV Q4HR PRN PRN Reason: Anxiety Dronabinol (Dronabinol 2.5 Mg Capsule) 2.5 mg PO TID [facility] Last Admin: 09/29/21 14:06 Dose: Not Given Documented By: BORIS Dronabinol (Dronabinol 2.5 Mg Capsule) 2.5 mg PO NOW ONE Stop: 09/29/21 13:01 Last Admin: 09/29/21 14:10 Dose: Not Given Documented By: BORIS POTASSIUM CHLORIDE IN WATER (Potassium Cl 10 Meq/100 Ml Yaz) 10 meq in 100 mls @ 100 mls/hr IV Q1H [facility] Stop: 09/28/21 12:59 Last Infusion: 09/28/21 13:27 Dose: 0 mls/hr Documented By: Admin: 09/28/21 11:54 Dose: 100 mls/hr Documented By: Infusion: 09/28/21 11:54 Dose: 100 mls/hr Documented By: Admin: 09/28/21 10:56 Dose: 100 mls/hr Documented By: JEANNIE Magnesium Sulfate (Magnesium Sulfate) 2 gm in 50 mls @ 25 mls/hr IV NOW ONE Stop: 09/28/21 13:39 Last Infusion: 09/28/21 18:55 Dose: 0 mls/hr Documented By: DEEPTHI Co-signed By: RICHIE Admin: 09/28/21 16:20 Dose: 25 mls/hr Documented By: DEEPTHI Co-signed By: RICHIE POTASSIUM CHLORIDE IN WATER (Potassium Cl 10 Meq/100 Ml Yaz) 10 meq in 100 mls @ 100 mls/hr IV Q1H [facility] Stop: 09/28/21 15:44 Last Infusion: 09/28/21 17:24 Dose: 0 mls/hr Documented By: Admin: 09/28/21 16:20 Dose: 100 mls/hr Documented By: Infusion: 09/28/21 16:20 Dose: 100 mls/hr Documented By: Admin: 09/28/21 15:20 Dose: 100 mls/hr Documented By: Infusion: 09/28/21 15:19 Dose: 100 mls/hr Documented By: Admin: 09/28/21 14:19 Dose: 100 mls/hr Documented By: Infusion: 09/28/21 14:19 Dose: 100 mls/hr Documented By: Admin: 09/28/21 13:20 Dose: 100 mls/hr Documented By: DEEPTHI Magnesium Sulfate (Magnesium Sulfate) 2 gm in 50 mls @ 25 mls/hr IV NOW ONE Stop: 09/28/21 22:07 Last Admin: 09/28/21 21:19 Dose: 25 mls/hr Documented By: DOMINGO Co-signed By: PATSY POTASSIUM CHLORIDE IN WATER (Potassium Cl 10 Meq/100 Ml Yaz) 10 meq in 100 mls @ 100 mls/hr IV Q1H [facility] Stop: 09/29/21 12:14 Last Admin: 09/29/21 16:40 Dose: Not Given Documented By: Admin: 09/29/21 16:40 Dose: Not Given Documented By: Admin: 09/29/21 14:34 Dose: 50 mls/hr Documented By: Infusion: 09/29/21 13:19 Dose: 50 mls/hr Documented By: Admin: 09/29/21 11:19 Dose: 50 mls/hr Documented By: Infusion: 09/29/21 09:30 Dose: 50 mls/hr Documented By: Admin: 09/29/21 08:30 Dose: 100 mls/hr Documented By: Infusion: 09/29/21 07:42 Dose: 100 mls/hr Documented By: Admin: 09/29/21 06:42 Dose: 100 mls/hr Documented By: DOMINGO Sodium Chloride (Normal Saline 0.9%) 1,000 mls @ 84 mls/hr IV CONT [facility] Last Admin: 09/29/21 08:19 Dose: 84 mls/hr Documented By: BORIS Fat Emulsion Intravenous (Clinolipid 20%) 50 gm in 250 mls @ 25 mls/hr IV [id number] [facility] Stop: 10/01/21 03:59 Last Infusion: 10/01/21 12:57 Dose: 25 mls/hr Documented By: Admin: 09/30/21 19:51 Dose: 25 mls/hr Documented By: ROGER Multivitamins 10 ml/ Chromium/Copper/Manganese/Seleni/Zn 1 ml/ Potassium Phosphate 15 mmol/ Amino Acids/Electrolytes 1,016 mls @ 42.333 mls/hr IV 1900 [facility] Stop: 09/30/21 18:59 Last Admin: 09/29/21 20:14 Dose: 42.333 mls/hr Documented By: DOMINGO Sodium Chloride 40 meq/Potassium Chloride 40 meq/Potassium Phosphate 9 mmol/Multivitamins 10 ml/ Chromium/Copper/Manganese/Seleni/Zn 1 ml/ Famotidine 20 mg/ Amino Acids/Electrolytes 1,546 mls @ 64.417 mls/hr IV 1800 ONE Stop: 10/01/21 17:59 Last Admin: 09/30/21 19:49 Dose: 64.417 mls/hr Documented By: ROGER Co-signed By: ROLY Labetalol HCl (Labetalol 20 Mg/4 Ml Syringe) 10 mg IV Q4HR PRN PRN Reason: SBP >190 Morphine Sulfate (Morphine 4 Mg/Ml Inj) 4 mg IV NOW ONE Stop: 09/28/21 10:35 Last Admin: 09/28/21 10:43 Dose: 4 mg Documented By: JEANNIE Naltrexone 3.5 Mg (Capsule) 3.5 mg PO DAILY [facility] Last Admin: 09/30/21 10:00 Dose: Not Given Documented By: Admin: 09/29/21 08:40 Dose: Not Given Documented By: BORIS Naltrexone 3.5 Mg (Capsule) 3.5 mg PO BEDTIME [facility] Last Admin: 10/01/21 21:26 Dose: Not Given Documented By: Admin: 09/30/21 20:58 Dose: 3.5 mg Documented By: ROGER Ondansetron HCl (Ondansetron 4 Mg/2 Ml Inj) 4 mg IV NOW ONE Stop: 09/28/21 09:56 Last Admin: 09/28/21 09:59 Dose: 2 mg Documented By: JEANNIE Pantoprazole Sodium (Pantoprazole Dr 40 Mg Tablet) 40 mg PO DAILY [facility] Last Admin: 09/30/21 11:09 Dose: 40 mg Documented By: Admin: 09/29/21 08:33 Dose: 40 mg Documented By: BORIS Reevaluation(s) Reevaluation #1: Spoke at length with daughter and patient. Daughter is at bedside at this time. At this time patient and daughter do not want any changes to the DNR form. R emains comfort measures only. No antiarrhythmics. Only pain medication and sedation medication. The do agree for electrolyte imbalance replacement as well as IV fluids and admission. Time: 10:44 Reevaluation #2: Daughter did start dialogue with hospitalist here last visit, Dr. Paniagua regarding hospice care. Time: 11:16 Consultations Consultation #1: Spoke with Cardiology Dr. Killian, is available if patient family changed their mind. He does agree with electrolyte replacement. Would recommend but overall or amiodarone if family changes their mind for treatment Time: 10:52 Consultation #2: Spoke with Dr. Paniagua, hospitalist, will admit. Time: 11:25 Vital Signs Vital signs: Vital Signs - 8 hr 09/28/21 09:30 09/28/21 09:40 09/28/21 09:42 Temperature 98.4 F Pulse Rate 116 H 103 H 107 H Respiratory Rate 24 Blood Pressure 201/108 H Pulse Oximetry 95 95 94 Oxygen Delivery Method Room Air 09/28/21 09:42 09/28/21 09:43 09/28/21 09:43 Temperature Pulse Rate 114 H Respiratory Rate Blood Pressure 215/119 H 201/108 H Pulse Oximetry 95 Oxygen Delivery Method 09/28/21 10:00 09/28/21 10:00 09/28/21 10:30 Temperature Pulse Rate 110 H Respiratory Rate 26 H Blood Pressure 209/124 H 217/119 H Pulse Oximetry 95 Oxygen Delivery Method 09/28/21 10:30 Temperature Pulse Rate 118 H Respiratory Rate 34 H Blood Pressure Pulse Oximetry 95 Oxygen Delivery Method Medical Decision Making Differential Diagnosis Differential Diagnosis: Hypertensive emergency/paroxysmal V-tach/electrolyte imbalance Lab Data Result diagrams: 10/01/21 05:28 10/01/21 05:28 Labs: Lab Results 09/28/21 09/28/21 09/28/21 Range/Units 09:39 10:14 10:14 WBC 10.6 (4.5-11.0) X10^3/uL RBC 4.98 (4.0-5.2) X10^6/uL Hgb 15.2 (12.0-16.0) g/dL Hct 44.2 (36-46) % MCV 88.9 (80-100) fL MCH 30.5 (26-34) PG MCHC 34.3 (30-36) % RDW 14.5 (11.6-14.8) % Plt Count 376 (150-400) X10^3/uL Neut % (Auto) 85.2 H (50-75) % Lymph % (Auto) 8.2 L (25-40) % Charlotte % (Auto) 6.3 (3-14) % Eos % (Auto) 0.0 L (2-4) % Baso % (Auto) 0.3 (0-2) % Neut # (Auto) 9000 H (3271-0956) /uL Lymph # (Auto) 900 L (5952-8334) /uL Charlotte # (Auto) 700 (0-900) /uL Eos # (Auto) 0 (0-450) /uL Baso # (Auto) 0 (0-100) /uL PT 31.2 H (10.1-12.7) SECONDS INR 2.7 H (0.9-1.3) Sodium (137-145) mmol/L Potassium (3.4-5.1) mmol/L Chloride (98-107) mmol/L Carbon Dioxide (22-32) mmol/L BUN (7-17) mg/dL Creatinine (0.52-1.04) mg/dL Estimated GFR (>60) mL/min BUN/Creatinine Ratio (6-22) Glucose (80-110) mg/dL Calcium (8.4-10.2) mg/dL Magnesium (1.6-2.3) mg/dL Total Bilirubin (0.2-1.3) mg/dL AST (14-36) IU/L ALT (<35) IU/L Alkaline Phosphatase (38-126) U/L Total Creatine Kinase (30-135) U/L CK-MB (CK-2) CK-MB (CK-2) Rel Index Troponin I (0.01-0.034) ng/mL Total Protein (6.3-8.2) g/dL Albumin (3.5-5.0) g/dL Globulin (1.7-4.1) g/dL Albumin/Globulin Ratio (1.0-2.8) Lipase (23-300) U/L SARS-CoV-2 (PCR) Negative (Negative) 09/28/21 Range/Units 10:14 WBC (4.5-11.0) X10^3/uL RBC (4.0-5.2) X10^6/uL Hgb (12.0-16.0) g/dL Hct (36-46) % MCV (80-100) fL MCH (26-34) PG MCHC (30-36) % RDW (11.6-14.8) % Plt Count (150-400) X10^3/uL Neut % (Auto) (50-75) % Lymph % (Auto) (25-40) % Charlotte % (Auto) (3-14) % Eos % (Auto) (2-4) % Baso % (Auto) (0-2) % Neut # (Auto) (0912-9703) /uL Lymph # (Auto) (7524-8464) /uL Charlotte # (Auto) (0-900) /uL Eos # (Auto) (0-450) /uL Baso # (Auto) (0-100) /uL PT (10.1-12.7) SECONDS INR (0.9-1.3) Sodium 136 L (137-145) mmol/L Potassium 2.2 L* (3.4-5.1) mmol/L Chloride 99 (98-107) mmol/L Carbon Dioxide 20 L (22-32) mmol/L BUN 22 H (7-17) mg/dL Creatinine 0.79 (0.52-1.04) mg/dL Estimated GFR > 60 (>60) mL/min BUN/Creatinine Ratio 27.8 H (6-22) Glucose 153 H (80-110) mg/dL Calcium 9.7 (8.4-10.2) mg/dL Magnesium 1.7 (1.6-2.3) mg/dL Total Bilirubin 1.0 (0.2-1.3) mg/dL AST 22 (14-36) IU/L ALT 11 (<35) IU/L Alkaline Phosphatase 95 (38-126) U/L Total Creatine Kinase 29 L (30-135) U/L CK-MB (CK-2) TNP CK-MB (CK-2) Rel Index TNP Troponin I 0.020 (0.01-0.034) ng/mL Total Protein 8.5 H (6.3-8.2) g/dL Albumin 4.8 (3.5-5.0) g/dL Globulin 3.7 (1.7-4.1) g/dL Albumin/Globulin Ratio 1.3 (1.0-2.8) Lipase 234 (23-300) U/L SARS-CoV-2 (PCR) (Negative) ECG Data Interpretation: Sinus tachycardia rate 114. No ST elevation or depression, prolonged QT 2nd EKG at 10:28 a.m.. Sinus tachycardia with PVC. Essentially unchanged MDM Narrative Medical decision making narrative: Appropriate for admission. Will need potassium replacement and blood pressure control. Also patient family do wish to have dialogue with hospitalist and staff regarding hospice care as well. At this time given nausea and vomiting and anxiety at senior care. Patient has not been ill take her medicines according to daughter. Likely leading to high blood pressure headache. As well as low potassium causing arrhythmia. These issues need to be addressed and indicated for admission. Morphine and Valium were given for headache as well as anxiety as well as nausea as patient does have QT prolongation and Zofran to be avoided. Discharge Plan Departure Patient Disposition: Admitted as Observation Clinical Impression: Hypertensive urgency, Arrhythmia, ventricular, Nausea and vomiting Admit Date/Time: 09/28/21 11:24 Admit Provider: Tito Paniagua
--- NOTE | 2021-09-28 10:33 | PC.NURSE ---
Pt going into frequent VTach rhythms. Pt states she does not want to be shocked and would like to wait for her daughter to make the decision to start Amiodarone.
[2021-09-28 10:34] LABS: COVID19 -Nasal RAPID Negative (Negative)
[2021-09-28 10:35] LABS: Alanine Aminotransferase 11 IU/L (<35); Albumin 4.8 g/dL (3.5-5.0); Albumin Globulin Ratio 1.3 (1.0-2.8); Alkaline Phosphatase 95 U/L (38-126); Aspartate Aminotransferase 22 IU/L (14-36); BUN Creatinine Ratio 27.8 (6-22); Blood Urea Nitrogen 22 mg/dL (7-17); Calcium 9.7 mg/dL (8.4-10.2); Carbon Dioxide 20 mmol/L (22-32); Chloride 99 mmol/L (98-107); Creatine Kinase 29 U/L (30-135); Estimated Glomerular Filt Rate > 60 mL/min (>60); Globulin 3.7 g/dL (1.7-4.1); Glucose 153 mg/dL (80-110); HEMOLYSIS < 15 (0-50); Lipase 234 U/L (23-300); Magnesium 1.7 mg/dL (1.6-2.3); Sodium 136 mmol/L (137-145); Total Protein 8.5 g/dL (6.3-8.2)
[2021-09-28 10:41] LABS: Potassium 2.2 mmol/L (3.4-5.1)
[2021-09-28] MEDS: MORPHINE 4 MG/ML INJ IV (10:43)
[2021-09-28] MEDS: POTASSIUM CHLORIDE IN WATER 10 MEQ/100 ML PIGGYBACK 100 MEQ IV ×6 (10:56→16:20)
--- NOTE | 2021-09-28 11:23 | P.HP_ITS ---
History of Present Illness History of Present Illness Date Patient Seen: 09/28/21 Time Patient Seen: 18:45 Chief complaint: Headache Narrative: Dayami Disla is a 75 y.o. female with a PMH of recent pulmonary embolism on Xarelto, MS, frequent falls, osteoporosis, recent closed fracture of the pubic ramus, recently admitted x2 to [place] for recurrent NV who presents today with headache, hypertensive urgency and hypokalemia. Patient had a K of 2.2 and in the ED was having runs of V. tach. BP was 217/119 and patient noted a headache with this. Upon entering the room, patient's son and daughter were present at bedside. Patient states she just wants to feel better. Is mainly being obtained from family who state that since leaving the hospital last time she has had poor p.o. intake and weakness. This has led to her low potassium and high blood pressure from not taking her potassium supplements or blood pressure pills. Patient states she is in no pain. Currently tolerating crackers fine. Blood pressure side is now 150 systolic. She denies, shortness of breath, current headache, abdominal pain, or diarrhea. Patient History Medical History Abnormal Pap smear of cervix (~1970) Age-related osteoporosis without current pathological fracture Cellulitis (~2000) Cervical cancer (~1970) Chicken pox (~1951) Chronic anticoagulation Chronic insomnia Clostridium difficile infection (~12/11/02) Constipation, slow transit Depression (~1954) Depression, recurrent Elbow fracture, right (~2017) Essential hypertension Fractures (~2004) Frequent UTI (~2002) Headache Helicobacter pylori (H. pylori) (~10/18/11) History of low potassium (~2011) History of urinary incontinence (~1997) Loss of equilibrium (~07/30/04) Measles (~1953) Melanoma (~1996) Multiple sclerosis (~1975) Mumps (~1954) Nausea and vomiting Oral pain Partial blindness (~1991) Pulmonary embolism Shoulder fracture Shoulder pain (~2009) Surgical History Cataract (~2012) Fracture of clavicle (~10/19/09) Hammertoes of both feet (~12/15/09) History of discectomy (~2002) History of foot surgery (~03/26/09) History of hysterectomy (~07/1973) History of shoulder surgery History of tonsillectomy (~09/1962) Previous back surgery (~11/24/02) Status post laser cataract surgery of both eyes Ulcer (~12/29/02) Family & Social History Family History Mother Stroke History of heart disease Brother AIDS Father Stroke History of heart disease Brother History of heart disease Stroke Brother Hypertension Stroke Brother History of heart disease Brother History of heart disease Sister History of heart disease Stroke Social History: household members none Safety & Behavioral: Feels Safe in Current Yes Environment Been Physically Hurt or No Threatened By a Person Tobacco & Substance use: Smoking Status Never smoker alcohol intake current alcohol intake frequency holiday/special occasion Substance Use Type does not use Meds Home Medications and Allergies Home Medications Medication Instructions Recorded Confirmed Type fluoxetine 20 mg capsule 20 mg PO TID #270 caps 07/14/21 09/28/21 Rx rivaroxaban 20 mg tablet (Xarelto) 20 mg PO DAILY 07/14/21 09/28/21 History cholecalciferol (vitamin D3) 125 125 mcg PO DAILY 08/15/21 09/28/21 History mcg (5,000 unit) capsule trazodone 50 mg tablet 25 mg PO BEDTIME PRN insomnia #15 08/15/21 09/28/21 Rx tabs amlodipine 2.5 mg tablet 2.5 mg PO DAILY #90 tabs 08/18/21 09/28/21 Rx docusate sodium 100 mg capsule 100 mg PO BID PRN constipation #20 09/14/21 09/28/21 Rx caps ondansetron 4 mg disintegrating 4 mg PO TID-QID PRN nausea and 09/18/21 09/28/21 Rx tablet vomiting #30 tabs pantoprazole 40 mg tablet,delayed 40 mg PO QAM 30 days #30 tabs 09/18/2105/17 Rx release polyethylene glycol 3350 17 gram 17 gm PO BID 30 days #30 ea 09/18/21 09/28/21 Rx oral powder packet potassium chloride 10 mEq 20 meq PO DAILY #30 caps 09/18/21 09/28/21 Rx capsule,extended release sennosides 8.6 mg capsule (senna) 8.6 mg PO BID #30 caps 09/18/21 09/28/21 Rx naltrexone 50 mg tablet See Rx Instructions PO DAILY #20 09/22/21 09/28/21 Rx tabs bupropion HCl 150 mg tablet,12 hr 150 mg PO BID #60 ea 09/23/21 09/28/21 Rx sustained-release Allergies Allergy/AdvReac Type Severity Reaction Status Date / Time No Known Drug Allergies Allergy Verified 09/28/21 10:16 Review of Systems Review of Systems Narrative: All other systems reviewed with the patient and are negative unless otherwise stated. Exam Vital Signs (past 8 hours): - 09/28/21 09:30 09/28/21 09:40 09/28/21 09:42 Temperature 98.4 F Pulse Rate 116 H 103 H 107 H Respiratory Rate 24 Blood Pressure 201/108 H Pulse Oximetry 95 95 94 Oxygen Delivery Method Room Air 09/28/21 09:42 09/28/21 09:43 09/28/21 09:43 Temperature Pulse Rate 114 H Respiratory Rate Blood Pressure 215/119 H 201/108 H Pulse Oximetry 95 Oxygen Delivery Method 09/28/21 10:00 09/28/21 10:00 09/28/21 10:30 Temperature Pulse Rate 110 H Respiratory Rate 26 H Blood Pressure 209/124 H 217/119 H Pulse Oximetry 95 Oxygen Delivery Method 09/28/21 10:30 Temperature Pulse Rate 118 H Respiratory Rate 34 H Blood Pressure Pulse Oximetry 95 Oxygen Delivery Method Oxygen Delivery Method Room Air Narrative Exam Narrative: GEN: no acute distress, flat affect HEENT: moist mucous membranes, PERRL NECK: trachea midline, no JVD CV: regular rate and rhythm, no murmurs PULM: clear bilaterally ABD: soft, nontender, nondistended, no organomegaly EXT: warm and well perfused with no edema NEURO: awake, alert, oriented, no focal deficits Objective Labs Result Diagrams: 09/28/21 10:14 09/28/21 16:25 Labs: Laboratory Results - last 24 hr 09/28/21 09/28/21 09/28/21 09:39 10:14 10:14 WBC 10.6 RBC 4.98 Hgb 15.2 Hct 44.2 MCV 88.9 MCH 30.5 MCHC 34.3 RDW 14.5 Plt Count 376 Neut % (Auto) 85.2 H Lymph % (Auto) 8.2 L [place] % (Auto) 6.3 Eos % (Auto) 0.0 L Baso % (Auto) 0.3 Neut # (Auto) 9000 H Lymph # (Auto) 900 L [place] # (Auto) 700 Eos # (Auto) 0 Baso # (Auto) 0 PT 31.2 H INR 2.7 H Sodium Potassium Chloride Carbon Dioxide BUN Creatinine Estimated GFR BUN/Creatinine Ratio Glucose Calcium Magnesium Total Bilirubin AST ALT Alkaline Phosphatase Total Creatine Kinase CK-MB (CK-2) CK-MB (CK-2) Rel Index Troponin I Total Protein Albumin Globulin Albumin/Globulin Ratio Lipase SARS-CoV-2 (PCR) Negative 09/28/21 10:14 WBC RBC Hgb Hct MCV MCH MCHC RDW Plt Count Neut % (Auto) Lymph % (Auto) [place] % (Auto) Eos % (Auto) Baso % (Auto) Neut # (Auto) Lymph # (Auto) [place] # (Auto) Eos # (Auto) Baso # (Auto) PT INR Sodium 136 L Potassium 2.2 L* Chloride 99 Carbon Dioxide 20 L BUN 22 H Creatinine 0.79 Estimated GFR > 60 BUN/Creatinine Ratio 27.8 H Glucose 153 H Calcium 9.7 Magnesium 1.7 Total Bilirubin 1.0 AST 22 ALT 11 Alkaline Phosphatase 95 Total Creatine Kinase 29 L CK-MB (CK-2) TNP CK-MB (CK-2) Rel Index TNP Troponin I 0.020 Total Protein 8.5 H Albumin 4.8 Globulin 3.7 Albumin/Globulin Ratio 1.3 Lipase 234 SARS-CoV-2 (PCR) Assessment & Plan Assessment & Plan narrative: # goals of care -patient's family inquiring about hospice -patient states she wants to feel better -see ACP note above # hypertensive urgency -BP 217/119 in ED, patient notes headache -labetalol 10mg IV q4h PRN for SBP >190 -monitor # Acute hypokalemia -potassium 2.2 and magnesium 1.7 -likely secondary to poor po intake -replete and monitor # QTC prolongation, acute -initial EKG QTC of 534, repeat of 409 -monitor QTc on tele # anxiety -valium PRN # h/o MRSA positive -contact precautions # h/o PE in early 2021 -continue home Xarelto # depression, chronic -continue home fluoxetine and gabapentin # GERD, chronic -continue home PPI Code status is DNR. COVID negative. DVT prophylaxis with Xarelto. Proxy is daughter Brinda. I have reviewed home meds and used all available resources to reconcile the home meds. Time Spent With Patient Critical Care time: I spent a total of [] minutes of critical care time on this patient's care today; this time is exclusive of procedural time.
[2021-09-28] MEDS: diazePAM 10 MG/2 ML SYRINGE 2 MG IV (11:34)
[2021-09-28] MEDS: METOCLOPRAMIDE 10 MG/2 ML INJ IV ×2 (13:20→21:19)
[2021-09-28] MEDS: ACETAMINOPHEN 325 MG TABLET 650 MG PO (13:20)
[2021-09-28] MEDS: MAGNESIUM SULFATE 2 GM/50 ML PIGGYBACK IV ×2 (16:20→21:19)
[2021-09-28 17:07] LABS: BUN Creatinine Ratio 34.8 (6-22); Blood Urea Nitrogen 23 mg/dL (7-17); Calcium 8.9 mg/dL (8.4-10.2); Carbon Dioxide 25 mmol/L (22-32); Chloride 98 mmol/L (98-107); Estimated Glomerular Filt Rate > 60 mL/min (>60); Glucose 117 mg/dL (80-110); HEMOLYSIS 41 (0-50); Potassium 3.8 mmol/L (3.4-5.1); Sodium 134 mmol/L (137-145)
[2021-09-28] MEDS: TRAZODONE 50 MG TABLET 25 MG PO (21:19)
[2021-09-28] MEDS: buPROPion SR 150 MG TAB PO (21:19)
[2021-09-28] MEDS: FLUoxetine 20 MG CAPSULE PO (21:19)
[2021-09-29 03:35] VITALS: BP 140/85; PULSE 90; RESP 16; TEMP 36.4; O2SAT 95
[2021-09-29 05:33] LABS: Add Manual Diff / Slide Review NO; Basophils Absolute Auto 0 /uL (0-100); Basophils Percent Auto 0.4 % (0-2); Eosinophils Absolute Auto 100 /uL (0-450); Eosinophils Percent Auto 0.6 % (2-4); Hematocrit 40.7 % (36-46); Hemoglobin 13.7 g/dL (12.0-16.0); Lymphocytes Absolute Auto 1700 /uL (1100-4500); Lymphocytes Percent Auto 18.1 % (25-40); Mean Corpuscular HGB Conc 33.6 % (30-36); Mean Corpuscular Hemoglobin 29.8 PG (26-34); Mean Corpuscular Volume 88.9 fL (80-100); Monocytes Absolute Auto 1000 /uL (0-900); Monocytes Percent Auto 10.1 % (3-14); Neutrophils Absolute Auto 6700 /uL (1500-7000); Neutrophils Percent Auto 70.8 % (50-75); Platelet Count 298 X10^3/uL (150-400); Red Blood Cell Count 4.58 X10^6/uL (4.0-5.2); Red Cell Distribution Width 14.4 % (11.6-14.8); White Blood Cell Count 9.5 X10^3/uL (4.5-11.0)
[2021-09-29 05:39] LABS: BUN Creatinine Ratio 32.1 (6-22); Blood Urea Nitrogen 25 mg/dL (7-17); Calcium 8.7 mg/dL (8.4-10.2); Carbon Dioxide 27 mmol/L (22-32); Chloride 95 mmol/L (98-107); Estimated Glomerular Filt Rate > 60 mL/min (>60); Glucose 112 mg/dL (80-110); HEMOLYSIS < 15 (0-50); Sodium 131 mmol/L (137-145)
[2021-09-29 05:52] LABS: Magnesium 3.3 mg/dL (1.6-2.3)
[2021-09-29 06:10] LABS: Potassium 2.7 mmol/L (3.4-5.1)
[2021-09-29] MEDS: POTASSIUM CHLORIDE IN WATER 10 MEQ/100 ML PIGGYBACK 100 MEQ IV ×2 (06:42→08:30)
--- NOTE | 2021-09-29 07:46 | P.PN_ITS ---
Subjective Subjective Date Patient Seen: 09/29/21 Time Patient Seen: 15:00 Interval history: Patient's daughter Brinda at bedside with patient. She has tolerated very little to eat today. She states she wants to live and just get better. States she wants to try TPN for nutrition purposes. Exam Vital Signs (past 8 hours): - 09/29/21 03:35 Temperature 97.5 F L Pulse Rate 90 Respiratory Rate 16 Blood Pressure 140/85 Pulse Oximetry 95 Oxygen Delivery Method Room Air Oxygen Flow Rate 0 Narrative Exam Narrative: GEN: no acute distress, flat affect HEENT: moist mucous membranes, PERRL NECK: trachea midline, no JVD CV: regular rate and rhythm, no murmurs PULM: clear bilaterally ABD: soft, nontender, nondistended, no organomegaly EXT: warm and well perfused with no edema NEURO: awake, alert, oriented, no focal deficits Objective Labs Result Diagrams: 09/29/21 05:20 09/29/21 05:20 Labs: Laboratory Results - last 24 hr 09/28/21 09/28/21 09/28/21 09:39 10:14 10:14 WBC 10.6 RBC 4.98 Hgb 15.2 Hct 44.2 MCV 88.9 MCH 30.5 MCHC 34.3 RDW 14.5 Plt Count 376 Neut % (Auto) 85.2 H Lymph % (Auto) 8.2 L [place] % (Auto) 6.3 Eos % (Auto) 0.0 L Baso % (Auto) 0.3 Neut # (Auto) 9000 H Lymph # (Auto) 900 L [place] # (Auto) 700 Eos # (Auto) 0 Baso # (Auto) 0 PT 31.2 H INR 2.7 H Sodium Potassium Chloride Carbon Dioxide BUN Creatinine Estimated GFR BUN/Creatinine Ratio Glucose Calcium Magnesium Total Bilirubin AST ALT Alkaline Phosphatase Total Creatine Kinase CK-MB (CK-2) CK-MB (CK-2) Rel Index Troponin I Total Protein Albumin Globulin Albumin/Globulin Ratio Lipase SARS-CoV-2 (PCR) Negative 09/28/21 09/28/21 09/29/21 10:14 16:25 05:20 WBC RBC Hgb Hct MCV MCH MCHC RDW Plt Count Neut % (Auto) Lymph % (Auto) [place] % (Auto) Eos % (Auto) Baso % (Auto) Neut # (Auto) Lymph # (Auto) [place] # (Auto) Eos # (Auto) Baso # (Auto) PT INR Sodium 136 L 134 L Potassium 2.2 L* 3.8 D Chloride 99 98 Carbon Dioxide 20 L 25 BUN 22 H 23 H Creatinine 0.79 0.66 Estimated GFR > 60 > 60 BUN/Creatinine Ratio 27.8 H 34.8 H Glucose 153 H 117 H Calcium 9.7 8.9 Magnesium 1.7 3.3 H Total Bilirubin 1.0 AST 22 ALT 11 Alkaline Phosphatase 95 Total Creatine Kinase 29 L CK-MB (CK-2) TNP CK-MB (CK-2) Rel Index TNP Troponin I 0.020 Total Protein 8.5 H Albumin 4.8 Globulin 3.7 Albumin/Globulin Ratio 1.3 Lipase 234 SARS-CoV-2 (PCR) 09/29/21 09/29/21 05:20 05:20 WBC 9.5 RBC 4.58 Hgb 13.7 Hct 40.7 MCV 88.9 MCH 29.8 MCHC 33.6 RDW 14.4 Plt Count 298 Neut % (Auto) 70.8 Lymph % (Auto) 18.1 L [place] % (Auto) 10.1 Eos % (Auto) 0.6 L Baso % (Auto) 0.4 Neut # (Auto) 6700 Lymph # (Auto) 1700 [place] # (Auto) 1000 H Eos # (Auto) 100 Baso # (Auto) 0 PT INR Sodium 131 L Potassium 2.7 L* Chloride 95 L Carbon Dioxide 27 BUN 25 H Creatinine 0.78 Estimated GFR > 60 BUN/Creatinine Ratio 32.1 H Glucose 112 H Calcium 8.7 Magnesium Total Bilirubin AST ALT Alkaline Phosphatase Total Creatine Kinase CK-MB (CK-2) CK-MB (CK-2) Rel Index Troponin I Total Protein Albumin Globulin Albumin/Globulin Ratio Lipase SARS-CoV-2 (PCR) [facility] Medical History Abnormal Pap smear of cervix (~1970) Age-related osteoporosis without current pathological fracture Cellulitis (~2000) Cervical cancer (~1970) Chicken pox (~1951) Chronic anticoagulation Chronic insomnia Clostridium difficile infection (~12/11/02) Constipation, slow transit Depression (~1954) Depression, recurrent Elbow fracture, right (~2017) Essential hypertension Fractures (~2004) Frequent UTI (~2002) Headache Helicobacter pylori (H. pylori) (~10/18/11) History of low potassium (~2011) History of urinary incontinence (~1997) Loss of equilibrium (~07/30/04) Measles (~1953) Melanoma (~1996) Multiple sclerosis (~1975) Mumps (~1954) Nausea and vomiting Oral pain Partial blindness (~1991) Pulmonary embolism Shoulder fracture Shoulder pain (~2009) Surgical History Cataract (~2012) Fracture of clavicle (~10/19/09) Hammertoes of both feet (~12/15/09) History of discectomy (~2002) History of foot surgery (~03/26/09) History of hysterectomy (~07/1973) History of shoulder surgery History of tonsillectomy (~09/1962) Previous back surgery (~11/24/02) Status post laser cataract surgery of both eyes Ulcer (~12/29/02) Family History Mother Stroke History of heart disease Brother AIDS Father Stroke History of heart disease Brother History of heart disease Stroke Brother Hypertension Stroke Brother History of heart disease Brother History of heart disease Sister History of heart disease Stroke Social History household members: none Smoking Status: Never smoker alcohol intake: current Assessment & Plan Assessment & Plan narrative: # severe protein calorie malnutrition due to NV -diagnosed per inpatient social and political studies professor evaluation based on significant weight loss f rom poor po intake due to NV -after discussion among family, patient electing for TPN and rehab vs assisted living placement in order to buy time to see outpatient specialists to see if there is a solution for her chronic NV -PICC line ordered -TPN per pharmacy -trial marinol for appetite stimulation and antiemetic effects -Zofran PRN for NV # hypertensive urgency -BP 217/119 in ED, patient notes headache -labetalol 10mg IV q4h PRN for SBP >190 -monitor # Acute hypokalemia -potassium 2.2 and magnesium 1.7 -likely secondary to poor po intake -replete and monitor -TPN as above to contain K # weakness -secondary to malnutrition -PT eval # QTC prolongation, acute -initial EKG QTC of 534, repeat of 409 -monitor QTc on tele # anxiety -valium PRN # h/o MRSA positive -contact precautions # h/o PE in early 2021 -continue home Xarelto # depression, chronic -continue home fluoxetine and gabapentin # GERD, chronic -continue home PPI Code status is DNR. COVID negative. DVT prophylaxis with Xarelto. Proxy is daughter Brinda. I have reviewed home meds and used all available resources to reconcile the home meds. Dispo: pending rehab vs assisted living placement per BOOKKEEPING TEACHER Time Spent With Patient Critical Care time: I spent a total of [] minutes of critical care time on this patient's care today; this time is exclusive of procedural time. Quality VTE Deep Vein Thrombosis/Pulmonary Embolism Present on Admission: No
[2021-09-29] MEDS: SODIUM CHLORIDE 0.9% 1,000 ML 84 ML IV (08:19)
[2021-09-29] MEDS: AMLODIPINE 5 MG TABLET 2.5 MG PO (08:31)
[2021-09-29] MEDS: POTASSIUM CHLORIDE 10 MEQ TAB 20 MEQ PO (08:32)
[2021-09-29] MEDS: buPROPion SR 150 MG TAB PO ×2 (08:32→20:15)
[2021-09-29] MEDS: SENNOSIDES 8.6 MG TABLET PO ×2 (08:32→20:16)
[2021-09-29] MEDS: FLUoxetine 20 MG CAPSULE PO ×3 (08:33→20:16)
[2021-09-29] MEDS: polyethylene glycoL 3350 17 GM POWD.PACK PO (08:33)
[2021-09-29] MEDS: METOCLOPRAMIDE 10 MG/2 ML INJ IV (08:33)
[2021-09-29] MEDS: PANTOPRAZOLE DR 40 MG TABLET PO (08:33)
[2021-09-29] MEDS: RIVAROXABAN 10 MG TABLET 20 MG PO (08:33)
--- NOTE | 2021-09-29 08:50 | PC.RNWOUND ---
Patient resting in bed, turns to left side with minimal assist. Purewick draining yellow urine to suction, attends on. Sacral dressing is on for protection, no skin damage or discoloration noted underneath dressing, which is gently replaced after inspection of sacrum. Zinc- based barrier cream has been applied to perineum/perianal area where some light pink/reddened areas are noted consistent with IAD, but no open areas noted at this time. Patient says, I've been incontinent for about 10 years. Patient is repositioned onto left side with 30 degree tilt using pillow, reports comfort, is verbally appreciative of cares.
[2021-09-29 09:00] VITALS: BP 146/90; PULSE 70; RESP 17; TEMP 36.2; O2SAT 96
[2021-09-29] MEDS: POTASSIUM CHLORIDE IN WATER 10 MEQ/100 ML PIGGYBACK 50 MEQ IV ×2 (11:19→14:34)
[2021-09-29 12:28] VITALS: BP 154/89; PULSE 85; RESP 16; TEMP 36.2; O2SAT 98
[2021-09-29] MEDS: ONDANSETRON 4 MG ODT SL ×2 (12:28→21:38)
--- NOTE | 2021-09-29 14:21 | DIET.CONS ---
Dietary Consultation Note Admission Date: 09/28/2021 11:24 Assessment: 75y F with MS and frequent readmissions for N/V referred to nutrition for low MNA (7, malnourished). Met c pt bedside. Pt states she has hunger and desires to eat but is afraid to eat because whenever food hits her stomach, she gets nauseous and vomits. Pt also will get nausea when sitting up from lying position. Pt has prescription for generic Zofran which she takes after symptoms arise, feels name brand works better than generic. Pt states only PO intake that doesn't make her sick is hot tea. Pt also on daily senna per PCP. NPFE positive for severely hollowed orbitals, depressed temples, scooped clavicles, boxed shoulders, severely low subcutaneous fat mass globally. Pt essentially bed or wheelchair bound living at [facility]. Pt with very supportive family, spoke with daughter Brinda per pt request. Daughter states they have been trying everything to reduce pts nausea and help her nutrition status. Daughter wondering if pts anxiety playing into some of sx. Pt and family inquire about if TPN would be helpful for pt, however, TPN with risks and not meant for weight repletion, [facility] consideration of other therapeutic treatments. Ht: 162.56 cm Wt: 53.2 kg BMI: 20.1 (severe for age) UBW: 56kg Last BM: 09/28/21 (09/28/21 12:37) MNA: 7 Malvin Score: 18 Diet: 09/28/21 Lunch General (Regular) Diet Diet Modifications: Labs: RBC 4.58 X10^6/uL (4.0-5.2) 09/29/21 05:20 Hgb 13.7 g/dL (12.0-16.0) 09/29/21 05:20 Hct 40.7 % (36-46) 09/29/21 05:20 Creatinine 0.78 mg/dL (0.52-1.04) 09/29/21 05:20 Nutrition Diagnosis: Severe Chronic Protein Calorie Malnutrition r/t fear of eating secondary to postprandial nausea and emesis aeb BMI 20.1 (severe for age), pt states having hunger, desire to feed body but avoiding most eating occasions because of N/V, pt taking zofran when symptomatic, NFPE indicating severe muscle and fat wasting. Interventions: 1. [facility] hospitalist review zofran Rx, consideration for pre-treating with zofran 30 minutes prior to mealtime with Rx big enough to provide 30 day supply. 2. [facility] trial of unflavored collagen peptides in hot tea to support nutrition status. Pts daughter will purchase and trial upon d/c. 3. Continue small meals in hospital with good control of nausea. Electronically Signed by: Marleen Barnhart 09/29/21 14:21 Clinical Dietitian [address] [address]
--- NOTE | 2021-09-29 14:32 | CM.DANOTE ---
Addendum entered by KIRSTEN Krishna 09/29/21 15:22: ADD: SW met bedside with pt and Dtr Brinda and they state that they have made a decision not to pursue Comfort/Hospice yet at this time but want to try artificial nutrition like TPN and want pt to go to SNF and preference currently is [facility] or [facility]. SW discussed barriers of TPN and finding SNF's that will accept TPN due to the cost and amount of time it infuses. SW discussed TPN tends to be short term option and potential for home infusion TPN but would have to be approved by Tonya at [facility]. Dtr requests SW to call [facility] and [facility] to determine if they will take TPN and if not they would be interested in [facility] as other son and Dtr live in [facility]. SW called [facility] and confirmed they do not accept TPN and their sister facility in [place] takes TPN but are limited on how many TPN patients they can take. SW called [facility] and left msg requested call back if they take TPN. SW called [facility] and they accept TPN but due to pt's Medicare insurance, pt would have to have 3 nights in ICU in order to be accepted at their facility. SW called Ta at [facility] and confirmed Medicare covers TPN at home but barrier would be having [facility] approve a PICC and TPN at their facility and [facility] would not be able to manage or assist with PICC or TPN and therefore family would have to be present with pt much of the time. [facility] in [place] and [facility] in [place] are SNFs that have been known to accept TPN but SW at end of shift and will have to place calls tomorrow and once confirmed by MD that they want to proceed with artificial nutrition and source. MARTHA updated MD who will meet bedside with pt and family soon. BF Original Note: Patient is a 75 yo female READMIT on 09/28/21 for Headache. Pt has MCR and COMM INSURANCE and her PCP is Dr. Carlos Cristina. EMR was reviewed. Per , pt with persistent low intake and ongoing n/v and falls with unknown etiology. Per MD, due to pt's multiple readmits MD had lengthy discussion with pt, son, and Dtr regarding Goals of Care and pursuing G.I. referral outpt and ongoing tx vs Comfort Measures and pt and family were discussing to determine POC. PT/OT were ordered as pt is not currently comfort measures. Pt was admitted 09/04/21 and 09/16/21 for similar and discharged back to [facility] via family POV and Rx called into [facility]. Pt lives at [facility] and uses a wheelchair at baseline. Jacobo help her with her ADL's and relies on other for transportation. Dtr Brinda is pt's DPOA and local son Ted is supportive and also involved. Pt sleeping soundly and asked SW to come back later and no family bedside. SW called Dtr Brinda who confirms she is on her way to the hospital now and will be bedside shortly and she and her brother have been discussion possible options with pt to determine best POC and hoping to talk to the MD today to finalize their thoughts and plan. SW called pt's PCP Dr. Cristina and left msg regarding pt's 3rd admission in a month and Comfort vs tx and if pt pursues tx then likely need for assist from PCP in G.I. referral for pt's ongoing n/v and poor appetite for hopeful clearer etiology. SW called [facility] Tonya and left msg regarding pt's readmit and determination of comfort vs tx and faxed H&P to review. Plan: SW to follow closely today after MD rounds with pt and family toward determining d/c needs of Comfort vs pursuing treatment. KIRSTEN Krishna Discharge Planning/Care Management CM Discharge Assessment Start: 09/29/21 14:27 Freq: Status: Active Protocol: Document 09/29/21 14:27 BF (Rec: 09/29/21 14:32 [id number]) Discharge Planning Assessment Assigned Digital Music Instructor KIRSTEN Hanson DPOA/Assigned Designee Name Dtr Brinda Chad Contact Information [phone] Advance Directives? Yes Advance Directives on File No History Provided By Patient,Family Member,Medical Record Has Patient been admitted in last 30 Yes days? Comment Here 09/04/21 and 09/16/21 for similar Prior Living Arrangements Assisted Living Household Members none Type of transporation used prior to Relies on Others admit Facility Name Admitted From: [facility] Willing to Return to Facility? Yes Independent with ADL's No Is patient alert and oriented? Yes Needs Assistance With Bathing,Meal Prep,Managing Medications,Home Chores / Shopping Caregiver for Another No DME Already Rented / Owned Wheelchair,FWW / Walker Comment Working on getting a power w/c through PCP Comment Hospice vs ongoing treatment Barriers to Discharge No Discharge Plan Assisted Living Facility Transportation Arrangement Family likely to transport back to [place] at d/c, POC pending to determine ongoing tx vs Hospice at [place] Additional Comment Pending POC and Goals of Care ongoing discussion today Whiteboard Updated in Patient Room with Yes name and ext. # of Digital Music Instructor Review Status In Process Please Provide Date Initial DC 09/29/21 Assessment Was Performed Next Review Type Continued Stay Review
--- NOTE | 2021-09-29 15:29 | DIET.PN1 ---
Dietary Progress Note Assessment: Family opting for TPN per pharmacy. TPN with risks and not meant for weight repletion, recc consideration of other therapeutic treatments. If deciding to go forward with TPN, reccs provided below. Nutrition Diagnosis: Severe Chronic Protein Calorie Malnutrition r/t fear of eating secondary to postprandial nausea and emesis aeb BMI 20.1 (severe for age), pt states having hunger, desire to feed body but avoiding most eating occasions because of N/V, pt taking zofran when symptomatic, NFPE indicating severe muscle and fat wasting. Interventions: 1. Recc TPN via PICC starting with 1L Clinimix 5/20 running at 41mL/h for first 24h to test for tolerance. Pt at risk for refeeding. 2. Recc checking magnesium, phosphorus, and potassium and replete as needed. Recc glycemic management with glucose finger sticks. 3. Long-term recs to be provided tomorrow. Electronically Signed by: Jannette Leon 09/29/21 15:29 Clinical Dietitian [address] [address]
--- NOTE | 2021-09-29 16:50 | DI.RAD.S_ITS ---
PROCEDURE: XR CHEST FOR PICC 1V INDICATIONS: line placement COMPARISON: [facility], CR, XR CHEST 1V, 09/28/2021, 9:47. FINDINGS: PICC was placed by the intravenous therapy team from the left side. Fluoroscopic spot film demonstrates the tip of PICC projecting to the area of mid superior vena cava. IMPRESSION: Tip of PICC projects to the area of mid superior vena cava. Dictated by: Kenny Hartman M.D. on 09/29/2021 at 17:08 Approved by: Kenny Hartman M.D. on 09/29/2021 at 17:09
[2021-09-29 17:54] LABS: HEMOLYSIS < 15 (0-50); Potassium 3.5 mmol/L (3.4-5.1)
[2021-09-29 17:58] LABS: Phosphorous 2.7 mg/dL (2.8-4.1); Triglycerides 92 mg/dL (35-150)
[2021-09-29 18:00] VITALS: BP 152/84; PULSE 74; RESP 16; TEMP 36.3; O2SAT 98
[2021-09-29 18:04] LABS: Prealbumin 20.7 mg/dL (17.6-36.0)
[2021-09-29] MEDS: AA 5 %/CALCIUM/LYTES/DEXT 20 % 1,000 ML with MULTIVITAMIN 10 ML, TRACE ELEMENTS 1 ML, P... 42.333 ML IV (20:14)
[2021-09-29] MEDS: TRAZODONE 50 MG TABLET 25 MG PO (21:38)
[2021-09-30] VITALS: BP 131/79; PULSE 90; RESP 17; TEMP 36.4; O2SAT 94
[2021-09-30 05:43] LABS: Add Manual Diff / Slide Review NO; Basophils Absolute Auto 0 /uL (0-100); Basophils Percent Auto 0.4 % (0-2); Eosinophils Absolute Auto 100 /uL (0-450); Eosinophils Percent Auto 1.3 % (2-4); Hematocrit 36.5 % (36-46); Hemoglobin 12.2 g/dL (12.0-16.0); Lymphocytes Absolute Auto 1300 /uL (1100-4500); Lymphocytes Percent Auto 16.9 % (25-40); Mean Corpuscular HGB Conc 33.5 % (30-36); Mean Corpuscular Hemoglobin 29.9 PG (26-34); Mean Corpuscular Volume 89.3 fL (80-100); Monocytes Absolute Auto 800 /uL (0-900); Monocytes Percent Auto 9.6 % (3-14); Neutrophils Absolute Auto 5700 /uL (1500-7000); Neutrophils Percent Auto 71.8 % (50-75); Platelet Count 244 X10^3/uL (150-400); Red Blood Cell Count 4.09 X10^6/uL (4.0-5.2); Red Cell Distribution Width 13.8 % (11.6-14.8)
[2021-09-30 05:56] LABS: Magnesium 1.9 mg/dL (1.6-2.3); Phosphorous 3.7 mg/dL (2.8-4.1)
[2021-09-30 05:57] LABS: BUN Creatinine Ratio 31.3 (6-22); Blood Urea Nitrogen 21 mg/dL (7-17); Calcium 8.4 mg/dL (8.4-10.2); Carbon Dioxide 28 mmol/L (22-32); Chloride 96 mmol/L (98-107); Estimated Glomerular Filt Rate > 60 mL/min (>60); Glucose 141 mg/dL (80-110); HEMOLYSIS < 15 (0-50); Potassium 3.3 mmol/L (3.4-5.1); Sodium 130 mmol/L (137-145)
[2021-09-30 06:00] VITALS: BP 171/93; PULSE 81; RESP 17; TEMP 36.9; O2SAT 96
--- NOTE | 2021-09-30 07:51 | DIET.PN1 ---
Dietary Progress Note Assessment: 75 y/o F with MS and frequent readmissions for N/V. + for severe PCM. Continues with poor PO. Family has opted to try TPN, which was initiated yesterday. Plans to advance TPN if pt is tolerating. Recs provided below. K 3.3 phos 3.7 Mg 1.9 glucose 141 Ht: 162.56 cm Wt: 53.2 kg BMI: 20.1 Last BM: 09/28/21 (09/28/21 12:37) MNA: 7 Malvin Score: 18 Diet: 09/28/21 Lunch General (Regular) Diet Diet Modifications: Nutrition Percent Meal Consumed 10% 09/29/21 18:00 Labs: RBC 4.09 X10^6/uL (4.0-5.2) 09/30/21 05:25 Hgb 12.2 g/dL (12.0-16.0) 09/30/21 05:25 Hct 36.5 % (36-46) 09/30/21 05:25 Creatinine 0.67 mg/dL (0.52-1.04) 09/30/21 05:25 Nutrition Diagnosis: Severe Chronic Protein Calorie Malnutrition r/t fear of eating secondary to postprandial nausea and emesis aeb BMI 20.1 (severe for age), pt states having hunger, desire to feed body but avoiding most eating occasions because of N/V, pt taking zofran when symptomatic, NFPE indicating severe muscle and fat wasting. Interventions: 1. If pt tolerates feeding rate without signs of refeeding syndrome, recc increasing to 1.5L Clinimix 5/20 running at 62mL/h with 250mL IVFE (IVFE every other day) TPN: 1320kcals per day TPN pro: 75g per day IVFE 3x per week: 1500kcals per week This will provide approx 1534 kcals (96% of needs) and 75g PRO (94% of needs) daily. 2. If PO improves to at least 400-500kcals per day, considerations for reduction back to 1L Clinimix 5/20 @41ml/h prn. EER: 1596 kcals (30 kcal/kg) 80g PRO (1.5g/kg) Monitoring/Evaluations: RDN f/u 10/03/21. Rec monitoring refeeding labs, weight, PO, TPN tolerance Electronically Signed by: Jannette Leon 09/30/21 07:51 Clinical Dietitian [address] [address]
--- NOTE | 2021-09-30 08:19 | PM.PN.1 ---
Subjective Subjective Date Patient Seen: 09/30/21 Time Patient Seen: 12:00 Interval history: Patient refusing to work with PT and OT today. Had bedside discussion about need to work with therapies if she wants to get better and go to rehab. Patient says she just isn't up for it today. Exam Vital Signs (past 8 hours): - 09/30/21 06:00 Temperature 98.4 F Pulse Rate 81 Respiratory Rate 17 Blood Pressure 171/93 H Pulse Oximetry 96 Oxygen Flow Rate 0 Oxygen Delivery Method Room Air Oxygen Flow Rate 0 Narrative Exam Narrative: GEN: no acute distress, flat affect HEENT: moist mucous membranes, PERRL NECK: trachea midline, no JVD CV: regular rate and rhythm, no murmurs PULM: clear bilaterally ABD: soft, nontender, nondistended, no organomegaly EXT: warm and well perfused with no edema NEURO: awake, alert, oriented, no focal deficits Objective Labs Result Diagrams: 09/30/21 05:25 09/30/21 05:25 Labs: Laboratory Results - last 24 hr 09/29/21 09/29/21 09/30/21 17:39 17:39 05:25 WBC 8.0 RBC 4.09 Hgb 12.2 Hct 36.5 MCV 89.3 MCH 29.9 MCHC 33.5 RDW 13.8 Plt Count 244 Neut % (Auto) 71.8 Lymph % (Auto) 16.9 L [place] % (Auto) 9.6 Eos % (Auto) 1.3 L Baso % (Auto) 0.4 Neut # (Auto) 5700 Lymph # (Auto) 1300 [place] # (Auto) 800 Eos # (Auto) 100 Baso # (Auto) 0 Sodium Potassium 3.5 Chloride Carbon Dioxide BUN Creatinine Estimated GFR BUN/Creatinine Ratio Glucose Calcium Phosphorus 2.7 L Magnesium Prealbumin 20.7 Triglycerides 92 09/30/21 09/30/21 05:25 05:25 WBC RBC Hgb Hct MCV MCH MCHC RDW Plt Count Neut % (Auto) Lymph % (Auto) [place] % (Auto) Eos % (Auto) Baso % (Auto) Neut # (Auto) Lymph # (Auto) [place] # (Auto) Eos # (Auto) Baso # (Auto) Sodium 130 L Potassium 3.3 L Chloride 96 L Carbon Dioxide 28 BUN 21 H Creatinine 0.67 Estimated GFR > 60 BUN/Creatinine Ratio 31.3 H Glucose 141 H Calcium 8.4 Phosphorus 3.7 D Magnesium 1.9 Prealbumin Triglycerides [facility] Medical History Abnormal Pap smear of cervix (~1970) Age-related osteoporosis without current pathological fracture Cellulitis (~2000) Cervical cancer (~1970) Chicken pox (~1951) Chronic anticoagulation Chronic insomnia Clostridium difficile infection (~12/11/02) Constipation, slow transit Depression (~1954) Depression, recurrent Elbow fracture, right (~2017) Essential hypertension Fractures (~2004) Frequent UTI (~2002) Headache Helicobacter pylori (H. pylori) (~10/18/11) History of low potassium (~2011) History of urinary incontinence (~1997) Loss of equilibrium (~07/30/04) Measles (~1953) Melanoma (~1996) Multiple sclerosis (~1975) Mumps (~1954) Nausea and vomiting Oral pain Partial blindness (~1991) Pulmonary embolism Shoulder fracture Shoulder pain (~2009) Surgical History Cataract (~2012) Fracture of clavicle (~10/19/09) Hammertoes of both feet (~12/15/09) History of discectomy (~2002) History of foot surgery (~03/26/09) History of hysterectomy (~07/1973) History of shoulder surgery History of tonsillectomy (~09/1962) Previous back surgery (~11/24/02) Status post laser cataract surgery of both eyes Ulcer (~12/29/02) Family History Mother Stroke History of heart disease Brother AIDS Father Stroke History of heart disease Brother History of heart disease Stroke Brother Hypertension Stroke Brother History of heart disease Brother History of heart disease Sister History of heart disease Stroke Social History household members: none Smoking Status: Never smoker alcohol intake: current Assessment & Plan Assessment & Plan narrative: # severe protein calorie malnutrition due to NV -diagnosed per inpatient flag football coach evaluation based on significant weight loss from poor po intake due to NV -after discussion among family, patient electing for TPN and rehab vs assisted living placement in order to buy time to see outpatient specialists to see if there is a solution for her chronic NV -PICC line placed on 09/29 -TPN per pharmacy -trial marinol for appetite stimulation and antiemetic effects -Zofran PRN for NV # hypertensive urgency -BP 217/119 in ED, patient notes headache -labetalol 10mg IV q4h PRN for SBP >190 -increase home amlodipine to 5mg and start losartan 50mg daily -monitor # Acute hypokalemia -potassium 2.2 and magnesium 1.7 -likely secondary to poor po intake -replete and monitor -TPN as above to contain K # weakness -secondary to malnutrition -PT/OT eval # QTC prolongation, acute -initial EKG QTC of 534, repeat of 409 -monitor QTc on tele # anxiety -valium PRN # h/o MRSA positive -contact precautions # h/o PE in early 2021 -continue home Xarelto # depression, chronic -continue home fluoxetine and gabapentin # GERD, chronic -continue home PPI Code status is DNR. COVID negative. DVT prophylaxis with Xarelto. Proxy is daughter Brinda. I have reviewed home meds and used all available resources to reconcile the home meds. Dispo: pending rehab vs assisted living placement per ELEVATED WORK PLATFORM OPERATOR Time Spent With Patient Critical Care time: I spent a total of [] minutes of critical care time on this patient's care today; this time is exclusive of procedural time. Quality VTE Deep Vein Thrombosis/Pulmonary Embolism Present on Admission: No
--- NOTE | 2021-09-30 10:00 | OT.IPNOTE ---
Pt insistent on not getting up at this time due to nausea 08/05 and requesting medications, nursing notified. To check on the pt later.
[2021-09-30 11:08] VITALS: BP 168/98; PULSE 87; RESP 14; TEMP 36.2; O2SAT 97
[2021-09-30] MEDS: ONDANSETRON 4 MG ODT SL ×2 (11:08→21:06)
[2021-09-30 11:09] VITALS: BP 168/98; PULSE 87
[2021-09-30] MEDS: polyethylene glycoL 3350 17 GM POWD.PACK PO (11:09)
[2021-09-30] MEDS: LOSARTAN 50 MG TABLET PO (11:09)
[2021-09-30] MEDS: PANTOPRAZOLE DR 40 MG TABLET PO (11:09)
[2021-09-30] MEDS: buPROPion SR 150 MG TAB PO ×2 (11:09→20:58)
[2021-09-30] MEDS: RIVAROXABAN 10 MG TABLET 20 MG PO (11:09)
[2021-09-30] MEDS: SENNOSIDES 8.6 MG TABLET PO ×2 (11:10→20:59)
[2021-09-30] MEDS: POTASSIUM CHLORIDE 10 MEQ TAB 20 MEQ PO (11:10)
[2021-09-30] MEDS: FLUoxetine 20 MG CAPSULE PO ×3 (11:11→20:59)
[2021-09-30] MEDS: AMLODIPINE 5 MG TABLET PO (11:11)
--- NOTE | 2021-09-30 11:50 | PT-IP ANOTE ---
checked on pt and pt refusing to do PT and c/o nausea. checked with nurse and sublingual nausea medication provided. checked back on pt 15-20 min and continues to refuse. stated that she is not ready to get up and will PT know when she is ready for PT or not. educated pt on importance of PT and what her d/c plans are. Asked pt if she wants PT or not. pt stated that she has been through the same thing before with PT and knows what she has to do but she knows she she is not ready for PT today. asked pt if she wants PT to check on her tomorrow and stated No.. Asked pt if she does not want PT at all and if she wants eval order d/c'd. daughter stepped in and PT also explained PT purpose to daughter. daughter stated that she will talked to the pt. after daughter talked to pt, daughter informed PT that pt wishes PT order d/c. informed caser and doctor.
--- NOTE | 2021-09-30 13:39 | OT.IPNOTE ---
Pt initially open to just talking to OT first and then possibly consider to getting up. Hospitalist and her primary care doctor came in to talk to pt regarding her options. At this time pt, pt to think about her options. No charge to touch base with the pt tomorrow.
--- NOTE | 2021-09-30 14:02 | CM.DPC ---
DCP TPN planning Per MD, pt's PICC was placed and TPN started last night and pharmacist and home health clinical liaison coordinating to determine best formulary to meet pt's nutrition needs. PT/OT ordered towards attempting SNF placement for rehab and TPN. SW called following facilities in attempt to find accepting facility for rehab and TPN management: [facility]- pt does not meet criteria for LTAC [facility] SNFs- not accept TPN [facility]- no longer does TPN [facility]- takes TPN, willing to review if pt willing to go to [facility]. [facility]- left 2 messages [place]- no answer [facility] [place]- [facility] msg [facility]- none of their buildings take TPN [facility] T[facility]- [facility] but already has their max of TPN pts and no discharges for at least 3 weeks. [facility]- takes TPN but too low of staff right now to accept new TPN admission. [facility]- may take TPN but case by case and willing to review, faxed referral to [phone]. SW called Tonya at [facility] and confirmed that legally they are restricted from allowing pt to return to [facility] with TPN/PICC even if [facility] was managing TPN and HH set up, they cannot safely accept pt back to their facility with those artificial nutrition needs. Per PT, pt currently refusing PT and requests PT orders be discontinued. MARTHA met bedside with pt and other Dtr Dora ([phone]) and discussed Medicare criteria for SNF coverage and also the need to work at least a little with PT/OT to show pt skillable for SNF for rehab beyond just TPN needs. Pt and Dtr acknowlege understanding and pt explained her concerns about PCP recommendations with her compression fx etc and needing more information about the expectations of PT/OT. SW spent lengthy time discussing with pt and Dtr and they expressed appreciation. SW discussed the barriers to SNF and updated on above and pt and Dtr agreeable to referral being [facility] in order to have plan A, B, and C for discharge. SW [facility]ed [facility] pt's referral and called to request review as we are heading into the weekend. SW discussed backup plan if SNF cannot be secured and pt wanted to proceed with TPN and [facility] not an option then the next option would be for pt to discharge to a family members home with [facility] and HH and maybe a private Pay CG to assist as pt mostly w/c and bed bound and 2PA at [place]. Family willing to consider this but preference is SNF if possible. SW made [facility] referral and faxed clinicals and discussed with Ta and he kindly agreeable to reach out to Dtr Dora to explain TPN at home and answer questions so family can determine if this would be reasonable option or not. Hospitalist and PCP then were able to round on pt together bedside with Dtr present and discussed again the barriers to TPN and pt's hesitancy for PT/OT and discussed more of a Comfort Measures approach. Pt considering and PCP recommended a [facility] referral in case pt makes decision to pursue Hospice. MARTHA made [facility] referral and called intake and discussed and requested review of clinicals to determine if pt meets criteria (Failure to Thrive hard to qualify on but possible malnutrition and comorbidities) but to wait to do Info Visit with pt/family until final decision from pt/family on comfort vs tx. MARTHA called Tonya at [facility] back and updated on being back to Comfort vs tx/TPN. MARTHA inquired that if pt chooses Comfort Measures could pt return to [place] with Hospice getting on board? Tonya states she would need to review (although pt was already 2PA and mostly w/c and bedbound and seems back to baseline) and would prefer to have [facility] start within a day or two ideally. Plan: SW to follow closely in the AM with pt/family to confirm if pt has decided on moving forward with TPN and tx vs Comfort Care and Hospice. If pt wants to continue TPN, SW to follow with [facility] [place] to determine if they can accept pt for rehab and TPN management vs pt d/c to family home with [facility] and HH. If pt decides on Comfort Measures, SW to update [facility] to move forward with Info Visit and getting pt on the schedule for return to [facility] with Hospice. KIRSTEN Krishna
[2021-09-30 18:00] VITALS: BP 143/86; PULSE 93; RESP 14; TEMP 36.3; O2SAT 95
[2021-09-30] MEDS: LYTES IV (19:49)
[2021-09-30] MEDS: [UNRECOGNIZED DRUG - OTHER] IV (19:49)
[2021-09-30] MEDS: SODIUM CHLORIDE IV (19:49)
[2021-09-30] MEDS: CALCIUM IV (19:49)
[2021-09-30] MEDS: DEXT IV (19:49)
[2021-09-30] MEDS: FAT EMULSIONS 50 GM/250 ML EMULSION IV (19:51)
[2021-09-30] MEDS: NALTREXONE 3.5 EACH PO (20:58)
[2021-10-01] VITALS: BP 147/86; PULSE 89; RESP 16; TEMP 36.3; O2SAT 97
[2021-10-01] MEDS: ONDANSETRON 4 MG ODT SL ×2 (05:38→11:39)
[2021-10-01 06:00] VITALS: BP 151/85; PULSE 93; RESP 16; TEMP 36.6; O2SAT 96
[2021-10-01 06:03] LABS: Add Manual Diff / Slide Review NO; Basophils Absolute Auto 0 /uL (0-100); Basophils Percent Auto 0.4 % (0-2); Eosinophils Absolute Auto 200 /uL (0-450); Eosinophils Percent Auto 1.9 % (2-4); Hematocrit 35.8 % (36-46); Hemoglobin 12.3 g/dL (12.0-16.0); Lymphocytes Absolute Auto 1200 /uL (1100-4500); Lymphocytes Percent Auto 13.2 % (25-40); Mean Corpuscular HGB Conc 34.4 % (30-36); Mean Corpuscular Hemoglobin 30.5 PG (26-34); Mean Corpuscular Volume 88.9 fL (80-100); Monocytes Absolute Auto 800 /uL (0-900); Monocytes Percent Auto 8.8 % (3-14); Neutrophils Absolute Auto 7000 /uL (1500-7000); Neutrophils Percent Auto 75.7 % (50-75); Platelet Count 236 X10^3/uL (150-400); Red Blood Cell Count 4.02 X10^6/uL (4.0-5.2); Red Cell Distribution Width 14.2 % (11.6-14.8); White Blood Cell Count 9.2 X10^3/uL (4.5-11.0)
[2021-10-01 06:12] LABS: BUN Creatinine Ratio 41.4 (6-22); Blood Urea Nitrogen 24 mg/dL (7-17); Calcium 8.7 mg/dL (8.4-10.2); Carbon Dioxide 28 mmol/L (22-32); Chloride 95 mmol/L (98-107); Estimated Glomerular Filt Rate > 60 mL/min (>60); Glucose 142 mg/dL (80-110); HEMOLYSIS < 15 (0-50); Potassium 3.9 mmol/L (3.4-5.1); Sodium 127 mmol/L (137-145)
[2021-10-01 06:13] LABS: Magnesium 1.5 mg/dL (1.6-2.3); Phosphorous 3.8 mg/dL (2.8-4.1)
[2021-10-01 09:40] VITALS: BP 151/85; PULSE 94
[2021-10-01] MEDS: AMLODIPINE 5 MG TABLET PO (09:40)
[2021-10-01] MEDS: RIVAROXABAN 10 MG TABLET 20 MG PO (09:40)
[2021-10-01] MEDS: buPROPion SR 150 MG TAB PO ×2 (09:40→21:16)
[2021-10-01] MEDS: FLUoxetine 20 MG CAPSULE PO ×3 (09:40→21:16)
[2021-10-01] MEDS: POTASSIUM CHLORIDE 10 MEQ TAB 20 MEQ PO (09:40)
[2021-10-01] MEDS: LOSARTAN 50 MG TABLET PO (09:40)
--- NOTE | 2021-10-01 11:04 | CM.DPC ---
Addendum entered by Tamiko Hernandez R.N. 10/01/21 14:09: Spoke with Naya @ [facility] and she stated that she spoke with the pt and family and was able to complete intake visit. Naya confirms that they are unable to see pt until Sunday of next week. DCP asked if there was any way to get that visit moved up as [facility] wants to have hospice out to see the pt within 1-2 days of accepting her back. Naya states that we wont know the answer until Sunday when the appropriate staff members are there. Still awaiting call back from Tonya @ [facility]. Tamiko Hernandez RN/TOMER Addendum entered by Tamiko Hernandez R.N. 10/01/21 12:26: DCP spoke with daughter and pt and they states that the pt has decided to pursue hospice care. DCP spoke with Hospice and they are going to do the informational visit with the pt and daughter this afternoon. DCP informed Brinda, the daughter, to watch out for the phone call. DCP left message for Tonya @ [facility]. Tamiko Hernandez RN/TOMER Original Note: DCP Cont: DCP spoke with RN who verbalized that pt daughter would like to speak to DCP regarding hospice. DCP met with daughter and patient bedside this morning to discuss. DCP explained to them what hospice services would look like and provided them with a brochure for [facility] the . Pt and pt daughter had many questions that DCP answered to the best of her ability. Pt and pt daughter states, I need to absorb this information and give you a call on the decision. DCP provided daughter with her direct contact line. DCP also asked about what other options would be available if [facility] were unable to take pt back on Hosp[facility] and the daughter states, The family will do whatever it takes to get her back to [facility], including paying more money for a caregiver and if needed, to switch to a bigger apartments room. Pt daughter states that she would not be able to take pt home at this time due to the structural barriers of her home. DCP to await pt decision regarding hospice. Pt and pt daughter to provide me with an update as soon as possible. MD to discuss with family as well during his visit with them. DCP to continue to follow Tamiko Hernandez RN/DCP
--- NOTE | 2021-10-01 11:28 | OT.IPNOTE ---
Hold for OT sridevial as pt still deciding whether to do comfort care.
[2021-10-01] MEDS: SCOPOLAMINE 1 PATCH TOP (12:33)
--- NOTE | 2021-10-01 13:37 | OT.IPNOTE ---
Pt deciding on hospice, therefore discharge OT eval orders.
[2021-10-01] MEDS: ACETAMINOPHEN 325 MG TABLET 650 MG PO (14:38)
[2021-10-01] MEDS: LORazepam 2 MG/ML ORAL SOL 1 MG PO (14:46)
--- NOTE | 2021-10-01 15:15 | PM.PN.1 ---
Subjective Subjective Date Patient Seen: 10/01/21 Interval history: After goals of care discussions yesterday, patient would like to proceed forward with comfort care measures. Care management now working for home with hospice. Exam Vital Signs (past 8 hours): - 10/01/21 09:40 Pulse Rate 94 H Blood Pressure 151/85 H Oxygen Delivery Method Room Air Oxygen Flow Rate 0 Narrative Exam Narrative: GEN: no acute distress, flat affect HEENT: moist mucous membranes, PERRL NECK: trachea midline, no JVD CV: regular rate and rhythm, no murmurs PULM: clear bilaterally ABD: soft, nontender, nondistended, no organomegaly EXT: warm and well perfused with no edema NEURO: awake, alert, oriented, no focal deficits Objective Labs Result Diagrams: 10/01/21 05:28 10/01/21 05:28 Labs: Laboratory Results - last 24 hr 10/01/21 10/01/21 10/01/21 05:28 05:28 05:28 WBC 9.2 RBC 4.02 Hgb 12.3 Hct 35.8 L MCV 88.9 MCH 30.5 MCHC 34.4 RDW 14.2 Plt Count 236 Neut % (Auto) 75.7 H Lymph % (Auto) 13.2 L [place] % (Auto) 8.8 Eos % (Auto) 1.9 L Baso % (Auto) 0.4 Neut # (Auto) 7000 Lymph # (Auto) 1200 [place] # (Auto) 800 Eos # (Auto) 200 Baso # (Auto) 0 Sodium 127 L Potassium 3.9 Chloride 95 L Carbon Dioxide 28 BUN 24 H Creatinine 0.58 Estimated GFR > 60 BUN/Creatinine Ratio 41.4 H Glucose 142 H Calcium 8.7 Phosphorus 3.8 Magnesium 1.5 L PFSH Medical History Abnormal Pap smear of cervix (~1970) Age-related osteoporosis without current pathological fracture Cellulitis (~2000) Cervical cancer (~1970) Chicken pox (~1951) Chronic anticoagulation Chronic insomnia Clostridium difficile infection (~12/11/02) Constipation, slow transit Depression (~1954) Depression, recurrent Elbow fracture, right (~2018) Essential hypertension Fractures (~2004) Frequent UTI (~2002) Headache Helicobacter pylori (H. pylori) (~10/18/11) History of low potassium (~2011) History of urinary incontinence (~1997) Loss of equilibrium (~07/30/04) Measles (~1953) Melanoma (~1996) Multiple sclerosis (~1975) Mumps (~1954) Nausea and vomiting Oral pain Partial blindness (~1991) Pulmonary embolism Shoulder fracture Shoulder pain (~2009) Surgical History Cataract (~2012) Fracture of clavicle (~10/19/09) Hammertoes of both feet (~12/15/09) History of discectomy (~2002) History of foot surgery (~03/26/09) History of hysterectomy (~07/1973) History of shoulder surgery History of tonsillectomy (~09/1962) Previous back surgery (~11/24/02) Status post laser cataract surgery of both eyes Ulcer (~12/29/02) Family History Mother Stroke History of heart disease Brother AIDS Father Stroke History of heart disease Brother History of heart disease Stroke Brother Hypertension Stroke Brother History of heart disease Brother History of heart disease Sister History of heart disease Stroke Social History household members: none Smoking Status: Never smoker alcohol intake: current Assessment & Plan Assessment & Plan narrative: # severe protein calorie malnutrition due to NV -diagnosed per inpatient uppers edge burnisher evaluation based on significant weight loss from poor po intake due to NV -after discussion among family, patient initially elected for TPN and rehab vs assisted living placement. However placement was difficult and after further goals of care discussion patient elected to stop TPN, plan for home with hospice. -PICC line placed on 09/29, can now be discontinued. -trial marinol for appetite stimulation and antiemetic effects -Zofran PRN for NV, will add ativan to see if improvement. # hypertensive urgency -increased home amlodipine to 5mg and started losartan 50mg daily, continue for now. # Acute hypokalemia -potassium 2.2 and magnesium 1.7 -likely secondary to poor po intake -will stop monitoring given goals of care. # weakness -secondary to malnutrition # QTC prolongation, acute -initial EKG QTC of 534, repeat of 409 -discontinue telemetry given goals of care. # anxiety -ativan intensol prn # h/o MRSA positive -contact precautions # h/o PE in early 2021 -continue home Xarelto # depression, chronic -continue home fluoxetine and gabapentin # GERD, chronic -continue home PPI Code status is DNR. COVID negative. DVT prophylaxis with Xarelto. Proxy is daughter Brinda. Dispo: pending home with hospice. Time Spent With Patient Critical Care time: I spent a total of [] minutes of critical care time on this patient's care today; this time is exclusive of procedural time. Quality VTE Deep Vein Thrombosis/Pulmonary Embolism Present on Admission: No
--- NOTE | 2021-10-01 18:35 | PC.NURSE ---
pt is on confort care and i tried to remove food tray son said (no). I tried to change brief at 5:45pm son said no please le my mom sleep.
--- NOTE | 2021-10-01 19:46 | PC.NURSE ---
Addendum entered by Verito Pritchett R.N. 10/01/21 22:48: Patient repositioned for comfort, brief checked and dry, purewick in place. Refused most of her medications. Denied pain/nausea. Reports she is comfortable. Call light within reach, agrees to call as needed. Will do safety checks on patient through the night. Original Note: I went in to check on patient and do assessment, son stated no, she's sleeping. Will assess patient at later time.
--- NOTE | 2021-10-02 08:22 | CM.DPC ---
DCP Cont: DCP spoke with Hospice this AM and were hopeful to see pt today @ [facility]. DCP explained that she has been unable to get ahold of Tonya @ [facility] to discuss transport and admission back. Hospice states that they have her on the schedule for but if anything opens sooner, that they would let DCP know. DCP goal is to have patient back @ [facility] on Sunday if Tonya agrees as she wants hospice to come and assess the pt within 1-2 days of getting back to [facility]. DCP to continue to work on this case. Tamiko Hernandez RN/DCP
[2021-10-02 10:10] VITALS: BP 159/91; PULSE 87; O2SAT 96
[2021-10-02] MEDS: METOCLOPRAMIDE 10 MG/2 ML INJ IV (13:44)
--- NOTE | 2021-10-02 15:29 | PC.NURSE ---
Pt has been very withdrawn today, refusing meds, food and not participating in her ADLs. Pt has been agreeable to occasional repositioning and incontinence cleaning.
[2021-10-02] MEDS: fentaNYL 12 MCG/PATCH TOP (15:57)
--- NOTE | 2021-10-02 16:08 | P.PN_ITS ---
Subjective Subjective Date Patient Seen: 10/02/21 Interval history: Continues to have chronic pain and nausea, slightly improved today and she was able to tolerate some oral intake, though still quite minimal. Exam Vital Signs (past 8 hours): - 10/02/21 10:10 Pulse Rate 87 Blood Pressure 159/91 H Pulse Oximetry 96 Oxygen Flow Rate 0 Oxygen Delivery Method Room Air Oxygen Flow Rate 0 Narrative Exam Narrative: GEN: no acute distress, flat affect HEENT: moist mucous membranes, PERRL NECK: trachea midline, no JVD CV: regular rate and rhythm, no murmurs PULM: clear bilaterally ABD: soft, nontender, nondistended, no organomegaly EXT: warm and well perfused with no edema NEURO: awake, alert, oriented, no focal deficits Objective Labs Result Diagrams: 10/01/21 05:28 10/01/21 05:28 [facility] Medical History Abnormal Pap smear of cervix (~1970) Age-related osteoporosis without current pathological fracture Cellulitis (~2000) Cervical cancer (~1970) Chicken pox (~1951) Chronic anticoagulation Chronic insomnia Clostridium difficile infection (~12/11/02) Constipation, slow transit Depression (~1954) Depression, recurrent Elbow fracture, right (~2017) Essential hypertension Fractures (~2004) Frequent UTI (~2002) Headache Helicobacter pylori (H. pylori) (~10/18/11) History of low potassium (~2011) History of urinary incontinence (~1997) Loss of equilibrium (~07/30/04) Measles (~1953) Melanoma (~1996) Multiple sclerosis (~1975) Mumps (~1954) Nausea and vomiting Oral pain Partial blindness (~1991) Pulmonary embolism Shoulder fracture Shoulder pain (~2009) Surgical History Cataract (~2012) Fracture of clavicle (~10/19/09) Hammertoes of both feet (~12/15/09) History of discectomy (~2002) History of foot surgery (~03/26/09) History of hysterectomy (~07/1973) History of shoulder surgery History of tonsillectomy (~09/1962) Previous back surgery (~11/24/02) Status post laser cataract surgery of both eyes Ulcer (~12/29/02) Family History Mother Stroke History of heart disease Brother AIDS Father Stroke History of heart disease Brother History of heart disease Stroke Brother Hypertension Stroke Brother History of heart disease Brother History of heart disease Sister History of heart disease Stroke Social History household members: none Smoking Status: Never smoker alcohol intake: current Assessment & Plan Assessment & Plan narrative: # severe protein calorie malnutrition due to NV -diagnosed 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 However placement was difficult and after further goals of care discussion patient elected to stop TPN, plan for home with hospice. -PICC line placed on 09/29, now discontinued. -trial marinol for appetite stimulation and antiemetic effects -Zofran PRN for NV, will add ativan to see if improvement. # hypertensive urgency -increased home amlodipine to 5mg and started losartan 50mg daily, continue for now. # Acute hypokalemia -potassium 2.2 and magnesium 1.7 -likely secondary to poor po intake -will stop monitoring given goals of care. # weakness -secondary to malnutrition # QTC prolongation, acute -initial EKG QTC of 534, repeat of 409 -discontinue telemetry given goals of care. # anxiety -ativan intensol prn # h/o MRSA positive -contact precautions # h/o PE in early 2021 -continue home Xarelto # depression, chronic -continue home fluoxetine and gabapentin # GERD, chronic -continue home PPI Code status is DNR. COVID negative. DVT prophylaxis with Xarelto. Proxy is daughter Brinda. Dispo: pending home with hospice, hopefully tomorrow. Time Spent With Patient Critical Care time: I spent a total of [] minutes of critical care time on this patient's care today; this time is exclusive of procedural time. Quality VTE Deep Vein Thrombosis/Pulmonary Embolism Present on Admission: No
[2021-10-02] MEDS: LORazepam 2 MG/ML ORAL SOL 1 MG PO ×2 (17:02→20:35)
--- NOTE | 2021-10-02 17:12 | PC.NURSE ---
Pt arrived to room 206 at approx. 1600. Pt chest tube set to suction and draining small amt of serosanguinous drainage. Chest tube insertion site leaking serosanguinous drainage onto pt's gown and bed, so redressed with multiple 4x4 cut to fit around tube under coversite dressing cut to fit under large tegaderm. Pt tollerated well.
[2021-10-03] MEDS: LORazepam 2 MG/ML ORAL SOL 1 MG PO (10:04)
--- NOTE | 2021-10-03 11:03 | PC.NURSE ---
Addendum entered by Brittni Shanks R.N. 10/03/21 16:28: Patient is resting very comfortably after morphine 10mg given. She also has a fentanyl patch in place, and received some ativan earlier for nausea. Before morphine given, patients pain level was an 8/10. She is breathing appropriately and respirations are wnl. Daughter and Son in room visiting. Addendum entered by Brittni Shanks R.N. 10/03/21 11:40: Patient just given liquid morphine for discomfort to legs and face (nose area). Patient is lying on her back, and does not want to be repositioned much. We will check bottom dressing after a bit. Nausea seems to be improving after ativan given. Original Note: Patient given ativan liquid for complaints of nausea. She does not want to take her po medication at this time. Patient is on comfort care. She is lying supine, patients voice is hoarse and she talks quiet. She denies pain right at this time. Visiting with her daughter and son. Voices no needs at this time.
[2021-10-03] MEDS: MORPHINE 10 MG/0.5 ML ORAL SYRINGE PO (11:20)
--- NOTE | 2021-10-03 12:49 | CM.DPC ---
Addendum entered by Tamiko Hernandez R.N. 10/03/21 14:27: Spoke with daughter, Brinda, this afternoon to provide update on pt status with transporting back to [facility]. Brinda verbalized to DCP that the family is more than willing to pay for private caregiver to help supplement until Hospice takes over but after speaking to provider, Brinda states that he does not see why pt would need that. Brinda also stated that pt PCP, Dr. Cristina, told her over the phone that they would be more than willing to be puff ironer for patient until Hospice takes over. Brinda states that she has spoken with Tonya but unfortunately, has not been able to get a positive response on moving forward with transporting back. Pt daughter requesting ambulance transport when able to get her back to [facility]. DCP to continue to work on this case as pt is medically cleared for discharge. ADJ Original Note: DCP Cont: DCP spoke with Tonya this morning to discuss plan for pt. Tonya states that due to Hospice not being able to see pt until , they would not be able to take pt back until the day before or the day of hospice. Tonya states that she needs to speak to her Regional team to see when they could accept pt back. DCP spoke with Hospice this morning and they cannot accommadate the request to see patient sooner than . Call was placed to TYL[facility] Feliciano [facility] TOMER to continue to follow. Tamiko Hernandez RN/TOMER
--- NOTE | 2021-10-03 13:20 | P.PN_ITS ---
Subjective Subjective Date Patient Seen: 10/03/21 Interval history: Patient still continues to have nausea, minimal pain. Somnolent today and very soft spoken. Cannot return to [facility] until hospice opens on per case management. Exam Vital Signs (past 8 hours): Oxygen Delivery Method Room Air Oxygen Flow Rate 0 Narrative Exam Narrative: GEN: no acute distress, flat affect, very soft spoken HEENT: moist mucous membranes, PERRL NECK: trachea midline, no JVD CV: regular rate and rhythm, no murmurs PULM: clear bilaterally but poor effort ABD: soft, nontender, nondistended, no organomegaly EXT: warm and well perfused with no edema NEURO: awake, alert,no focal deficits Objective Labs Result Diagrams: 10/01/21 05:28 10/01/21 05:28 [facility] Medical History Abnormal Pap smear of cervix (~1970) Age-related osteoporosis without current pathological fracture Cellulitis (~2000) Cervical cancer (~1970) Chicken pox (~1951) Chronic anticoagulation Chronic insomnia Clostridium difficile infection (~12/11/02) Constipation, slow transit Depression (~1954) Depression, recurrent Elbow fracture, right (~2017) Essential hypertension Fractures (~2004) Frequent UTI (~2002) Headache Helicobacter pylori (H. pylori) (~10/18/11) History of low potassium (~2011) History of urinary incontinence (~1997) Loss of equilibrium (~07/30/04) Measles (~1953) Melanoma (~1996) Multiple sclerosis (~1975) Mumps (~1954) Nausea and vomiting Oral pain Partial blindness (~1991) Pulmonary embolism Shoulder fracture Shoulder pain (~2009) Surgical History Cataract (~2012) Fracture of clavicle (~10/19/09) Hammertoes of both feet (~12/15/09) History of discectomy (~2002) History of foot surgery (~03/26/09) History of hysterectomy (~07/1973) History of shoulder surgery History of tonsillectomy (~09/1962) Previous back surgery (~11/24/02) Status post laser cataract surgery of both eyes Ulcer (~12/29/02) Family History Mother Stroke History of heart disease Brother AIDS Father Stroke History of heart disease Brother History of heart disease Stroke Brother Hypertension Stroke Brother History of heart disease Brother History of heart disease Sister History of heart disease Stroke Social History household members: none Smoking Status: Never smoker alcohol intake: current Assessment & Plan Assessment & Plan narrative: # severe protein calorie malnutrition due to NV -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 However placement was difficult and after further goals of care discussion patient elected to stop TPN, plan for home with hospice. -PICC line placed on 09/29, now discontinued after goals of care. -trial marinol for appetite stimulation and antiemetic effects -Zofran PRN for NV, added ativan which helped initially but no longer helping she states. # hypertensive urgency -increased home amlodipine to 5mg and started losartan 50mg daily, continue for now. # Acute hypokalemia -potassium 2.2 and magnesium 1.7 -likely secondary to poor po intake -stopped monitoring given goals of care. # weakness -secondary to malnutrition # QTC prolongation, acute -initial EKG QTC of 534, repeat of 409 -discontinue telemetry given goals of care. # anxiety -ativan intensol prn # h/o MRSA positive -contact precautions # h/o PE in early 2021 -continue home Xarelto # depression, chronic -continue home fluoxetine and gabapentin # GERD, chronic -continue home PPI Code status is DNR. COVID negative. DVT prophylaxis with Xarelto. Proxy is daughter Brinda. Dispo: pending home with hospice, trying to expedite hospice opening, but currently planned for . Time Spent With Patient Critical Care time: I spent a total of [] minutes of critical care time on this patient's care today; this time is exclusive of procedural time. Quality VTE Deep Vein Thrombosis/Pulmonary Embolism Present on Admission: No
[2021-10-03 17:50] VITALS: BP 146/86; PULSE 87; RESP 14; TEMP 36.6; O2SAT 97
--- NOTE | 2021-10-03 18:36 | PC.NURSE ---
Changed luma at 17:45
[2021-10-03] MEDS: buPROPion SR 150 MG TAB PO (21:52)
[2021-10-03] MEDS: DOCUSATE 100 MG CAPSULE PO (21:52)
[2021-10-03] MEDS: FLUoxetine 20 MG CAPSULE PO (21:52)
[2021-10-04 08:19] VITALS: BP 146/76; PULSE 91; RESP 14; TEMP 36.1; O2SAT 95
--- NOTE | 2021-10-04 10:26 | PC.NURSE ---
Addendum entered by Brittni Shanks R.N. 10/04/21 18:43: Patient is resting quietly and denies pain or nausea. Resting and son in room. Addendum entered by Brittni Shanks R.N. 10/04/21 18:04: Patient seems to be comfortable. She was stating that she had a small amount of pain but did not want pain medications at this time. Daughter and son in room with patient. Original Note: Assess- Patient is alert and oriented x4, she has been turned on her r.side. Pure Wick in place and patient has yellow urine in canister. She denies pain or nausea. Patient may be transferred back home later today.
--- NOTE | 2021-10-04 11:12 | CM.DPNOTE ---
Called [facility] per Margie for 1000 pickup tomorrow 10/05 to go to [facility]. Sq. Spoke to Reuben. Inocencia Da Silva CM Assist.
--- NOTE | 2021-10-04 11:42 | CM.DPC ---
DCP Cont: Per MD, pt remains stable on Comfort Measures. MARTHA called [facility] and confirmed time for admit changed and will now be 10/06/21 between [id number] at [facility] and Delia at [facility] called family and confirmed right now they do not need any DME to be delivered. MARTHA called Tonya at [facility] and updated on time of [facility] can open and confirmed pt to d/c back to their facility tomorrow Sun10/05/21 with [facility] to open the next day on 10/06/21. SW called Dtr/DPADALID Parry and updated on above and she confirms that she is aware of the plan and agreeable and confirms her preference is BLS transport back to [facility] and aware documentation will be provided to show need but change Medicare may not fully cover transport and this is still her preferred method of transport. BLS form completed. EMIGDIO Inocencia kindly called [facility] and scheduled for 1000 tomorrow 10/05/21 and SW updated MD and Dtr and [facility]. Plan: SW to follow closely for plan of d/c back to [facility] tomorrow 10/05 via [facility] at 1000 and [facility] to open the following day 10/06/21 between [id number]. KIRSTEN Krishna
--- NOTE | 2021-10-04 17:10 | P.PN_ITS ---
Subjective Subjective Date Patient Seen: 10/04/21 Interval history: Patient still continues to have nausea, minimal pain. Somnolent today and very soft spoken. May be able to return to [facility] tomorrow. Exam Vital Signs (past 8 hours): Oxygen Delivery Method Room Air Oxygen Flow Rate 0 Narrative Exam Narrative: GEN: no acute distress, flat affect, very soft spoken HEENT: moist mucous membranes, PERRL NECK: trachea midline, no JVD CV: regular rate and rhythm, no murmurs PULM: clear bilaterally but poor effort ABD: soft, nontender, nondistended, no organomegaly EXT: warm and well perfused with no edema NEURO: awake, alert,no focal deficits Objective Labs Result Diagrams: 10/01/21 05:28 10/01/21 05:28 [facility] Medical History Abnormal Pap smear of cervix (~1970) Age-related osteoporosis without current pathological fracture Cellulitis (~2000) Cervical cancer (~1970) Chicken pox (~1951) Chronic anticoagulation Chronic insomnia Clostridium difficile infection (~12/11/02) Constipation, slow transit Depression (~1954) Depression, recurrent Elbow fracture, right (~2017) Essential hypertension Fractures (~2004) Frequent UTI (~2002) Headache Helicobacter pylori (H. pylori) (~10/18/11) History of low potassium (~2011) History of urinary incontinence (~1997) Loss of equilibrium (~07/30/04) Measles (~1953) Melanoma (~1996) Multiple sclerosis (~1975) Mumps (~1954) Nausea and vomiting Oral pain Partial blindness (~1991) Pulmonary embolism Shoulder fracture Shoulder pain (~2009) Surgical History Cataract (~2012) Fracture of clavicle (~10/19/09) Hammertoes of both feet (~12/15/09) History of discectomy (~2002) History of foot surgery (~03/26/09) History of hysterectomy (~07/1973) History of shoulder surgery History of tonsillectomy (~09/1962) Previous back surgery (~11/24/02) Status post laser cataract surgery of both eyes Ulcer (~12/29/02) Family History Mother Stroke History of heart disease Brother AIDS Father Stroke History of heart disease Brother History of heart disease Stroke Brother Hypertension Stroke Brother History of heart disease Brother History of heart disease Sister History of heart disease Stroke Social History household members: none Smoking Status: Never smoker alcohol intake: current Assessment & Plan Assessment & Plan narrative: # severe protein calorie malnutrition due to NV -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 However placement was difficult and after further goals of care discussion patient elected to stop TPN, plan for home with hospice. -PICC line placed on 09/29, now discontinued after goals of care. -trial marinol for appetite stimulation and antiemetic effects -Zofran PRN for NV, added ativan which helped initially but no longer helping she states. # hypertensive urgency -increased home amlodipine to 5mg and started losartan 50mg daily, continue for now. # Acute hypokalemia -potassium 2.2 and magnesium 1.7 -likely secondary to poor po intake -stopped monitoring given goals of care. # weakness -secondary to malnutrition # QTC prolongation, acute -initial EKG QTC of 534, repeat of 409 -discontinue telemetry given goals of care. # anxiety -ativan intensol prn # h/o MRSA positive -contact precautions # h/o PE in early 2021 -continue home Xarelto # depression, chronic -continue home fluoxetine and gabapentin # GERD, chronic -continue home PPI Code status is DNR. COVID negative. DVT prophylaxis with Xarelto. Proxy is daughter Brinda. Dispo: pending home with hospice, may be able to discharge tomorrow. Time Spent With Patient Critical Care time: I spent a total of [] minutes of critical care time on this patient's care today; this time is exclusive of procedural time. Quality VTE Deep Vein Thrombosis/Pulmonary Embolism Present on Admission: No
[2021-10-04] MEDS: DOCUSATE 100 MG CAPSULE PO (21:28)
[2021-10-04] MEDS: TRAZODONE 50 MG TABLET 25 MG PO (21:28)
[2021-10-04] MEDS: SENNOSIDES 8.6 MG TABLET PO (21:28)
[2021-10-04] MEDS: FLUoxetine 20 MG CAPSULE PO (21:28)
[2021-10-04] MEDS: buPROPion SR 150 MG TAB PO (21:28)
[2021-10-05 08:00] VITALS: BP 133/77; PULSE 88; RESP 14; TEMP 36.3; O2SAT 95
--- NOTE | 2021-10-05 08:15 | PM.DS.1 ---
History of Present Illness History of Present Illness Date Patient Seen: 10/05/21 Chief complaint: Headache Narrative: Per Dr. Paniagua, Dayami Disla is a 75 y.o. female with a PMH of recent pulmonary embolism on [place], [place], frequent falls, osteoporosis, recent closed fracture of the pubic ramus, recently admitted x2 to [facility] for recurrent NV who presents today with headache, hypertensive urgency and hypokalemia. Patient had a K of 2.2 and in the ED was having runs of V. tach. BP was 217/119 and patient noted a headache with this. Upon entering the room, patient's son and daughter were present at bedside. Patient states she just wants to feel better. Is mainly being obtained from family who state that since leaving the hospital last time she has had poor p.o. intake and weakness. This has led to her low potassium and high blood pressure from not taking her potassium supplements or blood pressure pills. Patient states she is in no pain. Currently tolerating crackers fine. Blood pressure side is now 150 systolic. She denies, shortness of breath, current headache, abdominal pain, or diarrhea. Discharge Providers Provider Date of admission: 09/28/21 11:24 Discharge Date: 10/05/21 Primary care physician: Carlos Cristina MD Consults: 09/28/21 11:18 Consult to SUPERVISOR RECEIVING AND PROCESSING - Trauma Surgeon Stat Comment: Hospice 09/29/21 09:18 Consult to Inpatient Wound Care Nurse Routine Comment: Reason for consultation: IAD 09/29/21 14:09 Consult to Occupational Therapy Evaluate & Treat Comment: Physician Instructions: Evaluate and treat Consult to Physical Therapy Evaluate & Treat Comment: Physician Instructions: Evaluate and Treat 10/01/21 12:14 Consult to Hospice Referral Urgent Comment: Discharge provider: Edmond Gutiérrez DO Summary Hospital Course Discharge Diagnosis: Please see hospital course by problem list noted below Hospital Course: # 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 She has had multiple prior evalutions without obvious cause. May related to chronic multiple sclerosis, however unclear etiology. -after discussion among family, patient initially elected for TPN and rehab vs assisted living placement. However placement was difficult and after further goals of care discussion patient elected to stop TPN, plan for home with hospice. PEG tube was also discussed. -PICC line placed on 09/29, then discontinued after goals of care. -marinol was attempted without relief. -continue antinauseal medications, ativan had the most relief, and can be given SL -patient ultimately discharged home to [facility] with plan for hospice to open tomorrow. # hypertensive urgency -increased home amlodipine to 5mg and started losartan 50mg daily, continued until patient started refusing most medications. # Acute hypokalemia -potassium 2.2 and magnesium 1.7, were repleted initially. -secondary to poor po intake -stopped monitoring given goals of care. # weakness -secondary to malnutrition and deconditioning described above. # QTC prolongation, acute -initial EKG QTC of 534, repeat of 409 -discontinued telemetry given goals of care. # anxiety -ativan intensol prn as noted above. # h/o PE in early 2021 -continue home Xarelto # depression, chronic -can continue home fluoxetine and gabapentin # GERD, chronic -continue home PPI if desired with goals of care. Time Spent with Patient Time spent: Greater than 30 minutes Exam Vital Signs (past 8 hours): - 10/05/21 08:00 Temperature 97.4 F L Pulse Rate 88 Respiratory Rate 14 Blood Pressure 133/77 Pulse Oximetry 95 Oxygen Flow Rate 0 Oxygen Delivery Method Room Air Oxygen Flow Rate 0 Narrative Exam Narrative: GEN: no acute distress, flat affect, very soft spoken HEENT: moist mucous membranes, PERRL NECK: trachea midline, no JVD CV: regular rate and rhythm, no murmurs PULM: clear bilaterally but poor effort ABD: soft, nontender, nondistended, no organomegaly EXT: warm and well perfused with no edema NEURO: awake, alert,no focal deficits Objective Labs Result Diagrams: 10/01/21 05:28 10/01/21 05:28 [facility] Medical History Abnormal Pap smear of cervix (~1970) Age-related osteoporosis without current pathological fracture Cellulitis (~2000) Cervical cancer (~1970) Chicken pox (~1951) Chronic anticoagulation Chronic insomnia Clostridium difficile infection (~12/11/02) Constipation, slow transit Depression (~1954) Depression, recurrent Elbow fracture, right (~2017) Essential hypertension Fractures (~2004) Frequent UTI (~2002) Headache Helicobacter pylori (H. pylori) (~10/18/11) History of low potassium (~2011) History of urinary incontinence (~1997) Loss of equilibrium (~07/30/04) Measles (~1953) Melanoma (~1996) Multiple sclerosis (~1975) Mumps (~1954) Nausea and vomiting Oral pain Partial blindness (~1991) Pulmonary embolism Shoulder fracture Shoulder pain (~2009) Surgical History Cataract (~2012) Fracture of clavicle (~10/19/09) Hammertoes of both feet (~12/15/09) History of discectomy (~2002) History of foot surgery (~03/26/09) History of hysterectomy (~07/1973) History of shoulder surgery History of tonsillectomy (~09/1962) Previous back surgery (~11/24/02) Status post laser cataract surgery of both eyes Ulcer (~12/29/02) Family History Mother Stroke History of heart disease Brother AIDS Father Stroke History of heart disease Brother History of heart disease Stroke Brother Hypertension Stroke Brother History of heart disease Brother History of heart disease Sister History of heart disease Stroke Social History household members: none Smoking Status: Never smoker alcohol intake: current Discharge Plan Discharge Plan Patient Disposition: Hospice - Home Provider Discharge Comment: Patient was admitted to the hospital with recurrent nausea and decreased appetite. Elects for discharge home with hospice and comfort care. All medications noted below are as patient desires given her goals of care. Discharge orders & Medications Prescriptions: New lorazepam [Lorazepam Intensol] 2 mg/mL Concentrate 1 mg PO Q1HR PRN (Reason: nausea) 7 Days Qty: 30 0RF fentanyl 12 mcg/hr Patch 72 Hour 12 mcg topical Q72H 15 Days Qty: 5 0RF morphine concentrate 10 mg/0.5 mL Syringe 10 mg PO Q1H PRN (Reason: Pain/Dyspnea) 30 Days Qty: 50 0RF scopolamine base [Transderm-Scop] 1 mg over 3 days Patch 3 Day 1 patch topical Q72H PRN (Reason: Secretions) 30 Days Qty: 10 0RF Continued docusate sodium 100 mg capsule 100 mg PO BID PRN (Reason: constipation) Qty: 20 3RF Xarelto 20 mg tablet 20 mg PO DAILY Label Comments: TAKE 1 TABLET BY MOUTH DAILY fluoxetine 20 mg capsule 20 mg PO TID Qty: 270 3RF cholecalciferol (vitamin D3) 125 mcg (5,000 unit) capsule 125 mcg PO DAILY trazodone 50 mg tablet 25 mg PO BEDTIME PRN (Reason: insomnia) Qty: 15 5RF bupropion HCl 150 mg tablet sustained-release 12 hr 150 mg PO BID Qty: 60 5RF pantoprazole 40 mg Tablet,Delayed Release (Dr/Ec) 40 mg PO QAM 30 Days Qty: 30 0RF polyethylene glycol 3350 17 gram Powder In Packet 17 gm PO BID 30 Days Qty: 30 3RF ondansetron 4 mg tablet,disintegrating 4 mg PO TID-QID PRN (Reason: nausea and vomiting) Qty: 30 3RF potassium chloride 10 mEq capsule, extended release 20 meq PO DAILY Qty: 30 3RF Changed senna 8.6 mg capsule 8.6 mg PO BID PRN (Reason: Constipation) Qty: 30 3RF Discontinued amlodipine 2.5 mg tablet 2.5 mg PO DAILY Qty: 90 3RF Rx Instructions: Hold for SBP below 110 or HR below 60 naltrexone 50 mg tablet See Rx Instructions PO DAILY Qty: 20 3RF Rx Instructions: 3.5mg orally at bedtime; Follow up/Referrals: Carlos Cristina MD [Primary Care Provider] - Diet/Activity/Treatments Diet: Diet as Tolerated Activity: As tolerated Discharge Data Primary Care Provider: Carlos Cristina V Quality VTE Deep Vein Thrombosis/Pulmonary Embolism Present on Admission: No
--- NOTE | 2021-10-05 10:37 | CM.DPC ---
DCP Discharge with Hospice Per MD, pt remains stable for d/c to [facility] today with home hospice meds while awaiting [facility] to open tomorrow. [facility] faxed [facility] pt's signed med list, scripts, and d/c summary to review as they were anticipating her d/c today. [facility]ed [facility] pt's d/c packet to review towards opening pt to service tomorrow 10/06/21 between [id number]. [facility] updated RN and arson and bomb investigator on BLS transport via [facility] today at 1000. Plan: Patient to d/c back to [facility] today at 1000 via [facility] and [facility] to open tomorrow. KIRSTEN Krishna
== END 2021-10-05 10:15 | disposition hospice, home (50) | DRG 640 ==
LOC: ED 11:17 → AC 11:53
PROVIDERS: Admitting Provider Student in an Organized Health Care Education/Training Program; Emergency Provider Emergency Medicine; PCP Internal Medicine; Referring Provider Emergency Medicine; Visit Provider Student in an Organized Health Care Education/Training Program
DX: E87.6 Hypokalemia (principal); E43 Unspecified severe protein-calorie malnutrition; I47.2 Ventricular tachycardia; I16.0 Hypertensive urgency; R11.2 Nausea with vomiting, unspecified; G35 Multiple sclerosis; F41.9 Anxiety disorder, unspecified; F32.9 Major depressive disorder, single episode, unspecified; K21.9 Gastro-esophageal reflux disease without esophagitis; R94.31 Abnormal electrocardiogram [ECG] [EKG]; Z91.81 History of falling; Z20.822 Contact with and (suspected) exposure to COVID-19; Z86.711 Personal history of pulmonary embolism; Z79.01 Long term (current) use of anticoagulants; Z68.20 Body mass index [BMI] 20.0-20.9, adult; Z66 Do not resuscitate; Z51.5 Encounter for palliative care
CPT/HCPCS: 36415; 36569; 71045; 80048; 80053; 82550; 82962; 83690; 83735; 84100; 84132; 84134; 84478; 84484; 85025; 85610; 87635; 93005; 96365; 96375; 99284; C9803; B4185; B4189; J1642; J2270; J2405; J2765; J3360; J3475; J3480